=== PATIENT | male | born 1960 | race Caucasian/White ===

== ENCOUNTER 2020-03-23 12:04 | Emergency (ER) | payer MEDICARE, MEDICAID, SELFPAY ==
--- NOTE | ~2020-03-23 | XR_ITS ---
EXAMINATION: XR chest 2V 03/23/2020 12:41 INDICATION: Chest tightness and left-sided chest pain PROCEDURE: 2 view chest COMPARISON: Comparison to multiple prior studies sequentially, with oldest reviewed study dated 12/04. FINDINGS: The lungs are clear. The cardiomediastinal silhouette is within normal limits. There are no pleural effusions. There is no pneumothorax suspected. IMPRESSION: 1: NO ACUTE CARDIOPULMONARY DISEASE. Reviewed, dictated and finalized at location B. 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
[2020-03-23 12:10] VITALS: BP 122/87; PULSE 80; PULSE 81; RESP 14; TEMP 37.1; O2SAT 92
--- NOTE | 2020-03-23 12:15 | ECG_ITS ---
Measurements Intervals [place] Rate: 77 P: 71 IA: 138 QRS: 79 QRSD: 91 T: 71 QT: 351 QTc: 399 Interpretive Statements SINUS RHYTHM INCOMPLETE RIGHT BUNDLE BRANCH BLOCK BASELINE ARTIFACT- I, II, III, AVR, AVL, AVF BORDERLINE ECG Electronically Signed On 03-23-2020 13:31:39 ASSISTANCE SPECIALIST by Royer Butler D.O.
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
[2020-03-23 12:34] LABS: Basophils Absolute Auto 0.07 K/mm3 (0.00-0.10); Basophils Percent Auto 0.8 % (0.0-1.0); Eosinophils Absolute Auto 0.25 K/mm3 (0.02-0.50); Eosinophils Percent Auto 2.7 % (1.0-6.0); Hematocrit 52.1 % (40.0-54.0); Hemoglobin 17.5 g/dL (14.0-18.0); Immature Granulocyte Absolute 0.03 K/mm3 (0.00-0.00); Immature Granulocyte Percent A 0.3 % (0.0-0.0); Lymphocytes Absolute Auto 2.33 K/mm3 (1.10-4.50); Lymphocytes Percent Auto 25.3 % (18.0-42.0); Mean Corpuscular HGB Conc 33.6 g/dL (32.0-36.0); Mean Corpuscular Hemoglobin 30.5 pg (27.0-31.0); Mean Corpuscular Volume 90.8 fL (78.0-102.0); Mean Platelet Volume 9.5 fl (8.7-11.0); Monocytes Absolute Auto 0.65 K/mm3 (0.10-0.90); Monocytes Percent Auto 7.1 % (2.0-11.0); Neutrophils Absolute Auto 5.9 K/mm3 (1.7-7.2); Neutrophils Percent Auto 63.8 % (50.0-70.0); Platelet Count Result 213 K/mm3 (150-420); Red Blood Count 5.74 M/mm3 (4.70-6.10); Red Cell Distribution Width 12.4 % (11.6-14.4); White Blood Count 9.2 K/mm3 (4.8-10.8)
[2020-03-23] MEDS: ASPIRIN 81 MG CHEWABLE TABLET 324 MG PO (12:45)
[2020-03-23 12:49] LABS: D Dimer 0.46 mg/L (0.19-0.50); Partial Thromboplastin Time 25.9 SEC (23.90-30.70); Prothrombin Time 10.9 Seconds (9.50-12.10)
[2020-03-23 12:55] LABS: Alanine Aminotransferase 38 U/L (16-63); Albumin Level 3.8 g/dL (3.4-5.0); Alkaline Phosphatase 56 U/L (46-116); Anion Gap 9 mmol/L (8-16); Aspartate Amino Transferase 22 U/L (15-37); Bilirubin,Total 0.5 mg/dL (0.00-1.00); Blood Urea Nitrogen 12 mg/dL (7-18); Calcium 9.2 mg/dL (8.5-10.1); Carbon Dioxide 28 mmol/L (21-32); Chloride 101 mmol/L (98-108); Estimated CRCL calculation 86 ml/min; Estimated Glomerular Filt Rate > 60; Glucose 97 mg/dL (70-99); Lipase 73 U/L (73-393); Osmolality Calculated 285 mOsm/kg (285-295); Potassium 4.3 mmol/L (3.5-5.1); Sodium 138 mmol/L (136-145); Total Protein 8.1 g/dL (6.4-8.2)
[2020-03-23 12:56] LABS: Troponin I < 0.02 ng/mL (0.00-0.056)
[2020-03-23] MEDS: MAG HYDROX/ALUMINUM HYD/SIMETH 30 ML, PHENobarb/HYOSCY/ATROPINE/SCOP 32.4 MG, LIDOCAINE... PO (12:58)
[2020-03-23] MEDS: NITROGLYCERIN SL 0.4 MG TABLET SUBLINGUAL (13:20)
--- NOTE | 2020-03-23 13:41 | PC.NURSE ---
1340 RN REQUESTING ER HOLD ROOM FROM [facility]. AWAITING CALL BACK.
--- NOTE | 2020-03-23 13:53 | PC.NURSE ---
DUE TO LIMITED 2ND FLOOR ROOMS, PT WILL STAY IN ED ROOM 3 WHILE AWAITING SERIAL CARDIAC ENZYMES. FLOOR BED PROVIDED FOR PATIENTS COMFORT.
[2020-03-23 16:24] LABS: Troponin I < 0.0 ng/L (0.00-60.4)
[2020-03-23 18:38] LABS: Add Urine Microscopic? YES; Appearance Urine Clear (Clear); Bilirubin Urine Negative (Negative); Blood Urine Negative (Negative); Color Urine Yellow (Yellow); Glucose Urine UA Negative (Negative); Ketones Urine Negative (Negative); Leukocyte Esterase Ur Trace LEU/UL (Negative); Nitrate Urine Negative (Negative); Protein Urine Negative (Negative); Specific Grav Ur 1.025 (1.010-1.020); Urobilinogen Urine 0.2 mg/dL (0.2-1.0)
[2020-03-23 18:46] LABS: Bacteria Urine Trace /hpf; RBC Urine 0-2 /hpf (0-2); Squamous Epithelial Cell Urine Few /hpf (Few)
[2020-03-23 18:50] LABS: Troponin I < 0.0 ng/L (0.00-60.4)
[2020-03-23] MEDS: ALBUTEROL SULFATE (*SP) INHALER 2 PUFF INHALATION (18:55)
[2020-03-23 18:56] VITALS: RESP 16
[2020-03-23 18:59] VITALS: RESP 16
[2020-03-23 19:00] VITALS: BP 124/78; PULSE 60; RESP 19; O2SAT 91
== END 2020-03-23 19:15 | disposition home or self-care (01) ==
PROVIDERS: Emergency Provider Emergency Medicine; PCP Nurse Practitioner
DX: R07.9 Chest pain, unspecified (principal)
CPT/HCPCS: 36415; 71046; 80053; 81001; 83690; 84484; 85025; 85380; 85610; 85730; 93005; 94640; 99283; 99284; A9270

== ENCOUNTER 2021-09-27 17:14 | Emergency (ER) | payer OTHER, SELFPAY ==
[2021-09-27] VITALS (9 sets, daily range): BP systolic 110–136; BP diastolic 76–93; PULSE 70–87; RESP 12–18; TEMP 36–36.6; O2SAT 92–98
--- NOTE | ~2021-09-27 | XR_ITS ---
EXAMINATION: XR chest 1V portable 09/27/2021 17:49 INDICATION: Shortness of breath PROCEDURE: AP portable chest COMPARISON: Comparison to multiple prior studies sequentially, with oldest reviewed study dated 08/2016. FINDINGS: The lungs are clear. The cardiomediastinal silhouette is within normal limits. There are no pleural effusions. There is no pneumothorax suspected. IMPRESSION: 1: NO ACUTE CARDIOPULMONARY DISEASE. Reviewed, dictated and finalized at location B.
--- NOTE | ~2021-09-27 | CT_ITS ---
EXAMINATION: CTA chest PE protocol DATE: 09/27/2021 19:26 INDICATION: Chest pain and shortness of breath. TECHNIQUE: Computed tomography angiography (CTA) of the chest was performed with 100 mL Omnipaque-350 intravenous contrast timed to evaluate the pulmonary arteries. Coronal maximum intensity projection 3D-reconstructions were created by the technologist. Automated exposure control and iterative reconst ruction technique were employed. The dose-length product was 895.61 mGy-cm. COMPARISON: Chest CT 03/28/2017, 02/03/2017 FINDINGS: There is mild symmetric scarring at the lung apices. There is minimal atelectasis bilateral ly. Again seen is a 6 mm nodule in right lower lobe. There are calcified pleural plaques on the right . There is a chronic 4 mm nodule in left upper lobe. No pleural effusion. There is bilateral gynecoma stia. The heart size is normal. No pericardial effusion. There is no pulmonary embolus. There is diff use hepatic steatosis. There is a 14 mm mass in left adrenal gland measuring soft tissue attenuation without change from 02/03/2017, likely an adenoma. There is mild thoracic spondylosis. There are frac tures of posterior left 10th and 11th ribs. IMPRESSION: 1. No pulmonary embolus. 2. Fractures of posterior left 10th and 11th ribs, likely subacute. Reviewed, dictated and finalized at location E.
--- NOTE | 2021-09-27 17:27 | ED.CHESTPAIN ---
HPI - Chest Pain General Chief Complaint: Chest Pain Stated Complaint: chest pain,dizzy Time Seen by Provider: 09/27/21 17:28 Source: patient Mode of arrival: ambulatory History of Present Illness HPI narrative: 61-year-old male, smoker with a history of depression, anxiety,opiate abuse on Suboxone, COPD on home oxygen, negative cardiac catheterization 1 year ago, presents to the ER with 2 hour history of -- left chest/ med chest pain with radiation to the left shoulder. No Nausea/vomiting. -- worsening of his chronic shortness of breath -- lightheadedness/dizziness The patient was admitted in [facility] yesterday for chest pain and was discharged this morning when he was pain-free. MD complaint: chest pain Onset (ago): hour(s) ( Started 2 hours ago) Timing of current episode: constant Prior episodes: Yes Onset: during rest Pain location: substernal and left chest Pain radiation: left shoulder Severity: moderate Quality: tightness and aching Relieving factors: nothing Exacerbating factors: nothing Associated symptoms: dyspnea Treatment prior to arrival: none Risk Factors Coronary artery disease risk factors: smoking history Related Data Home Medications Medication Instructions Recorded Confirmed buprenorphine 8 mg-naloxone 2 mg 1 film sublingual TID 03/23/20 09/27/21 sublingual film (Suboxone) olanzapine 20 mg tablet 20 mg PO DAILY 03/23/20 09/27/21 sertraline 100 mg tablet 100 mg PO DAILY 03/23/20 09/27/21 bupropion HCl 150 mg 24 hr tablet, 1 tablet PO DAILY 09/27/21 09/27/21 extended release diclofenac sodium 75 mg 1 tablet PO DAILY 09/27/21 09/27/21 tablet,delayed release dicyclomine 10 mg capsule 1 cap DAILY 09/27/21 09/27/21 ergocalciferol (vitamin D2) 1,250 1 cap DAILY 09/27/21 09/27/21 mcg (50,000 unit) capsule famotidine 20 mg tablet 1 tablet DAILY 09/27/21 09/27/21 levothyroxine 25 mcg tablet 1 tablet DAILY 09/27/21 09/27/21 metformin 500 mg tablet,extended 1 tablet PO DAILY 09/27/21 09/27/21 release 24 hr Allergies Allergy/AdvReac Type Severity Reaction Status Date / Time No Known Allergies Allergy Verified 09/27/21 17:34 Review of Systems Review of Systems: All systems reviewed & are unremarkable except as noted in HPI and below Constitutional: Constitutional: Reports as per HPI and Reports no additional constitutional complaints Eyes: Eyes: Reports as per HPI and Reports no additional eye complaints ENT: Reports system reviewed and no additional complaints, except as documented and Reports as per HPI Cardiovascular: Cardiovascular: Reports as per HPI and Reports no additional cardiovascular complaints Respiratory: Respiratory: Reports as per HPI, Reports no additional respiratory complaints, Reports chest congestion, Reports cough, Reports dyspnea and Reports wheezing Gastrointestinal: Gastrointestinal: Reports as per HPI and Reports no additional gastrointestinal complaints Genitourinary: Genitourinary: Reports no additional male genitourinary complaints Musculoskeletal: Musculoskeletal: Reports no additional musculoskeletal complaints and Reports as per HPI Integumentary/Breasts: Skin/Breast: Reports system reviewed and no additional complaints, except as docu and Reports as per HPI Neurologic: Reports system reviewed and no additional complaints, except as documented and Reports as per HPI Psychiatric: Psychiatric: Reports no additional psychiatric complaints and Reports anxiety Endocrine: Endocrine: Reports no additional endocrine complaints and Reports as per HPI Hematologic/Lymphatic: Hematologic/Lymphatic: Reports no additional hematologic/lymphatic complaints and Reports as per HPI Allergic/Immunologic: Allergic/Immunologic: Reports no additional allergic/immunologic complaints and Reports as per HPI PMF Past Medical History Medical History Depression Drug abuse on Suboxone Surgical H
--- NOTE | 2021-09-27 17:37 | ECG_ITS ---
Measurements Intervals [place] Rate: 77 P: 69 NM: 141 QRS: 69 QRSD: 93 T: 56 QT: 378 QTc: 430 Interpretive Statements SINUS RHYTHM NONSPECIFIC T-WAVE ABNORMALITY Electronically Signed On 09-28-2021 11:09:40 CDT by Tushar Hernandez M.D.
[2021-09-27] MEDS: ASPIRIN 81 MG CHEWABLE TABLET 324 MG PO (17:58)
[2021-09-27 18:01] LABS: Basophils Absolute Auto 0.05 K/mm3 (0.00-0.10); Basophils Percent Auto 0.6 % (0.0-1.0); Eosinophils Absolute Auto 0.66 K/mm3 (0.02-0.50); Eosinophils Percent Auto 7.7 % (1.0-6.0); Hematocrit 40.8 % (40.0-54.0); Hemoglobin 13.5 g/dL (14.0-18.0); Immature Granulocyte Absolute 0.03 K/mm3 (0.00-0.00); Immature Granulocyte Percent A 0.3 % (0.0-0.0); Lymphocytes Absolute Auto 2.07 K/mm3 (1.10-4.50); Lymphocytes Percent Auto 24.1 % (18.0-42.0); Mean Corpuscular HGB Conc 33.1 g/dL (32.0-36.0); Mean Corpuscular Hemoglobin 30.4 pg (27.0-31.0); Mean Corpuscular Volume 91.9 fL (78.0-102.0); Mean Platelet Volume 9.3 fl (8.7-11.0); Monocytes Absolute Auto 0.69 K/mm3 (0.10-0.90); Neutrophils Absolute Auto 5.1 K/mm3 (1.7-7.2); Neutrophils Percent Auto 59.3 % (50.0-70.0); Platelet Count Result 199 K/mm3 (150-420); Red Blood Count 4.44 M/mm3 (4.70-6.10); Red Cell Distribution Width 11.9 % (11.6-14.4); White Blood Count 8.6 K/mm3 (4.8-10.8)
[2021-09-27 18:16] LABS: Partial Thromboplastin Time 25.6 SEC (23.90-30.70); Prothrombin Time 10.8 Seconds (9.50-12.10)
[2021-09-27 18:17] LABS: D Dimer 0.65 mg/L (0.19-0.50)
[2021-09-27 18:18] LABS: Lactic Acid Reflex 0.5 mmol/L (0.4-2.0)
[2021-09-27 18:23] LABS: Alanine Aminotransferase 48 U/L (16-63); Albumin Level 3.6 g/dL (3.4-5.0); Alkaline Phosphatase 52 U/L (46-116); Anion Gap 5 mmol/L (8-16); Aspartate Amino Transferase 21 U/L (15-37); Bilirubin,Total 0.3 mg/dL (0.00-1.00); Blood Urea Nitrogen 17 mg/dL (7-18); Carbon Dioxide 32 mmol/L (21-32); Chloride 101 mmol/L (98-108); Estimated CRCL calculation 113 ml/min; Estimated Glomerular Filt Rate > 60; Glucose 107 mg/dL (70-99); NT Pro B Type Natriuretic Pept 103 pg/mL (0-125); Osmolality Calculated 287 mOsm/kg (285-295); Potassium 3.8 mmol/L (3.5-5.1); Sodium 138 mmol/L (136-145); Total Protein 7.4 g/dL (6.4-8.2); Troponin I 9.4 ng/L (0.00-60.4)
[2021-09-27] MEDS: LACTATED RINGERS 1,000 ML 999 ML IV CONT (19:45)
== END 2021-09-27 21:52 | disposition home or self-care (01) ==
PROVIDERS: Emergency Provider Internal Medicine Critical Care Medicine; PCP Nurse Practitioner
DX: S22.32XA Fracture of one rib, left side, initial encounter for closed fracture (principal); R07.89 Other chest pain; R06.00 Dyspnea, unspecified
CPT/HCPCS: 36415; 71045; 71275; 80053; 83605; 83880; 84484; 85025; 85380; 85610; 85730; 93005; 96360; 99284; A9270; J7120; Q9967

== ENCOUNTER 2021-11-22 12:16 | Outpatient (CLI) | payer OTHER, SELFPAY ==
--- NOTE | ~2021-11-22 | XR_ITS ---
EXAMINATION: XR chest 2V 11/22/2021 12:33 INDICATION: Shortness of breath and chest pain PROCEDURE: 2 view chest COMPARISON: Comparison to multiple prior studies sequentially, with oldest reviewed study dated 06/13. FINDINGS: The lungs are clear. The cardiomediastinal silhouette is within normal limits. There are no pleural effusions. There is no pneumothorax suspected. IMPRESSION: 1: NO ACUTE CARDIOPULMONARY DISEASE. Reviewed, dictated and finalized at location A.
== END 2021-11-22 12:17 | disposition home or self-care (01) ==
PROVIDERS: PCP Nurse Practitioner Family; Visit Provider Nurse Practitioner Family
DX: R06.02 Shortness of breath (principal)
CPT/HCPCS: 71046

== ENCOUNTER 2022-02-17 12:12 | Emergency (ER) | payer OTHER, SELFPAY ==
--- NOTE | ~2022-02-17 | XR_ITS ---
XR chest 2V DATE: 02/17/2022 13:19 INDICATION: Shortness of breath TECHNIQUE: PA and lateral views COMPARISON: 11/22/2021 2 view chest FINDINGS: Normal heart size. No hilar or mediastinal enlargement. Moderate hyperinflation. No pulmona ry infiltrate or consolidation, pleural effusion or pulmonary vascular congestion or pneumothorax. No hilar or mediastinal enlargement. Aortic arch calcification. IMPRESSION: No active cardiopulmonary disease Reviewed, dictated and finalized at location A.
[2022-02-17 12:15] VITALS: BP 121/84; PULSE 73; RESP 20; TEMP 35.9; O2SAT 98
[2022-02-17 12:30] VITALS: BP 121/84; PULSE 73; RESP 20; TEMP 35.9; O2SAT 98
--- NOTE | 2022-02-17 12:35 | ECG_ITS ---
Measurements Intervals [place] Rate: 78 P: 57 OR: 134 QRS: 63 QRSD: 91 T: 47 QT: 364 QTc: 415 Interpretive Statements SINUS RHYTHM BASELINE ARTIFACT NONSPECIFIC ST ABNORMALITY BORDERLINE ECG COMPARED TO ECG 09/27/2021 17:42:37 NO SIGNIFICANT CHANGES Electronically Signed On 02-18-2022 16:31:33 CDT by Brayan Peñaloza M.D.
[2022-02-17 13:09] LABS: Basophils Absolute Auto 0.05 K/mm3 (0.00-0.10); Basophils Percent Auto 0.6 % (0.0-1.0); Eosinophils Absolute Auto 0.65 K/mm3 (0.02-0.50); Eosinophils Percent Auto 7.9 % (1.0-6.0); Hematocrit 41.4 % (40.0-54.0); Hemoglobin 13.9 g/dL (14.0-18.0); Immature Granulocyte Absolute 0.03 K/mm3 (0.00-0.00); Immature Granulocyte Percent A 0.4 % (0.0-0.0); Lymphocytes Absolute Auto 2.29 K/mm3 (1.10-4.50); Lymphocytes Percent Auto 27.8 % (18.0-42.0); Mean Corpuscular HGB Conc 33.6 g/dL (32.0-36.0); Mean Corpuscular Volume 92.4 fL (78.0-102.0); Mean Platelet Volume 9.5 fl (8.7-11.0); Monocytes Absolute Auto 0.64 K/mm3 (0.10-0.90); Monocytes Percent Auto 7.8 % (2.0-11.0); Neutrophils Absolute Auto 4.6 K/mm3 (1.7-7.2); Neutrophils Percent Auto 55.5 % (50.0-70.0); Platelet Count Result 209 K/mm3 (150-420); Red Blood Count 4.48 M/mm3 (4.70-6.10); Red Cell Distribution Width 11.8 % (11.6-14.4); White Blood Count 8.2 K/mm3 (4.8-10.8)
[2022-02-17 13:25] LABS: D Dimer 0.35 mg/L (0.19-0.50); Partial Thromboplastin Time 25.4 SEC (23.90-30.70); Prothrombin Time 10.7 Seconds (9.50-12.10)
[2022-02-17 13:36] LABS: Alanine Aminotransferase 36 U/L (16-63); Albumin Level 3.7 g/dL (3.4-5.0); Alkaline Phosphatase 52 U/L (46-116); Anion Gap 5 mmol/L (8-16); Aspartate Amino Transferase 16 U/L (15-37); Bilirubin,Total 0.3 mg/dL (0.00-1.00); Blood Urea Nitrogen 19 mg/dL (7-18); Calcium 8.9 mg/dL (8.5-10.1); Carbon Dioxide 31 mmol/L (21-32); Chloride 102 mmol/L (98-108); Estimated CRCL calculation 95 ml/min; Estimated Glomerular Filt Rate > 60; Glucose 115 mg/dL (70-99); NT Pro B Type Natriuretic Pept 58 pg/mL (0-125); Osmolality Calculated 289 mOsm/kg (285-295); Potassium 4.7 mmol/L (3.5-5.1); Sodium 138 mmol/L (136-145); Total Protein 7.5 g/dL (6.4-8.2); Troponin I 6.7 ng/L (0.00-60.4)
[2022-02-17 13:40] VITALS: BP 125/67; PULSE 79; RESP 16; O2SAT 98
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
[2022-02-17] MEDS: KETOROLAC 30 MG/ML VIAL (*BKC) IV PUSH (14:13)
[2022-02-17 14:35] VITALS: BP 112/65; PULSE 70; RESP 18; TEMP 36.8; O2SAT 97
--- NOTE | 2022-02-23 20:03 | PC.NURSE ---
FINAL URINE CULTURES X2 NO GROWTH AFTER 5 DAYS
== END 2022-02-17 14:40 | disposition home or self-care (01) ==
PROVIDERS: Emergency Provider Emergency Medicine; PCP Nurse Practitioner Family
DX: R09.1 Pleurisy (principal); F17.200 Nicotine dependence, unspecified, uncomplicated
CPT/HCPCS: 36415; 71046; 80053; 83735; 83880; 84484; 85025; 85380; 85610; 85730; 87040; 93005; 96374; 99284; J1885

== ENCOUNTER 2022-02-26 22:37 | Emergency (ER) | payer OTHER, SELFPAY ==
--- NOTE | ~2022-02-26 | XR_ITS ---
XR chest 2V DATE: 02/26/2022 23:38 INDICATION: Shortness of breath TECHNIQUE: PA and lateral views COMPARISON: 02/17/2022 PA and lateral chest FINDINGS: Heart size is normal. No hilar or mediastinal enlargement. No pulmonary infiltrate or conso lidation, pleural effusion or pulmonary vascular congestion or pneumothorax. IMPRESSION: No active cardiopulmonary disease Reviewed, dictated and finalized at location A. 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
[2022-02-26 22:42] VITALS: BP 138/73; PULSE 91; RESP 20; TEMP 36.3; O2SAT 97
[2022-02-26 22:54] VITALS: PULSE 88; O2SAT 96
[2022-02-26 22:55] VITALS: O2SAT 98
--- NOTE | 2022-02-26 23:14 | ECG_ITS ---
Measurements Intervals [place] Rate: 87 P: 62 HI: 148 QRS: 70 QRSD: 87 T: 56 QT: 350 QTc: 422 Interpretive Statements SINUS RHYTHM INCOMPLETE RIGHT BUNDLE BRANCH BLOCK BASELINE ARTIFACT- I, II, AVR BORDERLINE ECG COMPARED TO ECG 02/17/2022 12:30:15 NO SIGNIFICANT CHANGES Electronically Signed On 02-27-2022 7:22:38 CHANGE NUMBER OPERATOR by Royer Butler D.O.
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
[2022-02-26 23:57] LABS: Alanine Aminotransferase 40 U/L (6-50); Albumin Level 4.6 g/dL (3.5-5.1); Alkaline Phosphatase 50 U/L (38-126); Anion Gap 13 mmol/L (8-16); Aspartate Amino Transferase 30 U/L (17-59); Bilirubin,Total 0.5 mg/dL (0.2-1.3); Blood Urea Nitrogen 23 mg/dL (9-20); Calcium 8.7 mg/dL (8.4-10.2); Carbon Dioxide 27 mmol/L (22-30); Chloride 98 mmol/L (98-107); Estimated CRCL calculation 80 ml/min; Estimated Glomerular Filt Rate > 60; Glucose 106 mg/dL (65-110); Potassium 3.7 mmol/L (3.4-5.0); Sodium 138 mmol/L (137-145)
[2022-02-27] LABS: INR 1.1; Partial Thromboplastin Time 27.2 SECONDS (22.3-36.8); Prothrombin Time 13.3 Seconds (11.1-14.7)
[2022-02-27 00:06] LABS: D Dimer 0.29 ug/mL (<0.48)
[2022-02-27 00:09] LABS: NT Pro B Type Natriuretic Pept 36 pg/mL (5-100); Troponin I < 0.012 ng/mL (0.000-0.034)
[2022-02-27 00:10] LABS: Basophils Absolute Auto 0.1 K/mm3 (0.0-0.1); Basophils Percent Auto 0.5 % (0.2-1.2); Eosinophils Absolute Auto 0.5 K/mm3 (0-0.3); Eosinophils Percent Auto 5.7 % (0-4.4); Hematocrit 42.8 % (42.0-52.0); Hemoglobin 14.3 g/dL (14.0-18.0); Immature Granulocyte Absolute 0.02 K/mm3 (0.00-0.031); Immature Granulocyte Percent A 0.2 % (0-0.5); Lymphocytes Absolute Auto 3.26 K/mm3 (0.9-3.2); Lymphocytes Percent Auto 34.3 % (18.3-44.2); Mean Corpuscular HGB Conc 33.4 g/dl (32-36); Mean Corpuscular Hemoglobin 31.2 pg (26-34); Mean Corpuscular Volume 93.2 fl (80-100); Mean Platelet Volume 9.8 fl (7.4-10.4); Monocytes Percent Auto 10.7 % (2.6-8.5); Neutrophils Absolute Auto 4.6 K/mm3 (1.3-6.7); Neutrophils Percent Auto 48.6 % (45.5-73.1); Platelet Count Result 234 k/mm3 (150-375); Red Blood Count 4.59 M/mm3 (4.6-6.20); Red Cell Distribution Width 12.4 % (11.5-14.5); White Blood Count 9.5 K/mm3 (4.5-10.0)
[2022-02-27] MEDS: IPRATROPIUM BR 0.02% INH SOLN 0.5 MG/2.5 ML VIAL INHALATION (00:12)
[2022-02-27] MEDS: ALBUTEROL SULFATE NEB 2.5 MG/3 ML INH 5 MG INHALATION (00:12)
[2022-02-27] MEDS: methylPREDNISolone SOD SUCC 125 MG VIAL IV PUSH (00:13)
[2022-02-27 00:16] VITALS: PULSE 88; RESP 14
[2022-02-27 00:22] LABS: Influenza A QL RT-PCR Negative (Negative); Influenza B QL RT-PCR Negative (Negative); SARS-CoV-2 RNA PCR Negative
--- NOTE | 2022-02-27 01:04 | PC.NURSE ---
Pt here during seasonal time change. Times may be repeated.
== END 2022-02-27 01:20 | disposition home or self-care (01) ==
PROVIDERS: Physician Assistant; Emergency Provider Emergency Medicine; PCP Nurse Practitioner Family
DX: J44.1 Chronic obstructive pulmonary disease with (acute) exacerbation (principal); F17.200 Nicotine dependence, unspecified, uncomplicated; Z20.822 Contact with and (suspected) exposure to COVID-19
CPT/HCPCS: 36415; 71046; 80053; 83880; 84484; 85025; 85380; 85610; 85730; 87636; 93005; 94640; 96374; 99284; J2930

== ENCOUNTER 2022-04-02 15:51 | Emergency (ER) | payer OTHER, SELFPAY ==
--- NOTE | ~2022-04-02 | CT_ITS ---
EXAMINATION: CTA chest PE protocol DATE: 04/02/2022 17:27 INDICATION: shortness of breath elevated D-dimer TECHNIQUE: Computed tomography angiography (CTA) of the chest was performed with 100 mL Omnipaque-350 intravenous contrast timed to evaluate the pulmonary arteries. Coronal maximum intensity projection 3D-reconstructions were created by the technologist. The dose-length product (DLP) was 941.51 mGy-cm. Automated exposure control and iterative reconstruction technique were employed. COMPARISON: Chest x-ray, same date; CTPA 09/27/2021, CT chest thorax 03/28/2017, CT thorax 02/03/2017. FINDINGS: Lung parenchyma and airways: Biapical pleural scarring. Multiple sub-5 mm pulmonary nodules, demonstr ating long-term stability. Pleura: Unremarkable. Thoracic inlet, axillae and chest wall: Bilateral gynecomastia. Thoracic aorta: Mild arch calcification. No significant dilation. Mediastinum: Normal. Heart and pericardium: Normal. Coronary artery calcifications: Absent. Upper abdomen: Diffuse fatty infiltration of the liver. 1.4 cm indeterminate density left adrenal nod ule, demonstrates long-term stability. Bones: No acute osseous finding. Pulmonary arteries: Study quality: Adequate. No pulmonary emboli detected. IMPRESSION: No CT evidence of acute pulmonary embolus. Reviewed, dictated and finalized at location K. RONMENTAL ISSUES INSTRUCTOR
--- NOTE | ~2022-04-02 | XR_ITS ---
EXAMINATION: XR chest 1V portable Exam Date/Time: 04/02/2022 16:40 ALTERATION SPECIALIST HISTORY: MID CP X 2 DAYS/HX OF COPD Comparison: 02/26/2022, CTPA 04/02/2022. RESULT: Lines, tubes, and devices: None. Lungs and pleura: Linear right mid lung atelectasis/scar. Bibasilar linear opacities likely represen ting atelectasis/scar. Cardiomediastinal silhouette: Stable. Other: No acute osseous or upper abdominal finding. IMPRESSION: No acute cardiopulmonary process. Reviewed, dictated and finalized at location K. RATION SPECIALIST
[2022-04-02 15:56] VITALS: BP 131/66; PULSE 66; RESP 18; TEMP 36.6; O2SAT 100
--- NOTE | 2022-04-02 16:00 | ECG_ITS ---
Measurements Intervals [place] Rate: 69 P: 61 SC: 146 QRS: 66 QRSD: 87 T: 55 QT: 362 QTc: 390 Interpretive Statements SINUS RHYTHM WITH SINUS ARRHYTHMIA MINOR RV CONDUCTION ABNORMALITY BORDERLINE ECG COMPARED TO ECG 02/26/2022 23:42:14 NO SIGNIFICANT CHANGE Electronically Signed On 04-03-2022 8:46:34 SALES/MARKETING by Marcial Martini M.D.
[2022-04-02 16:03] VITALS: O2SAT 96
[2022-04-02 16:23] VITALS: PULSE 80; RESP 18; O2SAT 97
[2022-04-02] MEDS: IPRATROPIUM 0.5 MG/ALBUTEROL SULFATE 2.5 MG AMPUL.NEB 3 ML INHALATION (16:23)
[2022-04-02] MEDS: methylPREDNISolone SOD SUCC 125 MG VIAL IV PUSH (16:27)
[2022-04-02] MEDS: ASPIRIN 81 MG CHEWABLE TABLET 324 MG PO (16:27)
[2022-04-02 16:30] VITALS: PULSE 86; RESP 16
[2022-04-02 16:40] LABS: Basophils Absolute Auto 0.06 K/mm3 (0.00-0.10); Basophils Percent Auto 0.7 % (0.0-1.0); Eosinophils Absolute Auto 0.49 K/mm3 (0.02-0.50); Eosinophils Percent Auto 5.4 % (1.0-6.0); Hematocrit 40.3 % (40.0-54.0); Hemoglobin 13.3 g/dL (14.0-18.0); Immature Granulocyte Absolute 0.03 K/mm3 (0.00-0.00); Immature Granulocyte Percent A 0.3 % (0.0-0.0); Lymphocytes Absolute Auto 2.01 K/mm3 (1.10-4.50); Lymphocytes Percent Auto 22.1 % (18.0-42.0); Mean Corpuscular Hemoglobin 30.6 pg (27.0-31.0); Mean Corpuscular Volume 92.6 fL (78.0-102.0); Mean Platelet Volume 9.3 fl (8.7-11.0); Monocytes Absolute Auto 0.73 K/mm3 (0.10-0.90); Neutrophils Absolute Auto 5.8 K/mm3 (1.7-7.2); Neutrophils Percent Auto 63.5 % (50.0-70.0); Platelet Count Result 214 K/mm3 (150-420); Red Blood Count 4.35 M/mm3 (4.70-6.10); Red Cell Distribution Width 12.4 % (11.6-14.4); White Blood Count 9.1 K/mm3 (4.8-10.8)
[2022-04-02 16:49] LABS: Partial Thromboplastin Time 25.6 SEC (23.90-30.70); Prothrombin Time 10.8 Seconds (9.50-12.10)
[2022-04-02 16:57] LABS: Alanine Aminotransferase 41 U/L (16-63); Albumin Level 3.7 g/dL (3.4-5.0); Alkaline Phosphatase 49 U/L (46-116); Anion Gap 6 mmol/L (8-16); Aspartate Amino Transferase 17 U/L (15-37); Bilirubin,Total 0.2 mg/dL (0.00-1.00); Blood Urea Nitrogen 21 mg/dL (7-18); Calcium 8.6 mg/dL (8.5-10.1); Carbon Dioxide 30 mmol/L (21-32); Chloride 104 mmol/L (98-108); Estimated CRCL calculation 64 ml/min; Estimated Glomerular Filt Rate > 60; Glucose 105 mg/dL (70-99); Lipase 48 U/L (73-393); NT Pro B Type Natriuretic Pept 91 pg/mL (0-125); Osmolality Calculated 293 mOsm/kg (285-295); Potassium 4.5 mmol/L (3.5-5.1); Sodium 140 mmol/L (136-145); Total Protein 7.4 g/dL (6.4-8.2); Troponin I 11.2 ng/L (0.00-60.4)
[2022-04-02 17:18] LABS: Influenza A QL RT-PCR Negative (Negative); Influenza B QL RT-PCR Negative (Negative); SARS-CoV-2 RNA PCR Negative (Negative)
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
[2022-04-02] MEDS: levoFLOXacin 500 MG/D5W 100 ML 500 MG/100 ML BAG 100 MG IVPB (18:32)
[2022-04-02 19:37] VITALS: BP 115/88; PULSE 77; RESP 18; TEMP 36.7; O2SAT 100
== END 2022-04-02 20:06 | disposition home or self-care (01) ==
PROVIDERS: Emergency Provider Emergency Medicine; PCP Nurse Practitioner Family
DX: J44.1 Chronic obstructive pulmonary disease with (acute) exacerbation (principal); J06.9 Acute upper respiratory infection, unspecified; F32.A Depression, unspecified; F11.20 Opioid dependence, uncomplicated; F17.200 Nicotine dependence, unspecified, uncomplicated; Z79.84 Long term (current) use of oral hypoglycemic drugs; Z20.822 Contact with and (suspected) exposure to COVID-19
CPT/HCPCS: 36415; 71045; 71275; 80053; 83605; 83690; 83880; 84484; 85025; 85380; 85610; 85730; 87502; 93005; 94640; 96365; 96375; 99284; A9270; J1956; J2930; Q9967; U0003; U0005

== ENCOUNTER 2022-08-30 11:25 | Observation (INO) | payer OTHER, SELFPAY ==
[2022-08-30] VITALS (16 sets, daily range): BP systolic 76–130; BP diastolic 46–98; PULSE 80–91; RESP 13–21; TEMP 36.6; O2SAT 90–99; BMI 37.5
--- NOTE | ~2022-08-30 | XR_ITS ---
Portable chest x-ray Comparison: 04/02/2022 Clinical History: Altered mental status Findings: There is hazy right basilar airspace disease. Left lung is clear. Cardiomediastinal silho uette is stable. Bones and soft tissues are unremarkable. Impression: Hazy right basilar airspace disease. Correlate for atelectasis/pulmonary edema versus pneumonia. Reviewed, dictated and finalized at location . Impression: Hazy right basilar airspace disease. Correlate for atelectasis/pulmonary edema versus pneumonia.
--- NOTE | ~2022-08-30 | CT_ITS ---
EXAMINATION: CT brain wo con DATE: 08/30/2022 12:12 INDICATION: Altered mental status TECHNIQUE: Computed tomography (CT) of the head was performed without intravenous contrast. The dose- length product was 681.00 mGy-cm. Automated exposure control and iterative reconstruction technique w ere employed. COMPARISON: CT dated 07/06/2014 FINDINGS: No acute intracranial hemorrhage, infarction, mass or mass effect. No ventriculomegaly or m idline shift. Basilar cisterns are patent. Normal gonzalez-white differentiation. There are scattered mil d periventricular and subcortical white matter changes, most likely related to small vessel ischemic disease (microangiopathy). There is intracranial atherosclerosis. There is mild mucosal thickening of the maxillary, frontal and ethmoid sinuses. Small left mastoid effusion. IMPRESSION: 1. No acute intracranial abnormality. 2: Mild sinus disease. 3: Chronic age-related findings. Reviewed, dictated and finalized at location L.
[2022-08-30 11:36] LABS: Glucose Point of Care 90 mg/dl (65-105)
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
--- NOTE | 2022-08-30 11:41 | ECG_ITS ---
Measurements Intervals [place] Rate: 87 P: 65 [place]: 140 QRS: 75 QRSD: 96 T: 62 QT: 342 QTc: 413 Interpretive Statements SINUS RHYTHM INCOMPLETE RIGHT BUNDLE BRANCH BLOCK BORDERLINE ECG COMPARED TO ECG 04/02/2022 16:00:26 NO SIGNIFICANT CHANGES Electronically Signed On 08-30-2022 14:17:32 CDT by Royer Butler D.O.
[2022-08-30] MEDS: SODIUM CHLORIDE 0.9% IV 1,000 ML 500 ML IV CONT (11:45)
[2022-08-30 12:01] LABS: Amphetamine Screen Urine Negative (Negative); Barbiturate Screen Urine Negative (Negative); Benzodiazepines Screen Urine Positive (Negative); Cannabinoid Screen Urine Negative (Negative); Cocaine Screen Urine Negative (Negative); Methadone Screen Urine Negative (Negative); Opiate Screen Urine Negative (Negative); Phencyclidine Screen Urine Negative (Negative)
[2022-08-30 12:01] LABS: Hematocrit 37.4 % (40.0-54.0); Hemoglobin 12.5 g/dL (14.0-18.0); Mean Corpuscular HGB Conc 33.4 g/dL (32.0-36.0); Mean Corpuscular Volume 92.8 fL (78.0-102.0); Mean Platelet Volume 8.8 fl (8.7-11.0); Platelet Count Result 184 K/mm3 (150-420); Red Blood Count 4.03 M/mm3 (4.70-6.10); Red Cell Distribution Width 12.5 % (11.6-14.4); White Blood Count 9.2 K/mm3 (4.8-10.8)
[2022-08-30 12:10] LABS: Appearance Urine Clear (Clear); Bilirubin Urine Negative (Negative); Blood Urine Negative (Negative); Color Urine Yellow (Yellow); Glucose Urine UA Negative (Negative); Ketones Urine Negative (Negative); Leukocyte Esterase Ur Negative LEU/UL (Negative); Nitrate Urine Negative (Negative); Protein Urine Negative (Negative); Specific Grav Ur >= 1.030 (1.010-1.020); Urobilinogen Urine 0.2 mg/dL (0.2-1.0)
[2022-08-30 12:11] LABS: Add Urine Microscopic? NO
[2022-08-30 12:17] LABS: Partial Thromboplastin Time 23.9 SEC (23.90-30.70); Prothrombin Time 10.8 Seconds (9.50-12.10)
[2022-08-30 12:19] LABS: Alanine Aminotransferase 63 U/L (16-63); Albumin Level 3.6 g/dL (3.4-5.0); Alkaline Phosphatase 41 U/L (46-116); Anion Gap 9 mmol/L (8-16); Aspartate Amino Transferase 41 U/L (15-37); Bilirubin,Total 0.2 mg/dL (0.00-1.00); Blood Urea Nitrogen 30 mg/dL (7-18); Calcium 8.7 mg/dL (8.5-10.1); Carbon Dioxide 32 mmol/L (21-32); Chloride 100 mmol/L (98-108); Estimated CRCL calculation 79 ml/min; Estimated Glomerular Filt Rate 58; Glucose 92 mg/dL (70-99); Osmolality Calculated 298 mOsm/kg (285-295); Potassium 4.5 mmol/L (3.5-5.1); Sodium 141 mmol/L (136-145); Total Protein 7.2 g/dL (6.4-8.2); Troponin I 8.9 ng/L (0.00-60.4)
[2022-08-30 12:21] LABS: Ethanol < 3 mg/dL (0-6)
[2022-08-30 12:28] LABS: NT Pro B Type Natriuretic Pept 122 pg/mL (0-125); Thyroid Stimulating Hormone 2.47 uIU/mL (0.36-3.74)
--- NOTE | 2022-08-30 12:58 | PC.NURSE ---
PT IS SITTING UP ON STRETCHER, GARBLED SPEECH IS NOTED. DAUGHTERS ARE AT BEDSIDE. PT IS TO BE ADMITTED. MILLS CATHETER IS DRAINING WITHOUT DIFFICULTY. IVF IS INFUSING WITHOUT DIFFICULTY. WILL CONTINUE TO MONITOR.
[2022-08-30] MEDS: levoFLOXacin 500 MG/D5W 100 ML 500 MG/100 ML BAG 100 MG IVPB (13:31)
--- NOTE | 2022-08-30 13:33 | PC.NURSE ---
PT ANSWERS QUESTIONS, CONTINUES TO HAVE GARBLED SPEECH, IS UNCOORDINATED WITH LIMBS, HOWEVER EQUALLY. PT DOES NOT HAVE DIFFICULTY SWALLOWING, HOWEVER DOES NOT HAVE COORDINATION TO BRING THE CUP TO HIS MOUTH WITHOUT SPILLING IT. DAUGHTERS ARE AT BEDSIDE, AND ARE AWARE OF PLAN OF CARE. PT DOES FOLLOW COMMANDS. PT IS TO BE ADMITTED TO ROOM 206, AWAITING RN TO RETURN CALL FOR REPORT AT THIS TIME.
[2022-08-30] MEDS: SODIUM CHLORIDE 0.9% IV 1,000 ML 999 ML IV CONT (14:46)
--- NOTE | 2022-08-30 15:22 | ADMGEN ---
1355 This patient, Lizette Ibarra, was admitted to 2nd Floor Room 206-1. Patient/family oriented to hospital policies and general routines including ID bracelet, bed and alarms, visiting hours, pain management, procedures, bathroom and other care routines, personal items, smoking policy, room service/diet, and visiting hours. patient will mostly just moan if talked to. sternal rub and eyes will open for short period and drift off again. thinks he is here for tooth abscess or maybe chest pains. bp is low manually and per data scope. roll finisher aware and bolus was started. jovan has azul urine. Information on how to activate the Rapid Response Team has been discussed. Patient/Family are encouraged to report perceived risks to care and to ask questions if they do not understand what they are told or what they should do.
[2022-08-30] MEDS: SODIUM CHLORIDE 0.9% IV 1,000 ML 150 ML IV CONT (15:43)
[2022-08-30 16:31] LABS: Glucose Point of Care 92 mg/dl (65-105)
[2022-08-30] MEDS: CYCLOBENZAPRINE HCL 10 MG TABLET PO (18:01)
[2022-08-30] MEDS: busPIRone HCL 5 MG TABLET 15 MG PO (18:02)
[2022-08-30] MEDS: FAMOTIDINE 20 MG TABLET PO (18:02)
[2022-08-30] MEDS: SERTRALINE HCL 50 MG TABLET 200 MG PO (20:21)
[2022-08-30 20:31] LABS: Glucose Point of Care 82 mg/dl (65-105)
--- NOTE | 2022-08-31 06:00 | PC.NURSE ---
Due to extensive down time, see nurses notes and paperwork hardcopy in pt chart.
[2022-08-31] MEDS: LEVOTHYROXINE SODIUM 25 MCG TABLET PO (06:37)
[2022-08-31] MEDS: SODIUM CHLORIDE 0.9% IV 1,000 ML 150 ML IV CONT (06:37)
[2022-08-31 07:58] LABS: Hematocrit 37.5 % (40.0-54.0); Hemoglobin 12.2 g/dL (14.0-18.0); Mean Corpuscular HGB Conc 32.5 g/dL (32.0-36.0); Mean Corpuscular Hemoglobin 30.5 pg (27.0-31.0); Mean Corpuscular Volume 93.8 fL (78.0-102.0); Platelet Count Result 178 K/mm3 (150-420); Red Cell Distribution Width 12.4 % (11.6-14.4); White Blood Count 7.9 K/mm3 (4.8-10.8)
[2022-08-31 07:58] LABS: Glucose Point of Care 85 mg/dl (65-105)
[2022-08-31 08:00] VITALS: BP 118/46; PULSE 93; RESP 18; TEMP 36.4; O2SAT 96
[2022-08-31 08:26] LABS: Alanine Aminotransferase 62 U/L (16-63); Albumin Level 3.5 g/dL (3.4-5.0); Alkaline Phosphatase 37 U/L (46-116); Anion Gap 7 mmol/L (8-16); Aspartate Amino Transferase 55 U/L (15-37); Bilirubin,Total 0.4 mg/dL (0.00-1.00); Blood Urea Nitrogen 22 mg/dL (7-18); Calcium 8.4 mg/dL (8.5-10.1); Carbon Dioxide 30 mmol/L (21-32); Chloride 102 mmol/L (98-108); Estimated CRCL calculation 105 ml/min; Estimated Glomerular Filt Rate > 60; Glucose 93 mg/dL (70-99); Osmolality Calculated 291 mOsm/kg (285-295); Potassium 4.7 mmol/L (3.5-5.1); Sodium 139 mmol/L (136-145); Total Protein 7.1 g/dL (6.4-8.2)
[2022-08-31] MEDS: busPIRone HCL 5 MG TABLET 15 MG PO (08:56)
[2022-08-31] MEDS: CYCLOBENZAPRINE HCL 10 MG TABLET PO (08:57)
[2022-08-31] MEDS: FAMOTIDINE 20 MG TABLET PO (08:57)
[2022-08-31] MEDS: lisinopriL 5 MG TABLET PO (09:10)
[2022-08-31] MEDS: buPROPion HCL XL (24 HR) 150 MG TABCR 300 MG PO (09:15)
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
--- NOTE | 2022-08-31 11:39 | PC.NURSE ---
Pt discharged to home. VSS. PT instructed regarding medications, new meds , time, amount, purpose and dose. Pt verbalized understanding. RN instructed CG on use of Narcan if needed. RN instructed pt not to mix medications and not to trake any medications that are not his. Pt verbalized understanding.
--- NOTE | 2022-09-01 13:16 | PC.NURSE ---
Pt states he received and understood his discharge instructions. Pt has no other comments.
== END 2022-08-31 10:25 | disposition home or self-care (01) ==
LOC: CHSED 13:09 → CHS2ND 13:16
PROVIDERS: Nurse Practitioner; Admitting Provider Internal Medicine; Emergency Provider Emergency Medicine; PCP Nurse Practitioner Family; Visit Provider Nurse Practitioner Family
DX: R41.82 Altered mental status, unspecified (principal); J44.0 Chronic obstructive pulmonary disease with (acute) lower respiratory infection; J18.9 Pneumonia, unspecified organism; E66.01 Morbid (severe) obesity due to excess calories; F19.10 Other psychoactive substance abuse, uncomplicated; F17.210 Nicotine dependence, cigarettes, uncomplicated; F32.A Depression, unspecified; Z99.81 Dependence on supplemental oxygen; Z79.899 Other long term (current) drug therapy
CPT/HCPCS: 36415; 70450; 71045; 80053; 80307; 81003; 82948; 83735; 83880; 84443; 84484; 85027; 85610; 85730; 87040; 93005; 96361; 96365; 97161; 99285; A9270; G0378; J1956; J7030

== ENCOUNTER 2022-09-10 14:17 | Emergency (ER) | payer OTHER, SELFPAY ==
--- NOTE | ~2022-09-10 | CT_ITS ---
EXAMINATION: CT soft tissue neck w con DATE: 09/10/2022 17:16 INDICATION: TECHNIQUE: Computed tomography (CT) of the neck was performed with 75 mL Omnipaque-350 intravenous co ntrast. The dose-length product was 667.70 mGy-cm. COMPARISON: None FINDINGS: The thyroid gland is unremarkable. The submandibular and parotid glands are symmetric. Multiple e nlarged anterior and posterior cervical chain lymph nodes on the left. Prominent but not enlarged lym ph nodes noted in the anterior and posterior change on the right. The superior mediastinum is unrema rkable. The airway is unremarkable. Parapharyngeal and pre-glottic fat planes are preserved. Mi ld arch calcifications. No significant carotid or vertebral stenosis. The orbits are unremarkable. Bilateral maxillary, ethmoid, and left frontal mucosal thickening. Left mastoid fluid, without eviden ce of osseous erosion. The remaining aerated spaces are clear. Patchy areas of mild groundglass opac ities with interspersed areas of sparing. There is cervical spondylosis. IMPRESSION: 1. No CT abnormality detected in the area of clinical concern. 2. Left anterior and posterior cervical chain lymphadenopathy. 3. Left mastoid effusion. Reviewed, dictated and finalized at location K.
[2022-09-10 15:07] VITALS: BP 138/89; PULSE 88; RESP 20; TEMP 36.6; O2SAT 92
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
[2022-09-10 16:18] LABS: Basophils Absolute Auto 0.05 K/mm3 (0.00-0.10); Basophils Percent Auto 0.7 % (0.0-1.0); Eosinophils Absolute Auto 0.33 K/mm3 (0.02-0.50); Eosinophils Percent Auto 4.4 % (1.0-6.0); Hematocrit 40.2 % (40.0-54.0); Hemoglobin 13.4 g/dL (14.0-18.0); Immature Granulocyte Absolute 0.02 K/mm3 (0.00-0.00); Immature Granulocyte Percent A 0.3 % (0.0-0.0); Lymphocytes Absolute Auto 2.19 K/mm3 (1.10-4.50); Lymphocytes Percent Auto 29.5 % (18.0-42.0); Mean Corpuscular HGB Conc 33.3 g/dL (32.0-36.0); Mean Corpuscular Hemoglobin 30.7 pg (27.0-31.0); Mean Corpuscular Volume 92.2 fL (78.0-102.0); Mean Platelet Volume 9.4 fl (8.7-11.0); Monocytes Absolute Auto 0.71 K/mm3 (0.10-0.90); Monocytes Percent Auto 9.6 % (2.0-11.0); Neutrophils Absolute Auto 4.1 K/mm3 (1.7-7.2); Neutrophils Percent Auto 55.5 % (50.0-70.0); Platelet Count Result 242 K/mm3 (150-420); Red Blood Count 4.36 M/mm3 (4.70-6.10); Red Cell Distribution Width 12.3 % (11.6-14.4); White Blood Count 7.4 K/mm3 (4.8-10.8)
[2022-09-10 16:32] LABS: Alanine Aminotransferase 57 U/L (16-63); Albumin Level 3.9 g/dL (3.4-5.0); Alkaline Phosphatase 46 U/L (46-116); Anion Gap 7 mmol/L (8-16); Aspartate Amino Transferase 23 U/L (15-37); Bilirubin,Total 0.3 mg/dL (0.00-1.00); Blood Urea Nitrogen 16 mg/dL (7-18); Calcium 9.2 mg/dL (8.5-10.1); Carbon Dioxide 32 mmol/L (21-32); Chloride 98 mmol/L (98-108); Estimated CRCL calculation 75 ml/min; Estimated Glomerular Filt Rate > 60; Glucose 107 mg/dL (70-99); Osmolality Calculated 285 mOsm/kg (285-295); Potassium 4.5 mmol/L (3.5-5.1); Sodium 137 mmol/L (136-145); Total Protein 7.8 g/dL (6.4-8.2)
[2022-09-10 16:50] LABS: Lactic Acid Reflex 0.8 mmol/L (0.4-2.0)
[2022-09-10] MEDS: LACTATED RINGERS 500 ML 999 ML IV CONT (16:56)
[2022-09-10] MEDS: AMOXICILLIN/CLAVULANATE K 875-125 MG TAB 1 TABLET PO (18:38)
[2022-09-10 18:43] VITALS: BP 140/90; PULSE 70; RESP 20; TEMP 36.6; O2SAT 99
== END 2022-09-10 18:44 | disposition home or self-care (01) ==
PROVIDERS: Emergency Provider Internal Medicine Critical Care Medicine; PCP Nurse Practitioner Family
DX: H70.92 Unspecified mastoiditis, left ear (principal); J96.11 Chronic respiratory failure with hypoxia; Z99.81 Dependence on supplemental oxygen; I10 Essential (primary) hypertension; E03.9 Hypothyroidism, unspecified; J44.9 Chronic obstructive pulmonary disease, unspecified; F11.20 Opioid dependence, uncomplicated; F32.A Depression, unspecified; Z79.84 Long term (current) use of oral hypoglycemic drugs
CPT/HCPCS: 36415; 70491; 80053; 83605; 84443; 85025; 96360; 99284; A9270; J7120; Q9967

== ENCOUNTER 2022-11-20 16:28 | Emergency (ER) | payer OTHER, SELFPAY ==
[2022-11-20] VITALS (7 sets, daily range): BP systolic 125–143; BP diastolic 81–93; PULSE 63–88; RESP 18–20; TEMP 36.6–36.9; O2SAT 94–99
--- NOTE | ~2022-11-20 | XR_ITS ---
EXAMINATION: XR chest 1V portable Exam Date/Time: 11/20/2022 17:09 CDT HISTORY: SOB, BILATERAL LUNG PAINS HX COPD Comparison: 08/30/2022. RESULT: Lines, tubes, and devices: None. Lungs and pleura: Low lung volumes with crowding. Linear right lower lung scar/atelectasis. Streaky bibasilar and hazy right mid lung opacities. Right costophrenic angle angle blunting. Cardiomediastinal silhouette: Stable. Other: No acute osseous or upper abdominal finding. IMPRESSION: Opacities may represent pulmonary edema and/or infection. Possible small right pleural effusion. Reviewed, dictated and finalized at location K.
[2022-11-20] MEDS: KETOROLAC 30 MG/ML VIAL (*BKC) IM (17:00)
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
[2022-11-20] MEDS: ALBUTEROL SULFATE NEB 2.5 MG/3 ML INH 5 MG INHALATION (17:46)
[2022-11-20] MEDS: AZITHROMYCIN 250 MG TABLET 500 MG PO (19:10)
== END 2022-11-20 19:31 | disposition home or self-care (01) ==
LOC: CHSED 17:26
PROVIDERS: Emergency Provider Emergency Medicine; PCP Nurse Practitioner Family
DX: J18.9 Pneumonia, unspecified organism (principal); M54.6 Pain in thoracic spine; J44.9 Chronic obstructive pulmonary disease, unspecified; Z99.81 Dependence on supplemental oxygen; Z87.891 Personal history of nicotine dependence
CPT/HCPCS: 71045; 94640; 96372; 99283; A9270; J1885

== ENCOUNTER 2022-12-06 10:39 | Emergency (ER) | payer OTHER, SELFPAY ==
[2022-12-06] VITALS (16 sets, daily range): BP systolic 119–127; BP diastolic 71–91; PULSE 88–107; RESP 17–20; TEMP 36.4–36.6; O2SAT 95–99
--- NOTE | ~2022-12-06 | XR_ITS ---
EXAMINATION: XR chest 2V DATE: 12/06/2022 11:28 INDICATION: Dyspnea and midsternal chest pain TECHNIQUE: PA and lateral views of the chest were obtained. COMPARISON: Chest radiograph dated 11/20/[address] dated 04/02/2022 FINDINGS: Opacities at the anteromedial aspect of the bilateral lung bases corresponding to bilateral paracardi al fat pads with associated atelectasis in the right middle lobe and lingula. Additional unchanged th in band of discoid atelectasis/scarring along the right minor fissure. No new airspace opacities, pul monary edema, pleural effusion or pneumothorax. Heart size is normal. Mild thoracic spondylosis. IMPRESSION: 1. Unchanged mild atelectasis/scarring in the lingula and right middle lobe along side predominant bi lateral pericardial fat pads. No acute cardiopulmonary disease. Reviewed, dictated and finalized at location A. IMPRESSION: 1. Unchanged mild atelectasis/scarring in the lingula and right middle lobe burt ng side predominant bilateral pericardial fat pads. No acute cardiopulmonary di sease.
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
--- NOTE | 2022-12-06 10:56 | ECG_ITS ---
Measurements Intervals [place] Rate: 93 P: 60 NC: 143 QRS: 61 QRSD: 92 T: 44 QT: 322 QTc: 401 Interpretive Statements SINUS RHYTHM BASELINE ARTIFACT RSR' V1 BORDERLINE ECG COMPARED TO ECG 08/30/2022 12:04:50 NO SIGNIFICANT CHANGES Electronically Signed On 12-07-2022 12:20:05 CDT by Brayan Peñaloza M.D.
[2022-12-06 11:21] LABS: Basophils Absolute Auto 0.03 K/mm3 (0.00-0.10); Basophils Percent Auto 0.4 % (0.0-1.0); Eosinophils Percent Auto 1.5 % (1.0-6.0); Hematocrit 42.5 % (40.0-54.0); Hemoglobin 14.3 g/dL (14.0-18.0); Immature Granulocyte Absolute 0.02 K/mm3 (0.00-0.00); Immature Granulocyte Percent A 0.3 % (0.0-0.0); Lymphocytes Absolute Auto 0.96 K/mm3 (1.10-4.50); Mean Corpuscular HGB Conc 33.6 g/dL (32.0-36.0); Mean Corpuscular Hemoglobin 30.9 pg (27.0-31.0); Mean Corpuscular Volume 91.8 fL (78.0-102.0); Mean Platelet Volume 9.6 fl (8.7-11.0); Monocytes Absolute Auto 0.35 K/mm3 (0.10-0.90); Monocytes Percent Auto 5.1 % (2.0-11.0); Neutrophils Absolute Auto 5.4 K/mm3 (1.7-7.2); Neutrophils Percent Auto 78.7 % (50.0-70.0); Platelet Count Result 228 K/mm3 (150-420); Red Blood Count 4.63 M/mm3 (4.70-6.10); White Blood Count 6.9 K/mm3 (4.8-10.8)
[2022-12-06] MEDS: IPRATROPIUM 0.5 MG/ALBUTEROL SULFATE 2.5 MG AMPUL.NEB 3 ML INHALATION (11:36)
[2022-12-06 11:37] LABS: D Dimer 0.37 mg/L (0.19-0.50); Prothrombin Time 10.6 Seconds (9.50-12.10)
[2022-12-06 11:48] LABS: Alanine Aminotransferase 56 U/L (16-63); Albumin Level 3.7 g/dL (3.4-5.0); Alkaline Phosphatase 49 U/L (46-116); Anion Gap 5 mmol/L (8-16); Aspartate Amino Transferase 27 U/L (15-37); Bilirubin,Total 0.4 mg/dL (0.00-1.00); Blood Urea Nitrogen 18 mg/dL (7-18); Calcium 9.1 mg/dL (8.5-10.1); Carbon Dioxide 32 mmol/L (21-32); Chloride 98 mmol/L (98-108); Estimated Glomerular Filt Rate > 60; Glucose 144 mg/dL (70-99); Osmolality Calculated 284 mOsm/kg (285-295); Potassium 5.3 mmol/L (3.5-5.1); Sodium 135 mmol/L (136-145); Total Protein 7.4 g/dL (6.4-8.2)
[2022-12-06 11:55] LABS: Lactic Acid Reflex 1.3 mmol/L (0.4-2.0)
[2022-12-06 12:10] LABS: Magnesium 1.9 mg/dL (1.8-2.4); NT Pro B Type Natriuretic Pept 109 pg/mL (0-125); Troponin I 7.9 ng/L (0.00-60.4)
[2022-12-06 12:11] LABS: CRP < 0.5 mg/dL (0.0-0.9)
[2022-12-06 12:17] LABS: Base Excess ABG 2.2 mmol/L (0-2); HCO3 ABG 28.9 mmol/L (23-29); Oxygen Saturation ABG 97.4 % (95-97); Oxyhemoglobin 95.7 % (94-100); PCO2 ABG 53.2 mmHg (35-45); PO2 ABG 102.5 mmHg (80-90); Total Hemoglobin 14.8 g/dL (12.0-18.0); pH ABG 7.35 (7.35-7.45)
[2022-12-06 12:18] LABS: Device NASAL CANNULA; Modified Allen's Test Pass; Site Drawn RIGHT RADIAL
[2022-12-06] MEDS: methylPREDNISolone SOD SUCC 125 MG VIAL IM (13:08)
--- NOTE | 2022-12-12 14:11 | PC.NURSE ---
BLOOD CULTURES X2 RESULTS: NO GROWTH AFTER 5 DAYS
== END 2022-12-06 13:29 | disposition home or self-care (01) ==
PROVIDERS: Emergency Provider Emergency Medicine; PCP Nurse Practitioner Family
DX: J44.1 Chronic obstructive pulmonary disease with (acute) exacerbation (principal); F17.210 Nicotine dependence, cigarettes, uncomplicated
CPT/HCPCS: 36415; 36600; 71046; 80053; 82805; 83605; 83735; 83880; 84484; 85025; 85380; 85610; 85730; 86140; 87040; 93005; 94640; 96372; 99284; J2930

== ENCOUNTER 2022-12-06 20:00 | Emergency (ER) | payer OTHER, SELFPAY ==
--- NOTE | ~2022-12-06 | XR_ITS ---
EXAMINATION: XR chest 2V Exam Date/Time: 12/06/2022 20:15 CDT HISTORY: NEW ONSET MID CP Comparison: 12/06/2022 at 11:19 AM. RESULT: Lines, tubes, and devices: None. Lungs and pleura: Bibasilar and lower lung atelectasis/scar, otherwise clear. Cardiomediastinal silhouette: Stable. Other: No acute osseous or upper abdominal finding. IMPRESSION: No acute cardiopulmonary process. Reviewed, dictated and finalized at location K.
--- NOTE | ~2022-12-06 | CT_ITS ---
EXAMINATION: CTA chest PE protocol DATE: 12/06/2022 22:00 INDICATION: Chest pain shortness of breath TECHNIQUE: Computed tomography angiography (CTA) of the chest was performed with 100 mL Omnipaque-350 intravenous contrast timed to evaluate the pulmonary arteries. Coronal maximum intensity projection 3D-reconstructions were created by the technologist. The dose-length product (DLP) was 1008.39 mGy-cm . Automated exposure control and iterative reconstruction technique were employed. COMPARISON: 04/02/2022. FINDINGS: Lung parenchyma and airways: Biapical pleural scarring. Lingular and right middle lobe scar/atelectas is. Multiple benign pulmonary nodules, demonstrating long-term stability. Pleura: Unremarkable. Thoracic inlet, axillae and chest wall: Bilateral symmetric apical mass to. Thoracic aorta: Mild arch calcification. Mediastinum: Normal. Heart and pericardium: Normal. Coronary artery calcifications: Absent. Upper abdomen: Diffuse fatty infiltration of the liver. Stable left adrenal nodule. Bones: No acute osseous finding. Pulmonary arteries: Study quality: Maximum main pulmonary artery enhancement level of 93 [place] u nits, a level that is nondiagnostic for the diagnosis of pulmonary embolism. IMPRESSION: The study is nondiagnostic for diagnosis of pulmonary embolus. Repeat examination is not recommended unless improved IV access can be obtained (suggest 18-gauge or larger catheter at the antecubital fos sa or more proximally). No acute process detected in the chest. Hepatic steatosis. Reviewed, dictated and finalized at location K. IMPRESSION: The study is nondiagnostic for diagnosis of pulmonary embolus. Repeat examinati on is not recommended unless improved IV access can be obtained (suggest 18-gau ge or larger catheter at the antecubital fossa or more proximally). No acute process detected in the chest. Hepatic steatosis.
[2022-12-06 20:00] VITALS: BP 161/92; PULSE 104; RESP 20; O2SAT 95
--- NOTE | 2022-12-06 20:02 | ECG_ITS ---
Measurements Intervals [place] Rate: 102 P: 69 AR: 149 QRS: 62 QRSD: 90 T: 37 QT: 322 QTc: 421 Interpretive Statements SINUS TACHYCARDIA POSSIBLE LEFT ATRIAL ENLARGEMENT NONSPECIFIC ST & T-WAVE ABNORMALITY RSR' V1 BORDERLINE ECG COMPARED TO ECG 12/06/2022 11:16:25 HEART RATE HAS INCREASED Electronically Signed On 12-07-2022 12:21:29 CDT by Brayan Peñaloza M.D.
[2022-12-06 20:03] VITALS: BP 161/92; PULSE 106; RESP 19; TEMP 37; O2SAT 93
[2022-12-06] MEDS: ASPIRIN 81 MG CHEWABLE TABLET 324 MG PO (20:13)
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
--- NOTE | 2022-12-06 20:18 | PC.NURSE ---
2016-PT TRANSPORTED TO IMAGING VIA HOSPITAL WHEELCHAIR, ESCORTED BY [employer].
[2022-12-06 20:40] LABS: Basophils Absolute Auto 0.02 K/mm3 (0.00-0.10); Basophils Percent Auto 0.2 % (0.0-1.0); Eosinophils Absolute Auto 0.01 K/mm3 (0.02-0.50); Eosinophils Percent Auto 0.1 % (1.0-6.0); Hematocrit 44.6 % (40.0-54.0); Hemoglobin 14.4 g/dL (14.0-18.0); Immature Granulocyte Absolute 0.04 K/mm3 (0.00-0.00); Immature Granulocyte Percent A 0.5 % (0.0-0.0); Lymphocytes Absolute Auto 0.65 K/mm3 (1.10-4.50); Lymphocytes Percent Auto 7.4 % (18.0-42.0); Mean Corpuscular HGB Conc 32.3 g/dL (32.0-36.0); Mean Corpuscular Hemoglobin 31.1 pg (27.0-31.0); Mean Corpuscular Volume 96.3 fL (78.0-102.0); Mean Platelet Volume 9.7 fl (8.7-11.0); Monocytes Absolute Auto 0.05 K/mm3 (0.10-0.90); Monocytes Percent Auto 0.6 % (2.0-11.0); Neutrophils Percent Auto 91.2 % (50.0-70.0); Platelet Count Result 201 K/mm3 (150-420); Red Blood Count 4.63 M/mm3 (4.70-6.10); Red Cell Distribution Width 12.2 % (11.6-14.4); White Blood Count 8.7 K/mm3 (4.8-10.8)
[2022-12-06 20:58] LABS: Alanine Aminotransferase 54 U/L (16-63); Albumin Level 3.7 g/dL (3.4-5.0); Alkaline Phosphatase 52 U/L (46-116); Anion Gap 11 mmol/L (8-16); Aspartate Amino Transferase 23 U/L (15-37); Bilirubin,Total 0.3 mg/dL (0.00-1.00); Blood Urea Nitrogen 25 mg/dL (7-18); Calcium 9.1 mg/dL (8.5-10.1); Carbon Dioxide 24 mmol/L (21-32); Chloride 99 mmol/L (98-108); Estimated CRCL calculation 73 ml/min; Estimated Glomerular Filt Rate 53; Glucose 162 mg/dL (70-99); Osmolality Calculated 286 mOsm/kg (285-295); Potassium 5.1 mmol/L (3.5-5.1); Sodium 134 mmol/L (136-145); Total Protein 7.7 g/dL (6.4-8.2); Troponin I 7.5 ng/L (0.00-60.4)
[2022-12-06 21:01] LABS: Prothrombin Time 10.6 Seconds (9.50-12.10)
[2022-12-06 21:07] VITALS: BP 129/79; PULSE 88; RESP 16; O2SAT 94
[2022-12-06 21:11] LABS: Partial Thromboplastin Time 20.9 SEC (23.90-30.70)
[2022-12-06 21:33] LABS: D Dimer 0.54 mg/L (0.19-0.50)
--- NOTE | 2022-12-06 21:33 | PC.NURSE ---
2132-CALL FROM [facility] D-DIMER 0.54, PHYSICIAN MADE AWARE. ORDERS TO FOLLOW.
[2022-12-06 22:05] VITALS: BP 133/77; PULSE 90; RESP 18; O2SAT 95
[2022-12-06 22:30] VITALS: BP 112/66; PULSE 89; RESP 18; O2SAT 94
--- NOTE | 2022-12-06 22:49 | PC.NURSE ---
[employer] TENDER HAS ATTEMPTED 2 ADDITIONAL UNSUCCESSFUL IV STARTS ON PT. UNABLE TO OBTAIN APPROPRIATE IV ACCESS FOR CTA. PHYSICIAN MADE AWARE. PHYSICIAN ADVISED TO NOTIFY HIM WITH RESULTS FOR REPEAT TROP.
[2022-12-06 23:00] VITALS: BP 115/70; PULSE 81; RESP 18; O2SAT 94
[2022-12-06 23:03] LABS: Troponin I 7.4 ng/L (0.00-60.4)
[2022-12-06] MEDS: KETOROLAC 30 MG/ML VIAL (*BKC) IV PUSH (23:24)
== END 2022-12-06 23:30 | disposition home or self-care (01) ==
PROVIDERS: Emergency Provider Emergency Medicine; PCP Nurse Practitioner Family
DX: J44.1 Chronic obstructive pulmonary disease with (acute) exacerbation (principal); I10 Essential (primary) hypertension; E03.9 Hypothyroidism, unspecified; E11.9 Type 2 diabetes mellitus without complications; F17.210 Nicotine dependence, cigarettes, uncomplicated; Z79.1 Long term (current) use of non-steroidal anti-inflammatories (NSAID); Z79.899 Other long term (current) drug therapy
CPT/HCPCS: 36415; 71046; 71275; 80053; 84484; 85025; 85380; 85610; 85730; 93005; 96374; 99284; A9270; J1885; Q9967

== ENCOUNTER 2022-12-07 13:13 | Emergency (ER) | payer OTHER, SELFPAY ==
[2022-12-07] VITALS (23 sets, daily range): BP systolic 94–123; BP diastolic 66–91; PULSE 76–109; RESP 8–23; TEMP 36.9; O2SAT 91–97
--- NOTE | ~2022-12-07 | CT_ITS ---
EXAMINATION: CT brain wo con DATE: 12/07/2022 14:24 INDICATION: dizziness . TECHNIQUE: Computed tomography (CT) of the head was performed without intravenous contrast. The mA wa s adjusted according to patient size. Iterative reconstruction technique was employed. The dose-lengt h product was 681.00 mGy-cm. COMPARISON: 08/30/2022. FINDINGS: No acute intracranial hemorrhage or extra-axial fluid collection. No hydrocephalus, mass, or herniation. No acute ischemic infarct. Unremarkable dural venous sinus attenuation. No acute osseous abnormality. Partial left mastoid effusion, inferior frontal and anterior ethmoid mucosal thickening, minimal righ t maxillary mucosal thickening, the remaining aerated spaces are clear. Mild chronic white matter change. Atherosclerotic intracranial calcification. IMPRESSION: No acute intracranial process. Reviewed, dictated and finalized at location K.
--- NOTE | 2022-12-07 13:36 | ED.DIZZY ---
HPI - Dizziness General Chief Complaint: Dizziness Stated Complaint: dizzy Time Seen by Provider: 12/07/22 13:23 Source: patient Mode of arrival: ambulatory Limitations: no limitations History of Present Illness HPI Narrative: 62-year-old male, smoker a history of opiate abuse on Suboxone, COPD on home oxygen, recent right middle lobe and lingular lobe treated with Zithromax and prednisone, hypertension, hypothyroidism, diabetes mellitus has had multiple visits in the past 48 hours presents to the ER with -- dizziness Which started this morning. The patient feels lightheaded and it is worse when he stands up. No other focal neuro deficits noted. -- Headache. is no vomiting. No photophobia. This headache started this morning. No prior history of headaches. -- No chest pain. -- Chronic shortness of breath with a stable ABG done yesterday and oxygen saturation of 97% on 5 L FiO2. The patient was diagnosed to have questionable right middle lobe and lingular infiltrate for which he was treated with prednisone and Zithromax. The patient has had 2 visits yesterday for COPD exacerbation. The patient was seen prior to yesterday in [place] and was noted to have questionable pneumonia. MD elicited complaint: dizziness Onset (ago): hour(s) ( started 6 hours ago) Timing: gradual onset Severity: mild Description: lightheadedness History of similar symptoms: No Exacerbating factors: change in body position Relieving factors: nothing Associated symptoms: shortness of breath and weakness Related Data Home Medications Medication Instructions Recorded Confirmed buprenorphine 8 mg-naloxone 2 mg 1 film sublingual TID 03/23/20 12/07/22 sublingual film (Suboxone) sertraline 100 mg tablet 200 mg PO HS 03/23/20 12/07/22 ergocalciferol (vitamin D2) 1,250 1 cap DAILY 09/27/21 12/07/22 mcg (50,000 unit) capsule famotidine 20 mg tablet 1 tablet PO BID 09/27/21 12/07/22 levothyroxine 25 mcg tablet 1 tablet PO DAILY 09/27/21 12/07/22 metformin 500 mg tablet,extended 2 tablet PO BID 09/27/21 12/07/22 release 24 hr lisinopril 5 mg tablet 5 mg PO DAILY 04/02/22 12/07/22 meloxicam 15 mg tablet 15 mg PO DAILY 04/02/22 12/07/22 bupropion HCl 300 mg 24 hr tablet, 300 mg PO DAILY 08/30/22 12/07/22 extended release buspirone 15 mg tablet 15 mg PO BID 08/30/22 12/07/22 cyclobenzaprine 10 mg tablet 10 mg PO BID 08/30/22 12/07/22 Allergies Allergy/AdvReac Type Severity Reaction Status Date / Time No Known Allergies Allergy Verified 12/07/22 13:31 Review of Systems Review of Systems: All systems reviewed & are unremarkable except as noted in HPI and below Constitutional: Constitutional: Reports as per HPI and Reports no additional constitutional complaints Eyes: Eyes: Reports as per HPI and Reports no additional eye complaints ENT: Reports system reviewed and no additional complaints, except as documented and Reports as per HPI Cardiovascular: Cardiovascular: Reports as per HPI and Reports no additional cardiovascular complaints Respiratory: Respiratory: Reports as per HPI, Reports cough, Reports dyspnea and Reports wheezing Gastrointestinal: Gastrointestinal: Reports as per HPI and Reports no additional gastrointestinal complaints Genitourinary: Genitourinary: Reports no additional male genitourinary complaints Musculoskeletal: Musculoskeletal: Reports no additional musculoskeletal complaints and Reports as per HPI Integumentary/Breasts: Skin/Breast: Reports system reviewed and no additional complaints, except as docu and Reports as per HPI Neurologic: Reports system reviewed and no additional complaints, except as documented, Reports as per HPI, Reports dizziness and Reports headache(s) Psychiatric: Psychiatric: Reports no additional psychiatric complaints and Reports as per HPI Endocrine: Endocrine: Reports no additional endocrine complaints and Reports as per HPI Hematologic/Lymphatic: Hematologic/Lymphatic: Reports no
--- NOTE | 2022-12-07 14:00 | ECG_ITS ---
Measurements Intervals [place] Rate: 80 P: 56 [place]: 144 QRS: 54 QRSD: 89 T: 56 QT: 337 QTc: 391 Interpretive Statements SINUS RHYTHM BASELINE ARTIFACT NONSPECIFIC T-WAVE ABNORMALITY BORDERLINE ECG COMPARED TO ECG 12/06/2022 20:13:01 HEART RATE HAS DECREASED Electronically Signed On 12-07-2022 14:56:32 CDT by Brayan Peñaloza M.D.
[2022-12-07 14:16] LABS: Basophils Absolute Auto 0.04 K/mm3 (0.00-0.10); Basophils Percent Auto 0.3 % (0.0-1.0); Hematocrit 39.4 % (40.0-54.0); Hemoglobin 12.8 g/dL (14.0-18.0); Immature Granulocyte Absolute 0.08 K/mm3 (0.00-0.00); Immature Granulocyte Percent A 0.5 % (0.0-0.0); Lymphocytes Percent Auto 7.5 % (18.0-42.0); Mean Corpuscular HGB Conc 32.5 g/dL (32.0-36.0); Mean Corpuscular Hemoglobin 30.3 pg (27.0-31.0); Mean Corpuscular Volume 93.4 fL (78.0-102.0); Mean Platelet Volume 9.6 fl (8.7-11.0); Monocytes Absolute Auto 0.89 K/mm3 (0.10-0.90); Monocytes Percent Auto 5.6 % (2.0-11.0); Neutrophils Absolute Auto 13.7 K/mm3 (1.7-7.2); Neutrophils Percent Auto 86.1 % (50.0-70.0); Platelet Count Result 211 K/mm3 (150-420); Red Blood Count 4.22 M/mm3 (4.70-6.10); Red Cell Distribution Width 12.1 % (11.6-14.4); White Blood Count 15.9 K/mm3 (4.8-10.8)
[2022-12-07 14:31] LABS: INR 0.9; Partial Thromboplastin Time 23.2 SEC (23.90-30.70); Prothrombin Time 10.4 Seconds (9.50-12.10)
[2022-12-07 14:44] LABS: Lactic Acid Reflex 2.2 mmol/L (0.4-2.0)
[2022-12-07 14:45] LABS: Alanine Aminotransferase 59 U/L (16-63); Albumin Level 3.7 g/dL (3.4-5.0); Alkaline Phosphatase 42 U/L (46-116); Anion Gap 6 mmol/L (8-16); Aspartate Amino Transferase 22 U/L (15-37); Bilirubin,Total 0.3 mg/dL (0.00-1.00); Blood Urea Nitrogen 27 mg/dL (7-18); Calcium 8.9 mg/dL (8.5-10.1); Carbon Dioxide 32 mmol/L (21-32); Chloride 99 mmol/L (98-108); Estimated CRCL calculation 81 ml/min; Estimated Glomerular Filt Rate 59; Glucose 130 mg/dL (70-99); NT Pro B Type Natriuretic Pept 121 pg/mL (0-125); Osmolality Calculated 291 mOsm/kg (285-295); Potassium 4.9 mmol/L (3.5-5.1); Sodium 137 mmol/L (136-145); Total Protein 7.2 g/dL (6.4-8.2)
[2022-12-07 14:48] LABS: Troponin I 8.3 ng/L (0.00-60.4)
--- NOTE | 2022-12-07 14:51 | PC.NURSE ---
NO CHANGE IN PT STATUS. PT IS RESTING ON STRETCHER IN EXAM ROOM, VSS PER MONITOR. PT IS AWAITING RESULTS AT THIS TIME. NAD NOTED. WILL CONTINUE TO MONITOR.
[2022-12-07 15:47] LABS: Reflex Lactic Acid Yes or No No Lactic Reflex
== END 2022-12-07 15:25 | disposition home or self-care (01) ==
PROVIDERS: Emergency Provider Internal Medicine Critical Care Medicine; PCP Nurse Practitioner Family
DX: J96.12 Chronic respiratory failure with hypercapnia (principal); J44.9 Chronic obstructive pulmonary disease, unspecified; R42 Dizziness and giddiness; E03.9 Hypothyroidism, unspecified; E11.9 Type 2 diabetes mellitus without complications; I10 Essential (primary) hypertension; F17.210 Nicotine dependence, cigarettes, uncomplicated; Z79.1 Long term (current) use of non-steroidal anti-inflammatories (NSAID); Z79.891 Long term (current) use of opiate analgesic; Z79.899 Other long term (current) drug therapy; Z99.81 Dependence on supplemental oxygen
CPT/HCPCS: 36415; 70450; 80053; 83605; 83880; 84484; 85025; 85610; 85730; 93005; 99284

== ENCOUNTER 2023-04-21 15:30 | Emergency (ER) | payer OTHER, SELFPAY ==
[2023-04-21 15:30] VITALS: BP 126/77; PULSE 107; RESP 20; TEMP 36.8; O2SAT 93
[2023-04-21] MEDS: KETOROLAC 30 MG/ML VIAL (*BKC) IM (15:53)
[2023-04-21 15:57] LABS: Basophils Absolute Auto 0.03 K/mm3 (0.00-0.10); Basophils Percent Auto 0.7 % (0.0-1.0); Eosinophils Absolute Auto 0.28 K/mm3 (0.02-0.50); Eosinophils Percent Auto 6.2 % (1.0-6.0); Hematocrit 40.2 % (40.0-54.0); Hemoglobin 13.5 g/dL (14.0-18.0); Immature Granulocyte Absolute 0.01 K/mm3 (0.00-0.00); Immature Granulocyte Percent A 0.2 % (0.0-0.0); Lymphocytes Absolute Auto 0.28 K/mm3 (1.10-4.50); Lymphocytes Percent Auto 6.2 % (18.0-42.0); Mean Corpuscular HGB Conc 33.6 g/dL (32.0-36.0); Mean Corpuscular Hemoglobin 30.4 pg (27.0-31.0); Mean Corpuscular Volume 90.5 fL (78.0-102.0); Mean Platelet Volume 9.1 fl (8.7-11.0); Monocytes Absolute Auto 0.56 K/mm3 (0.10-0.90); Monocytes Percent Auto 12.5 % (2.0-11.0); Neutrophils Absolute Auto 3.3 K/mm3 (1.7-7.2); Neutrophils Percent Auto 74.2 % (50.0-70.0); Platelet Count Result 151 K/mm3 (150-420); Red Blood Count 4.44 M/mm3 (4.70-6.10); Red Cell Distribution Width 11.9 % (11.6-14.4); White Blood Count 4.5 K/mm3 (4.8-10.8)
[2023-04-21 16:09] LABS: Anion Gap 5 mmol/L (8-16); Blood Urea Nitrogen 21 mg/dL (7-18); Calcium 8.8 mg/dL (8.5-10.1); Carbon Dioxide 33 mmol/L (21-32); Chloride 99 mmol/L (98-108); Estimated CRCL calculation 77 ml/min; Estimated Glomerular Filt Rate 59; Glucose 107 mg/dL (70-99); Osmolality Calculated 287 mOsm/kg (285-295); Potassium 4.1 mmol/L (3.5-5.1); Sodium 137 mmol/L (136-145)
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
[2023-04-21 16:23] LABS: SARS-CoV-2 RNA PCR Positive (Negative)
[2023-04-21 16:24] LABS: Influenza A QL RT-PCR Negative (Negative); Influenza B QL RT-PCR Negative (Negative); RSV RNA, RT-PCR Negative (Negative)
[2023-04-21 16:39] VITALS: BP 109/73; PULSE 92; RESP 17; TEMP 36.6; O2SAT 93
--- NOTE | 2023-04-21 16:48 | PC.NURSE ---
PT REPORTS HEADACHE HAS IMPROVED. PT AMBULATORY WITHOUT DIFFICULTY.
== END 2023-04-21 16:45 | disposition home or self-care (01) ==
PROVIDERS: Emergency Provider Family Medicine; PCP Nurse Practitioner Family
DX: U07.1 COVID-19 (principal); I10 Essential (primary) hypertension; E03.9 Hypothyroidism, unspecified; E11.9 Type 2 diabetes mellitus without complications; J44.9 Chronic obstructive pulmonary disease, unspecified; F17.210 Nicotine dependence, cigarettes, uncomplicated; Z79.899 Other long term (current) drug therapy; Z79.1 Long term (current) use of non-steroidal anti-inflammatories (NSAID)
CPT/HCPCS: 36415; 80048; 85025; 87637; 96372; 99283; J1885

== ENCOUNTER 2023-05-04 16:01 | Emergency (ER) | payer OTHER, SELFPAY ==
--- NOTE | ~2023-05-04 | XR_ITS ---
XR chest 1V portable DATE: 05/04/2023 16:27 INDICATION: Shortness of breath. Covid. History of COPD. TECHNIQUE: 2 portable AP views on 05/04/2023 at 1630 hours COMPARISON: 12/06/2022 CT pulmonary scan FINDINGS: Mild atelectasis is suggested at the lung bases. The lungs otherwise appear clear. Normal heart size. No hilar or mediastinal enlargement. No pleural effusion or pulmonary vascular congestion or pneumothorax. IMPRESSION: Mild atelectasis is suggested at the lung bases; otherwise no active cardiopulmonary dise ase Reviewed, dictated and finalized at location L. T MAKER IMPRESSION: Mild atelectasis is suggested at the lung bases; otherwise no activ e cardiopulmonary disease
[2023-05-04 16:03] VITALS: BP 147/97; PULSE 85; RESP 20; TEMP 36.8; O2SAT 95
[2023-05-04] MEDS: IPRATROPIUM 0.5 MG/ALBUTEROL SULFATE 2.5 MG AMPUL.NEB 3 ML INHALATION (16:16)
[2023-05-04 16:17] VITALS: PULSE 83; RESP 20; O2SAT 95
[2023-05-04 16:25] LABS: Basophils Absolute Auto 0.04 K/mm3 (0.00-0.10); Basophils Percent Auto 0.7 % (0.0-1.0); Eosinophils Absolute Auto 0.22 K/mm3 (0.02-0.50); Eosinophils Percent Auto 3.6 % (1.0-6.0); Hematocrit 43.5 % (40.0-54.0); Hemoglobin 14.6 g/dL (14.0-18.0); Immature Granulocyte Absolute 0.01 K/mm3 (0.00-0.00); Immature Granulocyte Percent A 0.2 % (0.0-0.0); Lymphocytes Absolute Auto 2.25 K/mm3 (1.10-4.50); Lymphocytes Percent Auto 36.6 % (18.0-42.0); Mean Corpuscular HGB Conc 33.6 g/dL (32.0-36.0); Mean Corpuscular Hemoglobin 29.7 pg (27.0-31.0); Mean Corpuscular Volume 88.6 fL (78.0-102.0); Mean Platelet Volume 9.3 fl (8.7-11.0); Monocytes Absolute Auto 0.69 K/mm3 (0.10-0.90); Monocytes Percent Auto 11.2 % (2.0-11.0); Neutrophils Absolute Auto 2.9 K/mm3 (1.7-7.2); Neutrophils Percent Auto 47.7 % (50.0-70.0); Platelet Count Result 271 K/mm3 (150-420); Red Blood Count 4.91 M/mm3 (4.70-6.10); Red Cell Distribution Width 11.9 % (11.6-14.4); White Blood Count 6.2 K/mm3 (4.8-10.8)
[2023-05-04] MEDS: KETOROLAC 30 MG/ML VIAL (*BKC) IV PUSH (16:26)
[2023-05-04] MEDS: SODIUM CHLORIDE 0.9% IV 1,000 ML 999 ML IV CONT (16:26)
[2023-05-04 16:41] LABS: Alanine Aminotransferase 56 U/L (16-63); Albumin Level 3.5 g/dL (3.4-5.0); Alkaline Phosphatase 49 U/L (46-116); Anion Gap 8 mmol/L (8-16); Aspartate Amino Transferase 33 U/L (15-37); Bilirubin,Total 0.3 mg/dL (0.00-1.00); Blood Urea Nitrogen 18 mg/dL (7-18); Carbon Dioxide 28 mmol/L (21-32); Chloride 99 mmol/L (98-108); Estimated CRCL calculation 100 ml/min; Estimated Glomerular Filt Rate > 60; Glucose 126 mg/dL (70-99); Osmolality Calculated 283 mOsm/kg (285-295); Potassium 4.3 mmol/L (3.5-5.1); Sodium 135 mmol/L (136-145); Total Protein 7.5 g/dL (6.4-8.2)
[2023-05-04 16:42] LABS: CRP < 0.5 mg/dL (0.0-0.9)
[2023-05-04 16:44] LABS: Lactic Acid Reflex 1.1 mmol/L (0.4-2.0)
[2023-05-04 16:47] VITALS: PULSE 62; RESP 20; O2SAT 93
[2023-05-04 17:00] LABS: Influenza A QL RT-PCR Negative (Negative); Influenza B QL RT-PCR Negative (Negative); RSV RNA, RT-PCR Negative (Negative); SARS-CoV-2 RNA PCR Positive (Negative)
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
[2023-05-04 17:12] VITALS: BP 126/79; PULSE 85; RESP 12; TEMP 36.8; O2SAT 95
== END 2023-05-04 17:33 | disposition home or self-care (01) ==
PROVIDERS: Emergency Provider Emergency Medicine; PCP Nurse Practitioner Family
DX: U07.1 COVID-19 (principal); J44.9 Chronic obstructive pulmonary disease, unspecified; I10 Essential (primary) hypertension; E11.9 Type 2 diabetes mellitus without complications; E03.9 Hypothyroidism, unspecified; F17.210 Nicotine dependence, cigarettes, uncomplicated; Z79.84 Long term (current) use of oral hypoglycemic drugs; Z79.899 Other long term (current) drug therapy
CPT/HCPCS: 36415; 71045; 80053; 83605; 85025; 86140; 87637; 94640; 96361; 96374; 99284; J1885; J7030

== ENCOUNTER 2023-07-06 17:28 | Emergency (ER) | payer OTHER, SELFPAY ==
--- NOTE | ~2023-07-06 | CT_ITS ---
EXAMINATION: CT abdomen pelvis w con DATE: 07/06/2023 18:26 INDICATION: Bodyaches. Abdomen pain. TECHNIQUE: Computed tomography (CT) of the abdomen and pelvis was performed with 100 cc Omnipaque 350 intravenous contrast. The dose-length product was 1243.00 mGy-cm. Automated exposure control and ite rative reconstruction technique were employed. COMPARISON: None. FINDINGS: Lung bases are unremarkable. No significant pleural or pericardial effusion. Fatty infiltra tion of the liver. The spleen, pancreas, right adrenal gland and right kidney are unremarkable. There is a small fat-containing exophytic left renal mass of the upper pole, consistent with angiomyolipom a. There is a 1.5 cm left adrenal mass, most likely benign adenoma. Nonobstructive bowel gas pattern. No abnormal pelvic masses or fluid collections. No evidence for hernia. No significant vascular abno rmality. Gallbladder is present. No lymphadenopathy. No focal lytic or blastic lesions. Mild lumbar s pondylosis. IMPRESSION: 1. No acute abdominal abnormality. Reviewed, dictated and finalized at location A.
--- NOTE | ~2023-07-06 | XR_ITS ---
XR chest 1V portable 07/06/2023 17:58 Indication: Shortness of breath. Body pain. Headaches. Procedure: AP portable chest Comparison: Comparison to multiple prior studies sequentially, with oldest reviewed study dated 12/06. Findings: Stable heart size normal. Chronic bibasilar atelectasis/scarring. No acute focal pneumonia, edema, pleural effusion or pneumothorax. No acute osseous abnormality. Impression: 1: No acute cardiopulmonary disease. Reviewed, dictated and finalized at location A. Impression: 1: No acute cardiopulmonary disease.
[2023-07-06 17:28] VITALS: BP 125/85; PULSE 92; RESP 20; TEMP 37.1; O2SAT 100
[2023-07-06 18:06] LABS: Basophils Absolute Auto 0.06 K/mm3 (0.00-0.10); Basophils Percent Auto 0.8 % (0.0-1.0); Eosinophils Absolute Auto 0.28 K/mm3 (0.02-0.50); Eosinophils Percent Auto 3.6 % (1.0-6.0); Hematocrit 38.7 % (40.0-54.0); Hemoglobin 12.8 g/dL (14.0-18.0); Immature Granulocyte Absolute 0.02 K/mm3 (0.00-0.00); Immature Granulocyte Percent A 0.3 % (0.0-0.0); Lymphocytes Absolute Auto 1.92 K/mm3 (1.10-4.50); Lymphocytes Percent Auto 24.5 % (18.0-42.0); Mean Corpuscular HGB Conc 33.1 g/dL (32-36); Mean Corpuscular Hemoglobin 29.8 pg (27.0-31.0); Mean Corpuscular Volume 90.2 fL (78.0-102.0); Monocytes Absolute Auto 0.53 K/mm3 (0.10-0.90); Monocytes Percent Auto 6.8 % (2.0-11.0); Neutrophils Absolute Auto 5.03 K/mm3 (1.70-7.20); Platelet Count Result 212 K/mm3 (150-420); Red Blood Count 4.29 M/mm3 (4.70-6.10); Red Cell Distribution Width 13.2 % (11.6-14.4); White Blood Count 7.8 K/mm3 (4.8-10.8)
[2023-07-06 18:21] LABS: Partial Thromboplastin Time 23.5 Sec (23.9-30.70); Prothrombin Time 11.1 Seconds (9.50-12.1)
[2023-07-06 18:29] LABS: Lactic Acid Reflex 0.8 mmol/L (0.4-2.0)
[2023-07-06 18:32] LABS: Appearance Urine Clear (Clear); Bilirubin Urine Negative (Negative); Blood Urine Negative (Negative); Color Urine Light Yellow (Yellow); Glucose Urine UA Negative (Negative); Ketones Urine Negative (Negative); Leukocyte Esterase Ur Trace LEU/UL (Negative); Nitrate Urine Negative (Negative); Protein Urine Negative (Negative); Specific Grav Ur <= 1.005 (1.010-1.020); pH Urine 6.5 (5.0-8.0)
[2023-07-06 18:33] LABS: Alanine Aminotransferase 34 U/L (16-63); Albumin Level 3.7 g/dL (3.4-5.0); Alkaline Phosphatase 41 U/L (46-116); Anion Gap 6 mmol/L (8-16); Aspartate Amino Transferase 18 U/L (15-37); Bilirubin,Total 0.4 mg/dL (0.00-1.00); Blood Urea Nitrogen 14 mg/dL (7-18); Calcium 8.9 mg/dL (8.5-10.1); Carbon Dioxide 34 mmol/L (21-32); Chloride 100 mmol/L (98-108); Estimated Glomerular Filt Rate > 60; Glucose 94 mg/dL (70-99); Lipase 87 U/L (16-77); NT Pro B Type Natriuretic Pept 53 pg/mL (0-125); Osmolality Calculated 290 mOsm/kg (285-295); Potassium 4.2 mmol/L (3.5-5.1); Sodium 140 mmol/L (136-145); Total Protein 7.2 g/dL (6.4-8.2); Troponin I 7.3 ng/L (0.00-60.4)
[2023-07-06 18:37] LABS: Add Urine Microscopic? YES; Bacteria Urine None seen /hpf; RBC Urine 0-2 /hpf (0-2); Squamous Epithelial Cell Urine None seen /hpf (Few); WBC Urine 0-3 /hpf (0-3)
[2023-07-06 18:43] LABS: SARS-CoV-2 RNA PCR Negative (Negative)
[2023-07-06 18:47] LABS: Influenza A QL RT-PCR Negative (Negative); Influenza B QL RT-PCR Negative (Negative); RSV RNA, RT-PCR Negative (Negative)
[2023-07-06] MEDS: MAG HYDROX/ALUMINUM HYD/SIMETH 30 ML, PHENobarb/HYOSCY/ATROPINE/SCOP 32.4 MG, LIDOCAINE... PO (18:47)
[2023-07-06] MEDS: SODIUM CHLORIDE 0.9% IV 1,000 ML 999 ML IV CONT (18:49)
[2023-07-06] MEDS: KETOROLAC 30 MG/ML VIAL (*BKC) IV PUSH (18:51)
[2023-07-06 18:55] VITALS: BP 132/82; PULSE 62; RESP 20; TEMP 36.9; O2SAT 97
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
[2023-07-06 19:34] VITALS: BP 140/76; PULSE 71; RESP 20; TEMP 36.8; O2SAT 100
== END 2023-07-06 19:34 | disposition home or self-care (01) ==
PROVIDERS: Emergency Provider Emergency Medicine; PCP Nurse Practitioner Family
DX: K21.9 Gastro-esophageal reflux disease without esophagitis (principal); E11.9 Type 2 diabetes mellitus without complications; I10 Essential (primary) hypertension; E03.9 Hypothyroidism, unspecified; J44.9 Chronic obstructive pulmonary disease, unspecified; Z87.891 Personal history of nicotine dependence; Z20.822 Contact with and (suspected) exposure to COVID-19
CPT/HCPCS: 36415; 71045; 74177; 80053; 81001; 83605; 83690; 83880; 84484; 85025; 85610; 85730; 87637; 93005; 96361; 96374; 99284; A9270; J1885; J7030; Q9967

== ENCOUNTER 2023-08-06 13:05 | Emergency (ER) | payer MEDICARE, SELFPAY ==
[2023-08-06] VITALS (23 sets, daily range): BP systolic 69–148; BP diastolic 49–95; PULSE 62–97; RESP 16–20; TEMP 36.6–36.7; O2SAT 91–98
--- NOTE | ~2023-08-06 | CT_ITS ---
EXAMINATION: CT brain wo con DATE: 08/06/2023 14:35 INDICATION: Dizziness. Blurred vision. TECHNIQUE: Computed tomography (CT) of the head was performed without intravenous contrast. The mA wa s adjusted according to patient size. Iterative reconstruction technique was employed. The dose-lengt h product was 681.00 mGy-cm. COMPARISON: None FINDINGS: There is no intracranial hemorrhage, acute infarction, or abnormal intracranial mass lesion . There are scattered areas of low attenuation in the cerebral white matter, which is within normal l imits for the patient's age. The ventricles are normal in size. There is mucosal thickening in the pa ranasal sinuses. The orbits are normal. There is a small left mastoid effusion. IMPRESSION: 1. Normal aging brain. Reviewed, dictated and finalized at location E. IMPRESSION: 1. Normal aging brain.
--- NOTE | ~2023-08-06 | XR_ITS ---
EXAMINATION: XR chest 1V portable DATE: 08/06/2023 13:35 INDICATION: Chest pain TECHNIQUE: frontal view of the chest was obtained. COMPARISON: Chest radiograph and CT abdomen and pelvis dated 07/06/2023 FINDINGS: Unchanged opacities at the bilateral lower lung zones densest on the heart and becoming less distinct as a extend towards the costophrenic angles which on prior CT corresponds to prominent bilateral par acardial fat pads. No new airspace opacities, pulmonary edema, pleural effusion or pneumothorax. The cardiomediastinal silhouette is normal. IMPRESSION: 1. Prominent bilateral pericardial fat pads. No acute cardiopulmonary disease. Reviewed, dictated and finalized at location A.
--- NOTE | 2023-08-06 13:07 | ECG_ITS ---
SEE SCANNED COPY FOR CONFIRMED REPORT MTDD
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
[2023-08-06 13:24] LABS: Basophils Absolute Auto 0.07 K/mm3 (0.00-0.10); Basophils Percent Auto 0.9 % (0.0-1.0); Eosinophils Absolute Auto 0.28 K/mm3 (0.02-0.50); Eosinophils Percent Auto 3.5 % (1.0-6.0); Hematocrit 40.1 % (40.0-54.0); Hemoglobin 13.5 g/dL (14.0-18.0); Immature Granulocyte Absolute 0.02 K/mm3 (0.00-0.00); Immature Granulocyte Percent A 0.2 % (0.0-0.0); Lymphocytes Absolute Auto 1.68 K/mm3 (1.10-4.50); Mean Corpuscular HGB Conc 33.7 g/dL (32-36); Mean Corpuscular Hemoglobin 30.7 pg (27.0-31.0); Mean Corpuscular Volume 91.1 fL (78.0-102.0); Mean Platelet Volume 9.4 fl (8.7-11.0); Monocytes Absolute Auto 0.64 K/mm3 (0.10-0.90); Neutrophils Absolute Auto 5.32 K/mm3 (1.70-7.20); Neutrophils Percent Auto 66.4 % (50.0-70.0); Platelet Count Result 213 K/mm3 (150-420); Red Cell Distribution Width 12.1 % (11.6-14.4)
[2023-08-06 13:32] LABS: Partial Thromboplastin Time 23.8 Sec (23.9-30.70); Prothrombin Time 10.8 Seconds (9.50-12.1)
[2023-08-06 13:40] LABS: Alanine Aminotransferase 55 U/L (16-63); Albumin Level 3.8 g/dL (3.4-5.0); Alkaline Phosphatase 51 U/L (46-116); Anion Gap 7 mmol/L (4-12); Aspartate Amino Transferase 29 U/L (15-37); Bilirubin,Total 0.5 mg/dL (0.00-1.00); Blood Urea Nitrogen 16 mg/dL (7-18); Calcium 8.9 mg/dL (8.5-10.1); Carbon Dioxide 31 mmol/L (21-32); Chloride 100 mmol/L (98-108); Estimated CRCL calculation 72 ml/min; Estimated Glomerular Filt Rate 55; Glucose 158 mg/dL (70-99); NT Pro B Type Natriuretic Pept 32 pg/mL (0-125); Osmolality Calculated 290 mOsm/kg (285-295); Potassium 4.7 mmol/L (3.5-5.1); Sodium 138 mmol/L (136-145); Total Protein 7.6 g/dL (6.4-8.2); Troponin I 5.4 ng/L (0.00-60.4)
[2023-08-06] MEDS: ASPIRIN 81 MG CHEWABLE TABLET 324 MG PO (13:51)
[2023-08-06] MEDS: LORazepam (*CRX) 0.5 MG TABLET 1 MG PO (13:54)
[2023-08-06] MEDS: NITROGLYCERIN SL 0.4 MG TABLET SUBLINGUAL ×2 (13:56→14:02)
[2023-08-06] MEDS: SODIUM CHLORIDE 0.9% IV 1,000 ML 999 ML IV CONT (14:11)
[2023-08-06 14:27] LABS: D Dimer 0.26 mg/L (0.19-0.50)
--- NOTE | 2023-08-06 15:22 | ECG_ITS ---
SEE SCANNED COPY FOR CONFIRMED REPORT MTDD
== END 2023-08-06 16:05 | disposition home or self-care (01) ==
PROVIDERS: Emergency Provider Emergency Medicine; PCP Nurse Practitioner Family
DX: R07.9 Chest pain, unspecified (principal); R42 Dizziness and giddiness; E86.0 Dehydration; I10 Essential (primary) hypertension; E03.9 Hypothyroidism, unspecified; E11.9 Type 2 diabetes mellitus without complications; F17.210 Nicotine dependence, cigarettes, uncomplicated
CPT/HCPCS: 36415; 70450; 71045; 80053; 83880; 84484; 85025; 85380; 85610; 85730; 93005; 96360; 99284; A9270; J7030

== ENCOUNTER 2023-09-01 13:41 | Emergency (ER) | payer MEDICARE, SELFPAY ==
[2023-09-01] VITALS (37 sets, daily range): BP systolic 111–147; BP diastolic 61–91; PULSE 61–92; RESP 12–20; TEMP 36.8–36.9; O2SAT 90–95
--- NOTE | ~2023-09-01 | XR_ITS ---
EXAMINATION: XR chest 1V portable DATE: 09/01/2023 14:04 INDICATION: Left chest pain. Cough. TECHNIQUE: A single frontal view of the chest was obtained on 2 radiographs. COMPARISON: Chest single view 08/06/2023, CT abdomen and pelvis 07/06/2023 FINDINGS: There is mild atelectasis in right midlung zone. There is no pneumonia, pleural effusion, o r pneumothorax. The heart size is normal. There are prominent pericardial fat pads. IMPRESSION: 1. Mild atelectasis in right midlung zone. Reviewed, dictated and finalized at location A.
--- NOTE | 2023-09-01 13:46 | ECG_ITS ---
SEE SCANNED COPY FOR CONFIRMED REPORT MTDD
[2023-09-01 14:22] LABS: Basophils Absolute Auto 0.05 K/mm3 (0.00-0.10); Basophils Percent Auto 0.6 % (0.0-1.0); Eosinophils Absolute Auto 0.64 K/mm3 (0.02-0.50); Eosinophils Percent Auto 7.8 % (1.0-6.0); Hematocrit 39.2 % (40.0-54.0); Hemoglobin 13.1 g/dL (14.0-18.0); Immature Granulocyte Absolute 0.05 K/mm3 (0.00-0.00); Immature Granulocyte Percent A 0.6 % (0.0-0.0); Lymphocytes Percent Auto 24.5 % (18.0-42.0); Mean Corpuscular HGB Conc 33.4 g/dL (32-36); Mean Corpuscular Hemoglobin 31.1 pg (27.0-31.0); Mean Corpuscular Volume 93.1 fL (78.0-102.0); Monocytes Absolute Auto 0.82 K/mm3 (0.10-0.90); Neutrophils Absolute Auto 4.61 K/mm3 (1.70-7.20); Neutrophils Percent Auto 56.5 % (50.0-70.0); Platelet Count Result 234 K/mm3 (150-420); Red Blood Count 4.21 M/mm3 (4.70-6.10); Red Cell Distribution Width 12.2 % (11.6-14.4); White Blood Count 8.2 K/mm3 (4.8-10.8)
[2023-09-01 14:36] LABS: Partial Thromboplastin Time 23.5 Sec (23.9-30.70); Prothrombin Time 10.5 Seconds (9.50-12.1)
[2023-09-01] MEDS: SODIUM CHLORIDE 0.9% IV 1,000 ML 999 ML IV CONT (14:37)
[2023-09-01] MEDS: ACETAMINOPHEN 500 MG TABLET 1000 MG PO (14:39)
[2023-09-01] MEDS: ASPIRIN 81 MG CHEWABLE TABLET 324 MG PO (14:39)
[2023-09-01 14:40] LABS: Amphetamine Screen Urine Positive (Negative); Barbiturate Screen Urine Negative (Negative); Benzodiazepines Screen Urine Negative (Negative); Cannabinoid Screen Urine Negative (Negative); Cocaine Screen Urine Negative (Negative); Methadone Screen Urine Negative (Negative); Opiate Screen Urine Negative (Negative); Phencyclidine Screen Urine Negative (Negative)
[2023-09-01 14:44] LABS: Alanine Aminotransferase 37 U/L (16-63); Albumin Level 3.4 g/dL (3.4-5.0); Alkaline Phosphatase 47 U/L (46-116); Anion Gap 7 mmol/L (4-12); Aspartate Amino Transferase 19 U/L (15-37); Bilirubin,Total 0.2 mg/dL (0.00-1.00); Blood Urea Nitrogen 15 mg/dL (7-18); Calcium 9.7 mg/dL (8.5-10.1); Carbon Dioxide 32 mmol/L (21-32); Chloride 102 mmol/L (98-108); Estimated CRCL calculation 81 ml/min; Estimated Glomerular Filt Rate > 60; Glucose 112 mg/dL (70-99); Lipase 18 U/L (16-77); NT Pro B Type Natriuretic Pept 56 pg/mL (0-125); Osmolality Calculated 293 mOsm/kg (285-295); Potassium 4.5 mmol/L (3.5-5.1); Sodium 141 mmol/L (136-145); Total Protein 7.5 g/dL (6.4-8.2); Troponin I 5.5 ng/L (0.00-60.4)
--- NOTE | 2023-09-01 14:59 | PC.NURSE ---
attempted to reach daughter keri, , unsuccessful. message left. pt notified. upon entering room , pt taking home medication, suboxone. dr camara aware. pt informed of lab results and repeat troponin . voiced understanding. warm blanket on pt, head repositioned for comfort. call blue in reach. no other needs at this time
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
[2023-09-01 17:39] LABS: Troponin I 5.3 ng/L (0.00-60.4)
== END 2023-09-01 17:43 | disposition home or self-care (01) ==
PROVIDERS: Emergency Provider Emergency Medicine
DX: R07.89 Other chest pain (principal); I10 Essential (primary) hypertension; F41.8 Other specified anxiety disorders; F15.90 Other stimulant use, unspecified, uncomplicated; E03.9 Hypothyroidism, unspecified; E11.9 Type 2 diabetes mellitus without complications; F17.210 Nicotine dependence, cigarettes, uncomplicated
CPT/HCPCS: 36415; 71045; 80053; 80307; 83690; 83880; 84484; 85025; 85380; 85610; 85730; 93005; 96360; 99284; A9270; J7030

== ENCOUNTER 2023-12-03 13:19 | Emergency (ER) | payer MEDICARE, SELFPAY ==
[2023-12-03] VITALS (30 sets, daily range): BP systolic 108–170; BP diastolic 58–94; PULSE 64–105; RESP 12–20; TEMP 36.9; O2SAT 90–96
--- NOTE | ~2023-12-03 | XR_ITS ---
EXAMINATION: XR chest 2V DATE: 12/03/2023 13:42 INDICATION: Chest pain. Shortness of breath. TECHNIQUE: Frontal and lateral views of the chest were obtained on 3 radiographs. COMPARISON: Chest single view 09/01/2023 FINDINGS: There is no pneumonia, pleural effusion, or pneumothorax. The heart size is normal. IMPRESSION: 1. No acute cardiopulmonary disease. Reviewed, dictated and finalized at location E.
--- NOTE | 2023-12-03 13:19 | ECG_ITS ---
Test Date: 2023-12-03 13:25:13 Measurements Intervals [place] Rate: 93 P: 68 IA: 138 QRS: 75 QRSD: 89 T: 66 QT: 338 QTc: 422 Interpretive Statements SINUS RHYTHM NONSPECIFIC ST SEGMENT ABNORMALITY BORDERLINE ECG No previous ECG available for comparison Electronically Signed On 12-04-2023 14:49:30 CDT by Marcial Martini M.D.
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
[2023-12-03 13:39] LABS: Basophils Absolute Auto 0.06 K/mm3 (0.00-0.10); Basophils Percent Auto 0.6 % (0.0-1.0); Eosinophils Absolute Auto 0.12 K/mm3 (0.02-0.50); Eosinophils Percent Auto 1.2 % (1.0-6.0); Hematocrit 41.3 % (40.0-54.0); Immature Granulocyte Absolute 0.03 K/mm3 (0.00-0.00); Immature Granulocyte Percent A 0.3 % (0.0-0.0); Lymphocytes Absolute Auto 2.06 K/mm3 (1.10-4.50); Lymphocytes Percent Auto 19.8 % (18.0-42.0); Mean Corpuscular HGB Conc 33.9 g/dL (32-36); Mean Corpuscular Hemoglobin 30.2 pg (27.0-31.0); Mean Platelet Volume 9.2 fl (8.7-11.0); Monocytes Absolute Auto 0.67 K/mm3 (0.10-0.90); Monocytes Percent Auto 6.5 % (2.0-11.0); Neutrophils Absolute Auto 7.44 K/mm3 (1.70-7.20); Neutrophils Percent Auto 71.6 % (50.0-70.0); Platelet Count Result 243 K/mm3 (150-420); Red Blood Count 4.64 M/mm3 (4.70-6.10); Red Cell Distribution Width 12.4 % (11.6-14.4); White Blood Count 10.4 K/mm3 (4.8-10.8)
[2023-12-03] MEDS: ASPIRIN 81 MG CHEWABLE TABLET 324 MG PO (13:44)
[2023-12-03] MEDS: NITROGLYCERIN SL 0.4 MG TABLET SUBLINGUAL ×3 (13:44→14:00)
[2023-12-03 13:50] LABS: D Dimer 0.39 mg/L (0.19-0.50)
[2023-12-03 13:55] LABS: Alanine Aminotransferase 35 U/L (16-63); Albumin Level 3.8 g/dL (3.4-5.0); Alkaline Phosphatase 66 U/L (46-116); Amylase 52 U/L (25-115); Anion Gap 7 mmol/L (4-12); Aspartate Amino Transferase 25 U/L (15-37); Bilirubin,Total 0.3 mg/dL (0.00-1.00); Blood Urea Nitrogen 15 mg/dL (7-18); Calcium 9.2 mg/dL (8.5-10.1); Carbon Dioxide 31 mmol/L (21-32); Chloride 100 mmol/L (98-108); Estimated Glomerular Filt Rate > 60; Glucose 106 mg/dL (70-99); Lipase 18 U/L (16-77); Magnesium 1.6 mg/dL (1.8-2.4); Osmolality Calculated 286 mOsm/kg (285-295); Potassium 4.7 mmol/L (3.5-5.1); Sodium 138 mmol/L (136-145); Total Protein 7.6 g/dL (6.4-8.2)
[2023-12-03 13:56] LABS: Creatine Kinase 94 U/L (39-308)
[2023-12-03 14:33] LABS: Add Urine Microscopic? NO; Appearance Urine Clear (Clear); Bilirubin Urine Negative (Negative); Blood Urine Negative (Negative); Color Urine Light Yellow (Yellow); Glucose Urine UA Negative (Negative); Ketones Urine Negative (Negative); Leukocyte Esterase Ur Negative (Negative); Nitrate Urine Negative (Negative); Protein Urine Negative (Negative); Specific Grav Ur 1.015 (1.010-1.020); Urobilinogen Urine 0.2 mg/dL (0.2-1.0)
[2023-12-03 14:37] LABS: Amphetamine Screen Urine Positive (Negative); Cannabinoid Screen Urine Negative (Negative); Cocaine Screen Urine Negative (Negative); Methadone Screen Urine Negative (Negative); Opiate Screen Urine Negative (Negative); Phencyclidine Screen Urine Negative (Negative)
[2023-12-03 14:45] LABS: Barbiturate Screen Urine Negative (Negative); Benzodiazepines Screen Urine Negative (Negative)
[2023-12-03 15:56] LABS: Troponin I 7.2 ng/L (0.00-60.4)
== END 2023-12-03 16:16 | disposition home or self-care (01) ==
PROVIDERS: Emergency Provider Emergency Medicine
DX: R07.9 Chest pain, unspecified (principal); F15.90 Other stimulant use, unspecified, uncomplicated; E03.9 Hypothyroidism, unspecified; I10 Essential (primary) hypertension; E11.9 Type 2 diabetes mellitus without complications; J44.9 Chronic obstructive pulmonary disease, unspecified; F17.210 Nicotine dependence, cigarettes, uncomplicated
CPT/HCPCS: 36415; 71046; 80053; 80307; 81003; 82150; 82550; 83690; 83735; 84484; 85025; 85380; 93005; 99284; A9270

== ENCOUNTER 2023-12-07 11:43 | Emergency (ER) | payer MEDICARE, SELFPAY ==
--- NOTE | ~2023-12-07 | CT_ITS ---
CT cervical spine wo con Ordering provider: Marcial Delgado MD History: . head and neck pain,LT SIDE,NKI . Comparison: None. Technique: CT of the cervical spine was performed without contrast. Sagittal and coronal reformatted images were also obtained and reviewed. Automated exposure control and iterative reconstruction lawanda hnique were employed. The dose-length product was 446.86 mGy-cm. FINDINGS: VERTEBRAE: No subluxation or acute fracture. The occipital condyles are intact. Degenerative changes of the spine. DISC SPACES: Normal. Multilevel facet joint disease seen in the left side. Narrowing of the left foramen at the level of C2-C3. Bilateral narrowing of the foramina at the level of C3-C4. Narrowing of the left foramina at the level of C4-C5 and C5-C6. PARASPINOUS SOFT TISSUES: Normal. Minimal effusion and the left mastoid air cells posteriorly. Slightly enlarged lymph nodes in the pos terior triangles. IMPRESSION: No acute osseous abnormality cervical spine. Multilevel narrowing of the intervertebral foramina. Reviewed, dictated and finalized at location A.
--- NOTE | ~2023-12-07 | CT_ITS ---
EXAMINATION: CT brain wo con DATE: 12/07/2023 12:28 INDICATION: Headache. Neck pain. TECHNIQUE: Computed tomography (CT) of the head was performed without intravenous contrast. The mA wa s adjusted according to patient size. Iterative reconstruction technique was employed. The dose-lengt h product was 605.33 mGy-cm. COMPARISON: Head CT 08/06/2023 FINDINGS: There is no intracranial hemorrhage, acute infarction, or abnormal intracranial mass lesion . The ventricles are normal in size. There is mild mucosal thickening in the ethmoid sinuses. There i s a small left mastoid effusion. IMPRESSION: 1. Normal brain. Reviewed, dictated and finalized at location A. IMPRESSION: 1. Normal brain.
[2023-12-07 11:43] VITALS: BP 143/84; PULSE 91; RESP 20; TEMP 36.2; O2SAT 94
--- NOTE | 2023-12-07 11:56 | ECG_ITS ---
Test Date: 2023-12-07 12:06:46 Measurements Intervals [place] Rate: 72 P: 88 FL: 142 QRS: 90 QRSD: 90 T: 89 QT: 347 QTc: 382 Interpretive Statements SINUS RHYTHM INCOMPLETE RIGHT BUNDLE BRANCH BLOCK Compared to ECG 12/03/2023 13:25:13 NO SIGNIFICANT CHANGES Electronically Signed On 12-07-2023 13:39:13 CDT by Breana Yeh M.D.
[2023-12-07] MEDS: KETOROLAC (*BKC) 60 MG/2 ML VIAL IM (12:02)
[2023-12-07 12:10] LABS: Basophils Absolute Auto 0.07 K/mm3 (0.00-0.10); Basophils Percent Auto 0.8 % (0.0-1.0); Eosinophils Absolute Auto 0.22 K/mm3 (0.02-0.50); Eosinophils Percent Auto 2.4 % (1.0-6.0); Hematocrit 42.9 % (40.0-54.0); Hemoglobin 14.4 g/dL (14.0-18.0); Immature Granulocyte Absolute 0.03 K/mm3 (0.00-0.00); Immature Granulocyte Percent A 0.3 % (0.0-0.0); Lymphocytes Absolute Auto 2.25 K/mm3 (1.10-4.50); Mean Corpuscular HGB Conc 33.6 g/dL (32-36); Mean Corpuscular Hemoglobin 30.3 pg (27.0-31.0); Mean Corpuscular Volume 90.3 fL (78.0-102.0); Monocytes Percent Auto 7.8 % (2.0-11.0); Neutrophils Absolute Auto 5.72 K/mm3 (1.70-7.20); Neutrophils Percent Auto 63.7 % (50.0-70.0); Platelet Count Result 233 K/mm3 (150-420); Red Blood Count 4.75 M/mm3 (4.70-6.10); Red Cell Distribution Width 12.3 % (11.6-14.4)
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
[2023-12-07 12:59] LABS: Alanine Aminotransferase 50 U/L (16-63); Alkaline Phosphatase 60 U/L (46-116); Anion Gap 7 mmol/L (4-12); Aspartate Amino Transferase 33 U/L (15-37); Bilirubin,Total 0.4 mg/dL (0.00-1.00); Blood Urea Nitrogen 15 mg/dL (7-18); Calcium 9.2 mg/dL (8.5-10.1); Carbon Dioxide 28 mmol/L (21-32); Chloride 102 mmol/L (98-108); Estimated CRCL calculation 73 ml/min; Estimated Glomerular Filt Rate 56; Glucose 121 mg/dL (70-99); Osmolality Calculated 285 mOsm/kg (285-295); Potassium 4.4 mmol/L (3.5-5.1); Sodium 137 mmol/L (136-145); Total Protein 8.1 g/dL (6.4-8.2)
[2023-12-07 13:07] VITALS: BP 143/88; PULSE 87; RESP 20; TEMP 36.2; O2SAT 98
== END 2023-12-07 13:07 | disposition home or self-care (01) ==
PROVIDERS: Emergency Provider Emergency Medicine
DX: R51.9 Headache, unspecified (principal); J44.9 Chronic obstructive pulmonary disease, unspecified; I10 Essential (primary) hypertension; E03.9 Hypothyroidism, unspecified; E11.9 Type 2 diabetes mellitus without complications; F17.210 Nicotine dependence, cigarettes, uncomplicated
CPT/HCPCS: 36415; 70450; 72125; 80053; 85025; 93005; 96372; 99284; J1885

== ENCOUNTER 2024-03-09 09:29 | Emergency (ER) | payer MEDICARE, MEDICAID, SELFPAY ==
[2024-03-09] VITALS (12 sets, daily range): BP systolic 124–161; BP diastolic 74–97; PULSE 66–85; RESP 11–20; TEMP 36.3–36.9; O2SAT 92–97
--- NOTE | ~2024-03-09 | XR_ITS ---
EXAMINATION: XR chest 2V DATE: 03/09/2024 10:05 INDICATION: Chest pain. Shortness of breath. TECHNIQUE: Frontal and lateral views of the chest were obtained. COMPARISON: Chest 2 views 12/03/2023 FINDINGS: There is mild scarring at the lung apices. No pleural effusion or pneumothorax. The heart s ize is normal. IMPRESSION: 1. Stable mild scarring at the lung apices. Reviewed, dictated and finalized at location A. MEASURER
--- NOTE | ~2024-03-09 | CT_ITS ---
EXAMINATION: CT brain wo con DATE: 03/09/2024 10:05 INDICATION: Headache. Dizziness. TECHNIQUE: Computed tomography (CT) of the head was performed without intravenous contrast. The mA wa s adjusted according to patient size. Iterative reconstruction technique was employed. The dose-lengt h product was 681.00 mGy-cm. COMPARISON: Head CT 12/07/2023 FINDINGS: There is no intracranial hemorrhage, acute infarction, or abnormal intracranial mass lesion . There are scattered areas of low attenuation in the cerebral white matter, which is within normal l imits for the patient's age. The ventricles are normal in size. The orbits are normal. There is mild mucosal thickening in the paranasal sinuses. There is a small left mastoid effusion. IMPRESSION: 1. Normal aging brain. Reviewed, dictated and finalized at location A. MOTIVE PRODUCT ENGINEER IMPRESSION: 1. Normal aging brain.
--- NOTE | 2024-03-09 09:29 | ECG_ITS ---
Test Date: 2024-03-09 09:36:03 Measurements Intervals [place] Rate: 80 P: 77 CO: 147 QRS: 76 QRSD: 97 T: 65 QT: 357 QTc: 413 Interpretive Statements SINUS RHYTHM MINIMAL Q WAVES- INFERIOR LEADS BASELINE ARTIFACT- I, II, III, AVR, AVL, AVF BORDERLINE ECG Compared to ECG 12/07/2023 12:06:46 Incomplete right bundle-branch block no longer present Electronically Signed On 03-09-2024 16:38:28 CARDIOVASCULAR OR NURSE by oRyer Butler D.O.
--- NOTE | 2024-03-09 09:54 | PC.NURSE ---
0953 pt to xray via wheelchair with xray staff.
--- NOTE | 2024-03-09 09:59 | PC.NURSE ---
pt return to room from xray, lab staff in room to draw blood.
[2024-03-09 10:07] LABS: Basophils Absolute Auto 0.07 K/mm3 (0.00-0.10); Eosinophils Absolute Auto 0.22 K/mm3 (0.02-0.50); Eosinophils Percent Auto 3.1 % (1.0-6.0); Hemoglobin 14.2 g/dL (14.0-18.0); Immature Granulocyte Absolute 0.02 K/mm3 (0.00-0.00); Immature Granulocyte Percent A 0.3 % (0.0-0.0); Lymphocytes Absolute Auto 1.55 K/mm3 (1.10-4.50); Mean Corpuscular HGB Conc 33.8 g/dL (32-36); Mean Corpuscular Hemoglobin 30.1 pg (27.0-31.0); Mean Platelet Volume 8.7 fl (8.7-11.0); Monocytes Percent Auto 8.5 % (2.0-11.0); Neutrophils Absolute Auto 4.57 K/mm3 (1.70-7.20); Neutrophils Percent Auto 65.1 % (50.0-70.0); Platelet Count Result 235 K/mm3 (150-420); Red Blood Count 4.72 M/mm3 (4.70-6.10); Red Cell Distribution Width 12.2 % (11.6-14.4)
[2024-03-09] MEDS: ASPIRIN 81 MG CHEWABLE TABLET 324 MG PO (10:08)
[2024-03-09 10:19] LABS: Partial Thromboplastin Time 24.9 Sec (23.9-30.70); Prothrombin Time 11.1 Seconds (9.50-12.1)
[2024-03-09 10:24] LABS: Alanine Aminotransferase 25 U/L (16-63); Albumin Level 3.8 g/dL (3.4-5.0); Alkaline Phosphatase 58 U/L (46-116); Anion Gap 8 mmol/L (4-12); Aspartate Amino Transferase 21 U/L (15-37); Bilirubin,Total 0.4 mg/dL (0.00-1.00); Blood Urea Nitrogen 23 mg/dL (7-18); Calcium 9.2 mg/dL (8.5-10.1); Carbon Dioxide 30 mmol/L (21-32); Chloride 97 mmol/L (98-108); Estimated CRCL calculation 73 ml/min; Estimated Glomerular Filt Rate 59; Glucose 110 mg/dL (70-99); Lipase 22 U/L (16-77); Osmolality Calculated 284 mOsm/kg (285-295); Potassium 4.6 mmol/L (3.5-5.1); Sodium 135 mmol/L (136-145); Total Protein 7.5 g/dL (6.4-8.2); Troponin I 8.8 ng/L (0.00-60.4)
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
[2024-03-09 10:54] LABS: Add Urine Microscopic? NO; Appearance Urine Clear (Clear); Bilirubin Urine Negative (Negative); Blood Urine Negative (Negative); Color Urine Light Yellow (Yellow); Glucose Urine UA Negative (Negative); Ketones Urine Negative (Negative); Leukocyte Esterase Ur Negative LEU/UL (Negative); Nitrate Urine Negative (Negative); Protein Urine Negative (Negative); Specific Grav Ur 1.015 (1.010-1.020); Urobilinogen Urine 0.2 mg/dL (0.2-1.0)
[2024-03-09 11:02] LABS: Amphetamine Screen Urine Negative (Negative); Barbiturate Screen Urine Negative (Negative); Benzodiazepines Screen Urine Negative (Negative); Cannabinoid Screen Urine Negative (Negative); Cocaine Screen Urine Negative (Negative); Methadone Screen Urine Negative (Negative); Opiate Screen Urine Negative (Negative); Phencyclidine Screen Urine Negative (Negative)
== END 2024-03-09 11:05 | disposition home or self-care (01) ==
PROVIDERS: Emergency Provider Emergency Medicine
DX: J01.10 Acute frontal sinusitis, unspecified (principal); E03.9 Hypothyroidism, unspecified; I10 Essential (primary) hypertension; E11.9 Type 2 diabetes mellitus without complications; F17.210 Nicotine dependence, cigarettes, uncomplicated; Z79.899 Other long term (current) drug therapy
CPT/HCPCS: 36415; 70450; 71046; 80053; 80307; 81003; 83690; 84484; 85025; 85610; 85730; 93005; 99284; A9270

== ENCOUNTER 2024-06-28 15:04 | Emergency (ER) | payer OTHER, MEDICAID, MEDICARE, SELFPAY ==
[2024-06-28] VITALS (19 sets, daily range): BP systolic 123–148; BP diastolic 82–101; PULSE 64–96; RESP 10–20; TEMP 36.3–36.4; O2SAT 87–98
--- NOTE | ~2024-06-28 | XR_ITS ---
XR chest 1V portable Ordering provider: Bari Tan MD History: 64 years Male with . shortness of breath/ chest pain . Comparison: March 09, 2024 FINDINGS: MEDIASTINUM: The cardiac silhouette is not enlarged. LUNGS: No infiltrates, effusions or pneumothorax. Prominent markings in the lower lobes. OTHER: No free air under the diaphragm. Degenerative changes of the spine. IMPRESSION: Prominent markings in the lower lobes which may indicate atelectasis. Early pneumonia cannot be exclu ded. Follow-up advised. Reviewed, dictated and finalized at location A. TH SAFETY AND ENVIRONMENT MANAGER IMPRESSION: Prominent markings in the lower lobes which may indicate atelectasis. Early pne umonia cannot be excluded. Follow-up advised.
--- OUTSIDE RECORDS SUMMARY | 2024-06-28 15:07 | XMS_ITS ---
Author Organization Unknown Address [id number] [place] [address] [phone] Phone Care Team Providers Care Quilting Machine Helper Name Role Phone BENOIT MCMAHON Attending Unavailable JERO MEZA Primary Unavailable Immunization Immunization Date Status Additional Notes Code Code System Hep B, adult 12/08/2015 Completed 43 CVX Hep B, adult 02/09/2016 Completed 43 CVX Hep B, adult 06/14/2016 Completed 43 CVX Hep A, adult 12/08/2015 Completed 52 CVX Hep A, adult 06/14/2016 Completed 52 CVX Influenza, split virus, trivalent, PF 01/29/2024 Completed 140 CVX Influenza, split virus, quadrivalent, PF 01/19/2017 Completed 150 CVX Influenza, split virus, quadrivalent, PF 01/15/2018 Completed 150 CVX Influenza, split virus, quadrivalent, PF 07/12/2021 Completed 150 CVX zoster recombinant 09/29/2021 Completed 187 CVX zoster recombinant 12/03/2021 Completed 187 CVX COVID-19, mRNA, LNP-S, PF, 1 00 mcg/0.5mL dose or 50 mcg/0.25mL dose 07/10/2020 Completed 207 CVX COVID-19, mRNA, LNP-S, PF, 1 00 mcg/0.5mL dose or 50 mcg/0.25mL dose 08/07/2020 Completed 207 CVX COVID-19, mRNA, LNP-S, PF, 1 00 mcg/0.5mL dose or 50 mcg/0.25mL dose 04/30/2021 Completed 207 CVX Pneumococcal conjugate PCV20 , polysaccharide FUN359 conjugate, adjuvant, PF 01/29/2024 Completed [address] CHEST CA SCREEN - Complet ed: 01/30/2024 15:04 [facility]: EXAM DESCRIPTION: CT CHEST CA SCREEN REASON FOR STUDY: Screening CT of the chest in a current smoker with a 24 pack year smoking history. Additional history: CT chest 10/12/2021. TECHNIQUE: Low dose CT scan of the chest was performed without intravenous contrast using helical scanning technique. The exam extends from the lung apices through the lung bases. Automatic exposure control was used as a dose optimization technique. NOTE: This study was performed for the specific purposes of lung cancer screening and is not an alternative to diagnostic chest CT. RADIATION DOSE: CT dose index volume (CTDIvol) = 3.11 mGy COMPARISON: CT chest 10/12/2021 FINDINGS: SMOKING RELATED LUNG DISEASE: Minimal pulmonary emphysema. Stable biapical scarring. LUNG NODULES: Stable posterior right upper lobe 5 mm nodule, likely scarring (series 3, image 85).. Stable right lower lobe 5 mm nodule (213). Stable right lower lobe 6 mm nodule (245). New 1.5 cm ground-glass opacity in the lingula (211). CORONARY ARTERY CALCIFICATION: Minimal. OTHER: Stable scarring in the right middle lobe. No focal consolidation, pneumothorax, or pleural effusion. The central airways are clear. No mediastinal mass. No thoracic lymphadenopathy. The heart is normal in size. No pericardial effusion. Mild atherosclerotic calcifications of the thoracic aorta. No thoracic aortic aneurysm. No acute fractures or suspicious osseous lesions. The visualized upper abdomen is normal. IMPRESSION: New lingular 1.5 cm ground-glass opacity, likely infectious/inflammatory. Additional lung nodules are stable. No new suspicious nodules. Lung-RADS category 2: Benign appearance or behavior. Recommendation: Low dose Screening CT of chest in 12 months. THIS IS AN ELECTRONICALLY VERIFIED FINAL REPORT 02/01/2024 12:34 PM - Electronically signed by Michael Robertson M.D. KR: DIANA Report ID: [id number] Reading Location: [id number] Social History Type Status Start Date End Date Code Code Syst em Smoking History Current every day smoker [id number] SNOMED CT Sex Male Hospital Discharge Instructions Should you have any questions prior to discharge, please contact a member of your healthcare team. If you have left the hospital and have any questions, please contact your primary care physician. Reason For Referral No Data Found Allergies and Adverse Reactions Allergy Substance Reaction Severity Start Date Concern Status Co de Code System KETOROLAC Active 02435 RxNorm ULTRAM Active 411654 RxNorm Plan of Treatment CT Chest/Lung WO Contrast (64723) 08/05 Benoit Follow Up Visit 09/04/2024 Encounters Encounter Diagnosis Start Date Code Code Sys tem Encounter for screening for malignant neoplasm of respiratory organs 01/30/2024 SNOMED-CT Personal Care Team Section Performer Name Performer Role Active Date Inactive Da paco VIANCA NOGUEIRA PCP - Primary care physician 2021-03-03 2022-03-09 DANIEL ROTHMAN PCP - Primary care physician [id number] VIANCA NOGUEIRA PCP - Primary care physician 2022-06-14 Imaging Narrative Notes Procedures Notes [facility] 02/02/2024 15:29 Pulmonary Function Test DOS: 30-Jan-24 Ordering Provider: Sanchez Henson M.D. Spirometry Parameter Units Pred. LLN Pre %Pred Post %Pred %Chg FVC L 4.50 3.47 4.03 90 3.72 83 -8 FEV1 L 3.49 2.60 3.47 99 3.28 94 -5 FEV1/FVC % 78 66 86 110 88 113 2 PEFR L/s 9.54 7.09 8.69 91 8.24 86 -5 Plethysmography Parameter Units Pred LLN Pre %Pre TLC L 7.53 6.38 6.69 89 VC L 4.50 3.47 4.33 96 RV L 2.39 1.63 2.36 99 RV/TLC % 38 33 35 92 FRC L 3.91 2.92 3.80 97 ERV L 1.52 1.11 1.44 95 Raw cmH2O/L/s 1.70 0.60 1.97 116 sGaw L/s/cmH2O/L 0.26 0.11 0.16 62 Diffusing Capacity Parameter Units Pred LLN Pre %Pred DLCO mL/min/mmHg 29.02 21.70 29.10 100 DLCO [Hb] mL/min/mmHg 29.02 21.70 29.10 100 DLCO/VA mL/min/mmHg/L 4.19 3.16 4.26 102 VA [BTPS] L 6.98 5.61 6.83 98 [BTPS] L 4.50 3.47 3.92 87 Diffusion Time sec 10.66 Physician Impression: 1. Normal lung function test.
--- OUTSIDE RECORDS SUMMARY | 2024-06-28 15:08 | XMS_ITS | Clinical Summary ---
Author Organization [facility] Address [address] [facility] [address] Care Team Providers Care Associate Professor Of Automation Name Role Phone Lililana Gamino ENEIDA Primary Care Provider [phone] Allergies No known active allergies Medications ergocalciferol (VITAMIN D) 81502 UNIT Capsule Take 50,000 Units by mouth. Active albuterol 108 (90 Base) MCG/ACT Aerosol Solution 2 Active azithromycin (ZITHROMAX) 250 MG Tablet 2 Active buprenorphine-n aloxone (Suboxone) 8-[address] 1 FILM BY SUBLINGUAL 3 TIMES EVERY DAY ALLOW TO DISSOLVE SLOWLY WITHOUT CHEWING OR SWALLOWING 2 Active buPROPion (WELLBUTRIN) 150 MG XL tablet 2 Active buPROPion (WELLBUTRIN) 300 MG TABLET SR 24 HR XL tablet Take 300 mg by mouth daily. 2 Active cyclobenzaprine (FLEXERIL) 10 MG Tablet Take 10 mg by mouth. Active diclofenac (VOLTAREN) 75 MG Tablet Delayed Response 2 Active dicyclomine (BENTYL) 10 MG Capsule 2 Active famotidine (PEPCID) 20 MG Tablet 20 mg. 2 Active ibuprofen (MOTRIN) 800 MG Tablet Take 800 mg by mouth. 1 Active ipratropium-alb uterol (DUO-NEB) 0.5-2.5 (3) MG/3ML Solution 2 Active levothyroxine (SYNTHROID) 25 MCG Tablet Take 25 mcg by mouth. Active meloxicam (MOBIC) 15 MG Tablet Take 15 mg by mouth. Active metFORMIN (GLUCOPHAGE-XR) 500 MG TABLET SR 24 HR Take 500 mg by mouth. 2 Active OLANZapine (ZYPREXA) 20 MG Tablet Take 1 Tablet by mouth. 8 Active sertraline (ZOLOFT) 100 MG Tablet 100 mg. 0 Active lisinopril (PRINIVIL, ZESTRIL) 5 MG Tablet Take 1 Tablet by mouth daily. 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 Gender Identity Not on file Sexual Orientation Not on file Last Filed Vital Signs Vital Sign Reading Time Taken Comments Blood Pressure 158/82 10/18/2021 3:55 PM CDT Pulse 74 10/18/2021 3:55 PM CDT Temperature - - Respiratory Rate 16 10/18/2021 3:55 PM CDT Oxygen Saturation 95% 10/18/2021 3:55 PM CDT Inhaled Oxygen Concentration - - Weight 123.8 kg (273 lb) 10/18/2021 3:55 PM CDT Height 185.4 cm (6' 1 ) 10/18/2021 3:55 PM CDT Body Mass Index 36.02 10/18/2021 3:55 PM CDT Plan of Treatment Health Maintenance Due Date Last Done Comments Hepatitis C Virus (HCV) Screening 1962 TdaP Immunization 1962 Colonoscopy 2007 Colorectal Cancer Screening 2007 Cologuard 02/22/2012 Immunochemical Fecal Occult Blood 02/22/2012 PSA Discussion 2017 Influenza Immunization (#1) 2023 03/2 04/2021, 01/15/2018, 01/19/2017 Respiratory Syncytial Virus (RSV) Immunization (Adult) (1 - 1-dose 75+ series) 2037 Hepatitis B Immunization Completed 017, 02/09/2016, 12/08/2015 Zoster Immunization Completed 12/03/2021, Pneumococcal Immunization (50+ years) Completed 03/16/2024, 01/29/2024 Pneumococcal Immunization Combined Discontinued 03/16/2024, 01/29/2024 SARS-COV-2 Immunization Completed 03/16/20 24, 04/30/2021, 08/07/2020, Additional history exists Meningococcal Immunization (ACWY) Aged Out No longer eligible based on patient's age to complete this topic Rotavirus Immunization Aged Out No lo nger eligible based on patient's age to complete this topic Insurance MEDICARE C HUMANA Care Teams Associate Professor Of Automation Relationship Specialty Start Date End Date Lilliana Gamino APRN [address] [address] PCP - General Certified Nurse Practitioner 09/24/21
--- OUTSIDE RECORDS SUMMARY | 2024-06-28 15:08 | XMS_ITS | Encounter Summary ---
Author Organization [facility] Address [facility] [place] [address] Care Team Providers Care Heliarc Welder Name Role Phone StevensonCraigLilliana [facility] Primary Care Provider [phone] Lupillo Barrientos DO Unavailable [phone] None, Provider Primary Care Provider Emperatriz No NP Primary Care Provider [phone] Encounter Details Date Type Department Care Team (Late st Contact Info) Description 12/14/2022 Hospital Follow-up Call [facility] Unit [address] [place] [address] Kimmy Magaña, RN Social History Tobacco Use Types Packs/Day Years Used Date Smoking Tobacco: Former Cigarettes Q uit: 12/04/2022 Smokeless Tobacco: Never Alcohol Use Standard Drinks/Week Comments No 0 (1 standard drink = 0.6 oz pure alcohol) hx of alcohol use - patient denies current use 08/21/17 Humiliation, Afraid, Rape, and Kick questionnair e Answer Date Recorded Within the last year, have y ou been afraid of your partner or ex-partner? No 12/08/2022 Within the last year, have y ou been humiliated or emotionally abused in other ways by your partner or ex-partner? No Within the last year, have y ou been kicked, hit, slapped, or otherwise physically hurt by your partner or ex-partner? No 12/08/2022 Within the last year, have y ou been raped or forced to have any kind of sexual activity by your partner or ex-partner? No 12/08/2022 Overall Financial Resource Strain (CARDIA) Answe r Date Recorded How hard is it for you to pa y for the very basics like food, housing, medical care, and heating? Not hard at all 12/08/2022 PHQ-2 Answer Date Recorded Patient Health Questionnaire-2 Score 0 11/16/2022 Hunger Vital Sign Answer Date Recorded Within the past 12 months, y ou worried that your food would run out before you got the money to buy more. Sometimes true Within the past 12 months, t he food you bought just didn't last and you didn't have money to get more. Sometimes true PRAPARE - Transportation Answer Date Re corded In the past 12 months, has l ack of transportation kept you from medical appointments or from getting medications? No 11/22 In the past 12 months, has l ack of transportation kept you from meetings, work, or from getting things needed for daily living? No 12/08/2022 Housing Stability Vital Sign Answer Gurpreet e Recorded In the last 12 months, was t here a time when you were not able to pay the mortgage or rent on time? No 12/08/2022 In the last 12 months, how many places have you lived? 1 12/08/2022 In the last 12 months, was t here a time when you did not have a steady place to sleep or slept in a skilled nursing (including now)? No 12/08/2022 Sex and Gender Information Value Date Recorded Sex Assigned at Male 08/20/2018 1:29 PM CDT Legal Sex Male 10:25 PM CDT Gender Identity Male 08/20/2018 1:29 PM CDT Sexual Orientation Not on file documented as of this encounter Functional Status * Are you deaf or do you have serious difficulty hearing Answer Date of Assessment Author Status No 12/08/2022 8:55 PM CDT Ines Montez RN Active * Are you blind or do you have serious difficulty seeing, even when wearing glasses? Answer Date of Assessment Author Status No 12/08/2022 8:55 PM Ines Shahid RN Active * Do you have serious difficulty walking or climbing stairs? Answer Date of Assessment Author Status No 12/08/2022 8:55 PM Ines Shahid RN Active * Do you have difficulty dressing or bathing? Answer Date of Assessment Author Status No 12/08/2022 8:55 PM Ines Shahid RN Active * Because of a physical, mental, or emotional condition, do you have difficulty doing errands alone such as visiting a doctor's office or shopping? Answer Date of Assessment Author Status No 12/08/2022 8:55 PM Ines Shahid RN Active documented as of this encounter Mental Status * Because of a physical, mental, or emotional condition, do you have serious difficulty concentrating, remembering, or making decisions? Answer Entry Date Author Status No 12/08/2022 8:55 PM Ines Shahid RN Active documented in this encounter Plan of Treatment Not on file documented as of this encounter Visit Diagnoses Not on filedocumented in this encounter Care Teams Heliarc Welder Relationship Specialty Start Date End Date [facility] [address] [place] [address] PCP - General NURSE PRACTITIONER 08/30/21 01/18/24 None, Provider, PCP - General UNKNOWN PHYSICIAN SPECIALTY 01/19/24 03/11/24 Emperatriz Cleveland NP [address] [address] PCP - General Nurse Practitioner Family 03/12/24 Lupillo Barrientos DO [address] [place] [address] Consulting Physician CARDIOVASCULAR DISEASE 08/30/21 documented as of this encounter
--- OUTSIDE RECORDS SUMMARY | 2024-06-28 15:08 | XMS_ITS ---
Author Organization Unknown Address [address] [place] [address] [phone] Phone Care Team Providers Care Sap Integration Architect Name Role Phone BENOIT MCMAHON Attending Unavailable NASREEN CAMERON Primary Unavailable Immunization Immunization Date Status Additional [...] 207 CVX Pneumococcal conjugate PCV20 , polysaccharide XFF029 conjugate, adjuvant, PF 01/29/2024 Completed 216 CVX Social History Type Status Start Date End Date Code Code Syst em Smoking History Current every day smoker [id number] SNOMED CT Sex Male Hospital Discharge Instructions Should you have any questions prior to discharge, please contact a member of your healthcare team. If you have left the hospital and have any questions, please contact your primary care physician. Reason For Referral No Data Found Allergies and Adverse Reactions Allergy Substance Reaction Severity Start Date Concern Status Co de Code System KETOROLAC Active 55800 RxNorm ULTRAM Active 561153 RxNorm Plan of Treatment CT Chest/Lung WO Contrast (12475) 08/05 Song Follow Up Visit 09/04/2024 Encounters Encounter Diagnosis Start Date Code Code Sys tem Chronic obstructive lung disease 08/30/2023 [id number] SNOMED-CT Personal Care Team Section Performer Name Performer Role Active Date Inactive Da te VIANCA NOGUEIRA PCP - Primary care physician 2021-03-03 2022-03-09 DANIEL ROTHMAN PCP - Primary care physician [id number] VIANCA NOGUEIRA PCP - Primary care physician 2022-06-14 Procedures Notes [facility] 09/16/2023 16:34 Six Minute Walk Impression: No significant desaturation seen at rest and with walking.
--- OUTSIDE RECORDS SUMMARY | 2024-06-28 15:08 | XMS_ITS | Encounter Summary ---
Author Organization [facility] Address [address] [facility] [facility] [place] [address] Phone Care Team Providers Care Rubber Factory Worker Name Role Phone StevensonCraigLilliana Maria Alejandra MONIQUE Primary Care Provider [phone] Raimundo Bautista MD Unavailable Pablo bradford Reason for Visit * Reason Comments Medication Refill Encounter Details Date Type Department Care Team (Late st Contact Info) Description 03/17/2023 Refill [facility] - Card[facility] [address] [place] [address] Raimundo Bautista MD Medication Refill Social History Tobacco Use Types Packs/Day Years Used Date Smoking Tobacco: Every Day Cigarettes Smokeless Tobacco: Never Alcohol Use Standard Drinks/Week Comments Never 0 (1 standard drink = 0.6 oz pur e alcohol) Sex and Gender Information Value Date Recorded Sex Assigned at Not on file Legal Sex Male 3:24 AM RN BEHAVIORAL [facility] Gender Identity Not on file Sexual Orientation Not on file documented as of this encounter Miscellaneous Notes * Telephone Encounter - Marquita Alvarenga RN - 03/20/2023 10:00 AM CST Medication failed the protocol, provider to review and approve the medication order if appropriate. Requested Prescriptions Pending Prescriptions Disp Refills lisinopril (PRINIVIL, ZESTRIL) 5 MG Tablet [Pharmacy Med Name: LISINOPRIL 5 MG TABLET] 90 Tablet 1 Sig: TAKE 1 TABLET BY MOUTH EVERY DAY NATA Inhibitors Protocol Failed - 03/17/2023 12:44 AM Failed - Serum potassium on record in past 12 months No results found for: POTASSIUM , POCTK Failed - GFR on record in past 12 months No results found for: GFRNA Passed - Visit with relevant provider in past 18 months or upcoming 90 days Recent Visits Date Type Provider Dept 10/18/21 Office Visit Raimundo Bautista MD [facility] Cardiology Rajesh Showing recent visits within past 548 days and meeting all other requirements Future Appointments No visits were found meeting these conditions. Showing future appointments within next 90 days and meeting all other requirements Passed - Blood pressure on record Clinician-entered: BP Readings from Last 3 Encounters: 10/18/21 158/82 Patient-entered: No data recorded BEHAVIORAL HEALTH documented in this encounter Plan of Treatment Not on file documented as of this encounter Visit Diagnoses Not on filedocumented in this encounter Care Teams Rubber Factory Worker Relationship Specialty Start Date End Date Lilliana Gamino APRN [address] [facility] [address] [place] [address] PCP - General Certified Nurse Practitioner 09/24/21 Raimundo Bautista MD [address] [facility] [address] [place] [address] Sales Representative Electric Service Cardiovascular Disease - Cardiology 10/08/21 03/26/24 documented as of this encounter
--- OUTSIDE RECORDS SUMMARY | 2024-06-28 15:08 | XMS_ITS | Encounter Summary ---
Author Organization [facility] Address [address] [place] [address] Care Team Providers Care Shop Helper Name Role Phone Reinaldo Johana NAILS Primary Care Provider [phone] London Damon MD Unavailable [phone] Leticia Bernstein NP Unavailable [phone] Emperatriz Cleveland EVENT MANAGEMENT CONSULTANT Primary Care Provider + [phone] Lilliana Gamino [facility] Primary Care Provider [phone] Lupillo Barrientos DO Unavailable [phone] None, Provider Primary Care Provider Unavaila ble Emperatriz Cleveland NP Primary Care Provider + [phone] Encounter Details Date Type Department Care Team (Late st Contact Info) Description 09/29/2018 Abstract [facility] CONVERSION [address] [place] [address] , Generic Conversion, Social History Tobacco Use Types Packs/Day Years Used Date Smoking Tobacco: Every Day Cigarettes Smokeless Tobacco: Never Alcohol Use Standard Drinks/Week Comments No 0 (1 standard drink = 0.6 oz pure alcohol) hx of alcohol use - patient denies current use 08/21/17 Sex and Gender Information Value Date Recorded Sex Assigned at Male 08/20/2018 1:29 PM CDT Legal Sex Male 10:25 PM CDT Gender Identity Male 08/20/2018 1:29 PM CDT Sexual Orientation Not on file documented as of this encounter Plan of Treatment Not on file documented as of this encounter Visit Diagnoses Not on filedocumented in this encounter Additional Health Concerns Infection Onset Date Last Indicated Resolved Time COVID-19 Rule Out 09/25/2021 09/25/2021 09/25/2021 10:31 AM CDT documented as of this encounter Care Teams Shop Helper Relationship Specialty Start Date End Date Johana Najera PA [address] [place] [address] PCP - General 06/29/17 05/30/21 Emperatriz Cleveland, STAN [address] [facility] [address] [place] [id number] PCP - General Nurse Practitioner Family 05/31/21 08/29/21 [facility]illiana [facility] [address] [place] [address] PCP - General NURSE PRACTITIONER 08/30/21 01/18/24 None, MD Karrie PCP - General UNKNOWN PHYSICIAN SPECIALTY 01/19/24 03/11/24 Emperatriz Cleveland, STAN [address] [address] PCP - General Nurse Practitioner Family 03/12/24 London Damon MD [address] [place] [address] [employer] Media Technician CARDIOVASCULAR DISEASE 06/29/17 08/29/21 Leticia Bernstein NP [address] [facility] [address] [place] [address] CARDIOVASCULAR DISEASE 06/29/17 08/29/21 Lupillo Barrientos DO [address] [place] [address] Consulting Physician CARDIOVASCULAR DISEASE 08/30/21 documented as of this encounter
--- OUTSIDE RECORDS SUMMARY | 2024-06-28 15:08 | XMS_ITS | Encounter Summary ---
Author Organization [facility] Address [address] [facility] [place] [address] Phone Care Team Providers Care Commodity Director Name Role Phone Lilliana Gamino APRN Primary Care Provider [phone] Raimundo Bautista MD Unavailable Unavai labmorena Reason for Visit * Reason Comments Medication Refill Encounter Details Date Type Department Care Team (Late st Contact Info) Description 07/16/2022 Refill [facility] [address] [place] [address] Raimundo Bautista MD Medication Refill Social History Tobacco Use Types Packs/Day Years Used Date Smoking Tobacco: Every Day Cigarettes Smokeless Tobacco: Never Alcohol Use Standard Drinks/Week Comments Never 0 (1 standard drink = 0.6 oz pur e alcohol) Sex and Gender Information Value Date Recorded Sex Assigned at Not on file Legal Sex Male 3:24 AM COMPREHENSIVE ADVISOR Gender Identity Not on file Sexual Orientation Not on file documented as of this encounter Plan of Treatment Not on file documented as of this encounter Visit Diagnoses Not on filedocumented in this encounter Care Teams Commodity Director Relationship Specialty Start Date End Date Lilliana Gamino APRN [address] [facility] [address] [place] [address] PCP - General Certified Nurse Practitioner 09/24/21 Raimundo Bautista MD [address] [address] Mailroom Messenger Cardiovascular Disease - Cardiology 10/08/21 03/26/24 documented as of this encounter
--- OUTSIDE RECORDS SUMMARY | 2024-06-28 15:08 | XMS_ITS ---
Author Organization Unknown Address [address] [place], [place] [address] Phone Care Team Providers Care Assistant Loan Processor Name Role Phone NASREEN CAMERON Attending Unavailable JERO AQUINO-Verna Primary Unavailable Immunization Immunization Date Status Additional [...] 207 CVX Pneumococcal conjugate PCV20 , polysaccharide [id number] conjugate, adjuvant, PF 01/29/2024 Completed [address] BRAIN WO CONTRAST - Compl eted: 07/11/2023 08:50 LOINC: EXAM DESCRIPTION: CT BRAIN WO CONTRAST REASON FOR STUDY: DIZZINESS AND HEADACHES Duration: 1 MO TECHNIQUE: Multiplanar computed tomographic imaging of the brain. COMPARISON: May 24, 2022. FINDINGS: No acute intracranial hemorrhage or abnormal extra-axial fluid collection. No evidence of acute large vessel territorial infarction. No acute hydrocephalus. Basilar cisterns patent. Mild mucosal thickening in the left frontal sinus. Partial opacification of the left mastoid air cells. No depressed skull fractures. IMPRESSION: No acute intracranial abnormality. There is partial opacification of the left mastoid air cells which is nonspecific but may represent mastoiditis in the appropriate clinical setting. THIS IS AN ELECTRONICALLY VERIFIED FINAL REPORT 07/12/2023 8:21 AM - Electronically signed by Christiano Hannah M.D. SN: SN Report ID: [id number] Reading Location: [place] [address] Social History Type Status Start Date End Date Code Code Syst em Smoking History Current every day smoker 279252001 SNOMED CT Sex Male Hospital Discharge Instructions Should you have any questions prior to discharge, please contact a member of your healthcare team. If you have left the hospital and have any questions, please contact your primary care physician. Reason For Referral No Data Found Allergies and Adverse Reactions Allergy Substance Reaction Severity Start Date Concern Status Co de Code System KETOROLAC Active 03968 RxNorm ULTRAM Active 783270 RxNorm Plan of Treatment CT Chest/Lung WO Contrast (53604) 08/05 Song Follow Up Visit 09/04/2024 Encounters Encounter Diagnosis Start Date Code Code Sys tem Unspecified disorder of left middle ear and mastoid SNOMED-CT Personal Care Team Section Performer Name Performer Role Active Date Inactive Da VIANCA Kirkland PCP - Primary care physician 2021-03-03 2022-03-09 DANIEL ROTHMAN PCP - Primary care physician [id number] VIANCA NOGUEIRA PCP - Primary care physician 2022-06-14 Imaging Narrative Notes
--- OUTSIDE RECORDS SUMMARY | 2024-06-28 15:08 | XMS_ITS | Encounter Summary ---
Author Organization [facility] Address [facility] [place] [address] Care Team Providers Care Coil Cleaner Name Role Phone Lilliana Gamino [facility] Primary Care Provider [phone] Lupillo Barrientos DO Unavailable [phone] None, Provider Primary Care Provider Emperatriz No NP Primary Care Provider [phone] Encounter Details Date Type Department Care Team (Latest Contact Info) Description 12/14/2022 [place] Message Enc [facility] Cardiovascular Care Unit [address] [place], [place] [id number] [place] Provider Discharge follow up call Social History Tobacco Use Types Packs/Day Years [...] place to sleep or slept in a alf (including now)? No 12/08/2022 Sex and Gender [...] on filedocumented in this encounter Care Teams Coil Cleaner Relationship Specialty Start Date End Date [facility] [address] [place] [address] PCP - General NURSE PRACTITIONER 08/30/21 01/18/24 None, ProviderMD PCP - General UNKNOWN PHYSICIAN SPECIALTY 01/19/24 03/11/24 Emperatriz [place] NP [address] [address] PCP - General Nurse Practitioner Family 03/12/24 Lupillo Barrientos DO [address] [place] [address] Consulting Physician CARDIOVASCULAR DISEASE 08/30/21 documented as of this encounter
--- OUTSIDE RECORDS SUMMARY | 2024-06-28 15:08 | XMS_ITS | Clinical Summary ---
Author Organization [facility] Address [facility] [place] [address] Care Team Providers Care Bias Binding Folder Name Role Phone Lupillo Barrientos DO Unavailable [phone] Emperatriz Cleveland NP Primary Care Provider [phone] Allergies No known active allergies Medications * This document contains information received from the source organization and may not represent a complete record from that organization. OLANZapine 20 MG tablet Take 1 tablet (20 mg total) by mouth. 8 Active nitroglycerin 0.[address] 1 tablet (0.4 mg total) under the tongue every 5 (five) minutes as needed for Chest Pain. 8 Active sertraline 100 MG tablet 2 tablets (200 mg total) nightly at bedtime. 0 Active buPROPion XL 150 MG 24 hr tablet Take 2 tablets (300 mg total) by mouth every morning. 2 Active famotidine 20 MG tablet 1 tablet (20 mg total) 2 (two) times daily. 2 Active levothyroxine (SYNTHROID) 25 MCG tablet Take 1 tablet (25 mcg total) by mouth every morning. Active Ergocalciferol (VITAMIN D2 OR) Take 50,000 Units by mouth once a week. On monday Active dicyclomine 10 MG capsule 2 Active buprenorphine-n aloxone 8-[address] 1 FILM BY SUBLINGUAL 3 TIMES EVERY DAY ALLOW TO DISSOLVE SLOWLY WITHOUT CHEWING OR SWALLOWING 2 Active vitamin D2, ergocalciferol, 27519 UNITS capsule Take 1 capsule (1.25 mg total) by mouth every 7 days. 2 Active metFORMIN ER 500 MG 24 hr tablet Take 1 tablet (500 mg total) by mouth 2 (two) times daily. 30 tablet 2 Active Additional Information Patient taking differently: 1,000 mgOral 2 times daily, Reported on 01/19/2024 ipratropium-alb uterol (DUONEB) 0.5-2.5 (3) MG/3ML Solution USE 1 AMPULE VIA NEBULIZER EVERY 6 HOURS DAILY NEEDED 2 Active lisinopril (PRINIVIL) 5 MG tablet Take 1 tablet (5 mg total) by mouth daily. Active SPIRIVA RESPIMAT 2.5 MCG/ACT inhaler (SPIRIVA RESPIMAT) Inhale 2 puffs into the lungs. 3 Active albuterol sulfate HFA 108 (90 Base) MCG/ACT inhaler Inhale 1 puff into the lungs every 4 (four) hours as needed. 6.7 g 4 Active prazosin (MINIPRESS) 1 MG capsule Take 1 capsule (1 mg total) by mouth nightly at bedtime. Active pantoprazole EC (PROTONIX) 40 MG tablet Take 1 tablet (40 mg total) by mouth daily. Active SUMAtriptan (IMITREX) 50 MG tablet Take 1 tablet (50 mg total) by mouth 2 (two) times daily as needed for Migraine. Max of 4 tablets (200 mg) in 24 hours. Active busPIRone (BUSPAR) 15 MG tablet Take 1 tablet (15 mg total) by mouth 2 (two) times daily. Active Active Problems Problem Noted Date Diagnosed Date Weight gain 02/23/2023 Overview (02/23/2023): Added automatically from request for surgery [id number] Dyspepsia 02/16/2023 Gastroesophageal reflux dise ase, unspecified whether esophagitis present 11/17/2022 Overview (11/17/2022): Added automatically from request for surgery [id number] Weight loss 11/17/2022 Overview (11/17/2022): Added automatically from request for surgery [id number] Chest pain 03/24/2020 Pain of upper abdomen 08/20/2018 Indigestion 08/20/2018 Epigastric pain 08/20/2018 History of gastric surgery 08/20/2018 BMI 35.0-35.9,adult 08/20/2018 Bloating 08/20/2018 Hepatic steatosis 08/20/2018 History of alcohol use 08/20/2018 Tobacco use disorder 08/20/2018 Essential hypertension 06/28/2017 Resolved Problems Problem Noted Date Diagnosed Date Resolved Date Colon polyp 08/21/2017 08/20/2018 Follow-up exam 08/21/2017 08/20/2018 Overview (08/20/2018): Transitioned From: Normal Routine History And Physical Adult Helicobacter positive gastritis 08/21/2017 08/20/2018 Chest pain 08/20/2018 Immunizations Name Administration Dates Next Due Hepatitis A (Generic) 06/14/2016,12/08/2015 Hepatitis B (Generic: Adult) 06/14/2016,02/09/20,12/08/2015 Influenza Adult (Generic) 01/19/2017 Family History Medical History Relation Comments Cancer Maternal Grandmother Heart Disease Mother Cancer Paternal Grandfather Cancer Paternal Grandmother Relation Status Comments Father Maternal Grandfather cardiac dis ease Maternal Grandmother Cardiac dis ease Mother Alive Cardiovascular d isease Paternal Grandfather Paternal Grandmother Social History Tobacco Use Types Packs/Day Years Used Date Smoking Tobacco: Some Days Cigarettes Last attempted to quit: 12/04/2022 Smokeless Tobacco: Never Tobacco Cessation:Ready to Q uit: Not Asked; Counseling Given: Not Answered Alcohol Use Standard Drinks/Week Comments No 0 [...] place to sleep or slept in a penitentiary (including now)? No 12/08/2022 Sex and Gender Information Value Date Recorded Sex Assigned at Male 08/20/2018 1:29 PM CDT Legal Sex Male 10:25 PM CDT Gender Identity Male 08/20/2018 1:29 PM CDT Sexual Orientation Not on file Last Filed Vital Signs Vital Sign Reading Time Taken Comments Blood Pressure 119/96 03/12/2024 9:30 PM MECHANISM INSPECTOR Pulse 84 03/12/2024 9:30 PM MECHANISM INSPECTOR Temperature 37.1 C (98.8 F) 03/12/2024 4:46 PM MECHANISM INSPECTOR Respiratory Rate 18 03/12/2024 4:46 PM MECHANISM INSPECTOR Oxygen Saturation 95% 03/12/2024 9:30 PM MECHANISM INSPECTOR Inhaled Oxygen Concentration - - Weight 121.6 kg (268 lb) 03/12/2024 4:46 PM MECHANISM INSPECTOR Height 182.9 cm (6') 03/12/2024 4:46 PM MECHANISM INSPECTOR Body Mass Index 36.35 03/12/2024 4:46 PM MECHANISM INSPECTOR Plan of Treatment Health Maintenance Due Date Last Done Comments Colorectal Cancer Screening Colonoscopy (10 Years) 1962 Annual Physical 1965 Hepatitis C 02/22/1980 DTaP, Tdap and Td Vaccines (1 - Tdap) 1981 RSV Immunization or 60+ Years (1 - Risk 60-74 years 1-dose series) 2022 COVID-19 Vaccine ( season) 2023 04/30/2021, 08/07/2020, 07/10/2020 PHQ-2 (Physician [place]) 04/24/2024 11/16/2022 Zoster Vaccines Completed 12/03/2021, 09/29/2021 Influenza Adult Completed 01/29/2024, 06/23, 01/15/2018, Additional history exists Pneumococcal Vaccine: Pediatrics (0 to 5 Years) and At-Risk Patients (6 to 64 Years) Completed 01/29/2024 Meningococcal B Vaccine Aged Out No l onger eligible based on patient's age to complete this topic Meningococcal Vaccine Aged Out No [place] eligible based on patient's age to complete this topic RSV Immunizations Under 20 Months Aged Out No longer eligible based on patient's age to complete this topic Insurance HUMAN Advance Directives * Full Code (Latest Code Status on File) Date Activated Date Inactivated Comments 12/08/2022 9:00 PM 12/09/2022 3:50 PM * Full Code Date Activated Date Inactivated Comments 09/25/2021 1:56 PM 09/26/2021 4:27 PM * Full Code Date Activated Date Inactivated Comments 03/24/2020 8:15 PM 03/25/2020 4:17 PM Care Teams Bias Binding Folder Relationship Specialty Start Date End Date Emperatriz Cleveland NP [address] [address] PCP - General Nurse Practitioner Family 03/12/24 Lupillo Barrientos DO Consulting Physician CARDIOVASCULAR DISEASE 08/30/21
--- OUTSIDE RECORDS SUMMARY | 2024-06-28 15:08 | XMS_ITS | Continuity of Care Document ---
Author Organization [facility] Address [address] [place] [address] [place] [address] Phone Care Team Providers Care House Mover Supervisor Name Role Phone Los De La Garza MD Unavailable Unavailable Allergies, Adverse Reactions, Alerts Substance Reaction Status Criticality No Known Allergies Active No Inform ation Medications Medication Instructions Dosage Effective Dates (start - stop) Status Comments Ativan 1 mg tablet take 1 tablet (1MG) by oral route every bedtime as needed 1 MG - Active Ultram 50 mg tablet take 1 tablet (50MG) by oral route 2 times every day as needed 50 MG - Active PRN for pain, avoid driving or operaet machines Procedures Procedure Date OFFICE/OUTPATIENT VISIT, [facility] Advance Directives Directive Yes / No Effective Date File Name No Information Encounters Encounter Description Practice Location Reason(s) For Visit Diagnoses Date Provider Providers Copied on Encounter OFFICE/OUTPAT IENT VISIT, [facility], [address] [place], [place], [id number], tel:[phone] [facility] knee pain (chief complaint)i nsomnia (chief complaint)v aricose veins (chief complaint) Dietary surveillance and counselingPain in joint involving lower legVaricose Veins, Lower ExtremityHypert ension, Unspecified [address] [place], [place], [id number] , [place]. tel:[phone] Family History Family Member Type Diagnosis Age At Onset No Information Payers Payer name Insurance type Covered alliance party ID Authoriza tion(s) No Information Social History Type Description Quantity Date Captured Comments Alcohol Use Details No Caffeine Use Details Unknown Tobacco Use Status No Information Smoking Status Current every day smoker Smoking Tobacco Use Details Cigarette: No Details Available Cigarette: 1 Packs per day Sex Male Vital Signs Date / Time: Height Weight BMI Pulse Rate Blood Pressure Temperature Respiratory Rate Body Surface Area Head Circumference BMI percentile Pulse Ox Inhaled Ox 5:36 PM 73.00 in 193.00 lbs 25.4 6 kg/m eter (2) 70 /min 140/87 mm[Hg] 98.5 F 18 /min Chief Complaint And Reason For Visit From encounter dated '02/11/2013 17:32'. knee pain (chief complaint) insomnia (chief complaint) varicose veins (chief complaint) Plan Of Treatment Date Type Action Status Goal Tobacco cessation counseling completed Referral Ordered: Referral: Vascular Surgery. ordered History Of Present Illness Encounter Date Complaint History Of Prese nt Illness No Information Instructions Date Instruction Additional Infor wilber Dietary counseling Related to Di etary surveillance counseling Decrease caloric intake Related to Dietary surveillance counseling Assessments Type Assessment Date No Information Mental Status Date Cognitive Assessment Orientation - [place] ed to time, place, person, situation.
--- OUTSIDE RECORDS SUMMARY | 2024-06-28 15:30 | XMS_ITS | Continuity of Care Document ---
Author Organization [facility] Address [address] [place] [address] [place] [address] Phone Care Team Providers Care End Matcher Name Role Phone Los De La Garza MD Unavailable Unavailable Allergies, Adverse Reactions, Alerts Substance Reaction Status Criticality No Known Allergies Active No Inform ation Medications Medication Instructions Dosage Effective Dates (start - stop) Status Comments Ultram 50 mg tablet take 1 tablet (50MG) by oral route 2 times every day as needed 50 MG - Active PRN for pain, avoid driving or operaet machines Ativan 1 mg tablet take 1 tablet (1MG) by oral route every bedtime as needed 1 MG - Active Procedures Procedure Date OFFICE/OUTPATIENT VISIT, [facility] Advance Directives Directive Yes / No Effective Date File Name No Information Encounters Encounter Description Practice Location Reason(s) For Visit Diagnoses Date Provider Providers Copied on Encounter OFFICE/OUTPAT IENT VISIT, [facility], [address] [place], [place], [id number], tel:[phone] [facility] [place] knee pain (chief complaint)i nsomnia (chief complaint)v aricose veins (chief complaint) Dietary surveillance and counselingPain in joint involving lower legVaricose Veins, Lower ExtremityHypert ension, Unspecified [address] [place], [place], [id number] , [place]. tel:[phone] Family History Family Member Type Diagnosis Age At Onset No Information Payers Payer name Insurance type Covered democrat ID Authoriza tion(s) No Information Social History [...] Mental Status Date Cognitive Assessment Orientation - [place] ed to time, place, person, situation.
--- OUTSIDE RECORDS SUMMARY | 2024-06-28 15:30 | XMS_ITS ---
Author Organization Unknown Address [address] [place] [phone] Phone Care Team Providers Care Patent Prosecution Attorney Name Role Phone BENOIT MCMAHON Attending Unavailable [...] 207 CVX Pneumococcal conjugate PCV20 , polysaccharide [id number] conjugate, adjuvant, PF 01/29/2024 Completed 216 CVX Social History Type Status Start Date End Date Code Code Syst em Smoking History Current every day smoker [id number] SNOMED CT Sex Male Hospital Discharge Instructions Should you have any questions prior to discharge, please contact a member of your healthcare team. If you have left the hospital and have any questions, please contact your primary care physician. Reason For Referral No Data Found Allergies and Adverse Reactions Allergy Substance Reaction Severity Start Date Concern Status Co de Code System KETOROLAC Active 19528 RxNorm ULTRAM Active 560694 RxNorm Plan of Treatment CT Chest/Lung WO Contrast (29882) 08/05 Song Follow Up Visit 09/04/2024 Encounters Encounter Diagnosis Start Date Code Code Sys tem Chronic obstructive lung disease 08/30/2023 33163549 SNOMED-CT Personal Care Team Section Performer Name Performer Role Active Date Inactive Da te VIANCA NOGUEIRA PCP - Primary care physician 2021-03-03 2022-03-09 DANIEL ROTHMAN PCP - Primary care physician [id number] VIANCA NOGUEIRA PCP - Primary care physician 2022-06-14 Procedures Notes [facility] 09/16/2023 16:34 Six Minute Walk Impression: No significant desaturation seen at rest and with walking.
--- OUTSIDE RECORDS SUMMARY | 2024-06-28 15:30 | XMS_ITS | Encounter Summary ---
Author Organization [facility] Address [address] [facility] [place] [address] Phone Care Team Providers Care Marketing Admin Name Role Phone StevensonCraigLilliana Maria Alejandra MONIQUE Primary Care Provider [phone] Raimundo Bautista MD Unavailable Pablo bradford Reason for Visit * Reason Comments Medication Refill Encounter Details Date Type Department Care Team (Late st Contact Info) Description 03/17/2023 Refill [facility] - Cardiology [facility] [address] [place] [address] Raimundo Bautista MD Medication Refill Social History Tobacco Use Types Packs/Day Years Used Date Smoking Tobacco: Every Day Cigarettes Smokeless Tobacco: Never Alcohol Use Standard Drinks/Week Comments Never 0 (1 standard drink = 0.6 oz pur e alcohol) Sex and Gender Information Value Date Recorded Sex Assigned at Not on file Legal Sex Male 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 Showing future appointments within next 90 days and meeting all other requirements Passed - Blood pressure on record Clinician-entered: BP Readings from Last 3 Encounters: 10/18/21 158/82 Patient-entered: No data recorded WALL SECURITY ENGINEER documented in this encounter Plan of Treatment Not on file documented as of this encounter Visit Diagnoses Not on filedocumented in this encounter Care Teams Marketing Admin Relationship Specialty Start Date End Date Lilliana Gamino APRN [address] [facility] [address] [place] [address] PCP - General Certified Nurse Practitioner 09/24/21 Raimundo Bautista MD [address] [facility] [address] [place] [address] Manager Wastewater Cardiovascular Disease - Cardiology 10/08/21 03/26/24 documented as of this encounter
--- OUTSIDE RECORDS SUMMARY | 2024-06-28 15:30 | XMS_ITS | Encounter Summary ---
Author Organization [facility] Address [facility] [place] [address] Care Team Providers Care Ticketing Clerk Name Role Phone StevensonCraigLilliana [facility] Primary Care Provider [phone] Lupillo Barrientos DO Unavailable [phone] None, Provider Primary Care Provider Emperatriz No NP Primary Care Provider [phone] Encounter Details Date Type Department Care Team (Late st Contact Info) Description 12/14/2022 Hospital Follow-up Call [facility] Cardiovascular Care Unit [address] [place] [address] Kimmy Magaña, RN Social History [...] place to sleep or slept in a half-way (including now)? No 12/08/2022 Sex and Gender [...] on filedocumented in this encounter Care Teams Ticketing Clerk Relationship Specialty Start Date End Date [facility] [address] [place] [address] PCP - General NURSE PRACTITIONER 08/30/21 01/18/24 None, Provider, PCP - General UNKNOWN PHYSICIAN SPECIALTY 01/19/24 03/11/24 Emperatriz Cleveland NP [address] [address] PCP - General Nurse Practitioner Family 03/12/24 Lupillo Barrientos DO [address] [place] [address] Consulting Physician CARDIOVASCULAR DISEASE 08/30/21 documented as of this encounter
--- OUTSIDE RECORDS SUMMARY | 2024-06-28 15:30 | XMS_ITS ---
Author Organization Unknown Address [address] [place] [phone] Phone Care Team Providers Care Filter Tip Inspector Name Role Phone BENOIT MCMAHON Attending Unavailable [...] 207 CVX Pneumococcal conjugate PCV20 , polysaccharide [id number] conjugate, adjuvant, PF 01/29/2024 Completed [address] CHEST CA SCREEN - Complet ed: 01/30/2024 15:04 [facility]: EXAM DESCRIPTION: CT CHEST CA SCREEN REASON [...] Michael Robertson M.D. KR: DIANA Report ID: [id number] Reading Location: [id number] Social History Type Status Start Date End Date Code Code Syst em Smoking History Current every day smoker [id number] SNOMED CT Sex Male Hospital Discharge Instructions Should you have any questions prior to discharge, please contact a member of your healthcare team. If you have left the hospital and have any questions, please contact your primary care physician. Reason For Referral No Data Found Allergies and Adverse Reactions Allergy Substance Reaction Severity Start Date Concern Status Co de Code System KETOROLAC Active 05302 RxNorm ULTRAM Active 697341 RxNorm Plan of Treatment CT Chest/Lung WO Contrast (24889) 08/05 [place] Follow Up Visit 09/04/2024 Encounters [...] physician 2022-06-14 Imaging Narrative Notes Procedures Notes [facility] 02/02/2024 15:29 Pulmonary Function Test DOS: 30-Jan-24 [...]
--- OUTSIDE RECORDS SUMMARY | 2024-06-28 15:30 | XMS_ITS | Clinical Summary ---
Author Organization [facility] Address [address] [place] [address] Care Team Providers Care General Manager Name Role Phone Lilliana Gamino ENEIDA Primary Care Provider [phone] Allergies No known active allergies Medications ergocalciferol (VITAMIN D) 98328 UNIT Capsule Take 50,000 Units by mouth. 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
--- OUTSIDE RECORDS SUMMARY | 2024-06-28 15:30 | XMS_ITS | Clinical Summary ---
Author Organization [facility] Address [facility] [place] [address] Care Team Providers Care Stock Preparer Name Role Phone Lupillo Barrientos DO Unavailable [phone] Emperatriz Cleveland NP Primary Care Provider [phone] Allergies No known active allergies Medications * [...] OR SWALLOWING 2 Active vitamin D2, ergocalciferol, 54351 UNITS capsule Take 1 capsule (1.25 mg [...] (02/23/2023): Added automatically from request for surgery [id number] Dyspepsia 02/16/2023 Gastroesophageal reflux dise ase, unspecified whether esophagitis present 11/17/2022 Overview (11/17/2022): Added automatically from request for surgery [id number] Weight loss 11/17/2022 Overview (11/17/2022): Added automatically from request for surgery [id number] Chest pain 03/24/2020 Pain of upper abdomen [...] place to sleep or slept in a fci (including now)? No 12/08/2022 Sex and Gender Information Value Date Recorded Sex Assigned at Male 08/20/2018 1:29 PM CDT Legal Sex Male 10:25 PM CDT Gender Identity Male 08/20/2018 1:29 PM CDT Sexual Orientation Not on file Last Filed Vital Signs Vital Sign Reading Time Taken Comments Blood Pressure 119/96 03/12/2024 9:30 PM BILINGUAL BRANCH MANAGER Pulse 84 03/12/2024 9:30 PM BILINGUAL BRANCH MANAGER Temperature 37.1 C (98.8 F) 03/12/2024 4:46 PM BILINGUAL BRANCH MANAGER Respiratory Rate 18 03/12/2024 4:46 PM BILINGUAL BRANCH MANAGER Oxygen Saturation 95% 03/12/2024 9:30 PM BILINGUAL BRANCH MANAGER Inhaled Oxygen Concentration - - Weight 121.6 kg (268 lb) 03/12/2024 4:46 PM BILINGUAL BRANCH MANAGER Height 182.9 cm (6') 03/12/2024 4:46 PM BILINGUAL BRANCH MANAGER Body Mass Index 36.35 03/12/2024 4:46 PM BILINGUAL BRANCH MANAGER Plan of Treatment Health Maintenance Due Date Last Done Comments Colorectal Cancer Screening Colonoscopy (10 Years) 1962 Annual Physical 1965 Hepatitis C 02/22/1980 DTaP, Tdap and Td Vaccines (1 - Tdap) 1981 RSV Immunization or 60+ Years (1 - Risk 60-74 years 1-dose series) 2022 COVID-19 Vaccine ( season) 2023 04/30/2021, 08/07/2020, 07/10/2020 PHQ-2 (Physician Winifrede) 04/24/2024 11/16/2022 Zoster Vaccines Completed 12/03/2021, 09/29/2021 [...] 8:15 PM 03/25/2020 4:17 PM Care Teams Stock Preparer Relationship Specialty Start Date End Date Emperatriz Cleveland NP [address] [address] PCP - General Nurse Practitioner Family 03/12/24 Lupillo Barrientos DO Consulting Physician CARDIOVASCULAR DISEASE 08/30/21
--- OUTSIDE RECORDS SUMMARY | 2024-06-28 15:30 | XMS_ITS ---
Author Organization Unknown Address [address] [place], [place] [id number] Phone Care Team Providers Care Beauty Parlor Cleaner Name Role Phone NASREEN CAMERON Attending Unavailable [...] 207 CVX Pneumococcal conjugate PCV20 , polysaccharide [id number] conjugate, adjuvant, PF 01/29/2024 Completed 216 CVX [...] Christiano Hannah M.D. SN: SN Report ID: [id number] Reading Location: [place] [address] Social History Type Status Start Date End Date Code Code Syst em Smoking History Current every day smoker [id number] SNOMED CT Sex Male Hospital Discharge Instructions Should you have any questions prior to discharge, please contact a member of your healthcare team. If you have left the hospital and have any questions, please contact your primary care physician. Reason For Referral No Data Found Allergies and Adverse Reactions Allergy Substance Reaction Severity Start Date Concern Status Co de Code System KETOROLAC Active 12142 RxNorm ULTRAM Active 794375 RxNorm Plan of Treatment CT Chest/Lung WO Contrast (60356) 08/05 Song Follow Up Visit 09/04/2024 Encounters [...]
--- OUTSIDE RECORDS SUMMARY | 2024-06-28 15:30 | XMS_ITS | Encounter Summary ---
Author Organization [facility] Address [place] [place] [address] Care Team Providers Care Web Site Project Manager Name Role Phone Lilliana Gamino [facility] Primary Care Provider [phone] Lupillo Barrientos DO Unavailable [phone] None, Provider Primary Care Provider Emperatriz No NP Primary Care Provider [phone] Encounter Details Date Type Department Care Team (Latest Contact Info) Description 12/14/2022 Camalize SL Message Enc [facility] Cardiovascular Care Unit [address] [place], [place] [id number] [place], [facility] Provider Discharge follow up call Social History [...] place to sleep or slept in a custodial (including now)? No 12/08/2022 Sex and Gender [...] on filedocumented in this encounter Care Teams Web Site Project Manager Relationship Specialty Start Date End Date [facility] [address] [place] [address] PCP - General NURSE PRACTITIONER 08/30/21 01/18/24 None, ProviderMD PCP - General UNKNOWN PHYSICIAN SPECIALTY 01/19/24 03/11/24 Emperatriz Cleveland NP [address] [address] PCP - General Nurse Practitioner Family 03/12/24 Lupillo Barrientos DO [address] [place] [address] Consulting Physician CARDIOVASCULAR DISEASE 08/30/21 documented as of this encounter
--- OUTSIDE RECORDS SUMMARY | 2024-06-28 15:30 | XMS_ITS | Encounter Summary ---
Author Organization [facility] Address [address] [facility] [place] [address] Phone Care Team Providers Care Field Liability Generalist Name Role Phone Lilliana Gamino APRN Primary Care Provider [phone] Raimundo Bautista MD Unavailable Unavai labmorena Reason for Visit * Reason Comments Medication Refill Encounter Details Date Type Department Care Team (Late st Contact Info) Description 07/16/2022 Refill [facility] [address] [place] [address] Raimundo Bautista MD Medication Refill Social History Tobacco Use Types Packs/Day Years Used Date Smoking Tobacco: Every Day Cigarettes Smokeless Tobacco: Never Alcohol Use Standard Drinks/Week Comments Never 0 (1 standard drink = 0.6 oz pur e alcohol) Sex and Gender Information Value Date Recorded Sex Assigned at Not on file Legal Sex Male 3:24 AM LATRINE CLEANER Gender Identity Not on file Sexual Orientation Not on file documented as of this encounter Plan of Treatment Not on file documented as of this encounter Visit Diagnoses Not on filedocumented in this encounter Care Teams Field Liability Generalist Relationship Specialty Start Date End Date Lilliana Gamino APRN [address] [facility] [address] [place] [address] PCP - General Certified Nurse Practitioner 09/24/21 Raimundo Bautista MD [address] [address] Scraper Loader Operator Cardiovascular Disease - Cardiology 10/08/21 03/26/24 documented as of this encounter
--- OUTSIDE RECORDS SUMMARY | 2024-06-28 15:30 | XMS_ITS | Encounter Summary ---
Author Organization [facility] Address [address] [place] [address] Care Team Providers Care College Service Officer Name Role Phone Reinaldo Johana NAILS Primary Care Provider [phone] London Damon MD Unavailable [phone] Leticia Bernstein NP Unavailable [phone] Emperatriz Cleveland ACTIVE DIRECTORY SYSTEMS ADMINISTRATOR Primary Care Provider [phone] Lilliana Gamino [facility] Primary Care Provider [phone] Lupillo Barrientos DO Unavailable [phone] None, Provider Primary Care Provider Unavaila ble Emperatriz Cleveland NP Primary Care Provider + [phone] Encounter Details Date Type Department Care Team (Late st Contact Info) Description 09/29/2018 Abstract [facility] CONVERSION [address] [place] [address] , Generic Conversion, Social History Tobacco Use [...] documented as of this encounter Care Teams College Service Officer Relationship Specialty Start Date End Date Johana Najera PA [address] [place] [address] PCP - General 06/29/17 05/30/21 Emperatriz Cleveland, STAN [address] [facility] [address] [place] [phone] PCP - General Nurse Practitioner Family 05/31/21 08/29/21 [facility] [address] [place] [address] PCP - General NURSE PRACTITIONER 08/30/21 01/18/24 None, MD Karrie PCP - General UNKNOWN PHYSICIAN SPECIALTY 01/19/24 03/11/24 Emperatriz Cleveland, STAN [address] [address] PCP - General Nurse Practitioner Family 03/12/24 London Damon MD [address] [place] [address] [employer] Supervisor CARDIOVASCULAR DISEASE 06/29/17 08/29/21 Leticia Bernstein NP [address] [facility] [address] [place] [address] CARDIOVASCULAR DISEASE 06/29/17 08/29/21 Lupillo Barrientos DO [address] [place] [address] Consulting Physician CARDIOVASCULAR DISEASE 08/30/21 documented as of this encounter
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
--- NOTE | 2024-06-28 15:36 | ECG_ITS ---
Test Date: 2024-06-28 15:47:28 Measurements Intervals [place] Rate: 70 P: 68 CA: 157 QRS: 79 QRSD: 94 T: 71 QT: 364 QTc: 394 Interpretive Statements SINUS RHYTHM Compared to ECG 03/09/2024 09:36:03 No significant changes Electronically Signed On 06-28-2024 16:15:07 PHOTOGRAMMETRIC TECHNICIAN by Breana Yeh M.D.
[2024-06-28 15:47] LABS: Base Excess ABG 4.3 mmol/L (0-2); Oxygen Saturation ABG 89.9 % (95-97); Oxyhemoglobin 87.5 % (94-100); PCO2 ABG 48.5 mmHg (35-45); PO2 ABG 56.2 mmHg (80-90); pH ABG 7.41 (7.35-7.45)
[2024-06-28 15:48] LABS: Device ROOM AIR; Modified Allen's Test Pass; Site Drawn RIGHT RADIAL
[2024-06-28 15:51] LABS: Basophils Absolute Auto 0.07 K/mm3 (0.00-0.10); Basophils Percent Auto 1.1 % (0.0-1.0); Eosinophils Absolute Auto 0.46 K/mm3 (0.02-0.50); Hematocrit 42.7 % (40.0-54.0); Hemoglobin 14.1 g/dL (14.0-18.0); Immature Granulocyte Absolute 0.01 K/mm3 (0.00-0.00); Immature Granulocyte Percent A 0.2 % (0.0-0.0); Lymphocytes Absolute Auto 2.52 K/mm3 (1.10-4.50); Lymphocytes Percent Auto 38.2 % (18.0-42.0); Mean Corpuscular Hemoglobin 29.5 pg (27.0-31.0); Mean Corpuscular Volume 89.3 fL (78.0-102.0); Mean Platelet Volume 8.9 fl (8.7-11.0); Monocytes Absolute Auto 0.69 K/mm3 (0.10-0.90); Monocytes Percent Auto 10.5 % (2.0-11.0); Neutrophils Absolute Auto 2.85 K/mm3 (1.70-7.20); Platelet Count Result 230 K/mm3 (150-420); Red Blood Count 4.78 M/mm3 (4.70-6.10); Red Cell Distribution Width 12.6 % (11.6-14.4); White Blood Count 6.6 K/mm3 (4.8-10.8)
[2024-06-28 16:08] LABS: Troponin I 10.8 ng/L (0.00-60.4)
[2024-06-28 16:12] LABS: Alanine Aminotransferase 21 U/L (16-63); Albumin Level 3.6 g/dL (3.4-5.0); Alkaline Phosphatase 70 U/L (46-116); Anion Gap 9 mmol/L (4-12); Aspartate Amino Transferase 15 U/L (15-37); Bilirubin,Total 0.2 mg/dL (0.00-1.00); Blood Urea Nitrogen 14 mg/dL (7-18); Calcium 9.5 mg/dL (8.5-10.1); Carbon Dioxide 29 mmol/L (21-32); Chloride 102 mmol/L (98-108); Estimated CRCL calculation 85 ml/min; Estimated Glomerular Filt Rate > 60; Glucose 88 mg/dL (70-99); NT Pro B Type Natriuretic Pept 40 pg/mL (0-125); Osmolality Calculated 289 mOsm/kg (285-295); Potassium 4.2 mmol/L (3.5-5.1); Sodium 140 mmol/L (136-145); Total Protein 7.5 g/dL (6.4-8.2)
[2024-06-28 16:13] LABS: Partial Thromboplastin Time 25.1 Sec (23.9-30.70); Prothrombin Time 10.6 Seconds (9.50-12.1)
[2024-06-28 16:38] LABS: Influenza A QL RT-PCR Negative (Negative); Influenza B QL RT-PCR Negative (Negative); RSV RNA, RT-PCR Negative (Negative); SARS-CoV-2 RNA PCR Negative (Negative)
--- NOTE | 2024-06-28 16:59 | PC.NURSE ---
ERP at bedside discussing plan of care.
--- NOTE | 2024-06-28 17:02 | PC.NURSE ---
Patient refuses to be admitted but will take a breathing treatment, Patient to sign AMA form following breathing treatment and leave. ERP has spoke with patient. Patient alert and oriented at this time.
[2024-06-28] MEDS: IPRATROPIUM 0.5 MG/ALBUTEROL SULFATE 2.5 MG AMPUL.NEB 3 ML INHALATION (17:07)
--- NOTE | 2024-06-28 17:10 | PC.NURSE ---
Patient has signed his AMA form, ERP spoke with patient again and he states he does not want stay in hospital. Patient ambulatory out of ED with steady gait.
== END 2024-06-28 17:11 | disposition left against medical advice (07) ==
PROVIDERS: Emergency Provider Emergency Medicine; PCP Nurse Practitioner Family
DX: J96.01 Acute respiratory failure with hypoxia (principal); J44.1 Chronic obstructive pulmonary disease with (acute) exacerbation; J18.9 Pneumonia, unspecified organism; E03.9 Hypothyroidism, unspecified; E11.9 Type 2 diabetes mellitus without complications; I10 Essential (primary) hypertension; F17.210 Nicotine dependence, cigarettes, uncomplicated; Z20.822 Contact with and (suspected) exposure to COVID-19; Z99.81 Dependence on supplemental oxygen
CPT/HCPCS: 36415; 36600; 71045; 80053; 82805; 83880; 84484; 85025; 85610; 85730; 87637; 93005; 94640; 99284

== ENCOUNTER 2024-07-16 10:46 | Observation (INO) | payer OTHER, SELFPAY ==
[2024-07-16] VITALS (17 sets, daily range): BP systolic 116–164; BP diastolic 66–97; PULSE 60–93; RESP 10–20; TEMP 36.3–37; O2SAT 90–98; BMI 34.4
--- NOTE | ~2024-07-16 | XR_ITS ---
XR chest 1V portable Ordering provider: Cristopher Gil MD History: 64 years Male with . sob, LUNGS HURT . Comparison: June 28, 2024 FINDINGS: MEDIASTINUM: The cardiac silhouette is not enlarged. LUNGS: No effusions or pneumothorax. Bibasilar opacification more on the left side suggestive of atel ectasis versus pneumonia. OTHER: No free air under the diaphragm. Degenerative changes of the spine. IMPRESSION: Bibasilar atelectasis versus pneumonia. Follow-up advised. Reviewed, dictated and finalized at location A.
--- NOTE | 2024-07-16 10:52 | ECG_ITS ---
Test Date: 2024-07-16 10:57:12 Measurements Intervals [place] Rate: 82 P: 81 [place]: 145 QRS: 85 QRSD: 88 T: 75 QT: 351 QTc: 411 Interpretive Statements SINUS RHYTHM INCOMPLETE RIGHT BUNDLE BRANCH BLOCK Compared to ECG 06/28/2024 15:47:28 No significant changes Electronically Signed On 07-16-2024 15:18:56 CDT by Breana Yeh M.D.
[2024-07-16 10:54] LABS: Glucose Point of Care 91 mg/dl (65-105)
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
[2024-07-16] MEDS: IPRATROPIUM 0.5 MG/ALBUTEROL SULFATE 2.5 MG AMPUL.NEB 3 ML INHALATION (11:11)
[2024-07-16] MEDS: methylPREDNISolone SOD SUCC 125 MG VIAL IV PUSH (11:24)
[2024-07-16 11:30] LABS: Basophils Absolute Auto 0.06 K/mm3 (0.00-0.10); Basophils Percent Auto 0.7 % (0.0-1.0); Eosinophils Absolute Auto 0.23 K/mm3 (0.02-0.50); Eosinophils Percent Auto 2.8 % (1.0-6.0); Hematocrit 44.8 % (40.0-54.0); Hemoglobin 14.9 g/dL (14.0-18.0); Immature Granulocyte Absolute 0.02 K/mm3 (0.00-0.00); Immature Granulocyte Percent A 0.2 % (0.0-0.0); Lymphocytes Absolute Auto 1.83 K/mm3 (1.10-4.50); Lymphocytes Percent Auto 22.6 % (18.0-42.0); Mean Corpuscular HGB Conc 33.3 g/dL (32-36); Mean Corpuscular Hemoglobin 29.5 pg (27.0-31.0); Mean Corpuscular Volume 88.7 fL (78.0-102.0); Mean Platelet Volume 9.4 fl (8.7-11.0); Monocytes Absolute Auto 0.61 K/mm3 (0.10-0.90); Monocytes Percent Auto 7.5 % (2.0-11.0); Neutrophils Absolute Auto 5.33 K/mm3 (1.70-7.20); Neutrophils Percent Auto 66.2 % (50.0-70.0); Platelet Count Result 217 K/mm3 (150-420); Red Blood Count 5.05 M/mm3 (4.70-6.10); Red Cell Distribution Width 12.5 % (11.6-14.4); White Blood Count 8.1 K/mm3 (4.8-10.8)
--- NOTE | 2024-07-16 11:31 | PC.NURSE ---
DAUGHTER IS AT BEDSIDE. PT IS TEARFUL, STATES HE IS UPSET WITH HIMSELF FOR USING AGAIN. ERP IS AT BEDSIDE DISCUSSING RESULTS AT THIS TIME. WILL CONTINUE TO MONITOR.
[2024-07-16] MEDS: PIPERACILLN/TAZ 3.375GM/NS50ML 3.375 GM/50 ML BAG IVPB (11:43)
[2024-07-16 11:44] LABS: D Dimer 0.21 mg/L (0.19-0.50)
[2024-07-16 11:46] LABS: Partial Thromboplastin Time 25.4 Sec (23.9-30.70); Prothrombin Time 10.6 Seconds (9.50-12.1)
[2024-07-16 11:47] LABS: Alanine Aminotransferase 26 U/L (16-63); Alkaline Phosphatase 64 U/L (46-116); Anion Gap 8 mmol/L (4-12); Aspartate Amino Transferase 17 U/L (15-37); Bilirubin,Total 0.5 mg/dL (0.00-1.00); Calcium 9.5 mg/dL (8.5-10.1); Carbon Dioxide 31 mmol/L (21-32); Chloride 97 mmol/L (98-108); Estimated CRCL calculation 82 ml/min; Estimated Glomerular Filt Rate > 60; Glucose 106 mg/dL (70-99); Potassium 4.6 mmol/L (3.5-5.1); Sodium 136 mmol/L (136-145); Total Protein 7.9 g/dL (6.4-8.2)
--- NOTE | 2024-07-16 11:47 | PC.NURSE ---
pt has been updated on status, iv medication infusing as ordered without difficulty. pt is awaiting results at this time. daughter remains at bedside, pt portal information provided as requested. pt denies any needs or complaints. will continue to monitor.
[2024-07-16 11:52] LABS: Hemoglobin A1C 5.9 % (<5.7)
[2024-07-16 11:55] LABS: Lactic Acid Reflex 1.2 mmol/L (0.4-2.0)
[2024-07-16 11:58] LABS: Blood Urea Nitrogen 24 mg/dL (7-18); Osmolality Calculated 286 mOsm/kg (285-295)
[2024-07-16 12:07] LABS: Influenza A QL RT-PCR Negative (Negative); Influenza B QL RT-PCR Negative (Negative); RSV RNA, RT-PCR Negative (Negative); SARS-CoV-2 RNA PCR Negative (Negative)
[2024-07-16 12:18] LABS: Magnesium 1.8 mg/dL (1.8-2.4)
[2024-07-16 12:19] LABS: Troponin I 8.9 ng/L (0.00-60.4)
[2024-07-16 12:36] LABS: NT Pro B Type Natriuretic Pept 25 pg/mL (0-125)
--- NOTE | 2024-07-16 12:38 | PC.NURSE ---
CALLED THE FLOOR TO CHECK IF STAN HODGSON WAS UPSTAIRS, WAS TOLD SHE WAS AVAILABLE BY CELL TODAY.
--- OUTSIDE RECORDS SUMMARY | 2024-07-16 12:41 | XMS_ITS ---
Author Organization Unknown Address [address] [place] [phone] Phone Care Team Providers Care Corporate Development Analyst Name Role Phone BENOIT MCMAHON Attending Unavailable [...] 207 CVX Pneumococcal conjugate PCV20 , polysaccharide [id number] conjugate, adjuvant, PF 01/29/2024 Completed [address] CHEST CA SCREEN - Complet ed: 01/30/2024 15:04 [facility]: EXAM DESCRIPTION: CT CHEST CA SCREEN REASON [...] Michael Robertson M.D. KR: DIANA Report ID: [id number] Reading Location: [id number] Social History Type Status Start Date End Date Code Code Syst em Smoking History Current every day smoker 558359731 SNOMED CT Sex Male Hospital Discharge Instructions Should you have any questions prior to discharge, please contact a member of your healthcare team. If you have left the hospital and have any questions, please contact your primary care physician. Reason For Referral No Data Found Allergies and Adverse Reactions Allergy Substance Reaction Severity Start Date Concern Status Co de Code System KETOROLAC Active 04799 RxNorm ULTRAM Active 955533 RxNorm Plan of Treatment CT Chest/Lung WO Contrast (48984) 08/05 Benoit Follow Up Visit 08/16/2024 Encounters Encounter Diagnosis Start Date Code Code Sys tem Encounter for screening for malignant neoplasm of respiratory organs 01/30/2024 SNOMED-CT Personal Care Team Section Performer Name Performer Role Active Date Inactive Da paco VIANCA NOGUEIRA PCP - Primary care physician 2021-03-03 2022-03-09 DANIEL ROTHMAN PCP - Primary care physician [id number] VIANCA NOGUEIRA PCP - Primary care physician 2022-06-14 Imaging Narrative Notes Procedures Notes [facility] 02/02/2024 15:29 Pulmonary Function Test DOS: [...]
--- OUTSIDE RECORDS SUMMARY | 2024-07-16 12:42 | XMS_ITS | Encounter Summary ---
Author Organization [facility] Address [address] [place] [address] Care Team Providers Care Director Correctional Agency Name Role Phone Reinaldo Johana NAILS Primary Care Provider [phone] London Damon MD Unavailable [phone] Leticia Bernstein NP Unavailable [phone] Emperatriz Cleveland PARACHUTE INSPECTOR Primary Care Provider + [phone] Lilliana Gamino [facility] Primary Care Provider [phone] Lupillo Barrientos DO Unavailable [phone] None, Provider Primary Care Provider Unavaila ble Emperatriz Cleveland NP Primary Care Provider + [phone] Encounter Details Date Type Department Care Team (Late st Contact Info) Description 09/29/2018 Abstract [facility] CONVERSION [address] [place] [address] , Generic Conversion, Social History Tobacco Use [...] documented as of this encounter Care Teams Director Correctional Agency Relationship Specialty Start Date End Date Johana Najera PA [address] [place] [address] PCP - General 06/29/17 05/30/21 Emperatriz Cleveland, STAN [address] [facility] [address] [place] [id number] PCP - General Nurse Practitioner Family 05/31/21 08/29/21 Lilliana [facility] [address] [place] [address] PCP - General NURSE PRACTITIONER 08/30/21 01/18/24 None, MD Karrie PCP - General UNKNOWN PHYSICIAN SPECIALTY 01/19/24 03/11/24 Emperatriz Cleveland, STAN [address] [address] PCP - General Nurse Practitioner Family 03/12/24 London Damon MD [address] [place] [address] Doyle Dietitian CARDIOVASCULAR DISEASE 06/29/17 08/29/21 Leticia Bernstein NP [address] [facility] [address] [place] [address] CARDIOVASCULAR DISEASE 06/29/17 08/29/21 Lupillo Barrientos DO [address] [place] [address] Consulting Physician CARDIOVASCULAR DISEASE 08/30/21 documented as of this encounter
--- OUTSIDE RECORDS SUMMARY | 2024-07-16 12:42 | XMS_ITS | Encounter Summary ---
Author Organization [facility] Address [address] [facility] [place] [address] Phone Care Team Providers Care Silverware Supervisor Name Role Phone Lilliana Gamino APRN Primary Care Provider [phone] Raimundo Bautista MD Unavailable Unavai labmorena Reason for Visit * Reason Comments Medication Refill Encounter Details Date Type Department Care Team (Late st Contact Info) Description 07/16/2022 Refill [facility] [address] [place] [address] Raimundo Bautista MD Medication Refill Social History Tobacco Use Types Packs/Day Years Used Date Smoking Tobacco: Every Day Cigarettes Smokeless Tobacco: Never Alcohol Use Standard Drinks/Week Comments Never 0 (1 standard drink = 0.6 oz pur e alcohol) Sex and Gender Information Value Date Recorded Sex Assigned at Not on file Legal Sex Male 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
--- OUTSIDE RECORDS SUMMARY | 2024-07-16 12:42 | XMS_ITS | Encounter Summary ---
Author Organization [facility] Address [address] [facility] [place] [place] [address] Phone Care Team Providers Care Microsoft Bi Developer Name Role Phone StevensonCraigLilliana Maria Alejandra MONIQUE Primary Care Provider [phone] Raimundo Bautista MD Unavailable Pablo bradford Reason for Visit * Reason Comments Medication Refill Encounter Details Date Type Department Care Team (Late st Contact Info) Description 03/17/2023 Refill [facility] - Cardiology [facility] [address] [place] [address] Raimundo Bautista MD Medication Refill Social History Tobacco Use Types Packs/Day Years Used Date Smoking Tobacco: Every Day Cigarettes Smokeless Tobacco: Never Alcohol Use Standard Drinks/Week Comments Never 0 (1 standard drink = 0.6 oz pur e alcohol) Sex and Gender Information Value Date Recorded Sex Assigned at Not on file Legal Sex Male 3:24 AM MILITARY SOURCE OPERATIONS SPECIALIST Gender Identity Not on file Sexual Orientation [...] Dept 10/18/21 Office Visit Raimundo Bautista MD [facility] Cardiology Rajesh Showing recent visits within past 548 days and meeting all other requirements Future Appointments No visits were found meeting these conditions. Showing future appointments within next 90 days and meeting all other requirements Passed - Blood pressure on record Clinician-entered: BP Readings from Last 3 Encounters: 10/18/21 158/82 Patient-entered: No data recorded TARY SOURCE OPERATIONS SPECIALIST documented in this encounter Plan of Treatment Not on file documented as of this encounter Visit Diagnoses Not on filedocumented in this encounter Care Teams Microsoft Bi Developer Relationship Specialty Start Date End Date Lilliana Gamino APRN [address] [facility] 3 [place] [address] PCP - General Certified Nurse Practitioner 09/24/21 Raimundo Bautista MD [address] [facility] 3 [place] [address] Compensation Consulting Manager Cardiovascular Disease - Cardiology 10/08/21 03/26/24 documented as of this encounter
--- OUTSIDE RECORDS SUMMARY | 2024-07-16 12:42 | XMS_ITS | Clinical Summary ---
Author Organization [facility] Address [address] [facility] [place] [address] Care Team Providers Care Assembler Fluorescent Lights Name Role Phone Lilliana Gamino ENEIDA Primary Care Provider [phone] Allergies No known active allergies Medications ergocalciferol (VITAMIN D) 32805 UNIT Capsule Take 50,000 Units by mouth. [...] on file Legal Sex Male 3:24 AM MULE SPINNER Gender Identity Not on file Sexual Orientation [...] topic Insurance MEDICARE C HUMANA Care Teams Assembler Fluorescent Lights Relationship Specialty Start Date End Date Lilliana Gamino APRN [address] [address] PCP - General Certified Nurse Practitioner 09/24/21
--- OUTSIDE RECORDS SUMMARY | 2024-07-16 12:42 | XMS_ITS ---
Author Organization Unknown Address [address] [place], [place] [id number] Phone Care Team Providers Care Shale Planer Operator Helper Name Role Phone NASREEN CAMERON Attending Unavailable [...] 207 CVX Pneumococcal conjugate PCV20 , polysaccharide [id number] conjugate, adjuvant, PF 01/29/2024 Completed 216 CVX [...] Christiano Hannah M.D. SN: SN Report ID: [id number] Reading Location: [place] [address] Social History Type Status Start Date End Date Code Code Syst em Smoking History Current every day smoker [id number] SNOMED CT Sex Male Hospital Discharge Instructions Should you have any questions prior to discharge, please contact a member of your healthcare team. If you have left the hospital and have any questions, please contact your primary care physician. Reason For Referral No Data Found Allergies and Adverse Reactions Allergy Substance Reaction Severity Start Date Concern Status Co de Code System KETOROLAC Active 58101 RxNorm ULTRAM Active 260063 RxNorm Plan of Treatment CT Chest/Lung WO Contrast (48463) 08/05 Song Follow Up Visit 08/16/2024 Encounters Encounter Diagnosis [...]
--- OUTSIDE RECORDS SUMMARY | 2024-07-16 12:42 | XMS_ITS | Clinical Summary ---
Author Organization [facility] Address Formerly [facility] [place] [address] Care Team Providers Care Electric Range Assembler Name Role Phone Lupillo Barrientos DO Unavailable [phone] Emperatriz Cleveland NP Primary Care Provider [phone]- [phone] Allergies No known active allergies Medications * [...] OR SWALLOWING 2 Active vitamin D2, ergocalciferol, 92602 UNITS capsule Take 1 capsule (1.25 mg [...] (02/23/2023): Added automatically from request for surgery [id number] Dyspepsia 02/16/2023 Gastroesophageal reflux dise ase, unspecified whether esophagitis present 11/17/2022 Overview (11/17/2022): Added automatically from request for surgery [id number] Weight loss 11/17/2022 Overview (11/17/2022): Added automatically from request for surgery [id number] Chest pain 03/24/2020 Pain of upper abdomen [...] place to sleep or slept in a retirement (including now)? No 12/08/2022 Sex and Gender Information Value Date Recorded Sex Assigned at Male 08/20/2018 1:29 PM CDT Legal Sex Male 10:25 PM CDT Gender Identity Male 08/20/2018 1:29 PM CDT Sexual Orientation Not on file Last Filed Vital Signs Vital Sign Reading Time Taken Comments Blood Pressure 119/96 03/12/2024 9:30 PM CARDROOM DRAWING RUNNER Pulse 84 03/12/2024 9:30 PM CARDROOM DRAWING RUNNER Temperature 37.1 C (98.8 F) 03/12/2024 4:46 PM CARDROOM DRAWING RUNNER Respiratory Rate 18 03/12/2024 4:46 PM CARDROOM DRAWING RUNNER Oxygen Saturation 95% 03/12/2024 9:30 PM CARDROOM DRAWING RUNNER Inhaled Oxygen Concentration - - Weight 121.6 kg (268 lb) 03/12/2024 4:46 PM CARDROOM DRAWING RUNNER Height 182.9 cm (6') 03/12/2024 4:46 PM CARDROOM DRAWING RUNNER Body Mass Index 36.35 03/12/2024 4:46 PM CARDROOM DRAWING RUNNER Plan of Treatment Health Maintenance Due Date Last Done Comments Colorectal Cancer Screening Colonoscopy (10 Years) 1962 Annual Physical 1965 Hepatitis C 02/22/1980 DTaP, Tdap and Td Vaccines (1 - Tdap) 1981 RSV Immunization or 60+ Years (1 - Risk 60-74 years 1-dose series) 2022 COVID-19 Vaccine ( season) 2023 04/30/2021, 08/07/2020, 07/10/2020 PHQ-2 (Physician [place]) 04/24/2024 11/16/2022 Zoster Vaccines Completed 12/03/2021, 09/29/2021 [...] age to complete this [place] [address] Advance Directives * Full Code (Latest Code Status on File) Date Activated Date Inactivated Comments 12/08/2022 9:00 PM 12/09/2022 3:50 PM * Full Code Date Activated Date Inactivated Comments 09/25/2021 1:56 PM 09/26/2021 4:27 PM * Full Code Date Activated Date Inactivated Comments 03/24/2020 8:15 PM 03/25/2020 4:17 PM Care Teams Electric Range Assembler Relationship Specialty Start Date End Date Emperatriz Cleveland NP [address] [address] PCP - General Nurse Practitioner Family 03/12/24 Lupillo Barrientos DO Consulting Physician CARDIOVASCULAR DISEASE 08/30/21
--- OUTSIDE RECORDS SUMMARY | 2024-07-16 12:42 | XMS_ITS ---
Author Organization Unknown Address [address] [place] [phone] Phone Care Team Providers Care Paper Reel Operator Name Role Phone BENOIT MCMAHON Attending Unavailable [...] 207 CVX Pneumococcal conjugate PCV20 , polysaccharide VHY620 conjugate, adjuvant, PF 01/29/2024 Completed 216 CVX Social History Type Status Start Date End Date Code Code Syst em Smoking History Current every day smoker 475811044 SNOMED CT Sex Male Hospital Discharge Instructions Should you have any questions prior to discharge, please contact a member of your healthcare team. If you have left the hospital and have any questions, please contact your primary care physician. Reason For Referral No Data Found Allergies and Adverse Reactions Allergy Substance Reaction Severity Start Date Concern Status Co de Code System KETOROLAC Active 48543 RxNorm ULTRAM Active 205739 RxNorm Plan of Treatment CT Chest/Lung WO Contrast (55898) 08/05 Song Follow Up Visit 08/16/2024 Encounters Encounter Diagnosis Start Date Code Code Sys tem Chronic obstructive lung disease 08/30/2023 82387390 SNOMED-CT Personal Care Team Section Performer Name Performer Role Active Date Inactive Da te VIANCA NOGUEIRA PCP - Primary care physician 2021-03-03 2022-03-09 DANIEL ROTHMAN PCP - Primary care physician [id number] VIANCA NOGUEIRA PCP - Primary care physician 2022-06-14 Procedures Notes [facility] 09/16/2023 16:34 Six Minute Walk Impression: No significant desaturation seen at rest and with walking.
--- OUTSIDE RECORDS SUMMARY | 2024-07-16 12:42 | XMS_ITS | Continuity of Care Document ---
Author Organization [facility] Address [address] [place] [address] [place] [address] Phone Care Team Providers Care On Site Manager Name Role Phone [place] De La Garza [...] operaet machines Procedures Procedure Date OFFICE/OUTPATIENT VISIT, [facility] Advance Directives Directive Yes / No Effective Date File Name No Information Encounters Encounter Description Practice Location Reason(s) For Visit Diagnoses Date Provider Providers Copied on Encounter OFFICE/OUTPAT IENT VISIT, [facility], [address] [place], [id number], tel:[phone] [facility] knee pain (chief complaint)i nsomnia (chief complaint)v aricose veins (chief complaint) Dietary surveillance and counselingPain in joint involving lower legVaricose Veins, Lower ExtremityHypert ension, Unspecified [address] [place], [id number] , [place]. tel:[phone] Family History Family Member Type Diagnosis Age At Onset No Information Payers Payer name Insurance type Covered republican ID Authoriza tion(s) No Information Social History [...] Mental Status Date Cognitive Assessment Orientation - [place] ed to time, place, person, situation.
--- OUTSIDE RECORDS SUMMARY | 2024-07-16 12:43 | XMS_ITS | Encounter Summary ---
Author Organization [facility] Address [facility] [place] [address] Care Team Providers Care Optomechanical Technician Name Role Phone StevensonCraigLilliana [facility] Primary Care Provider [phone] Lupillo Barrientos DO Unavailable [phone] None, Provider Primary Care Provider Emperatriz No NP Primary Care Provider [phone] Encounter Details Date Type Department Care Team (Late st Contact Info) Description 12/14/2022 Hospital Follow-up Call [facility] Cardiovascular Care Unit [address] [place] [address] Kimmy Magaña, RN Social History [...] place to sleep or slept in a group home (including now)? No 12/08/2022 Sex and Gender [...] on filedocumented in this encounter Care Teams Optomechanical Technician Relationship Specialty Start Date End Date [facility] [address] [place] [address] PCP - General NURSE PRACTITIONER 08/30/21 01/18/24 None, Provider, PCP - General UNKNOWN PHYSICIAN SPECIALTY 01/19/24 03/11/24 Emperatriz Cleveland NP [address] [address] PCP - General Nurse Practitioner Family 03/12/24 Lupillo Barrientos DO [address] [place] [address] Consulting Physician CARDIOVASCULAR DISEASE 08/30/21 documented as of this encounter
--- OUTSIDE RECORDS SUMMARY | 2024-07-16 12:43 | XMS_ITS | Encounter Summary ---
Author Organization [facility] Address [facility] [place] [address] Care Team Providers Care Surveillance Supervisor Name Role Phone Lilliana Gamino [facility] Primary Care Provider [phone] Lupillo Barrientos DO Unavailable [phone] None, Provider Primary Care Provider Emperatriz No NP Primary Care Provider [phone] Encounter Details Date Type Department Care Team (Latest Contact Info) Description 12/14/2022 Vanu Message Enc [facility] Cardiovascular Care Unit [address] [place], [place] [id number] Adelfo, [facility] Provider Discharge follow up [...] on filedocumented in this encounter Care Teams Surveillance Supervisor Relationship Specialty Start Date End Date Lilliana [facility] [address] [place] [address] PCP - General NURSE PRACTITIONER 08/30/21 01/18/24 None, ProviderMD PCP - General UNKNOWN PHYSICIAN SPECIALTY 01/19/24 03/11/24 Emperatriz Cleveland NP [address] [address] PCP - General Nurse Practitioner Family 03/12/24 Lupillo Barrientos DO [address] [place] [address] Consulting Physician CARDIOVASCULAR DISEASE 08/30/21 documented as of this encounter
--- NOTE | 2024-07-16 13:08 | PC.NURSE ---
PT IS AWAITING RETURN CALL FROM [place] FOR ADMISSION TO [facility]. SODA PROVIDED. PT DENIES ANY OTHER NEEDS OR COMPLAINTS. NAD NOTED. WILL CONTINUE TO MONITOR.
--- NOTE | 2024-07-16 13:20 | PC.NURSE ---
PT IS TO BE ADMITTED TO ROOM 209 AT [facility]
--- OUTSIDE RECORDS SUMMARY | 2024-07-16 13:51 | XMS_ITS ---
Author Organization Unknown Address [address] [place] [phone] Phone Care Team Providers Care Associate Professor Of Theatre Name Role Phone BENOIT MCMAHON Attending Unavailable [...] 207 CVX Pneumococcal conjugate PCV20 , polysaccharide QDQ922 conjugate, adjuvant, PF 01/29/2024 Completed [address] CHEST CA SCREEN - Complet ed: 01/30/2024 15:04 [facility]: EXAM DESCRIPTION: CT CHEST CA SCREEN REASON [...] Michael Robertson M.D. KR: DIANA Report ID: [id number] Reading Location: [id number] Social History Type Status Start Date End Date Code Code Syst em Smoking History Current every day smoker 191176914 SNOMED CT Sex Male Hospital Discharge Instructions Should you have any questions prior to discharge, please contact a member of your healthcare team. If you have left the hospital and have any questions, please contact your primary care physician. Reason For Referral No Data Found Allergies and Adverse Reactions Allergy Substance Reaction Severity Start Date Concern Status Co de Code System KETOROLAC Active 31477 RxNorm ULTRAM Active 341622 RxNorm Plan of Treatment CT Chest/Lung WO Contrast (86256) 08/05 Benoit Follow Up Visit 08/16/2024 Encounters [...] physician 2022-06-14 Imaging Narrative Notes Procedures Notes [facility] 02/02/2024 15:29 Pulmonary Function Test DOS: 30-Jan-24 [...]
--- OUTSIDE RECORDS SUMMARY | 2024-07-16 13:52 | XMS_ITS | Encounter Summary ---
Author Organization [facility] Address [address] [facility] [place] [address] Phone Care Team Providers Care Pipe Caulker Name Role Phone StevensonCraigLilliana Maria Alejandra MONIQUE Primary Care Provider [phone] Raimundo Bautista MD Unavailable Pablo bradford Reason for Visit * Reason Comments Medication Refill Encounter Details Date Type Department Care Team (Late st Contact Info) Description 03/17/2023 Refill [facility] - Cardiology 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 Showing future appointments within next 90 days and meeting all other requirements Passed - Blood pressure on record Clinician-entered: BP Readings from Last 3 Encounters: 10/18/21 158/82 Patient-entered: No data recorded E FIRE MARSHAL documented in this encounter Plan of Treatment Not on file documented as of this encounter Visit Diagnoses Not on filedocumented in this encounter Care Teams Pipe Caulker Relationship Specialty Start Date End Date Lilliana Gamino APRN [address] [facility] [address] [place] [address] PCP - General Certified Nurse Practitioner 09/24/21 Raimundo Bautista MD [address] [facility] 3 [place] [address] Fruit Grader Operator Cardiovascular Disease - Cardiology 10/08/21 03/26/24 documented as of this encounter
--- OUTSIDE RECORDS SUMMARY | 2024-07-16 13:52 | XMS_ITS ---
Author Organization Unknown Address [address] [place] [phone] Phone Care Team Providers Care Application Systems Administrator Name Role Phone BENOIT MCMAHON Attending Unavailable [...] 207 CVX Pneumococcal conjugate PCV20 , polysaccharide PFD145 conjugate, adjuvant, PF 01/29/2024 Completed 216 CVX Social History Type Status Start Date End Date Code Code Syst em Smoking History Current every day smoker [id number] SNOMED CT Sex Male Hospital Discharge Instructions Should you have any questions prior to discharge, please contact a member of your healthcare team. If you have left the hospital and have any questions, please contact your primary care physician. Reason For Referral No Data Found Allergies and Adverse Reactions Allergy Substance Reaction Severity Start Date Concern Status Co de Code System KETOROLAC Active 54496 RxNorm ULTRAM Active 841455 RxNorm Plan of Treatment CT Chest/Lung WO Contrast (37780) 08/05 Song Follow Up Visit 08/16/2024 Encounters Encounter Diagnosis Start Date Code Code Sys tem Chronic obstructive lung disease 08/30/2023 49679960 SNOMED-CT Personal Care Team Section Performer Name Performer Role Active Date Inactive Da te VIANCA NOGUEIRA PCP - Primary care physician 2021-03-03 2022-03-09 DANIEL ROTHMAN PCP - Primary care physician [id number] VIANCA NOGUEIRA PCP - Primary care physician 2022-06-14 Procedures Notes [facility] 09/16/2023 16:34 Six Minute Walk Impression: No significant desaturation seen at rest and with walking.
--- OUTSIDE RECORDS SUMMARY | 2024-07-16 13:52 | XMS_ITS | Encounter Summary ---
Author Organization [facility] Address [facility] [place] [address] Care Team Providers Care Note Specialist Name Role Phone Lilliana Gamino [facility] Primary Care Provider [phone] Lupillo Barrientos DO Unavailable [phone] None, Provider Primary Care Provider Emperatriz No NP Primary Care Provider [phone] Encounter Details Date Type Department Care Team (Latest Contact Info) Description 12/14/2022 myVBO Message Enc [facility] Cardiovascular Care Unit [address] [place], [place] [phone] Adelfo, [facility] Provider Discharge follow up call [...] place to sleep or slept in a nursing home (including now)? No 12/08/2022 Sex and [...] on filedocumented in this encounter Care Teams Note Specialist Relationship Specialty Start Date End Date Lilliana [facility] [address] [place] [address] PCP - General NURSE PRACTITIONER 08/30/21 01/18/24 None, ProviderMD PCP - General UNKNOWN PHYSICIAN SPECIALTY 01/19/24 03/11/24 Emperatriz Cleveland NP [address] [address] PCP - General Nurse Practitioner Family 03/12/24 Lupillo Barrientos DO [address] [place] [address] Consulting Physician CARDIOVASCULAR DISEASE 08/30/21 documented as of this encounter
--- OUTSIDE RECORDS SUMMARY | 2024-07-16 13:52 | XMS_ITS | Clinical Summary ---
Author Organization [facility] Address Formerly [facility], [address] [place] [address] Care Team Providers Care Meat And Seafood Manager Name Role Phone Lupillo Barrientos DO Unavailable [phone] Emperatriz Cleveland NP Primary Care Provider [phone] Allergies No known active allergies Medications * [...] OR SWALLOWING 2 Active vitamin D2, ergocalciferol, 90301 UNITS capsule Take 1 capsule (1.25 mg [...] (02/23/2023): Added automatically from request for surgery [id number] Dyspepsia 02/16/2023 Gastroesophageal reflux dise ase, unspecified whether esophagitis present 11/17/2022 Overview (11/17/2022): Added automatically from request for surgery [id number] Weight loss 11/17/2022 Overview (11/17/2022): Added automatically from request for surgery [id number] Chest pain 03/24/2020 Pain of upper abdomen [...] Comments Blood Pressure 119/96 03/12/2024 9:30 PM SUCTION WORKER Pulse 84 03/12/2024 9:30 PM SUCTION WORKER Temperature 37.1 C (98.8 F) 03/12/2024 4:46 PM SUCTION WORKER Respiratory Rate 18 03/12/2024 4:46 PM SUCTION WORKER Oxygen Saturation 95% 03/12/2024 9:30 PM SUCTION WORKER Inhaled Oxygen Concentration - - Weight 121.6 kg (268 lb) 03/12/2024 4:46 PM SUCTION WORKER Height 182.9 cm (6') 03/12/2024 4:46 PM SUCTION WORKER Body Mass Index 36.35 03/12/2024 4:46 PM SUCTION WORKER Plan of Treatment Health Maintenance Due Date Last Done Comments Colorectal Cancer Screening Colonoscopy (10 Years) 1962 Annual Physical 1965 Hepatitis C 02/22/1980 DTaP, Tdap and Td Vaccines (1 - Tdap) 1981 RSV Immunization or 60+ Years (1 - Risk 60-74 years 1-dose series) 2022 COVID-19 Vaccine ( season) 2023 04/30/2021, 08/07/2020, 07/10/2020 PHQ-2 (Physician [place]) 04/24/2024 11/16/2022 Zoster Vaccines Completed 12/03/2021, 09/29/2021 [...] 8:15 PM 03/25/2020 4:17 PM Care Teams Meat And Seafood Manager Relationship Specialty Start Date End Date Emperatriz Cleveland NP [address] [address] PCP - General Nurse Practitioner Family 03/12/24 Lupillo Barrientos DO Consulting Physician CARDIOVASCULAR DISEASE 08/30/21
--- OUTSIDE RECORDS SUMMARY | 2024-07-16 13:52 | XMS_ITS | Encounter Summary ---
Author Organization [facility] Address [address] [place] [address] Care Team Providers Care Family Physician Name Role Phone Reinaldo Johana NAILS Primary Care Provider [phone] London Damon MD Unavailable [phone] Leticia Bernstein NP Unavailable [phone] Emperatriz Cleveland BOOKKEEPING MANAGER Primary Care Provider + [phone] [facility] Primary Care Provider [phone] Lupillo Barrientos DO Unavailable [phone] None, Provider Primary Care Provider Unavaila ble Emperatriz Cleveland NP Primary Care Provider + [phone] Encounter Details Date Type Department Care Team (Late st Contact Info) Description 09/29/2018 Abstract [facility]FL CONVERSION [address] [place] [address] , Generic Conversion, Social History Tobacco Use [...] documented as of this encounter Care Teams Family Physician Relationship Specialty Start Date End Date Johana Najera PA [address] [place] [address] PCP - General 06/29/17 05/30/21 Emperatriz Cleveland, STAN [address] [facility] [address] [place] [id number] PCP - General Nurse Practitioner Family 05/31/21 08/29/21 Lilliana [facility] [address] [place] [address] PCP - General NURSE PRACTITIONER 08/30/21 01/18/24 None, MD Karrie PCP - General UNKNOWN PHYSICIAN SPECIALTY 01/19/24 03/11/24 Emperatriz Cleveland, STAN [address] [address] PCP - General Nurse Practitioner Family 03/12/24 London Damon MD [address] [place] [address] Jadwin Knitting Demonstrator CARDIOVASCULAR DISEASE 06/29/17 08/29/21 Leticia Bernstein NP [address] [facility] [address] [place] [address] CARDIOVASCULAR DISEASE 06/29/17 08/29/21 Lupillo Barrientos DO [address] [place] [address] Consulting Physician CARDIOVASCULAR DISEASE 08/30/21 documented as of this encounter
--- OUTSIDE RECORDS SUMMARY | 2024-07-16 13:52 | XMS_ITS | Clinical Summary ---
Author Organization [facility] Address [address] [facility] [place] [address] Care Team Providers Care Mathematics Technician Name Role Phone Lilliana Gamino ENEIDA Primary Care Provider [phone] Allergies No known active allergies Medications ergocalciferol (VITAMIN D) 86825 UNIT Capsule Take 50,000 Units by mouth. [...] on file Legal Sex Male 3:24 AM FRONT LINE SUPERVISOR Gender Identity Not on file Sexual Orientation [...] topic Insurance MEDICARE C HUMANA Care Teams Mathematics Technician Relationship Specialty Start Date End Date Lilliana Gamino APRN [address] [address] PCP - General Certified Nurse Practitioner 09/24/21
--- OUTSIDE RECORDS SUMMARY | 2024-07-16 13:52 | XMS_ITS | Continuity of Care Document ---
Author Organization [facility] Address [address] [place] [address] [place] [address] Phone Care Team Providers Care Grounds Maintenance Worker Name Role Phone Los De La Garza [...] - Active Procedures Procedure Date OFFICE/OUTPATIENT VISIT, [facility] Advance Directives Directive Yes / No Effective Date File Name No Information Encounters Encounter Description Practice Location Reason(s) For Visit Diagnoses Date Provider Providers Copied on Encounter OFFICE/OUTPAT IENT VISIT, [facility], [address] [place], [place], [id number], tel:[phone] [facility] knee pain (chief complaint)i nsomnia (chief complaint)v aricose veins (chief complaint) Dietary surveillance and counselingPain in joint involving lower legVaricose Veins, Lower ExtremityHypert ension, Unspecified [address] [place], [place], [id number] , [place]. tel:[phone] Family History Family Member Type Diagnosis Age [...] Mental Status Date Cognitive Assessment Orientation - [place] ed to time, place, person, situation.
--- OUTSIDE RECORDS SUMMARY | 2024-07-16 13:52 | XMS_ITS | Encounter Summary ---
Author Organization [facility] Address [address] [facility] [place] [address] Phone Care Team Providers Care Armhole Baster Hand Name Role Phone Lilliana Gamino APRN Primary Care Provider [phone] Raimundo Bautista MD Unavailable Unavai labmorena Reason for Visit * Reason Comments Medication Refill Encounter Details Date Type Department Care Team (Late st Contact Info) Description 07/16/2022 Refill [facility] - [facility] [address] [place] [address] Raimundo Bautista MD Medication Refill Social History Tobacco Use Types Packs/Day Years Used Date Smoking Tobacco: Every Day Cigarettes Smokeless Tobacco: Never Alcohol Use Standard Drinks/Week Comments Never 0 (1 standard drink = 0.6 oz pur e alcohol) Sex and Gender Information Value Date Recorded Sex Assigned at Not on file 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 [address] [place] [address] PCP - General Certified Nurse Practitioner 09/24/21 Raimundo Bautista MD [address] [address] Display Mechanic Cardiovascular Disease - Cardiology 10/08/21 03/26/24 documented as of this encounter
--- OUTSIDE RECORDS SUMMARY | 2024-07-16 13:52 | XMS_ITS | Encounter Summary ---
Author Organization [place] Address Formerly [facility] [place] [address] Care Team Providers Care Clothing Manager Name Role Phone StevensonCraigLilliana [facility] Primary Care Provider [phone] Lupillo Barrientos DO Unavailable [phone] None, Provider Primary Care Provider Emperatriz No NP Primary Care Provider [phone] Encounter Details Date Type Department Care Team (Late st Contact Info) Description 12/14/2022 Hospital Follow-up Call [facility] Cardiovascular Care Unit [address] [place] [address] Kimmy Magaña, RN Social History [...] on filedocumented in this encounter Care Teams Clothing Manager Relationship Specialty Start Date End Date [facility] [address] [place] [address] PCP - General NURSE PRACTITIONER 08/30/21 01/18/24 None, Provider, PCP - General UNKNOWN PHYSICIAN SPECIALTY 01/19/24 03/11/24 Emperatriz Cleveland NP [address] [address] PCP - General Nurse Practitioner Family 03/12/24 Lupillo Barrientos DO [address] [place] [address] Consulting Physician CARDIOVASCULAR DISEASE 08/30/21 documented as of this encounter
--- NOTE | 2024-07-16 14:43 | ADMGEN ---
1914 This patient, Lizette Ibarra, was admitted to 2nd Floor Room 209-1. Patient/family oriented to hospital policies and general routines including ID bracelet, bed and alarms, visiting hours, pain management, procedures, bathroom and other care routines, personal items, smoking policy, room service/diet, and visiting hours. claims he is here for c/ cp with sob of breathe and at times dizzyiness. claims he feeel out of bed several days back and his legs feel like they are going to give out at times. claims he snorted some ice last night. claims he smokes an occassional cigarette and wants the strongest patch. claims he only uses o2 when he sleeps at hs. claims at times he has twitches in arms and chest at times. claims this happens at home to at times. Information on how to activate the Rapid Response Team has been discussed. Patient/Family are encouraged to report perceived risks to care and to ask questions if they do not understand what they are told or what they should do.
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
[2024-07-16] MEDS: busPIRone HCL 5 MG TABLET 15 MG PO (16:30)
[2024-07-16] MEDS: NICOTINE (*PBKC) 14 MG PATCH 1 PATCH TRANSDERM (16:30)
[2024-07-16 16:31] LABS: Glucose Point of Care 169 mg/dl (65-105)
[2024-07-16] MEDS: LOSARTAN POTASSIUM 12.5 MG TABLET PO (16:31)
[2024-07-16] MEDS: buPROPion HCL XL (24 HR) 150 MG TABCR 300 MG PO (16:31)
[2024-07-16] MEDS: FAMOTIDINE 20 MG TABLET PO (16:32)
--- NOTE | 2024-07-16 16:47 | PHAR ---
Pharmacy verbally verified home med with nurse: * HOME MED * BUPRENORPHINE/NALOXONE (*CRX) 8 MG/2 MG SL FILM DISSOLVE ONE FILM UNDER THE TONGUE (SUBLINGUAL) THREE TIMES DAILY WITH MEALS
[2024-07-16 17:14] LABS: Cholesterol 160 mg/dL (0-200); HDL Direct 55 mg/dL (40-60); LDL Cholesterol Calculated 94 mg/dL (<130); Triglycerides 57 mg/dL (0-150)
[2024-07-16 19:37] LABS: Troponin I 9.1 ng/L (0.00-60.4)
[2024-07-16] MEDS: SERTRALINE HCL 50 MG TABLET 200 MG PO (20:51)
[2024-07-16] MEDS: ACETAMINOPHEN 325 MG TABLET 650 MG PO (20:52)
[2024-07-17 01:12] LABS: Glucose Point of Care 174 mg/dl (65-105)
[2024-07-17 04:00] VITALS: PULSE 64
[2024-07-17 05:31] LABS: Basophils Absolute Auto 0.01 K/mm3 (0.00-0.10); Basophils Percent Auto 0.1 % (0.0-1.0); Eosinophils Absolute Auto 0.14 K/mm3 (0.02-0.50); Eosinophils Percent Auto 1.2 % (1.0-6.0); Hematocrit 44.8 % (40.0-54.0); Hemoglobin 14.5 g/dL (14.0-18.0); Immature Granulocyte Absolute 0.05 K/mm3 (0.00-0.00); Immature Granulocyte Percent A 0.4 % (0.0-0.0); Lymphocytes Absolute Auto 1.67 K/mm3 (1.10-4.50); Lymphocytes Percent Auto 13.9 % (18.0-42.0); Mean Corpuscular HGB Conc 32.4 g/dL (32-36); Mean Corpuscular Hemoglobin 29.4 pg (27.0-31.0); Mean Corpuscular Volume 90.7 fL (78.0-102.0); Mean Platelet Volume 9.5 fl (8.7-11.0); Monocytes Absolute Auto 0.82 K/mm3 (0.10-0.90); Monocytes Percent Auto 6.8 % (2.0-11.0); Neutrophils Absolute Auto 9.31 K/mm3 (1.70-7.20); Neutrophils Percent Auto 77.6 % (50.0-70.0); Platelet Count Result 205 K/mm3 (150-420); Red Blood Count 4.94 M/mm3 (4.70-6.10); Red Cell Distribution Width 12.5 % (11.6-14.4)
[2024-07-17 05:39] VITALS: PULSE 78; RESP 16; O2SAT 92
[2024-07-17] MEDS: IPRATROPIUM 0.5 MG/ALBUTEROL SULFATE 2.5 MG AMPUL.NEB 3 ML INHALATION (05:39)
[2024-07-17 05:48] VITALS: PULSE 79; RESP 16; O2SAT 96
[2024-07-17 05:48] LABS: Alanine Aminotransferase 25 U/L (16-63); Albumin Level 3.5 g/dL (3.4-5.0); Alkaline Phosphatase 64 U/L (46-116); Anion Gap 7 mmol/L (4-12); Aspartate Amino Transferase 12 U/L (15-37); Bilirubin,Total 0.6 mg/dL (0.00-1.00); Blood Urea Nitrogen 24 mg/dL (7-18); Calcium 9.1 mg/dL (8.5-10.1); Carbon Dioxide 28 mmol/L (21-32); Chloride 99 mmol/L (98-108); Estimated CRCL calculation 92 ml/min; Estimated Glomerular Filt Rate > 60; Glucose 126 mg/dL (70-99); Magnesium 2.1 mg/dL (1.8-2.4); Osmolality Calculated 284 mOsm/kg (285-295); Potassium 4.1 mmol/L (3.5-5.1); Sodium 134 mmol/L (136-145); Total Protein 7.5 g/dL (6.4-8.2)
[2024-07-17] MEDS: ACETAMINOPHEN 325 MG TABLET 650 MG PO (05:51)
[2024-07-17 07:56] LABS: Glucose Point of Care 109 mg/dl (65-105)
[2024-07-17 08:00] VITALS: BP 144/73; PULSE 59; PULSE 62; RESP 14; TEMP 36.9; O2SAT 92
[2024-07-17] MEDS: ENOXAPARIN 40 MG/0.4 ML SYRINGE SUB-Q (09:08)
[2024-07-17] MEDS: LOSARTAN POTASSIUM 12.5 MG TABLET PO (09:08)
[2024-07-17] MEDS: FAMOTIDINE 20 MG TABLET PO (09:08)
[2024-07-17] MEDS: busPIRone HCL 5 MG TABLET 15 MG PO (09:09)
[2024-07-17] MEDS: AZITHROMYCIN 250 MG TABLET 500 MG PO (09:09)
[2024-07-17] MEDS: NICOTINE (*PBKC) 14 MG PATCH 1 PATCH TRANSDERM (09:09)
--- NOTE | 2024-07-17 10:18 | P.DS_ITS ---
DS: Admitting Diagnosis Discharge Date 07/17/2024 Admitting Diagnosis COPD exacerbation/ methamphetamine abuse DS: Discharge Diagnosis Discharge Diagnosis (1) Acute exacerbation of chronic obstructive pulmonary disease: Code(s): J44.1 - Chronic obstructive pulmonary disease with (acute) exacerbation Status: Acute (2) Pneumonia: Qualifiers: Laterality: right Lung location: unspecified part of lung Pneumonia ty pe: due to unspecified organism Qualified Code(s): J18.9 - Pneumonia, unspecified organism Code(s): J18.9 - Pneumonia, unspecified organism Status: Ruled-out (3) Chest pain: Qualifiers: Chest pain type: unspecified Qualified Code(s): R07.9 - Chest pain, unspecified Code(s): R07.9 - Chest pain, unspecified Status: Resolved (4) Drug abuse: Code(s): F19.10 - Other psychoactive substance abuse, uncomplicated Status: Acute (5) Depression: Code(s): F32.9 - Major depressive disorder, single episode, unspecified Status: Acute (6) Type 2 diabetes mellitus: Code(s): E11.9 - Type 2 diabetes mellitus without complications Status: Acute (7) Hypertension: Code(s): I10 - Essential (primary) hypertension Status: Acute Plan Disposition: Discharge to home DS: Summary Hospital Course Reason for hospitalization: COPD exacerbation/ methamphetamine abuse Hospital Course: Patient was a 64-year-old male with a significant past medical history of depression, anxiety, COPD, narcotic abuse on Suboxone, hypertension, hypothyroidism, type 2 diabetes mellitus who presented to the hospital with increased shortness a breath and substernal chest pain. Patient describes the chest pain as substernal and burning in nature. He denies any radiating pain. He states that this came on in the last couple of days and has progressively gotten worse. patient reports he was currently in recovery for methamphetamine use but use prior to arrival to emergency department which time he became anxious as well as with restless legs syndrome. He had denied any nausea, v omiting, diarrhea, abdominal pain, fever, chills upon arrival. Workup in the hospital included a chest x-ray which shown bibasilar atelectasis versus pneumonia more on the left side, no effusion or pneumothorax. Initial labs showed a normal white blood cell count of 8.1, D-dimer was negative at 0.21, hemoglobin A1c was 5.9, lactic was normal at 1.2, magnesium was 1.8, troponin was negative at 8.9. Respiratory panel was negative for influenza a and B, RSV, COVID. Blood cultures were obtained and negative. EKG showed sinus rhythm with incomplete right bundle branch block with a rate of 82, QTC 411. patient was admitted to the medical unit for COPD exacerbation and methamphetamine abuse. Patient was started on azithromycin and prednisone as well as DuoNebs patient with overall improvement overnight remained on room air during hospitalization did have tearful event due to using methamphetamine patient was encouraged on immediate cessation and to continues in his Suboxone and follow-up with rehab groups outpatient. patient was hypertensive during his hospitalization was started on losartan 12.5 still systolics in the high 140s at time of discharged I increased it to 25 mg daily. patient was discharged home on oral prednisone azithromycin as well as losartan and Requip p.r.n. for restless leg syndrome. patient was seen and assessed day of discharge in no acute distress reported feeling better he acknowledged and agreed with discharge plan he was then discharged home. Status at Discharge Functional status at discharge: independent ambulation Overall status at discharge: patient is back to baseline Time Spent with Patient Time attestation: Total time spent providing and/or coordinating discharge services: Time spent: Greater than 30 minutes Exam Narrative: General: In no acute distress, well nourished Head: atraumatic, no encephalopathy Eyes: PERRLA Cardiac: Normal S1 and S2. RRR, No murmur, Respiratory: Lungs clear with expiratory wheezing, no other adventitious lung sounds, currently on room air, reports cough Gastrointestinal: soft, non-distended, non-tender, normoactive bowel sounds. Extremities: moves all extremities well, no edema, good ROM, strength 5/5, limb jerking BUE, BLE Skin: clean, dry, intact. No wounds or lesions. Neuro: Alert and oriented x4, Psych: normal affect, interactive, tearful DS: Data Data Completed and Pending Labs on day of discharge: Labs from last 24 hours 07/17/24 07/17/24 07/16/24 07:50 05:24 20:50 WBC 12.0 H RBC 4.94 Hgb 14.5 Hct 44.8 MCV 90.7 MCH 29.4 MCHC 32.4 RDW 12.5 Plt Count 205 MPV 9.5 Immature Gran % (Auto) 0.4 H Neut % (Auto) 77.6 H Lymph % (Auto) 13.9 L [place] % (Auto) 6.8 Eos % (Auto) 1.2 Baso % (Auto) 0.1 Lymph # (Auto) 1.67 [place] # (Auto) 0.82 Eos # (Auto) 0.14 Baso # (Auto) 0.01 Abs Immat Gran (auto) 0.05 H Absolute Neuts (auto) 9.31 H Absolute Nucleated RBC 0.00 Nucleated RBC % 0.0 PT INR APTT D-Dimer Sodium 134 L Potassium 4.1 Chloride 99 Carbon Dioxide 28 Anion Gap 7 BUN 24 H Creatinine 0.96 Estim Creat Clear Calc 92 Estimated GFR > 60 Glucose 126 H POC Capillary Glucose 109 H 174 H Hemoglobin A1c Calculated Osmolality 284 L Lactic Acid Calcium 9.1 Magnesium 2.1 Total Bilirubin 0.6 AST 12 L ALT 25 Alkaline Phosphatase 64 Troponin I NT-Pro-B Natriuret Pep Total Protein 7.5 Albumin 3.5 Triglycerides Cholesterol LDL Cholesterol, Calc HDL Direct Procalcitonin Influenza A (RT-PCR) Influenza B (RT-PCR) RSV (RT-PCR) SARS-CoV-2 RNA (RT-PCR) 07/16/24 07/16/24 07/16/24 18:56 16:30 15:55 WBC RBC Hgb Hct MCV MCH MCHC RDW Plt Count MPV Immature Gran % (Auto) Neut % (Auto) Lymph % (Auto) [place] % (Auto) Eos % (Auto) Baso % (Auto) Lymph # (Auto) [place] # (Auto) Eos # (Auto) Baso # (Auto) Abs Immat Gran (auto) Absolute Neuts (auto) Absolute Nucleated RBC Nucleated RBC % PT INR APTT D-Dimer Sodium Potassium Chloride Carbon Dioxide Anion Gap BUN Creatinine Estim Creat Clear Calc Estimated GFR Glucose POC Capillary Glucose 169 H Hemoglobin A1c Calculated Osmolality Lactic Acid Calcium Magnesium Total Bilirubin AST ALT Alkaline Phosphatase Troponin I 9.1 NT-Pro-B Natriuret Pep Total Protein Albumin Triglycerides Cholesterol LDL Cholesterol, Calc HDL Direct Procalcitonin 0.0 Influenza A (RT-PCR) Influenza B (RT-PCR) RSV (RT-PCR) SARS-CoV-2 RNA (RT-PCR) 07/16/24 07/16/24 07/16/24 15:50 11:25 11:19 WBC 8.1 RBC 5.05 Hgb 14.9 Hct 44.8 MCV 88.7 MCH 29.5 MCHC 33.3 RDW 12.5 Plt Count 217 MPV 9.4 Immature Gran % (Auto) 0.2 H Neut % (Auto) 66.2 Lymph % (Auto) 22.6 [place] % (Auto) 7.5 Eos % (Auto) 2.8 Baso % (Auto) 0.7 Lymph # (Auto) 1.83 [place] # (Auto) 0.61 Eos # (Auto) 0.23 Baso # (Auto) 0.06 Abs Immat Gran (auto) 0.02 H Absolute Neuts (auto) 5.33 Absolute Nucleated RBC 0.00 Nucleated RBC % 0.0 PT 10.6 INR 1.0 APTT 25.4 D-Dimer Sodium 136 Potassium 4.6 Chloride 97 L Carbon Dioxide 31 Anion Gap 8 BUN 24 H Creatinine 1.09 Estim Creat Clear Calc 82 Estimated GFR > 60 Glucose 106 H POC Capillary Glucose Hemoglobin A1c 5.9 H Calculated Osmolality 286 Lactic Acid 1.2 Calcium 9.5 Magnesium 1.8 Total Bilirubin 0.5 AST 17 ALT 26 Alkaline Phosphatase 64 Troponin I 7.0 8.9 NT-Pro-B Natriuret Pep 25 Total Protein 7.9 Albumin 4.0 Triglycerides 57 Cholesterol 160 LDL Cholesterol, Calc 94 HDL Direct 55 Procalcitonin Influenza A (RT-PCR) Negative Influenza B (RT-PCR) Negative RSV (RT-PCR) Negative SARS-CoV-2 RNA (RT-PCR) Negative 07/16/24 07/16/24 11:18 10:50 WBC RBC Hgb Hct MCV MCH MCHC RDW Plt Count MPV Immature Gran % (Auto) Neut % (Auto) Lymph % (Auto) [place] % (Auto) Eos % (Auto) Baso % (Auto) Lymph # (Auto) [place] # (Auto) Eos # (Auto) Baso # (Auto) Abs Immat Gran (auto) Absolute Neuts (auto) Absolute Nucleated RBC Nucleated RBC % PT INR APTT D-Dimer 0.21 Sodium Potassium Chloride Carbon Dioxide Anion Gap BUN Creatinine Estim Creat Clear Calc Estimated GFR Glucose POC Capillary Glucose 91 Hemoglobin A1c Calculated Osmolality Lactic Acid Calcium Magnesium Total Bilirubin AST ALT Alkaline Phosphatase Troponin I NT-Pro-B Natriuret Pep Total Protein Albumin Triglycerides Cholesterol LDL Cholesterol, Calc HDL Direct Procalcitonin Influenza A (RT-PCR) Influenza B (RT-PCR) RSV (RT-PCR) SARS-CoV-2 RNA (RT-PCR) Imaging Radiologist's impression: Imaging Chest x-ray: Radiologist's impression: XR chest 1V portable Ordering provider: Cristopher Gil MD History: 64 years Male with . sob, LUNGS HURT . Comparison: June 28, 2024 FINDINGS: MEDIASTINUM: The cardiac silhouette is not enlarged. LUNGS: No effusions or pneumothorax. Bibasilar opacification more on the left side suggestive of atelectasis versus pneumonia. OTHER: No free air under the diaphragm. Degenerative changes of the spine. IMPRESSION: Bibasilar atelectasis versus pneumonia. Follow-up advised. Discharge Plan Discharge Attending physician on discharge: Rubén Armenta Consulting providers: Genoveva Wise Discharging Clinician: Genoveva Wise Anticipated Discharge Date/Time: 07/17/24 10:10 Patient Disposition: Home, Self-Care Activity: may shower and as tolerated Diet: regular Discharge Instructions: COPD Exacerbation * I have prescribed prednisone and azithromycin daily basis take as scheduled even if feeling better * Encourage smoking cessation Substance Abuse * resume taking your Suboxone * encouraged immediate cessation * outpatient support groups * I have also prescribed Requip for restless legs syndrome How can you care for yourself at home? ? Keep track of any new symptoms or changes in your symptoms. ? Rest until you feel better. ? Be safe with medicines. Take your medicines exactly as prescribed. Call your doctor if you think you are having a problem with your medicine. ? Do not drive after taking a prescription pain medicine. ? Ensure to follow-up with primary care physician as indicated and provide updated medication list provided to you at discharge. When should you call for help? Call 911 anytime you think you may need emergency care. For example, call if: ? You passed out (lost consciousness). Call your doctor now or seek immediate medical care if: ? You have new symptoms like fever, difficulty breathing, Chest pain, vomiting, or rash. ? You have new or different pain. ? You are confused and are having trouble thinking clearly. ? Your symptoms are getting worse. Watch closely for changes in your health, and be sure to contact your doctor if: ? You do not get better as expected. Patient Instructions: Antibiotic Form, COPD (Chronic Obstructive Pulmonary Disease) (DC), Methamphetamine Use Disorder (DC), Polysubstance Use Disorder (DC), Chronic Lung Disease and Infection Prevention (DC) Patient Language: [place]ese Stand Alone Forms: General Discharge Information Follow-up/Referrals: Luis Eduardo,Emperatriz Bradford, DROP HAMMER OPERATOR HELPER [Primary Care Provider] - 2 weeks Discharge Medications: New azithromycin [Zithromax] 250 mg Tablet 250 mg PO DAILY Qty: 4 0RF losartan 25 mg tablet 25 mg PO DAILY Qty: 30 0RF ropinirole 2 mg tablet 2 mg PO HS PRN (Reason: restless leg(s)) Qty: 30 0RF prednisone 20 mg tablet 40 mg PO DAILY Qty: 8 0RF Continued sumatriptan succinate 100 mg tablet 100 mg PO Q2H PRN (Reason: migraine headache) olanzapine 20 mg tablet 20 mg PO QPM sertraline 100 mg tablet 200 mg PO HS buprenorphine-naloxone [Suboxone] 8-2 mg film 1 film sublingual TID albuterol sulfate 90 mcg/actuation HFA aerosol inhaler 2 puff inhalation QID PRN (Reason: shortness of breath or wheezing) Qty: 6.7 0RF famotidine 20 mg tablet 1 tablet PO BID ergocalciferol (vitamin D2) 1,250 mcg (50,000 unit) capsule 1 cap PO DAILY buspirone 15 mg tablet 15 mg PO BID bupropion HCl 300 mg tablet extended release 24 hr 300 mg PO DAILY Discontinued prazosin 1 mg capsule 1 mg PO QPM prazosin 2 mg capsule 2 mg PO QPM Date of admission: 07/16/24 13:18 Primary Care Provider: Luis EduardoEmperatriz Admitting Provider: Rubén Armenta Attending physician on admission: Mis Vizcaino Condition: Stable Quality VTE Prophylaxis VTE prophylaxis: pharmacologic ordered -Patient's previous records reviewed on admission -ER notes reviewed in detail on admission -discussed all findings and current treatment plan with patient/Family/POA -Consultations reviewed for recommendations -Patient's disposition for safe discharge discussed with case reviewer Dictation performed by [employer] direct speech recognition software, therefore paper processing machine helper variants and typographical errors may occur. Hospitalist MIPS Heart Failure (Exclusion) Patient has history of Heart Transplant or Left Ventricular Assistive Device?: No IF YES, STOP HERE Heart Failure (Qualifier) Patient has current or prior documentation of LVEF less than or equal to 40%, or mod/servere depressed LVSF?: No IF NO, STOP HERE
--- NOTE | 2024-07-17 11:50 | PC.NURSE ---
Pt discharged to home at 1140. Discharge instructions given to pt. New medication instructions given to pt and pt instructed to continue with home medications as prescribed. Pt's home medications returned to him. SL patches returned to pt. The family brought in 4 patches and 2 were used, 2 were returned to the pt. Follow up visit with PCP is scheduled for 07/29/24. Pt verbalized understanding of all instructions. Pt taken to family car via WC by RN.
--- NOTE | 2024-07-19 09:27 | PC.NURSE ---
Attempted Call Back today. No answer, not able to leave message.
--- NOTE | 2024-07-21 15:35 | PC.NURSE ---
Called for call back, unable to leave VM. this is the 2nd attempt.
== END 2024-07-17 11:40 | disposition home or self-care (01) ==
LOC: CHSED 12:51 → CHS2ND 13:21
PROVIDERS: Admitting Provider Internal Medicine; Emergency Provider Emergency Medicine; PCP Nurse Practitioner Family; Visit Provider Nurse Practitioner Acute Care
DX: J44.1 Chronic obstructive pulmonary disease with (acute) exacerbation (principal); F19.10 Other psychoactive substance abuse, uncomplicated; G25.81 Restless legs syndrome; F32.A Depression, unspecified; E11.9 Type 2 diabetes mellitus without complications; I10 Essential (primary) hypertension; J96.10 Chronic respiratory failure, unspecified whether with hypoxia or hypercapnia; E03.9 Hypothyroidism, unspecified; F41.9 Anxiety disorder, unspecified; F17.210 Nicotine dependence, cigarettes, uncomplicated; F11.10 Opioid abuse, uncomplicated; Z20.822 Contact with and (suspected) exposure to COVID-19; Z79.84 Long term (current) use of oral hypoglycemic drugs; Z79.51 Long term (current) use of inhaled steroids; Z79.899 Other long term (current) drug therapy
CPT/HCPCS: 36415; 71045; 80053; 80061; 82948; 83036; 83605; 83735; 83880; 84145; 84484; 85025; 85380; 85610; 85730; 87040; 87637; 93005; 94640; 96365; 96372; 96375; 99285; A9270; G0378; J1650; J2543; J2919

== ENCOUNTER 2024-08-29 18:06 | Emergency (ER) | payer OTHER, SELFPAY ==
[2024-08-29] VITALS (7 sets, daily range): BP systolic 110–163; BP diastolic 73–96; PULSE 65–85; RESP 11–20; TEMP 36; O2SAT 90–100
--- NOTE | ~2024-08-29 | XR_ITS ---
CHEST RADIOGRAPH CLINICAL HISTORY: shortness of breath . COMPARISON: 07/16/2024 TECHNIQUE: Single portable view of the chest. FINDINGS The cardiomediastinal silhouette is unremarkable. The lungs are clear. Visualized osseous structures and soft tissues are unremarkable. IMPRESSION: No focal infiltrate or effusion. Reviewed, dictated and finalized at location A.
--- OUTSIDE RECORDS SUMMARY | 2024-08-29 18:08 | XMS_ITS | Continuity of Care Document ---
Author Organization [facility] Address [address] [place] [address] [place] [address] Phone Care Team Providers Care Land Surveying Party Chief Name Role Phone [place] [...] - Active Procedures Procedure Date OFFICE/OUTPATIENT VISIT, [facility] Advance Directives Directive Yes / No Effective Date File Name No Information Encounters Encounter Description Practice Location Reason(s) For Visit Diagnoses Date Provider Providers Copied on Encounter OFFICE/OUTPAT IENT VISIT, [facility], [address] [place], [place], [id number], tel:[phone] [facility] knee pain (chief complaint)i nsomnia (chief complaint)v aricose veins (chief complaint) Dietary surveillance and counselingPain in joint involving lower legVaricose Veins, Lower ExtremityHypert ension, Unspecified [address] [place], [place], [id number] , [place]. tel:[phone] Family History Family Member Type Diagnosis Age [...] Mental Status Date Cognitive Assessment Orientation - [place] ed to time, place, person, situation.
--- OUTSIDE RECORDS SUMMARY | 2024-08-29 18:08 | XMS_ITS ---
Author Organization Unknown Address [address] [place] [phone] Phone Care Team Providers Care Aluminum Boat Assembly Supervisor Name Role Phone BENOIT MCMAHON Attending Unavailable [...] 207 CVX Pneumococcal conjugate PCV20 , polysaccharide [id number] conjugate, adjuvant, PF 01/29/2024 Completed 216 CVX Pneumococcal conjugate PCV20 , polysaccharide [id number] conjugate, adjuvant, PF 03/16/2024 Completed 216 CVX COVID-19, mRNA, LNP-S, PF, zeferino-sucrose, 30 mcg/0.3 mL 03/16/2024 Completed [address] CHEST CA SCREEN - Complet ed: 01/30/2024 15:04 LOINC: EXAM DESCRIPTION: CT CHEST CA SCREEN REASON [...] Michael Robertson M.D. KR: DIANA Report ID: [id number] Reading Location: [place] [address] Social History Type Status Start Date End Date Code Code Syst em Smoking History Current every day smoker [id number] SNOMED CT Sex Male Hospital Discharge Instructions Should you have any questions prior to discharge, please contact a member of your healthcare team. If you have left the hospital and have any questions, please contact your primary care physician. Reason For Referral No Data Found Allergies and Adverse Reactions Allergy Substance Reaction Severity Start Date Concern Status Co de Code System KETOROLAC Active 26927 RxNorm ULTRAM Active 893127 RxNorm Plan of Treatment Song Follow Up Visit 08/16/2024 CT Chest/Lung WO Contrast (05128) 09/02 Song Follow Up Visit 01/17/2025 Encounters Encounter Diagnosis Start Date Code Code Sys tem Encounter for screening for malignant neoplasm of respiratory organs 01/30/2024 SNOMED-CT Personal Care Team Section Performer Name Performer Role Active Date Inactive Da VIANCA Kirkland PCP - Primary care physician 2021-03-03 2022-03-09 DANIEL ROTHMAN PCP - Primary care physician [id number] VIANCA NOGUEIRA PCP - Primary care physician 2022-06-14 Imaging Narrative Notes Procedures Notes [facility] 02/02/2024 15:29 Pulmonary Function Test DOS: [...]
--- OUTSIDE RECORDS SUMMARY | 2024-08-29 18:09 | XMS_ITS | Encounter Summary ---
Author Organization [facility] Address [address] [place] [address] Phone Care Team Providers Care Rn Cvicu Name Role Phone StevensonCraigLilliana Maria Alejandra MONIQUE Primary Care Provider [phone] Raimundo Bautista MD Unavailable Pablo bradford Reason for Visit * Reason Comments Medication Refill Encounter Details Date Type Department Care Team (Late st Contact Info) Description 03/17/2023 Refill [facility] - Cardiology [facility] [address] [place] [address] Raimundo Bautista MD Medication Refill Social History Tobacco Use Types Packs/Day Years Used Date Smoking Tobacco: Every Day Cigarettes Smokeless Tobacco: Never Alcohol Use Standard Drinks/Week Comments Never 0 (1 standard drink = 0.6 oz pur e alcohol) Sex and Gender Information Value Date Recorded Sex Assigned at Not on file 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 Showing future appointments within next 90 days and meeting all other requirements Passed - Blood pressure on record Clinician-entered: BP Readings from Last 3 Encounters: 10/18/21 158/82 Patient-entered: No data recorded TO PEELER documented in this encounter Plan of Treatment Not on file documented as of this encounter Visit Diagnoses Not on filedocumented in this encounter Care Teams Rn Cvicu Relationship Specialty Start Date End Date Lilliana Gamino APRN [address] [facility] [address] [place] [address] PCP - General Certified Nurse Practitioner 09/24/21 Raimundo Bautista MD [address] [facility] [address] [place] [address] Solid Waste Disposal Manager Cardiovascular Disease - Cardiology 10/08/21 03/26/24 documented as of this encounter
--- OUTSIDE RECORDS SUMMARY | 2024-08-29 18:09 | XMS_ITS | Encounter Summary ---
Author Organization [facility] Address [address] [facility] [place] [address] Phone Care Team Providers Care Chaperon Name Role Phone Lilliana Gamino APRN Primary Care Provider [phone] Raimundo Bautista MD Unavailable Unavai labmorena Reason for Visit * Reason Comments Medication Refill Encounter Details Date Type Department Care Team (Late st Contact Info) Description 07/16/2022 Refill [facility] - [facility] [address] [place] [address] Raimundo Bautista MD Medication Refill Social History Tobacco Use Types Packs/Day Years Used Date Smoking Tobacco: Every Day Cigarettes Smokeless Tobacco: Never Alcohol Use Standard Drinks/Week Comments Never 0 (1 standard drink = 0.6 oz pur e alcohol) Sex and Gender Information Value Date Recorded Sex Assigned at Not on file 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
--- OUTSIDE RECORDS SUMMARY | 2024-08-29 18:09 | XMS_ITS | Clinical Summary ---
Author Organization [facility] Address [address] [facility] [place] [address] Care Team Providers Care Baggage Agent Supervisor Name Role Phone Lilliana Gamino ENEIDA Primary Care Provider [phone] Allergies No known active allergies Medications ergocalciferol (VITAMIN D) 49281 UNIT Capsule Take 50,000 Units by mouth. 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
--- OUTSIDE RECORDS SUMMARY | 2024-08-29 18:09 | XMS_ITS | Clinical Summary ---
Author Organization [facility] Address [facility] [place] [address] Care Team Providers Care Hazardous Materials Handler Name Role Phone GlennLupillo hudson DO Unavailable Ginny Borrego APRN Primary Care Provider + Allergies No known active allergies Medications * [...] OR SWALLOWING 2 Active vitamin D2, ergocalciferol, 71727 UNITS capsule Take 1 capsule (1.25 mg [...] (02/23/2023): Added automatically from request for surgery [id number] Dyspepsia 02/16/2023 Gastroesophageal reflux dise ase, unspecified whether esophagitis present 11/17/2022 Overview (11/17/2022): Added automatically from request for surgery [id number] Weight loss 11/17/2022 Overview (11/17/2022): Added automatically from request for surgery [id number] Chest pain 03/24/2020 Pain of upper abdomen [...] positive gastritis 08/21/2017 08/20/2018 Chest pain 08/20/2018 Encounters Date Type Department Care Team Description 07/29/2024 Travel from Last 3 Months Immunizations Immunization Administration Dates Next Due Hepatitis A (Generic) 06/14/2016,12/08/2015 Hepatitis B (Generic: Adult) 06/14/2016,02/09/20 16,12/08/2015 Influenza Adult (Generic) 01/19/2017 Family History Medical [...] place to sleep or slept in a usp (including now)? No 12/08/2022 Sex and Gender Information Value Date Recorded Sex Assigned at Male 08/20/2018 1:29 PM CDT Legal Sex Male 10:25 PM CDT Gender Identity Male 08/20/2018 1:29 PM CDT Sexual Orientation Not on file Last Filed Vital Signs Vital Sign Reading Time Taken Comments Blood Pressure 119/96 03/12/2024 9:30 PM DIESEL ELECTRICIAN Pulse 84 03/12/2024 9:30 PM DIESEL ELECTRICIAN Temperature 37.1 C (98.8 F) 03/12/2024 4:46 PM DIESEL ELECTRICIAN Respiratory Rate 18 03/12/2024 4:46 PM DIESEL ELECTRICIAN Oxygen Saturation 95% 03/12/2024 9:30 PM DIESEL ELECTRICIAN Inhaled Oxygen Concentration - - Weight 121.6 kg (268 lb) 03/12/2024 4:46 PM DIESEL ELECTRICIAN Height 182.9 cm (6') 03/12/2024 4:46 PM DIESEL ELECTRICIAN Body Mass Index 36.35 03/12/2024 4:46 PM DIESEL ELECTRICIAN Plan of Treatment Health Maintenance Due Date Last Done Comments Colorectal Cancer Screening Colonoscopy (10 Years) 1962 Annual Physical 1965 Hepatitis C 02/22/1980 DTaP, Tdap and Td Vaccines ( 1 - Tdap) 1981 RSV Immunization or 60+ Years (1 - Risk 60-74 years 1-dose series) 2022 COVID-19 Vaccine (4 - 2023-2 5 season) 2023 04/30/2021, 08/07/2020, 07/10/2020 PHQ-2 (Physician Algaaciq) 04/24/2024 11/16/2022 Zoster Vaccines Completed 12/03/2021, 09/29/2021 Pneumococcal Vaccine: 50+ Years Completed 01/29/2024 Meningococcal B Vaccine Aged Out No l onger eligible based on patient's age to complete this topic Meningococcal Vaccine Aged Out No [place] eligible based on patient's age to complete this topic RSV Immunizations Under 20 Months Aged Out No longer eligible b ased on patient's age to complete this topic Procedures Procedure Name Priority Date/Time Associated Diagnosis Comments US GLADIS DUPLEX LOW EXT LT STAT 07/29/2024 11:14 AM CDT Pain and swelling of left lower extremity from Last 3 Months Results * US GLADIS DUPLEX LOW EXT LT (07/29/2024 11:14 AM CDT) Anatomical Region Laterality Modality NA Ultrasound 07/29/2024 11:2 4 AM CDT Narrative 07/29/2024 11:25 AM CDT [address] [place] [address] LEFT LOWER EXTREMITY VENOUS ULTRASOUND Clinical history: Lower extremity swelling. High-resolution grayscale and color Doppler ultrasound was performed over the veins of the left lower extremity. The obtained images are reviewed without prior studies available for comparison. FINDINGS: The obtained images demonstrate normal compressibility, augmentation, and color flow throughout. There is no evidence of deep venous thrombosis. IMPRESSION; No evidence of deep venous thrombosis. Ordered By: GINNY BORREGO Interpreted By: Elder Roberts MD, 07/29/2024 11:24 AM Procedure Note Elder Roberts MD - 07/29/[address] [place] [address] LEFT LOWER EXTREMITY VENOUS ULTRASOUND Clinical history: Lower extremity swelling. High-resolution grayscale and color Doppler ultrasound was performed overthe veins of the left lower extremity. The obtained images are reviewedwithout prior studies available for comparison. FINDINGS: The obtained images demonstrate normal compressibility, augmentation, andcolor flow throughout. There is no evidence of deep venous thrombosis. IMPRESSION; No evidence of deep venous thrombosis. Ordered By: GINNY BORREGO Interpreted By: Elder Roberts MD, 07/29/2024 11:24 AM Ginny Borrego CARBON PAPER INTERLEAFER ULTRASOUND Final Re sult from Last 3 Months Insurance MEDICARE MEDICAID MEDICARE Member Subscriber Plan / Payer (Ef fective 2011-Present) Name:Lizette Ibarra Relation to Subscriber:Self Name:Lizette Ibarra Payer ID:Not on file Group ID:Not on file Type:Indemnity Address: ATTN CLAIMS [place] [id number] MEDICAID Advance Directives * Full Code (Latest Code Status on File) Date Activated Date Inactivated Comments 12/08/2022 9:00 PM 12/09/2022 3:50 PM * Full Code Date Activated Date Inactivated Comments 09/25/2021 1:56 PM 09/26/2021 4:27 PM * Full Code Date Activated Date Inactivated Comments 03/24/2020 8:15 PM 03/25/2020 4:17 PM Care Teams Hazardous Materials Handler Relationship Specialty Start Date End Date Ginny Borrego, ENEIDA [address] [address] PCP - General Nurse Practitioner Family 07/29/24 Lupillo Barrientos DO Consulting Physician CARDIOVASCULAR DISEASE 08/30/21
--- OUTSIDE RECORDS SUMMARY | 2024-08-29 18:09 | XMS_ITS | Encounter Summary ---
Author Organization [facility] Address [address] [place] [address] Care Team Providers Care Brake Liner Name Role Phone Reinaldo Johana NAILS Primary Care Provider [phone] London Damon MD Unavailable [phone] Leticia Bernstein NP Unavailable [phone] Emperatriz Cleveland NP Primary Care Provider + [phone] Lilliana Gamino [facility] Primary Care Provider [phone] Lupillo Barrientos DO Unavailable [phone] None, Provider Primary Care Provider Unavaila ble Emperatriz Cleveland NP Primary Care Provider + [phone] Ginny Borrego APRN Primary Care Provider + Encounter Details Date Type Department Care Team (Late st Contact Info) Description 09/29/2018 Abstract SFL CONVERSION [address] [place] [address] , Generic Conversion, Social History Tobacco Use [...] documented as of this encounter Care Teams Brake Liner Relationship Specialty Start Date End Date Johana Najera PA [address] [place] [address] PCP - General 06/29/17 05/30/21 Emperatriz Cleveland NP [address] [place] [address] PCP - General Nurse Practitioner Family 05/31/21 08/29/21 Lilliana Gamino [facility] [address] [facility] [place] [address] PCP - General NURSE PRACTITIONER 08/30/21 01/18/24 Karrie Chang MD PCP - General UNKNOWN PHYSICIAN SPECIALTY 01/19/24 03/11/24 Emperatriz Cleveland NP [address] [address] PCP - General Nurse Practitioner Family 03/12/24 07/28/24 Ginny Borrego APRN [address] [place] [address] PCP - General Nurse Practitioner Family 07/29/24 London Damon MD [address] [place] [address] Hotchkiss Wrinkle Chaser CARDIOVASCULAR DISEASE 06/29/17 08/29/21 Leticia Bernstein NP [address] [place] [address] CARDIOVASCULAR DISEASE 06/29/17 08/29/21 Lupillo Barrientos DO [address] [place] [address] Consulting Physician CARDIOVASCULAR DISEASE 08/30/21 documented as of this encounter
--- OUTSIDE RECORDS SUMMARY | 2024-08-29 18:09 | XMS_ITS | Encounter Summary ---
Author Organization [facility] Address [facility] [place] [address] Care Team Providers Care Wire Coating Operator Metal Name Role Phone StevensonDarwina [facility] Primary Care Provider + [phone] Lupillo Barrientos DO Unavailable [phone] None, Provider Primary Care Provider Emperatriz No NP Primary Care Provider +- [phone] Ginny Borrego APRN Primary Care Provider + Encounter Details Date Type Department Care Team (Latest Contact Info) Description 12/14/2022 miDrive Message Enc [facility] Cardiovascular Care Unit [address] [place], [place] [id number] [facility] Provider Discharge follow up call [...] place to sleep or slept in a chcf (including now)? No 12/08/2022 Sex and Gender [...] Assessment Author Status No 12/08/2022 8:55 PM LAWT Ines Montez RN Active * Do you have difficulty dressing or bathing? Answer Date of Assessment Author Status No 12/08/2022 8:55 PM LAWT Ines Montez RN Active * Because of a physical, [...] on filedocumented in this encounter Care Teams Wire Coating Operator Metal Relationship Specialty Start Date End Date Lilliana [facility] [address] [place], [place] [id number] PCP - General NURSE PRACTITIONER 08/30/21 01/18/24 None, Provider, PCP - General UNKNOWN PHYSICIAN SPECIALTY 01/19/24 03/11/24 Emperatriz Cleveland NP [address] [address] PCP - General Nurse Practitioner Family 03/12/2407/28 Ginny Borrego APRN [address] [address] PCP - General Nurse Practitioner Family 07/29/24 Lupillo Barrientos DO [address] [place] [address] Consulting Physician CARDIOVASCULAR DISEASE 08/30/21 documented as of this encounter
--- OUTSIDE RECORDS SUMMARY | 2024-08-29 18:09 | XMS_ITS ---
Author Organization Unknown Address [address] [place] [phone] Phone Care Team Providers Care Tinning Machine Set Up Operator Name Role Phone NASREEN CAMERON Attending Unavailable [...] 207 CVX Pneumococcal conjugate PCV20 , polysaccharide [id number] conjugate, adjuvant, PF 01/29/2024 Completed 216 CVX Pneumococcal conjugate PCV20 , polysaccharide [id number] conjugate, adjuvant, PF 03/16/2024 Completed 216 CVX COVID-19, mRNA, LNP-S, PF, zeferino-sucrose, 30 mcg/0.3 mL 03/16/2024 Completed [address] BRAIN WO CONTRAST - [...] Christiano Hannah M.D. SN: SN Report ID: [id number] Reading Location: [place] [address] Social History Type Status Start Date End Date Code Code Syst em Smoking History Current every day smoker 390227734 SNOMED CT Sex Male Hospital Discharge Instructions Should you have any questions prior to discharge, please contact a member of your healthcare team. If you have left the hospital and have any questions, please contact your primary care physician. Reason For Referral No Data Found Allergies and Adverse Reactions Allergy Substance Reaction Severity Start Date Concern Status Co de Code System KETOROLAC Active 66074 RxNorm ULTRAM Active 671011 RxNorm Plan of Treatment Song Follow Up Visit 08/16/2024 CT Chest/Lung WO Contrast (77215) 09/02 Song Follow Up Visit 01/17/2025 Encounters Encounter Diagnosis Start Date Code Code Sys tem Unspecified disorder of left middle ear and mastoid SNOMED-CT Personal Care Team Section Performer Name Performer Role Active Date Inactive VIANCA Forrest PCP - Primary care physician 2021-03-03 2022-03-09 DANIEL ROTHMAN PCP - Primary care physician [id number] VIANCA NOGUEIRA PCP - Primary care physician 2022-06-14 Imaging Narrative Notes
--- OUTSIDE RECORDS SUMMARY | 2024-08-29 18:09 | XMS_ITS | Encounter Summary ---
Author Organization [facility] Address [facility] [place] [address] Care Team Providers Care Financial Systems Analyst Name Role Phone Darwin Gaminoalfredito [facility] Primary Care Provider + [phone] Lupillo Barrientos DO Unavailable [phone] None, Provider Primary Care Provider Emperatriz No NP Primary Care Provider +- [phone] Ginny Borrego APRN Primary Care Provider + Encounter Details Date Type Department Care Team (Late st Contact Info) Description 12/14/2022 Hospital Follow-up Call [facility] Cardiovascular Care Unit [address] [place] [address] Kimmy Magaña, RN Social History [...] place to sleep or slept in a jail (including now)? No 12/08/2022 Sex and Gender [...] on filedocumented in this encounter Care Teams Financial Systems Analyst Relationship Specialty Start Date End Date Lilliana Gamino [facility] [address] [place], [place] [address] PCP - General NURSE PRACTITIONER 08/30/21 01/18/24 None, Provider, PCP - General UNKNOWN PHYSICIAN SPECIALTY 01/19/24 03/11/24 Emperatriz Cleveland NP [address] [address] PCP - General Nurse Practitioner Family 03/12/2407/28 Ginny Borrego APRN [address] [phone] PCP - General Nurse Practitioner Family 07/29/24 Lupillo Barrientos DO [address] [place] [address] Consulting Physician CARDIOVASCULAR DISEASE 08/30/21 documented as of this encounter
--- OUTSIDE RECORDS SUMMARY | 2024-08-29 18:09 | XMS_ITS ---
Author Organization Unknown Address [address] [place] [phone] Phone Care Team Providers Care Acoustical Tile Carpenters Supervisor Name Role Phone BENOIT MCMAHON Attending [...] 207 CVX Pneumococcal conjugate PCV20 , polysaccharide [id number] conjugate, adjuvant, PF 01/29/2024 Completed 216 CVX Pneumococcal conjugate PCV20 , polysaccharide [id number] conjugate, adjuvant, PF 03/16/2024 Completed 216 CVX COVID-19, mRNA, LNP-S, PF, zeferino-sucrose, 30 mcg/0.3 mL 03/16/2024 Completed 309 CVX Social History Type Status Start Date End Date Code Code Syst em Smoking History Current every day smoker 556013231 SNOMED CT Sex Male Hospital Discharge Instructions Should you have any questions prior to discharge, please contact a member of your healthcare team. If you have left the hospital and have any questions, please contact your primary care physician. Reason For Referral No Data Found Allergies and Adverse Reactions Allergy Substance Reaction Severity Start Date Concern Status Co de Code System KETOROLAC Active 14434 RxNorm ULTRAM Active 652797 RxNorm Plan of Treatment Song Follow Up Visit 08/16/2024 CT Chest/Lung WO Contrast (92800) 09/02 Song Follow Up Visit 01/17/2025 Encounters Encounter Diagnosis Start Date Code Code Sys tem Chronic obstructive lung disease 08/30/2023 23088101 SNOMED-CT Personal Care Team Section Performer Name Performer Role Active Date Inactive Da te VIANCA NOGUEIRA PCP - Primary care physician 2021-03-03 2022-03-09 DANIEL ROTHMAN PCP - Primary care physician [id number] VIANCA NOGUEIRA PCP - Primary care physician 2022-06-14 Procedures Notes [facility] 09/16/2023 16:34 Six Minute Walk Impression: No significant desaturation seen at rest and with walking.
--- NOTE | 2024-08-29 18:10 | ECG_ITS ---
Test Date: 2024-08-29 18:15:02 Measurements Intervals [place] Rate: 80 P: 85 [place]: 147 QRS: 88 QRSD: 89 T: 75 QT: 362 QTc: 418 Interpretive Statements SINUS RHYTHM WITH OCCASIONAL VENTRICULAR PREMATURE COMPLEXES INCOMPLETE RIGHT BUNDLE BRANCH BLOCK Compared to ECG 07/16/2024 10:57:12 NO SIGNIFICANT CHANGES Electronically Signed On 08-30-2024 12:02:03 CDT by Breana Yeh M.D.
--- NOTE | 2024-08-29 18:28 | PC.NURSE ---
dr strauss in room with patient. now reports shortness of breath .
[2024-08-29] MEDS: KETOROLAC 30 MG/ML VIAL (*BKC) IV PUSH (18:39)
[2024-08-29] MEDS: IPRATROPIUM 0.5 MG/ALBUTEROL SULFATE 2.5 MG AMPUL.NEB 3 ML INHALATION (18:39)
[2024-08-29] MEDS: ONDANSETRON INJ 4 MG/2 ML VIAL IV PUSH (18:39)
[2024-08-29 18:59] LABS: Basophils Absolute Auto 0.08 K/mm3 (0.00-0.10); Eosinophils Absolute Auto 0.58 K/mm3 (0.02-0.50); Hematocrit 45.1 % (40.0-54.0); Hemoglobin 15.1 g/dL (14.0-18.0); Immature Granulocyte Absolute 0.01 K/mm3 (0.00-0.00); Immature Granulocyte Percent A 0.1 % (0.0-0.0); Lymphocytes Absolute Auto 2.76 K/mm3 (1.10-4.50); Lymphocytes Percent Auto 33.2 % (18.0-42.0); Mean Corpuscular HGB Conc 33.5 g/dL (32-36); Mean Corpuscular Hemoglobin 29.7 pg (27.0-31.0); Mean Corpuscular Volume 88.8 fL (78.0-102.0); Mean Platelet Volume 9.3 fl (8.7-11.0); Monocytes Percent Auto 8.4 % (2.0-11.0); Neutrophils Absolute Auto 4.18 K/mm3 (1.70-7.20); Neutrophils Percent Auto 50.3 % (50.0-70.0); Platelet Count Result 235 K/mm3 (150-420); Red Blood Count 5.08 M/mm3 (4.70-6.10); Red Cell Distribution Width 12.9 % (11.6-14.4); White Blood Count 8.3 K/mm3 (4.8-10.8)
--- OUTSIDE RECORDS SUMMARY | 2024-08-29 19:02 | XMS_ITS | Continuity of Care Document ---
Author Organization [facility] Address [address] [place] [address] [place] [address] Phone Care Team Providers Care Clinical Care Coordinator Name Role Phone [place] [...] - Active Procedures Procedure Date OFFICE/OUTPATIENT VISIT, [facility] Advance Directives Directive Yes / No Effective Date File Name No Information Encounters Encounter Description Practice Location Reason(s) For Visit Diagnoses Date Provider Providers Copied on Encounter OFFICE/OUTPAT IENT VISIT, [facility], [address] [place], [id number], tel:[phone] [facility] knee pain (chief complaint)i nsomnia (chief complaint)v aricose veins (chief complaint) Dietary surveillance and counselingPain in joint involving lower legVaricose Veins, Lower ExtremityHypert ension, Unspecified [address]. [address] [place], [address] , [place]. tel:[phone] Family History Family Member Type Diagnosis Age At Onset No Information Payers Payer name Insurance type Covered green party ID Authoriza tion(s) No Information Social [...] Mental Status Date Cognitive Assessment Orientation - Temple ed to time, place, person, situation.
--- OUTSIDE RECORDS SUMMARY | 2024-08-29 19:03 | XMS_ITS | Encounter Summary ---
Author Organization [facility] Address [facility] [place] [address] Care Team Providers Care Database Security Expert Name Role Phone Darwin Gaminoalfredito [facility] Primary Care Provider + [phone] Lupillo Barrientos DO Unavailable [phone] None, Provider Primary Care Provider Emperatriz No NP Primary Care Provider +- [phone] Ginny Borrego APRN Primary Care Provider + Encounter Details Date Type Department Care Team (Late st Contact Info) Description 12/14/2022 Hospital Follow-up Call [facility] Cardiovascular Care Unit [address] [place] [address] Kimmy Magaña, RN Social History [...] place to sleep or slept in a longterm (including now)? No 12/08/2022 Sex and Gender [...] on filedocumented in this encounter Care Teams Database Security Expert Relationship Specialty Start Date End Date Lilliana Gamino [facility] [address] [place], [place] [phone] PCP - General NURSE PRACTITIONER 08/30/21 01/18/24 None, Provider, PCP - General UNKNOWN PHYSICIAN SPECIALTY 01/19/24 03/11/24 Emperatriz Cleveland NP [address] [address] PCP - General Nurse Practitioner Family 03/12/2407/28 Ginny Borrego APRN [address] [phone] PCP - General Nurse Practitioner Family 07/29/24 Lupillo Barrientos DO [address] [place] [address] Consulting Physician CARDIOVASCULAR DISEASE 08/30/21 documented as of this encounter
--- OUTSIDE RECORDS SUMMARY | 2024-08-29 19:03 | XMS_ITS ---
Author Organization Unknown Address [address] [place] [phone] Phone Care Team Providers Care Silk Screen Frame Assembler Name Role Phone BENOIT MCMAHON Attending Unavailable [...] 207 CVX Pneumococcal conjugate PCV20 , polysaccharide [id number] conjugate, adjuvant, PF 01/29/2024 Completed 216 CVX Pneumococcal conjugate PCV20 , polysaccharide [id number] conjugate, adjuvant, PF 03/16/2024 Completed 216 CVX [...] Michael Robertson M.D. KR: DIANA Report ID: [id number] Reading Location: [place] [address] Social History Type Status Start Date End Date Code Code Syst em Smoking History Current every day smoker [id number] SNOMED CT Sex Male Hospital Discharge Instructions Should you have any questions prior to discharge, please contact a member of your healthcare team. If you have left the hospital and have any questions, please contact your primary care physician. Reason For Referral No Data Found Allergies and Adverse Reactions Allergy Substance Reaction Severity Start Date Concern Status Co de Code System KETOROLAC Active 66363 RxNorm ULTRAM Active 008165 RxNorm Plan of Treatment Song Follow Up Visit 08/16/2024 CT Chest/Lung WO Contrast (87621) 09/02 Song Follow Up Visit 01/17/2025 Encounters [...] physician 2022-06-14 Imaging Narrative Notes Procedures Notes [facility] 02/02/2024 15:29 Pulmonary Function Test DOS: 30-Jan-24 [...]
--- OUTSIDE RECORDS SUMMARY | 2024-08-29 19:03 | XMS_ITS | Encounter Summary ---
Author Organization [facility] Address [address] [place] [address] Care Team Providers Care Clinic Licensed Practical Nurse Name Role Phone Reinadlo Johana NAILS Primary Care Provider [phone] London Damon MD Unavailable [phone] Leticia Bernstein NP Unavailable [phone] Emperatriz Cleveland NP Primary Care Provider + [phone] Lilliana Gamino [facility] Primary Care Provider [phone] Lupillo Barrientos DO Unavailable [phone] None, Provider Primary Care Provider Unavaila ble Emperatriz Cleveland NP Primary Care Provider + [phone] Ginny Borrego APRN Primary Care Provider + Encounter Details Date Type Department Care Team (Late st Contact Info) Description 09/29/2018 Abstract SFL CONVERSION [address] [place] [address] , Generic Conversion, Social History Tobacco Use [...] documented as of this encounter Care Teams Clinic Licensed Practical Nurse Relationship Specialty Start Date End Date Johana Najera PA [address] [place] [address] PCP - General 06/29/17 05/30/21 Emperatriz Cleveland NP [address] [place] [address] PCP - General Nurse Practitioner Family 05/31/21 08/29/21 [facility] [address] [facility] [place] [address] PCP - General NURSE PRACTITIONER 08/30/21 01/18/24 Karrie Chang MD PCP - General UNKNOWN PHYSICIAN SPECIALTY 01/19/24 03/11/24 Emperatriz Cleveland NP [address] [address] PCP - General Nurse Practitioner Family 03/12/24 07/28/24 Ginny Borrego APRN [address] [place] [address] PCP - General Nurse Practitioner Family 07/29/24 London Damon MD [address] [place] [address] [employer] Department Head CARDIOVASCULAR DISEASE 06/29/17 08/29/21 Leticia Bernstein NP [address] [place] [address] CARDIOVASCULAR DISEASE 06/29/17 08/29/21 Lupillo Barrientos DO [address] [place] [address] Consulting Physician CARDIOVASCULAR DISEASE 08/30/21 documented as of this encounter
--- OUTSIDE RECORDS SUMMARY | 2024-08-29 19:03 | XMS_ITS | Clinical Summary ---
Author Organization [facility] Address [facility] [place] [address] Care Team Providers Care Explosives Handler Name Role Phone GlennLupillo hudson DO Unavailable [phone] Ginny Borrego APRN Primary Care Provider + [...] OR SWALLOWING 2 Active vitamin D2, ergocalciferol, 78690 UNITS capsule Take 1 capsule (1.25 mg [...] (02/23/2023): Added automatically from request for surgery [id number] Dyspepsia 02/16/2023 Gastroesophageal reflux dise ase, unspecified whether esophagitis present 11/17/2022 Overview (11/17/2022): Added automatically from request for surgery [id number] Weight loss 11/17/2022 Overview (11/17/2022): Added automatically from request for surgery [id number] Chest pain 03/24/2020 Pain of upper abdomen [...] Comments Blood Pressure 119/96 03/12/2024 9:30 PM LATHER APPRENTICE Pulse 84 03/12/2024 9:30 PM LATHER APPRENTICE Temperature 37.1 C (98.8 F) 03/12/2024 4:46 PM LATHER APPRENTICE Respiratory Rate 18 03/12/2024 4:46 PM LATHER APPRENTICE Oxygen Saturation 95% 03/12/2024 9:30 PM LATHER APPRENTICE Inhaled Oxygen Concentration - - Weight 121.6 kg (268 lb) 03/12/2024 4:46 PM LATHER APPRENTICE Height 182.9 cm (6') 03/12/2024 4:46 PM LATHER APPRENTICE Body Mass Index 36.35 03/12/2024 4:46 PM LATHER APPRENTICE Plan of Treatment Health Maintenance Due Date Last Done Comments Colorectal Cancer Screening Colonoscopy (10 Years) 1962 Annual Physical 1965 Hepatitis C 02/22/1980 DTaP, Tdap and Td Vaccines ( 1 - Tdap) 1981 RSV Immunization or 60+ Years (1 - Risk 60-74 years 1-dose series) 2022 COVID-19 Vaccine (4 - 2023-2 5 season) 2023 04/30/2021, 08/07/2020, 07/10/2020 PHQ-2 (Physician [place]) 04/24/2024 11/16/2022 Zoster Vaccines Completed 12/03/2021, 09/29/2021 [...] AM CDT Narrative 07/29/2024 11:25 AM CDT [address] [place] [address] LEFT LOWER EXTREMITY VENOUS ULTRASOUND Clinical history: [...] Procedure Note Elder Roberts MD - 07/29/[address] [place] [address] LEFT LOWER EXTREMITY VENOUS ULTRASOUND Clinical history: [...] Roberts MD, 07/29/2024 11:24 AM Ginny Borrego GLASS WOOL BLANKET MACHINE FEEDER ULTRASOUND Final Re sult from Last 3 Months Insurance MEDICARE MEDICAID MEDICARE Member Subscriber Plan / Payer (Ef fective 2011-Present) Name:Lizette Ibarra Relation to Subscriber:Self Name:Lizette Ibarra Payer ID:Not on file Group ID:Not on file Type:Indemnity Address: ATTN CLAIMS [place] [id number] MEDICAID Advance Directives * Full Code (Latest Code Status on File) Date Activated Date Inactivated Comments 12/08/2022 9:00 PM 12/09/2022 3:50 PM * Full Code Date Activated Date Inactivated Comments 09/25/2021 1:56 PM 09/26/2021 4:27 PM * Full Code Date Activated Date Inactivated Comments 03/24/2020 8:15 PM 03/25/2020 4:17 PM Care Teams Explosives Handler Relationship Specialty Start Date End Date Ginny Borrego, ENEIDA [address] [address] PCP - General Nurse Practitioner Family 07/29/24 Lupillo Barrientos DO Consulting Physician CARDIOVASCULAR DISEASE 08/30/21
--- OUTSIDE RECORDS SUMMARY | 2024-08-29 19:03 | XMS_ITS ---
Author Organization Unknown Address [address] [place] [phone] Phone Care Team Providers Care Economic Geographer Name Role Phone BENOIT MCMAHON Attending Unavailable [...] 207 CVX Pneumococcal conjugate PCV20 , polysaccharide [id number] conjugate, adjuvant, PF 01/29/2024 Completed 216 CVX Pneumococcal conjugate PCV20 , polysaccharide [id number] conjugate, adjuvant, PF 03/16/2024 Completed 216 CVX COVID-19, mRNA, LNP-S, PF, zeferino-sucrose, 30 mcg/0.3 mL 03/16/2024 Completed 309 CVX Social History Type Status Start Date End Date Code Code Syst em Smoking History Current every day smoker [id number] SNOMED CT Sex Male Hospital Discharge Instructions Should you have any questions prior to discharge, please contact a member of your healthcare team. If you have left the hospital and have any questions, please contact your primary care physician. Reason For Referral No Data Found Allergies and Adverse Reactions Allergy Substance Reaction Severity Start Date Concern Status Co de Code System KETOROLAC Active 50589 RxNorm ULTRAM Active 593464 RxNorm Plan of Treatment Song Follow Up Visit 08/16/2024 CT Chest/Lung WO Contrast (31362) 09/02 Song Follow Up Visit 01/17/2025 Encounters Encounter Diagnosis Start Date Code Code Sys tem Chronic obstructive lung disease 08/30/2023 [id number] SNOMED-CT Personal Care Team Section Performer Name Performer Role Active Date Inactive Da te VIANCA NOGUEIRA PCP - Primary care physician 2021-03-03 2022-03-09 DANIEL ROTHMAN PCP - Primary care physician [id number] VIANCA NOGUEIRA PCP - Primary care physician 2022-06-14 Procedures Notes [facility] 09/16/2023 16:34 Six Minute Walk Impression: No significant desaturation seen at rest and with walking.
--- OUTSIDE RECORDS SUMMARY | 2024-08-29 19:03 | XMS_ITS | Encounter Summary ---
Author Organization [facility] Address [facility] [place] [address] Care Team Providers Care Draw Machine Operator Name Role Phone StevensonDarwina [facility] Primary Care Provider + [phone] Lupillo Barrientos DO Unavailable [phone] None, Provider Primary Care Provider Emperatriz No NP Primary Care Provider +- [phone] Ginny Borrego APRN Primary Care Provider + Encounter Details Date Type Department Care Team (Latest Contact Info) Description 12/14/2022 Narvar Message Enc [facility] Cardiovascular Care Unit [address] [place], [place] [id number] Adelfo [facility] Provider Discharge follow up call Social [...] on filedocumented in this encounter Care Teams Draw Machine Operator Relationship Specialty Start Date End Date [facility] [address] [place], [place] [id number] PCP - General NURSE PRACTITIONER 08/30/21 01/18/24 None, Provider, PCP - General UNKNOWN PHYSICIAN SPECIALTY 01/19/24 03/11/24 Emperatriz Cleveland NP [address] [address] PCP - General Nurse Practitioner Family 03/12/2407/28 Ginny Borrego APRN [address] [address] PCP - General Nurse Practitioner Family 07/29/24 Lupillo Barrientos DO [address] [place] [address] Consulting Physician CARDIOVASCULAR DISEASE 08/30/21 documented as of this encounter
--- OUTSIDE RECORDS SUMMARY | 2024-08-29 19:03 | XMS_ITS | Clinical Summary ---
Author Organization [facility] Address [address] [facility] [place] [address] Care Team Providers Care Green Marketing Analyst Name Role Phone Lilliana Gamino ENEIDA Primary Care Provider [phone] Allergies No known active allergies Medications ergocalciferol (VITAMIN D) 05247 UNIT Capsule Take 50,000 Units by mouth. 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
--- OUTSIDE RECORDS SUMMARY | 2024-08-29 19:03 | XMS_ITS | Encounter Summary ---
Author Organization [facility] Address [address] [place] [address] Phone Care Team Providers Care Technology Coordinator Name Role Phone Lilliana Gamino APRN Primary Care Provider [phone] Raimundo Bautista MD Unavailable Unavai labmorena Reason for Visit * Reason Comments Medication Refill Encounter Details Date Type Department Care Team (Late st Contact Info) Description 07/16/2022 Refill [facility] [address] [place] [address] Raimundo Bautista MD Medication Refill Social History Tobacco Use Types Packs/Day Years Used Date Smoking Tobacco: Every Day Cigarettes Smokeless Tobacco: Never Alcohol Use Standard Drinks/Week Comments Never 0 (1 standard drink = 0.6 oz pur e alcohol) Sex and Gender Information Value Date Recorded Sex Assigned at Not on file Legal Sex Male 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
--- OUTSIDE RECORDS SUMMARY | 2024-08-29 19:03 | XMS_ITS ---
Author Organization Unknown Address [address] [place] [phone] Phone Care Team Providers Care Prime Minister Name Role Phone NASREEN CAMERON Attending Unavailable [...] 207 CVX Pneumococcal conjugate PCV20 , polysaccharide [id number] conjugate, adjuvant, PF 01/29/2024 Completed 216 CVX Pneumococcal conjugate PCV20 , polysaccharide [id number] conjugate, adjuvant, PF 03/16/2024 Completed 216 CVX [...] Christiano Hannah M.D. SN: SN Report ID: [id number] Reading Location: [place] [address] Social History Type Status Start Date End Date Code Code Syst em Smoking History Current every day smoker [id number] SNOMED CT Sex Male Hospital Discharge Instructions Should you have any questions prior to discharge, please contact a member of your healthcare team. If you have left the hospital and have any questions, please contact your primary care physician. Reason For Referral No Data Found Allergies and Adverse Reactions Allergy Substance Reaction Severity Start Date Concern Status Co de Code System KETOROLAC Active 67188 RxNorm ULTRAM Active 836490 RxNorm Plan of Treatment Song Follow Up Visit 08/16/2024 CT Chest/Lung WO Contrast (60706) 09/02 Song Follow Up Visit 01/17/2025 Encounters [...]
--- OUTSIDE RECORDS SUMMARY | 2024-08-29 19:03 | XMS_ITS | Encounter Summary ---
Author Organization [facility] Address [address] [facility] [place] [address] Phone Care Team Providers Care Glass Beveller Name Role Phone StevensonCraigLilliana Maria Alejandra MONIQUE Primary Care Provider [phone] Raimundo Bautista MD Unavailable Pablo bradford Reason for Visit * Reason Comments Medication Refill Encounter Details Date Type Department Care Team (Late st Contact Info) Description 03/17/2023 Refill [facility] - Cardiology [facility] [address] [place] [address] Raimundo Bautista MD Medication Refill Social History Tobacco Use Types Packs/Day Years Used Date Smoking Tobacco: Every Day Cigarettes Smokeless Tobacco: Never Alcohol Use Standard Drinks/Week Comments Never 0 (1 standard drink = 0.6 oz pur e alcohol) Sex and Gender Information Value Date Recorded Sex Assigned at Not on file 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 Showing future appointments within next 90 days and meeting all other requirements Passed - Blood pressure on record Clinician-entered: BP Readings from Last 3 Encounters: 10/18/21 158/82 Patient-entered: No data recorded K RECEIVER documented in this encounter Plan of Treatment Not on file documented as of this encounter Visit Diagnoses Not on filedocumented in this encounter Care Teams Glass Beveller Relationship Specialty Start Date End Date Lilliana Gamino APRN [address] [facility] 3 [place] [address] PCP - General Certified Nurse Practitioner 09/24/21 Raimundo Bautista MD [address] [facility] 3 [place] [address] Hat Block Bench Hand Cardiovascular Disease - Cardiology 10/08/21 03/26/24 documented as of this encounter
--- NOTE | 2024-08-29 19:04 | PC.NURSE ---
report to sukhjinder allen
--- NOTE | 2024-08-29 19:05 | PC.NURSE ---
ASSUMED CARE. REPORT RECEIVED FROM CHASIDY MAZARIEGOS.
[2024-08-29 19:14] LABS: Alanine Aminotransferase 29 U/L (6-50); Albumin Level 4.2 g/dL (3.5-5.1); Alkaline Phosphatase 46 U/L (38-126); Anion Gap 5 mmol/L (4-12); Aspartate Amino Transferase 27 U/L (17-59); Bilirubin,Total 0.4 mg/dL (0.2-1.3); Blood Urea Nitrogen 12 mg/dL (9-20); Calcium 9.5 mg/dL (8.4-10.2); Carbon Dioxide 29 mmol/L (22-30); Chloride 104 mmol/L (98-107); Estimated CRCL calculation 75 ml/min; Estimated Glomerular Filt Rate > 60; Glucose 117 mg/dL (65-110); Lipase 43 U/L (23-300); Osmolality Calculated 286 mOsm/kg (285-295); Potassium 3.9 mmol/L (3.4-5.0); Sodium 138 mmol/L (137-145); Total Protein 7.1 g/dL (6.3-8.2)
[2024-08-29 19:17] LABS: Partial Thromboplastin Time 25.5 Sec (23.9-30.70); Prothrombin Time 10.8 Seconds (9.50-12.1)
[2024-08-29 19:26] LABS: NT Pro B Type Natriuretic Pept < 20 pg/mL (19.9-100); Troponin I < 0.012 ng/mL (0.000-0.034)
[2024-08-29 19:34] LABS: Add Urine Microscopic? NO; Appearance Urine Clear (Clear); Bilirubin Urine Negative (Negative); Blood Urine Negative (Negative); Color Urine Yellow (Yellow); Glucose Urine UA Negative (Negative); Ketones Urine Trace (Negative); Leukocyte Esterase Ur Negative LEU/UL (Negative); Nitrate Urine Negative (Negative); Protein Urine Negative (Negative); Specific Grav Ur >= 1.030 (1.010-1.020)
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
[2024-08-29 19:47] LABS: Amphetamine Screen Urine Positive (Negative); Barbiturate Screen Urine Negative (Negative); Benzodiazepines Screen Urine Positive (Negative); Cannabinoid Screen Urine Negative (Negative); Cocaine Screen Urine Negative (Negative); Methadone Screen Urine Negative (Negative); Opiate Screen Urine Negative (Negative); Phencyclidine Screen Urine Negative (Negative)
[2024-08-29] MEDS: PANTOPRAZOLE 40 MG TABLET PO (19:49)
== END 2024-08-29 19:58 | disposition home or self-care (01) ==
PROVIDERS: Emergency Provider Emergency Medicine; PCP Nurse Practitioner Family
DX: K29.60 Other gastritis without bleeding (principal); J44.9 Chronic obstructive pulmonary disease, unspecified; R07.89 Other chest pain; E11.9 Type 2 diabetes mellitus without complications; E03.9 Hypothyroidism, unspecified; I10 Essential (primary) hypertension; F17.210 Nicotine dependence, cigarettes, uncomplicated; Z79.899 Other long term (current) drug therapy
CPT/HCPCS: 36415; 71045; 80053; 80307; 81003; 83690; 83880; 84484; 85025; 85380; 85610; 85730; 93005; 94640; 96374; 96375; 99284; A9270; J1885; J2405

== ENCOUNTER 2024-08-30 16:53 | Emergency (ER) | payer OTHER, SELFPAY ==
--- NOTE | ~2024-08-30 | CT_ITS ---
CLINICAL INDICATION: Left flank pain COMPARISON: 07/06/2023. TECHNIQUE: Multiple contiguous axial images of the abdomen and pelvis were performed without the admi nistration of intravenous contrast The dose-length product (DLP) was 1202.40 mGy-cm. Automated exposure control and iterative reconstruction technique were employed. FINDINGS/OBSERVATIONS: Visualized lower thorax: The bilateral lung bases are clear. The heart is of normal size, without pericardial effusion. Small hiatal hernia is present. Liver: The liver demonstrates homogeneously decreased attenuation, consistent with fatty infiltration and is not enlarged. Gallbladder and biliary system: The gallbladder is only minimally distended, and otherwise unremarkable. Pancreas: Limited evaluation of the pancreas secondary to the lack of intravenous contrast. Spleen: The spleen demonstrates homogeneous attenuation and is not enlarged. Kidneys: The bilateral kidneys are unremarkable, without hydronephrosis or renal calculi. Adrenal glands: Unremarkable. Gastrointestinal tract: Colonic diverticulosis without surrounding inflammatory change. Appendix: The appendix is not definitively visualized. However, no pericecal inflammatory change is identified suggest the presence of acute appendicitis. Vasculature: Unremarkable. Lymph nodes: Limited evaluation without intravenous contrast. Pelvic structures: The bladder is only minimally distended, and otherwise unremarkable. The prostate gland is not enlarged. Body wall and musculoskeletal: No significant degenerative disease within the lower thoracic or lumbosacral spine. IMPRESSION: No obstructive uropathy. Fatty infiltration of the liver. Examination is otherwise unremarkable, without acute pathology, as detailed above. Reviewed, dictated and finalized at location A. IMPRESSION: No obstructive uropathy. Fatty infiltration of the liver. Examination is otherwise unremarkable, without acute pathology, as detailed abo ve.
--- OUTSIDE RECORDS SUMMARY | 2024-08-30 16:56 | XMS_ITS | Encounter Summary ---
Author Organization [facility] Address [address] [facility] [place] [address] Phone Care Team Providers Care Contour Stitcher Name Role Phone Lilliana Gamino APRN Primary Care Provider +1 [phone] Raimundo Bautista MD Unavailable Unavai labmorena Reason for Visit * Reason Comments Medication Refill Encounter Details Date Type Department Care Team (Late st Contact Info) Description 07/16/2022 Refill [facility] [place] [address] Raimundo Bautista MD Medication Refill Social History Tobacco Use Types Packs/Day Years Used Date Smoking Tobacco: Every Day Cigarettes Smokeless Tobacco: Never Alcohol Use Standard Drinks/Week Comments Never 0 (1 standard drink = 0.6 oz pur e alcohol) Sex and Gender Information Value Date Recorded Sex Assigned at Not on file 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
--- OUTSIDE RECORDS SUMMARY | 2024-08-30 16:56 | XMS_ITS ---
Author Organization Unknown Address [id number] [place] [phone] Phone Care Team Providers Care Precision Aircraft Structure Assembler Name Role Phone BENOIT MCMAHON Attending [...] 207 CVX Pneumococcal conjugate PCV20 , polysaccharide [id number] conjugate, adjuvant, PF 01/29/2024 Completed 216 CVX Pneumococcal conjugate PCV20 , polysaccharide [id number] conjugate, adjuvant, PF 03/16/2024 Completed 216 CVX [...] Michael Robertson M.D. KR: DIANA Report ID: [id number] Reading Location: [place] [address] Social History Type Status Start Date End Date Code Code Syst em Smoking History Current every day smoker [id number] SNOMED CT Sex Male Hospital Discharge Instructions Should you have any questions prior to discharge, please contact a member of your healthcare team. If you have left the hospital and have any questions, please contact your primary care physician. Reason For Referral No Data Found Allergies and Adverse Reactions Allergy Substance Reaction Severity Start Date Concern Status Co de Code System KETOROLAC Active 46545 RxNorm ULTRAM Active 809206 RxNorm Plan of Treatment Song Follow Up Visit 08/16/2024 CT Chest/Lung WO Contrast (35352) 09/02 Song Follow Up Visit 01/17/2025 Encounters [...] physician 2022-06-14 Imaging Narrative Notes Procedures Notes [facility] 02/02/2024 15:29 Pulmonary Function Test DOS: [...]
--- OUTSIDE RECORDS SUMMARY | 2024-08-30 16:56 | XMS_ITS | Clinical Summary ---
Author Organization [facility] Address [address] [facility] [place] [address] Care Team Providers Care Packaging Specialist Name Role Phone Lilliana Gamino ENEIDA Primary Care Provider [phone] Allergies No known active allergies Medications ergocalciferol (VITAMIN D) 81835 UNIT Capsule Take 50,000 Units by mouth. 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
--- OUTSIDE RECORDS SUMMARY | 2024-08-30 16:56 | XMS_ITS | Continuity of Care Document ---
Author Organization [facility] Address [address] [place] [address] [place] [address] Phone Care Team Providers Care Skip Tracer Name Role Phone [place] [...] Procedures Procedure Date OFFICE/OUTPATIENT VISIT, [facility] Advance Directives Directive Yes / No Effective Date File Name No Information Encounters Encounter Description Practice Location Reason(s) For Visit Diagnoses Date Provider Providers Copied on Encounter OFFICE/OUTPAT IENT VISIT, [facility], [place], operated by [facility], [address] [place], [place], [id number], tel:[phone] [facility] knee pain (chief complaint)i nsomnia (chief complaint)v aricose veins (chief complaint) Dietary surveillance and counselingPain in joint involving lower legVaricose Veins, Lower ExtremityHypert ension, Unspecified [address]. [address] [place], [id number] , [place]. tel:[phone] Family History Family Member Type Diagnosis Age [...] Mental Status Date Cognitive Assessment Orientation - [place] ed to time, place, person, situation.
--- OUTSIDE RECORDS SUMMARY | 2024-08-30 16:56 | XMS_ITS | Encounter Summary ---
Author Organization [facility] Address [address] [place] [address] Care Team Providers Care Service Bar Cashier Name Role Phone Reinaldo Johana NAILS Primary Care Provider [phone] London Damon MD Unavailable [phone] Leticia Bernstein NP Unavailable [phone] Emperatriz Cleveland NP Primary Care Provider + [phone] Lilliana Gamino [facility] Primary Care Provider [phone] Lupillo Barrientos DO Unavailable [phone] None, Provider Primary Care Provider Unavaila ble Emperatriz Cleveland NP Primary Care Provider + [phone] Ginny Borrego APRN Primary Care Provider + Encounter Details Date Type Department Care Team (Late st Contact Info) Description 09/29/2018 Abstract SFL CONVERSION [address] [place] [address] , Generic Conversion, Social History Tobacco Use [...] documented as of this encounter Care Teams Service Bar Cashier Relationship Specialty Start Date End Date Johana Najera PA [address] [place] [address] PCP - General 06/29/17 05/30/21 Emperatriz Cleveland NP [address] [place] [address] PCP - General Nurse Practitioner Family 05/31/21 08/29/21 Lilliana Gmaino [facility] [address] [facility] [place] [address] PCP - General NURSE PRACTITIONER 08/30/21 01/18/24 Karrie Chang MD PCP - General UNKNOWN PHYSICIAN SPECIALTY 01/19/24 03/11/24 Emperatriz Cleveland NP [address] [address] PCP - General Nurse Practitioner Family 03/12/24 07/28/24 Ginny Borrego APRN [address] [place] [address] PCP - General Nurse Practitioner Family 07/29/24 London Damon MD [address] [place] [address] [employer] Safety Engineer CARDIOVASCULAR DISEASE 06/29/17 08/29/21 Leticia Bernstein NP [address] [place] [address] CARDIOVASCULAR DISEASE 06/29/17 08/29/21 Lupillo Barrientos DO [address] [place] [address] Consulting Physician CARDIOVASCULAR DISEASE 08/30/21 documented as of this encounter
--- OUTSIDE RECORDS SUMMARY | 2024-08-30 16:56 | XMS_ITS | Encounter Summary ---
Author Organization [facility] Address [address] [place] [address] Phone Care Team Providers Care Legal Document Assistant Name Role Phone StevensonCraigLilliana Maria Alejandra MONIQUE Primary Care Provider [phone] Raimundo Bautista MD Unavailable Pablo bradford Reason for Visit * Reason Comments Medication Refill Encounter Details Date Type Department Care Team (Late st Contact Info) Description 03/17/2023 Refill [facility] - Cardiology [facility] [address] [place] [address] Raimundo Bautista MD Medication Refill Social History Tobacco Use Types Packs/Day Years Used Date Smoking Tobacco: Every Day Cigarettes Smokeless Tobacco: Never Alcohol Use Standard Drinks/Week Comments Never 0 (1 standard drink = 0.6 oz pur e alcohol) Sex and Gender Information Value Date Recorded Sex Assigned at Not on file Legal Sex Male 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 Showing future appointments within next 90 days and meeting all other requirements Passed - Blood pressure on record Clinician-entered: BP Readings from Last 3 Encounters: 10/18/21 158/82 Patient-entered: No data recorded TIZATION CLERK documented in this encounter Plan of Treatment Not on file documented as of this encounter Visit Diagnoses Not on filedocumented in this encounter Care Teams Legal Document Assistant Relationship Specialty Start Date End Date Lilliana Gamino APRN [address] [facility] [address] [place] [address] PCP - General Certified Nurse Practitioner 09/24/21 Raimundo Bautista MD [address] [facility] [address] [place] [address] Narrow Fabric Calenderer Cardiovascular Disease - Cardiology 10/08/21 03/26/24 documented as of this encounter
--- OUTSIDE RECORDS SUMMARY | 2024-08-30 16:56 | XMS_ITS ---
Author Organization Unknown Address [id number] [place] [phone] Phone Care Team Providers Care Supervisor Drapery Hanging Name Role Phone NASREEN CAMERON Attending Unavailable [...] 207 CVX Pneumococcal conjugate PCV20 , polysaccharide [id number] conjugate, adjuvant, PF 01/29/2024 Completed 216 CVX Pneumococcal conjugate PCV20 , polysaccharide [id number] conjugate, adjuvant, PF 03/16/2024 Completed 216 CVX [...] Christiano Hannah M.D. SN: SN Report ID: [id number] Reading Location: [place] [address] Social History Type Status Start Date End Date Code Code Syst em Smoking History Current every day smoker 525143476 SNOMED CT Sex Male Hospital Discharge Instructions Should you have any questions prior to discharge, please contact a member of your healthcare team. If you have left the hospital and have any questions, please contact your primary care physician. Reason For Referral No Data Found Allergies and Adverse Reactions Allergy Substance Reaction Severity Start Date Concern Status Co de Code System KETOROLAC Active 79567 RxNorm ULTRAM Active 997488 RxNorm Plan of Treatment Song Follow Up Visit 08/16/2024 CT Chest/Lung WO Contrast (40898) 09/02 Song Follow Up Visit 01/17/2025 Encounters [...]
--- OUTSIDE RECORDS SUMMARY | 2024-08-30 16:57 | XMS_ITS | Clinical Summary ---
Author Organization [facility] Address [facility] [place] [address] Care Team Providers Care Bridge Game Director Name Role Phone GlennLupillo hudson DO Unavailable [phone] Ginny Borrego APRN Primary Care Provider + [...] OR SWALLOWING 2 Active vitamin D2, ergocalciferol, 02195 UNITS capsule Take 1 capsule (1.25 mg [...] (02/23/2023): Added automatically from request for surgery [id number] Dyspepsia 02/16/2023 Gastroesophageal reflux dise ase, unspecified whether esophagitis present 11/17/2022 Overview (11/17/2022): Added automatically from request for surgery [id number] Weight loss 11/17/2022 Overview (11/17/2022): Added automatically from request for surgery [id number] Chest pain 03/24/2020 Pain of upper abdomen [...] Comments Blood Pressure 119/96 03/12/2024 9:30 PM MEDICAL TERMINOLOGIST Pulse 84 03/12/2024 9:30 PM MEDICAL TERMINOLOGIST Temperature 37.1 C (98.8 F) 03/12/2024 4:46 PM MEDICAL TERMINOLOGIST Respiratory Rate 18 03/12/2024 4:46 PM MEDICAL TERMINOLOGIST Oxygen Saturation 95% 03/12/2024 9:30 PM MEDICAL TERMINOLOGIST Inhaled Oxygen Concentration - - Weight 121.6 kg (268 lb) 03/12/2024 4:46 PM MEDICAL TERMINOLOGIST Height 182.9 cm (6') 03/12/2024 4:46 PM MEDICAL TERMINOLOGIST Body Mass Index 36.35 03/12/2024 4:46 PM MEDICAL TERMINOLOGIST Plan of Treatment Health Maintenance Due Date Last Done Comments Colorectal Cancer Screening Colonoscopy (10 Years) 1962 Annual Physical 1965 Hepatitis C 02/22/1980 DTaP, Tdap and Td Vaccines ( 1 - Tdap) 1981 RSV Immunization or 60+ Years (1 - Risk 60-74 years 1-dose series) 2022 COVID-19 Vaccine (4 - 2023-2 5 season) 2023 04/30/2021, 08/07/2020, 07/10/2020 PHQ-2 (Physician [place]) 04/24/2024 11/16/2022 Zoster Vaccines Completed 12/03/2021, 09/29/2021 [...] AM CDT Narrative 07/29/2024 11:25 AM CDT [address] [place] [address] LEFT LOWER EXTREMITY VENOUS ULTRASOUND Clinical history: [...] Procedure Note Elder Roberts MD - 07/29/[address] [place] [address] LEFT LOWER EXTREMITY VENOUS ULTRASOUND Clinical history: [...] Roberts MD, 07/29/2024 11:24 AM Ginny Borrego WOOD TYPE FINISHER ULTRASOUND Final Re sult from Last 3 Months Insurance MEDICARE MEDICAID MEDICARE Member Subscriber Plan / Payer (Ef fective 2011-Present) Name:Lizette Ibarra Relation to Subscriber:Self Name:Lizette Ibarra Payer ID:Not on file Group ID:Not on file Type:Indemnity Address: ATTN CLAIMS [place] [id number] MEDICAID Advance Directives * Full Code (Latest Code Status on File) Date Activated Date Inactivated Comments 12/08/2022 9:00 PM 12/09/2022 3:50 PM * Full Code Date Activated Date Inactivated Comments 09/25/2021 1:56 PM 09/26/2021 4:27 PM * Full Code Date Activated Date Inactivated Comments 03/24/2020 8:15 PM 03/25/2020 4:17 PM Care Teams Bridge Game Director Relationship Specialty Start Date End Date Ginny Borrego, ENEIDA [address] [address] PCP - General Nurse Practitioner Family 07/29/24 Lupillo Barrientos DO Consulting Physician CARDIOVASCULAR DISEASE 08/30/21
--- OUTSIDE RECORDS SUMMARY | 2024-08-30 16:57 | XMS_ITS ---
Author Organization Unknown Address [address] [place] [phone] Phone Care Team Providers Care System Administrator Name Role Phone BENOIT MCMAHON Attending [...] 207 CVX Pneumococcal conjugate PCV20 , polysaccharide [id number] conjugate, adjuvant, PF 01/29/2024 Completed 216 CVX Pneumococcal conjugate PCV20 , polysaccharide [id number] conjugate, adjuvant, PF 03/16/2024 Completed 216 CVX COVID-19, mRNA, LNP-S, PF, zeferino-sucrose, 30 mcg/0.3 mL 03/16/2024 Completed 309 CVX Social History Type Status Start Date End Date Code Code Syst em Smoking History Current every day smoker [id number] SNOMED CT Sex Male Hospital Discharge Instructions Should you have any questions prior to discharge, please contact a member of your healthcare team. If you have left the hospital and have any questions, please contact your primary care physician. Reason For Referral No Data Found Allergies and Adverse Reactions Allergy Substance Reaction Severity Start Date Concern Status Co de Code System KETOROLAC Active 32513 RxNorm ULTRAM Active 893539 RxNorm Plan of Treatment Song Follow Up Visit 08/16/2024 CT Chest/Lung WO Contrast (85687) 09/02 Song Follow Up Visit 01/17/2025 Encounters Encounter Diagnosis Start Date Code Code Sys tem Chronic obstructive lung disease 08/30/2023 [id number] SNOMED-CT Personal Care Team Section Performer Name Performer Role Active Date Inactive Da te VIANCA NOGUEIRA PCP - Primary care physician 2021-03-03 2022-03-09 DANIEL ROTHMAN PCP - Primary care physician [id number] VIANCA NOGUEIRA PCP - Primary care physician 2022-06-14 Procedures Notes [facility] 09/16/2023 16:34 Six Minute Walk Impression: No significant desaturation seen at rest and with walking.
--- OUTSIDE RECORDS SUMMARY | 2024-08-30 16:57 | XMS_ITS | Encounter Summary ---
Author Organization [facility] Address [facility] [place] [address] Care Team Providers Care Wrapper Layer Name Role Phone StevensonDarwina [facility] Primary Care Provider + [phone] Lupillo Barrientos DO Unavailable [phone] None, Provider Primary Care Provider Emperatriz No NP Primary Care Provider [phone] Ginny Borrego APRN Primary Care Provider + Encounter Details Date Type Department Care Team (Latest Contact Info) Description 12/14/2022 [employer] Message Enc [facility] Cardiovascular Care Unit [address] [place], [place] [phone] Adelfo [facility] Provider Discharge follow up call Social [...] on filedocumented in this encounter Care Teams Wrapper Layer Relationship Specialty Start Date End Date Lilliana [facility] [address] [place], [place] [id number] PCP - General NURSE PRACTITIONER 08/30/21 01/18/24 None, Provider, PCP - General UNKNOWN PHYSICIAN SPECIALTY 01/19/24 03/11/24 Emperatriz Cleveland NP [address] [address] PCP - General Nurse Practitioner Family 03/12/2407/28 Ginny Borrego APRN [address] [address] PCP - General Nurse Practitioner Family 07/29/24 Lupillo Barrientos DO [address] [place] [address] Consulting Physician CARDIOVASCULAR DISEASE 08/30/21 documented as of this encounter
--- OUTSIDE RECORDS SUMMARY | 2024-08-30 16:57 | XMS_ITS | Encounter Summary ---
Author Organization [facility] Address [facility] [place] [address] Care Team Providers Care Band Lining Bander Name Role Phone Darwin Gaminoalfredito [facility] Primary Care Provider + [phone] Lupillo Barrientos DO Unavailable [phone] None, Provider Primary Care Provider Emperatriz No NP Primary Care Provider [phone] Ginny Borrego APRN Primary Care Provider + Encounter Details Date Type Department Care Team (Late st Contact Info) Description 12/14/2022 Hospital Follow-up Call [facility] Cardiovascular Care Unit [address] [place] [address] Kimmy Magaña, RN Social History [...] on filedocumented in this encounter Care Teams Band Lining Bander Relationship Specialty Start Date End Date Lill[facility] [address] [place], [place] [phone] PCP - General NURSE PRACTITIONER 08/30/21 01/18/24 None, Provider, PCP - General UNKNOWN PHYSICIAN SPECIALTY 01/19/24 03/11/24 Emperatriz Cleveland NP [address] [address] PCP - General Nurse Practitioner Family 03/12/2407/28 Ginny Borrego APRN [address] [phone] PCP - General Nurse Practitioner Family 07/29/24 Lupillo Barrientos DO [address] [place] [address] Consulting Physician CARDIOVASCULAR DISEASE 08/30/21 documented as of this encounter
[2024-08-30 17:00] VITALS: BP 111/82; PULSE 77; RESP 20; TEMP 36.8; O2SAT 98
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
--- OUTSIDE RECORDS SUMMARY | 2024-08-30 17:31 | XMS_ITS ---
Author Organization Unknown Address [address] [place] [phone] Phone Care Team Providers Care Carton Filling Machine Operator Name Role Phone BENOIT MCMAHON Attending [...] 207 CVX Pneumococcal conjugate PCV20 , polysaccharide [id number] conjugate, adjuvant, PF 01/29/2024 Completed 216 CVX Pneumococcal conjugate PCV20 , polysaccharide [id number] conjugate, adjuvant, PF 03/16/2024 Completed 216 CVX [...] Michael Robertson M.D. KR: DIANA Report ID: [id number] Reading Location: [place] [address] Social History Type Status Start Date End Date Code Code Syst em Smoking History Current every day smoker [id number] SNOMED CT Sex Male Hospital Discharge Instructions Should you have any questions prior to discharge, please contact a member of your healthcare team. If you have left the hospital and have any questions, please contact your primary care physician. Reason For Referral No Data Found Allergies and Adverse Reactions Allergy Substance Reaction Severity Start Date Concern Status Co de Code System KETOROLAC Active 68481 RxNorm ULTRAM Active 972583 RxNorm Plan of Treatment Song Follow Up Visit 08/16/2024 CT Chest/Lung WO Contrast (41122) 09/02 Song Follow Up Visit 01/17/2025 Encounters [...] physician 2022-06-14 Imaging Narrative Notes Procedures Notes [facility] 02/02/2024 15:29 Pulmonary Function Test DOS: [...]
--- OUTSIDE RECORDS SUMMARY | 2024-08-30 17:32 | XMS_ITS | Continuity of Care Document ---
Author Organization [facility] Address [address] [place] [address] [place] [address] Phone Care Team Providers Care Program Medical Director Name Role Phone [place] [...] - Active Procedures Procedure Date OFFICE/OUTPATIENT VISIT, [facility] Advance Directives Directive Yes / No Effective Date File Name No Information Encounters Encounter Description Practice Location Reason(s) For Visit Diagnoses Date Provider Providers Copied on Encounter OFFICE/OUTPAT IENT VISIT, [facility], [address] [place], [id number], tel:[phone] [facility] knee pain (chief complaint)i nsomnia (chief complaint)v aricose veins (chief complaint) Dietary surveillance and counselingPain in joint involving lower legVaricose Veins, Lower ExtremityHypert ension, Unspecified [address] [place], [place], [id number] , [place]. tel:[phone] Family History Family Member Type Diagnosis Age [...] Mental Status Date Cognitive Assessment Orientation - [place] ed to time, place, person, situation.
--- OUTSIDE RECORDS SUMMARY | 2024-08-30 17:32 | XMS_ITS | Clinical Summary ---
Author Organization [facility] Address [facility] [place] [address] Care Team Providers Care Dowel Maker Name Role Phone GlennLupillo hudson DO Unavailable [phone] Ginny Borrego APRN Primary Care Provider + [...] OR SWALLOWING 2 Active vitamin D2, ergocalciferol, 04485 UNITS capsule Take 1 capsule (1.25 mg [...] (02/23/2023): Added automatically from request for surgery [id number] Dyspepsia 02/16/2023 Gastroesophageal reflux dise ase, unspecified whether esophagitis present 11/17/2022 Overview (11/17/2022): Added automatically from request for surgery [id number] Weight loss 11/17/2022 Overview (11/17/2022): Added automatically from request for surgery [id number] Chest pain 03/24/2020 Pain of upper abdomen [...] Comments Blood Pressure 119/96 03/12/2024 9:30 PM PORCELAIN ENAMELER Pulse 84 03/12/2024 9:30 PM PORCELAIN ENAMELER Temperature 37.1 C (98.8 F) 03/12/2024 4:46 PM PORCELAIN ENAMELER Respiratory Rate 18 03/12/2024 4:46 PM PORCELAIN ENAMELER Oxygen Saturation 95% 03/12/2024 9:30 PM PORCELAIN ENAMELER Inhaled Oxygen Concentration - - Weight 121.6 kg (268 lb) 03/12/2024 4:46 PM PORCELAIN ENAMELER Height 182.9 cm (6') 03/12/2024 4:46 PM PORCELAIN ENAMELER Body Mass Index 36.35 03/12/2024 4:46 PM PORCELAIN ENAMELER Plan of Treatment Health Maintenance Due Date Last Done Comments Colorectal Cancer Screening Colonoscopy (10 Years) 1962 Annual Physical 1965 Hepatitis C 02/22/1980 DTaP, Tdap and Td Vaccines ( 1 - Tdap) 1981 RSV Immunization or 60+ Years (1 - Risk 60-74 years 1-dose series) 2022 COVID-19 Vaccine (4 - 2023-2 5 season) 2023 04/30/2021, 08/07/2020, 07/10/2020 PHQ-2 (Physician Jackson) 04/24/2024 11/16/2022 Zoster Vaccines Completed 12/03/2021, 09/29/2021 [...] AM CDT Narrative 07/29/2024 11:25 AM CDT [address] [place] [address] LEFT LOWER EXTREMITY VENOUS ULTRASOUND Clinical history: [...] Procedure Note Elder Roberts MD - 07/29/[address] [place] [address] LEFT LOWER EXTREMITY VENOUS ULTRASOUND Clinical history: [...] Roberts MD, 07/29/2024 11:24 AM Ginny Borrego FLEXOGRAPHIC PRESS PLATE SETTER ULTRASOUND Final Re sult from Last 3 Months Insurance MEDICARE MEDICAID MEDICARE Member Subscriber Plan / Payer (Ef fective 2011-Present) Name:Lizette Ibarra Relation to Subscriber:Self Name:Lizette Ibarra Payer ID:Not on file Group ID:Not on file Type:Indemnity Address: ATTN CLAIMS [place] [id number] MEDICAID Advance Directives * Full Code (Latest Code Status on File) Date Activated Date Inactivated Comments 12/08/2022 9:00 PM 12/09/2022 3:50 PM * Full Code Date Activated Date Inactivated Comments 09/25/2021 1:56 PM 09/26/2021 4:27 PM * Full Code Date Activated Date Inactivated Comments 03/24/2020 8:15 PM 03/25/2020 4:17 PM Care Teams Dowel Maker Relationship Specialty Start Date End Date Ginny Borrego, ENEIDA [address] [address] PCP - General Nurse Practitioner Family 07/29/24 Lupillo Barrientos DO Consulting Physician CARDIOVASCULAR DISEASE 08/30/21
--- OUTSIDE RECORDS SUMMARY | 2024-08-30 17:32 | XMS_ITS | Clinical Summary ---
Author Organization [facility] Address [address] [facility] [place] [address] Care Team Providers Care Wrapping Machine Operator Name Role Phone Lilliana Gamino ENEIDA Primary Care Provider [phone] Allergies No known active allergies Medications ergocalciferol (VITAMIN D) 73581 UNIT Capsule Take 50,000 Units by mouth. [...] on file Legal Sex Male 3:24 AM FINANCIAL ADMINISTRATOR Gender Identity Not on file Sexual Orientation [...] topic Insurance MEDICARE C HUMANA Care Teams Wrapping Machine Operator Relationship Specialty Start Date End Date Lilliana Gamino APRN [address] [address] PCP - General Certified Nurse Practitioner 09/24/21
--- OUTSIDE RECORDS SUMMARY | 2024-08-30 17:32 | XMS_ITS ---
Author Organization Unknown Address [address] [place] [phone] Phone Care Team Providers Care Director Of Software Development Name Role Phone BENOIT MCMAHON Attending Unavailable [...] 207 CVX Pneumococcal conjugate PCV20 , polysaccharide [id number] conjugate, adjuvant, PF 01/29/2024 Completed 216 CVX Pneumococcal conjugate PCV20 , polysaccharide [id number] conjugate, adjuvant, PF 03/16/2024 Completed 216 CVX COVID-19, mRNA, LNP-S, PF, zeferino-sucrose, 30 mcg/0.3 mL 03/16/2024 Completed 309 CVX Social History Type Status Start Date End Date Code Code Syst em Smoking History Current every day smoker [id number] SNOMED CT Sex Male Hospital Discharge Instructions Should you have any questions prior to discharge, please contact a member of your healthcare team. If you have left the hospital and have any questions, please contact your primary care physician. Reason For Referral No Data Found Allergies and Adverse Reactions Allergy Substance Reaction Severity Start Date Concern Status Co de Code System KETOROLAC Active 46394 RxNorm ULTRAM Active 093664 RxNorm Plan of Treatment Song Follow Up Visit 08/16/2024 CT Chest/Lung WO Contrast (58515) 09/02 Song Follow Up Visit 01/17/2025 Encounters Encounter Diagnosis Start Date Code Code Sys tem Chronic obstructive lung disease 08/30/2023 [id number] SNOMED-CT Personal Care Team Section Performer Name [...]
--- OUTSIDE RECORDS SUMMARY | 2024-08-30 17:32 | XMS_ITS | Encounter Summary ---
Author Organization [facility] Address [address] [place] [address] Phone Care Team Providers Care Dry Kiln Loader Name Role Phone StevensonCraigLilliana Maria Alejandra MONIQUE Primary Care Provider [phone] Raimundo Bautista MD Unavailable Pablo bradford Reason for Visit * Reason Comments Medication Refill Encounter Details Date Type Department Care Team (Late st Contact Info) Description 03/17/2023 Refill [facility] - Cardiology [facility] [address] [place] [address] Raimundo Bautista MD Medication Refill Social History Tobacco Use Types Packs/Day Years Used Date Smoking Tobacco: Every Day Cigarettes Smokeless Tobacco: Never Alcohol Use Standard Drinks/Week Comments Never 0 (1 standard drink = 0.6 oz pur e alcohol) Sex and Gender Information Value Date Recorded Sex Assigned at Not on file Legal Sex Male 3:24 AM SECURITY ORDERLY Gender Identity Not on file Sexual Orientation [...] Dept 10/18/21 Office Visit Raimundo Bautista MD [facility] Cardiology Rajesh Showing recent visits within past 548 days and meeting all other requirements Future Appointments No visits were found meeting these conditions. Showing future appointments within next 90 days and meeting all other requirements Passed - Blood pressure on record Clinician-entered: BP Readings from Last 3 Encounters: 10/18/21 158/82 Patient-entered: No data recorded RITY ORDERLY documented in this encounter Plan of Treatment Not on file documented as of this encounter Visit Diagnoses Not on filedocumented in this encounter Care Teams Dry Kiln Loader Relationship Specialty Start Date End Date Lilliana Gamino APRN [address] [facility] [address] [place] [address] PCP - General Certified Nurse Practitioner 09/24/21 Raimundo Bautista MD [address] [facility] [address] [place] [address] Larriman Helper Cardiovascular Disease - Cardiology 10/08/21 03/26/24 documented as of this encounter
--- OUTSIDE RECORDS SUMMARY | 2024-08-30 17:32 | XMS_ITS | Encounter Summary ---
Author Organization [facility] Address [facility] [place] [address] Care Team Providers Care Tnt Powder Worker Name Role Phone Darwin [facility]alfredito [facility] Primary Care Provider + [phone] Lupillo Barrientos DO Unavailable [phone] None, Provider Primary Care Provider Emperatriz No NP Primary Care Provider [phone]- [phone] Ginny Borrego APRN Primary Care Provider + Encounter Details Date Type Department Care Team (Late st Contact Info) Description 12/14/2022 Hospital Follow-up Call [facility] Cardiovascular Care Unit [address] [place] [address] Kimmy Magaña, RN Social History [...] on filedocumented in this encounter Care Teams Tnt Powder Worker Relationship Specialty Start Date End Date [facility] [address] [place], [place] [id number] PCP - General NURSE PRACTITIONER 08/30/21 01/18/24 None, Provider, PCP - General UNKNOWN PHYSICIAN SPECIALTY 01/19/24 03/11/24 Emperatriz Cleveland NP [address] [address] PCP - General Nurse Practitioner Family 03/12/2407/28 Ginny Borrego APRN [address] [phone] PCP - General Nurse Practitioner Family 07/29/24 Lupillo Barrientos DO [address] [place] [address] Consulting Physician CARDIOVASCULAR DISEASE 08/30/21 documented as of this encounter
--- OUTSIDE RECORDS SUMMARY | 2024-08-30 17:32 | XMS_ITS ---
Author Organization Unknown Address [address] [place] [phone] Phone Care Team Providers Care Pool Table Mechanic Name Role Phone NASREEN CAMERON Attending Unavailable [...] 207 CVX Pneumococcal conjugate PCV20 , polysaccharide [id number] conjugate, adjuvant, PF 01/29/2024 Completed 216 CVX Pneumococcal conjugate PCV20 , polysaccharide [id number] conjugate, adjuvant, PF 03/16/2024 Completed 216 CVX [...] Christiano Hannah M.D. SN: SN Report ID: [id number] Reading Location: [place] [address] Social History Type Status Start Date End Date Code Code Syst em Smoking History Current every day smoker [id number] SNOMED CT Sex Male Hospital Discharge Instructions Should you have any questions prior to discharge, please contact a member of your healthcare team. If you have left the hospital and have any questions, please contact your primary care physician. Reason For Referral No Data Found Allergies and Adverse Reactions Allergy Substance Reaction Severity Start Date Concern Status Co de Code System KETOROLAC Active 80738 RxNorm ULTRAM Active 170409 RxNorm Plan of Treatment Song Follow Up Visit 08/16/2024 CT Chest/Lung WO Contrast (34419) 09/02 Song Follow Up Visit 01/17/2025 Encounters [...]
--- OUTSIDE RECORDS SUMMARY | 2024-08-30 17:32 | XMS_ITS | Encounter Summary ---
Author Organization [facility] Address [address] [place] [address] Care Team Providers Care Library Media Specialist Name Role Phone Reinaldo Johana NAILS Primary Care Provider [phone] London Damon MD Unavailable [phone] Leticia Bernstein NP Unavailable [phone] Emperatriz Cleveland NP Primary Care Provider + [phone] Lilliana Gamino [facility] Primary Care Provider [phone] Lupillo Barrientos DO Unavailable [phone] None, Provider Primary Care Provider Unavaila ble Emperatriz Cleveland NP Primary Care Provider + [phone] Ginny Borrego APRN Primary Care Provider + Encounter Details Date Type Department Care Team (Late st Contact Info) Description 09/29/2018 Abstract SFL CONVERSION [address] [place] [address] , Generic Conversion, Social History Tobacco Use [...] documented as of this encounter Care Teams Library Media Specialist Relationship Specialty Start Date End Date Johana Najera PA [address] [place] [address] PCP - General 06/29/17 05/30/21 Emperatriz Cleveland NP [address] [place] [address] PCP - General Nurse Practitioner Family 05/31/21 08/29/21 [facility] [address] [place] [address] PCP - General NURSE PRACTITIONER 08/30/21 01/18/24 Karrie Chang MD PCP - General UNKNOWN PHYSICIAN SPECIALTY 01/19/24 03/11/24 Emperatriz Cleveland NP [address] [address] PCP - General Nurse Practitioner Family 03/12/24 07/28/24 Ginny Borrego APRN [address] [place] [address] PCP - General Nurse Practitioner Family 07/29/24 London Damon MD [address] [place] [address] Social Circle Global Supply Chain Director CARDIOVASCULAR DISEASE 06/29/17 08/29/21 Leticia Bernstein NP [address] [place] [address] CARDIOVASCULAR DISEASE 06/29/17 08/29/21 Lupillo Barrientos DO [address] [place] [address] Consulting Physician CARDIOVASCULAR DISEASE 08/30/21 documented as of this encounter
--- OUTSIDE RECORDS SUMMARY | 2024-08-30 17:32 | XMS_ITS | Encounter Summary ---
Author Organization [facility] Address [address] [facility] [place] [address] Phone Care Team Providers Care Senior Java Engineer Name Role Phone Lilliana Gamino APRN Primary Care Provider [phone] Raimundo Bautista MD Unavailable Unavai labmorena Reason for Visit * Reason Comments Medication Refill Encounter Details Date Type Department Care Team (Late st Contact Info) Description 07/16/2022 Refill [facility] [address] [place] [address] Raimundo Bautista MD Medication Refill Social History Tobacco Use Types Packs/Day Years Used Date Smoking Tobacco: Every Day Cigarettes Smokeless Tobacco: Never Alcohol Use Standard Drinks/Week Comments Never 0 (1 standard drink = 0.6 oz pur e alcohol) Sex and Gender Information Value Date Recorded Sex Assigned at Not on file 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
--- OUTSIDE RECORDS SUMMARY | 2024-08-30 17:32 | XMS_ITS | Encounter Summary ---
Author Organization [facility] Address [facility] [place] [address] Care Team Providers Care Emissions Inspector Name Role Phone StevensonDarwina [facility] Primary Care Provider + [phone] Lupillo Barrientos DO Unavailable [phone] None, Provider Primary Care Provider Emperatriz No NP Primary Care Provider +- [phone] Ginny Borrego APRN Primary Care Provider + Encounter Details Date Type Department Care Team (Latest Contact Info) Description 12/14/2022 Platiza Message Enc [facility] Cardiovascular Care Unit [address] [place], [place] [id number] Adelfo [facility] Provider Discharge follow up call Social [...] place to sleep or slept in a fdc (including now)? No 12/08/2022 Sex and Gender [...] on filedocumented in this encounter Care Teams Emissions Inspector Relationship Specialty Start Date End Date Lilliana Gamino [facility] [address] [place], [place] [id number] PCP - General NURSE PRACTITIONER 08/30/21 01/18/24 None, Provider, PCP - General UNKNOWN PHYSICIAN SPECIALTY 01/19/24 03/11/24 Emperatriz Cleveland NP [address] [address] PCP - General Nurse Practitioner Family 03/12/2407/28 Ginny Borrego APRN [address] [address] PCP - General Nurse Practitioner Family 07/29/24 Lupillo Barrientos DO [address] [place] [address] Consulting Physician CARDIOVASCULAR DISEASE 08/30/21 documented as of this encounter
[2024-08-30 18:03] VITALS: BP 115/58; PULSE 74; RESP 20; O2SAT 92
[2024-08-30 18:14] LABS: Basophils Absolute Auto 0.04 K/mm3 (0.00-0.10); Basophils Percent Auto 0.4 % (0.0-1.0); Eosinophils Absolute Auto 0.52 K/mm3 (0.02-0.50); Eosinophils Percent Auto 4.6 % (1.0-6.0); Hematocrit 46.1 % (40.0-54.0); Hemoglobin 15.1 g/dL (14.0-18.0); Immature Granulocyte Absolute 0.03 K/mm3 (0.00-0.00); Immature Granulocyte Percent A 0.3 % (0.0-0.0); Lymphocytes Absolute Auto 3.02 K/mm3 (1.10-4.50); Lymphocytes Percent Auto 26.5 % (18.0-42.0); Mean Corpuscular HGB Conc 32.8 g/dL (32-36); Mean Corpuscular Hemoglobin 29.5 pg (27.0-31.0); Mean Corpuscular Volume 90.2 fL (78.0-102.0); Mean Platelet Volume 9.4 fl (8.7-11.0); Monocytes Absolute Auto 0.73 K/mm3 (0.10-0.90); Monocytes Percent Auto 6.4 % (2.0-11.0); Neutrophils Absolute Auto 7.06 K/mm3 (1.70-7.20); Neutrophils Percent Auto 61.8 % (50.0-70.0); Platelet Count Result 262 K/mm3 (150-420); Red Blood Count 5.11 M/mm3 (4.70-6.10); White Blood Count 11.4 K/mm3 (4.8-10.8)
[2024-08-30 18:26] LABS: Alanine Aminotransferase 27 U/L (6-50); Albumin Level 4.2 g/dL (3.5-5.1); Alkaline Phosphatase 51 U/L (38-126); Anion Gap 4 mmol/L (4-12); Aspartate Amino Transferase 25 U/L (17-59); Bilirubin,Total 0.5 mg/dL (0.2-1.3); Blood Urea Nitrogen 19 mg/dL (9-20); Carbon Dioxide 28 mmol/L (22-30); Chloride 106 mmol/L (98-107); Estimated CRCL calculation 72 ml/min; Estimated Glomerular Filt Rate 59; Glucose 110 mg/dL (65-110); Lipase 59 U/L (23-300); Osmolality Calculated 289 mOsm/kg (285-295); Sodium 138 mmol/L (137-145); Total Protein 7.3 g/dL (6.3-8.2)
--- NOTE | 2024-08-30 19:04 | PC.NURSE ---
report to sukhjinder rao
[2024-08-30 19:58] LABS: Add Urine Microscopic? NO; Appearance Urine Clear (Clear); Bilirubin Urine Negative (Negative); Blood Urine Negative (Negative); Color Urine Yellow (Yellow); Glucose Urine UA Negative (Negative); Ketones Urine Negative (Negative); Leukocyte Esterase Ur Negative LEU/UL (Negative); Nitrate Urine Negative (Negative); Protein Urine Negative (Negative); Specific Grav Ur >= 1.030 (1.010-1.020); Urobilinogen Urine 0.2 mg/dL (0.2-1.0)
[2024-08-30] MEDS: MAG HYDROX/ALUMINUM HYD/SIMETH 30 ML, PHENobarb/HYOSCY/ATROPINE/SCOP 32.4 MG, LIDOCAINE... PO (20:11)
== END 2024-08-30 20:34 | disposition home or self-care (01) ==
PROVIDERS: Emergency Provider Emergency Medicine; PCP Nurse Practitioner Family
DX: K21.9 Gastro-esophageal reflux disease without esophagitis (principal); K29.00 Acute gastritis without bleeding; E03.9 Hypothyroidism, unspecified; J44.9 Chronic obstructive pulmonary disease, unspecified; E11.9 Type 2 diabetes mellitus without complications; I10 Essential (primary) hypertension; F17.210 Nicotine dependence, cigarettes, uncomplicated
CPT/HCPCS: 36415; 74176; 80053; 81003; 83605; 83690; 85025; 99283; A9270

== ENCOUNTER 2024-10-30 10:02 | Emergency (ER) | payer OTHER, SELFPAY ==
[2024-10-30] VITALS (12 sets, daily range): BP systolic 109–130; BP diastolic 75–89; PULSE 60–85; RESP 13–20; TEMP 36.7; O2SAT 91–95
--- NOTE | ~2024-10-30 | XR_ITS ---
EXAM/PROCEDURE: XR chest 1V portable - 10/30/2024 10:23 CDT HISTORY: 64 years old Male with dizziness TECHNIQUE: Two view(s) of the chest. COMPARISON: None available. FINDINGS: Limited evaluation since the costophrenic angles are not visualized. LUNGS/ PLEURA: No focal consolidation. No appreciable pneumothorax or large pleural effusion. HEART/ MEDIASTINUM: Heart appears normal in size. BONES: No acute osseous abnormality. OTHER: Visualized upper abdomen is unremarkable. IMPRESSION: No acute process. Reviewed, dictated and finalized at location A. IMPRESSION: No acute process.
--- NOTE | ~2024-10-30 | CT_ITS ---
EXAM: CT brain wo con - 10/30/2024 10:45 CDT History: 64 years old Male with dizziness COMPARISON: 03/09/2024 PROCEDURE: CT of the head without contrast. Axial, sagittal and coronal reformatted planes were james luated. Automatic exposure control was used for this study. FINDINGS: BRAIN PARENCHYMA: No acute hemorrhage. No mass effect or herniation. Powell-white matter differentiatio n is maintained. Mild chronic volume loss. Scattered hypodensities in subcortical and periventricular white matter, likely representing chronic microvascular ischemic changes in this age group. Atherosc lerotic calcification of the intracranial vessels is noted. VENTRICLES/ EXTRA-AXIAL SPACES: No hydrocephalus or extra-axial fluid collection. EXTRACRANIAL STRUCTURES: No calvarial fracture. IMPRESSION: No evidence for acute intracranial hemorrhage or calvarial fracture. Reviewed, dictated and finalized at location A.
--- OUTSIDE RECORDS SUMMARY | 2024-10-30 10:11 | XMS_ITS ---
Author Organization Unknown Address [address] [place] [phone] Phone Care Team Providers Care Wholesale Diamond Broker Name Role Phone BENOIT MCMAHON Attending Unavailable [...] 207 CVX Pneumococcal conjugate PCV20 , polysaccharide [id number] conjugate, adjuvant, PF 01/29/2024 Completed 216 CVX Pneumococcal conjugate PCV20 , polysaccharide [id number] conjugate, adjuvant, PF 03/16/2024 Completed 216 CVX COVID-19, mRNA, LNP-S, PF, zeferino-sucrose, 30 mcg/0.3 mL 03/16/2024 Completed [address] CHEST/LUNG WO CONTRAST - Completed: 09/19/2024 13:55 LOINC: \TM00\\12PI\\DRAo\\BM09\ \MRHo\ [address] [address] ---------NAME--------- NUMBER SEX AGE ADMIT DISC. XRAY# F/C TYPE BANDAR CRUZ [id number] M 64 09/19/24 09/19/24 9556 [facility] O/P DATE OF : 1960 M/R# [id number] #: [id number] RM \MRHx\ LOCATION: TRANSCRIBED: 09/19/24 13:39 CT CHEST/LUNG WO CONTRAST 24145 COMPLETED: 33387 {REASON-CT/MRI CHEST: PULM NODULE(OTHER LUNG DIS) PHYSICIAN: BENOIT SHIPMAN R A D I O L O G Y R E P O R T Procedure: CT CHEST/LUNG WO CONTRAST Reason for study/Clinical History: PULM NODULE(OTHER LUNG DIS) Comparison Study: CT CHEST CA SCREEN on DOS: 01/30/24 TECHNIQUE: Multidetector CT of the chest was performed from the lung apices to the upper abdomen without the use of intravenous contract. Axial, coronal and sagittal multiplanar reformats were performed. Radiation Dose Information: CT Dose: CTDI volume is 17 mGy. Dose-length product is 1338.69 mGy*cm The dose indicators for CT are the volume Computed Tomography (CT) Dose Index (CTDIvol) and the Dose Length Product (DLP), and are measured in units of mGy and mGy-cm, respectively. These indicators are not patient dose, but values generated from the CT scanner acquisition factors. The report includes radiation exposure data for exposures received during this examination. FINDINGS: Lower neck: Unremarkable. Lungs: Mild biapical scarring. 0.6 cm nodule in the left lung base (image 452/649), unchanged. Unchanged 0.4 cm nodule in the right lower lobe (image 351/649). Unchanged 0.6 cm nodule in the right lower lobe (image 404/649). Heart/Vascular Structures: Normal heart size. No pericardial effusion. Lymph Nodes: No adenopathy Pleura: No pleural effusion or significant pneumothorax. Musculoskeletal: No acute osseous abnormality. Degenerative changes of the spine. Soft tissues: Normal. Upper abdomen: Limited portions of the upper abdomen are unremarkable. IMPRESSION: 0.6 cm nodule in the left lung base (image 452/649), unchanged. Unchanged 0.4 cm nodule in the right lower lobe (image 351/649). Unchanged 0.6 cm nodule in the right lower lobe (image 404/649). Fleischner Society pulmonary nodule recommendations (2017): Single solid nodule <6 mm Low-risk patients: no routine follow-up required High-risk patients: optional CT at 12 months (particularly with suspicious nodule morphology and/or upper lobe location) Solitary solid nodule 6-8 mm Low-risk patients: CT at 6-12 months, then consider CT at 18-24 months High-risk patients: CT at 6-12 months, then CT at 18-24 months Solitary solid nodule >8 mm (>250 mm3) Low-risk and high-risk patients: consider CT at 3 months, PET/CT, or tissue sampling Multiple solid nodules <6 mm Low-risk patients: no routine follow-up required High-risk patients: optional CT at 12 months Multiple solid nodules >6 mm Low-risk patients: CT at 3-6 months, then consider CT at 18-24 months High-risk patients: CT at 3-6 months, then CT at 18-24 months When multiple nodules are present, the most suspicious nodule should guide further individualized management. Solitary groundglass opacities < 6 mm require no follow-up Multiple groundglass opacities < 6 mm: CT 3-6 months. If stable consider CT at 2 , and 4 years Groundglass opacities >6 mm: follow-up in 6-12 months and then every 2 years for 5 years. Groundglass opacities greater than 6 mm with part solid component follow-up CT in 3-6 months to confirm persistence. If unchanged and solid component remains less than [address] for 5 years Multiple groundglass opacities greater than 6 mm: CT at 3-6 months. Subsequent management based on the most suspicious nodules. These recommendations do not necessarily apply to women, patients with immunosuppression or a prior history of cancer, patients with multiple nodules that are suspicious for metastasis or infection, or patients with mediastinal lymphadenopathy or pleural effusion in whom cancer is strongly suspected. SPECIALIST \ITLo\ \UNDo\ \UNDx\ \ITLx\ Reviewed and Electronically Signed by: Virgil Smith MD Signed Date: 09/19/24 13:39 09/19/24.1342.KD .to JERO MORRISON via fax Social History Type Status Start Date End Date Code Code Syst em Smoking History Current every day smoker 606497689 SNOMED CT Sex Male Hospital Discharge Instructions Should you have any questions prior to discharge, please contact a member of your healthcare team. If you have left the hospital and have any questions, please contact your primary care physician. Reason For Referral No Data Found Allergies and Adverse Reactions Allergy Substance Reaction Severity Start Date Concern Status Co de Code System KETOROLAC Active 20863 RxNorm ULTRAM Active 773604 RxNorm Plan of Treatment Song Follow Up Visit 01/17/2025 Encounters Encounter Diagnosis Start Date Code Code Sys tem Other nonspecific abnormal finding of lung field 09/19 SNOMED-CT Personal Care Team Section Performer Name Performer Role Active Date Inactive Da te VIANCA NOGUEIRA PCP - Primary care physician 2021-03-03 2022-03-09 DANIEL ROTHMAN PCP - Primary care physician [id number] VIANCA NOGUEIRA PCP - Primary care physician 2022-06-14 Imaging Narrative Notes [facility] 09/19/2024 13:42 [facility] [address] [place] [address] ---------NAME--------- NUMBER SEX AGE ADMIT DISC. XRAY# F/C TYPE BANDAR CRUZ [id number] M 64 09/19/24 09/19/24 9556 MB O/P DATE OF : 1960 M/R# [id number] #: [id number] RM LOCATION: TRANSCRIBED: 09/19/24 13:39 CT CHEST/LUNG WO CONTRAST [id number] COMPLETED: [id number] {REASON-CT/MRI CHEST: PULM NODULE(OTHER LUNG DIS) PHYSICIAN: BENOIT SHIPMAN RADIOLOGY REPORT Procedure: CT CHEST/LUNG WO CONTRAST Reason for study/Clinical History: PULM NODULE(OTHER LUNG DIS) Comparison Study: CT CHEST CA SCREEN on DOS: 01/30/24 TECHNIQUE: Multidetector CT of the chest was performed from the lung apices to the upper abdomen without the use of intravenous contract. Axial, coronal and sagittal multiplanar reformats were performed. Radiation Dose Information: CT Dose: CTDI volume is 17 mGy. Dose-length product is 1338.69 mGy*cm The dose indicators for CT are the volume Computed Tomography (CT) Dose Index (CTDIvol) and the Dose Length Product (DLP), and are measured in units of mGy and mGy-cm, respectively. These indicators are not patient dose, but values generated from the CT scanner acquisition factors. The report includes radiation exposure data for exposures received during this examination. FINDINGS: Lower neck: Unremarkable. Lungs: Mild biapical scarring. 0.6 cm nodule in the left lung base (image 452/649), unchanged. Unchanged 0.4 cm nodule in the right lower lobe (image 351/649). Unchanged 0.6 cm nodule in the right lower lobe (image 404/649). Heart/Vascular Structures: Normal heart size. No pericardial effusion. Lymph Nodes: No adenopathy Pleura: No pleural effusion or significant pneumothorax. Musculoskeletal: No acute osseous abnormality. Degenerative changes of the spine. Soft tissues: Normal. Upper abdomen: Limited portions of the upper abdomen are unremarkable. IMPRESSION: 0.6 cm nodule in the left lung base (image 452/649), unchanged. Unchanged 0.4 cm nodule in the right lower lobe (image 351/649). Unchanged 0.6 cm nodule in the right lower lobe (image 404/649). Fleischner Society pulmonary nodule recommendations (2017): Single solid nodule <6 mm Low-risk patients: no routine follow-up required High-risk patients: optional CT at 12 months (particularly with suspicious nodule morphology and/or upper lobe location) Solitary solid nodule 6-8 mm Low-risk patients: CT at 6-12 months, then consider CT at 18-24 months High-risk patients: CT at 6-12 months, then CT at 18-24 months Solitary solid nodule >8 mm (>250 mm3) Low-risk and high-risk patients: consider CT at 3 months, PET/CT, or tissue sampling Multiple solid nodules <6 mm Low-risk patients: no routine follow-up required High-risk patients: optional CT at 12 months Multiple solid nodules >6 mm Low-risk patients: CT at 3-6 months, then consider CT at 18-24 months High-risk patients: CT at 3-6 months, then CT at 18-24 months When multiple nodules are present, the most suspicious nodule should guide further individualized management. Solitary groundglass opacities < 6 mm require no follow-up Multiple groundglass opacities < 6 mm: CT 3-6 months. If stable consider CT at 2 , and 4 years Groundglass opacities >6 mm: follow-up in 6-12 months and then every 2 years for 5 years. Groundglass opacities greater than 6 mm with part solid component follow-up CT in 3-6 months to confirm persistence. If unchanged and solid component remains less than [address] for 5 years Multiple groundglass opacities greater than 6 mm: CT at 3-6 months. Subsequent management based on the most suspicious nodules. These recommendations do not necessarily apply to women, patients with immunosuppression or a prior history of cancer, patients with multiple nodules that are suspicious for metastasis or infection, or patients with mediastinal lymphadenopathy or pleural effusion in whom cancer is strongly suspected. SPECIALIST Reviewed and Electronically Signed by: Virgil Smith MD Signed Date: 09/19/24 13:39 09/19/24.1342.KD .to JERO MORRISON via fax
--- OUTSIDE RECORDS SUMMARY | 2024-10-30 10:12 | XMS_ITS | Encounter Summary ---
Author Organization [facility] Address [address] [facility] [place] [address] Phone Care Team Providers Care Leather Craftsman Name Role Phone StevensonCraigLilliana Maria Alejandra MONIQUE Primary Care Provider [phone] Raimundo Bautista MD Unavailable Pablo bradford Reason for Visit * Reason Comments Medication Refill Encounter Details Date Type Department Care Team (Late st Contact Info) Description 03/17/2023 Refill [facility] #[address] [place] [address] Raimundo Bautista MD Medication Refill Social History Tobacco Use Types Packs/Day Years Used Date Smoking Tobacco: Every Day Cigarettes Smokeless Tobacco: Never Alcohol Use Standard Drinks/Week Comments Never 0 (1 standard drink = 0.6 oz pur e alcohol) Sex and Gender Information Value Date Recorded Sex Assigned at Not on file 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 Showing future appointments within next 90 days and meeting all other requirements Passed - Blood pressure on record Clinician-entered: BP Readings from Last 3 Encounters: 10/18/21 158/82 Patient-entered: No data recorded HEAT EXCHANGER CLEANER documented in this encounter Plan of Treatment Not on file documented as of this encounter Visit Diagnoses Not on filedocumented in this encounter Care Teams Leather Craftsman Relationship Specialty Start Date End Date Lilliana Gamino APRN [address] [facility] 3 [place] [address] PCP - General Certified Nurse Practitioner 09/24/21 Raimundo Bautista MD [address] [facility] [address] [place] [address] Master Black Belt Cardiovascular Disease - Cardiology 10/08/21 03/26/24 documented as of this encounter
--- OUTSIDE RECORDS SUMMARY | 2024-10-30 10:12 | XMS_ITS | Encounter Summary ---
Author Organization [facility] Address [address] [facility] [place] [address] Phone Care Team Providers Care Water Plant Pump Operator Supervisor Name Role Phone Lilliana Gamino APRN Primary Care Provider [phone] Raimundo Bautista MD Unavailable Unavai labmorena Reason for Visit * Reason Comments Medication Refill Encounter Details Date Type Department Care Team (Late st Contact Info) Description 07/16/2022 Refill [facility] #[address] [place] [address] Raimundo Bautista MD Medication Refill Social History Tobacco Use Types Packs/Day Years Used Date Smoking Tobacco: Every Day Cigarettes Smokeless Tobacco: Never Alcohol Use Standard Drinks/Week Comments Never 0 (1 standard drink = 0.6 oz pur e alcohol) Sex and Gender Information Value Date Recorded Sex Assigned at Not on file 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
--- OUTSIDE RECORDS SUMMARY | 2024-10-30 10:12 | XMS_ITS ---
Author Organization Unknown Address [address] [place] [phone] Phone Care Team Providers Care Manager Analysis Name Role Phone BENOIT MCMAHON Attending Unavailable [...] 207 CVX Pneumococcal conjugate PCV20 , polysaccharide [id number] conjugate, adjuvant, PF 01/29/2024 Completed 216 CVX Pneumococcal conjugate PCV20 , polysaccharide [id number] conjugate, adjuvant, PF 03/16/2024 Completed 216 CVX COVID-19, mRNA, LNP-S, PF, zeferino-sucrose, 30 mcg/0.3 mL 03/16/2024 Completed 309 CVX Social History Type Status Start Date End Date Code Code Syst em Smoking History Current every day smoker [id number] SNOMED CT Sex Male Hospital Discharge Instructions Should you have any questions prior to discharge, please contact a member of your healthcare team. If you have left the hospital and have any questions, please contact your primary care physician. Reason For Referral No Data Found Allergies and Adverse Reactions Allergy Substance Reaction Severity Start Date Concern Status Co de Code System KETOROLAC Active 82575 RxNorm ULTRAM Active 089567 RxNorm Plan of Treatment Song Follow Up Visit 01/17/2025 Encounters Encounter Diagnosis Start Date Code Code Sys tem Chronic obstructive lung disease 08/30/2023 [id number] SNOMED-CT Personal Care Team Section Performer Name Performer Role Active Date Inactive Da te VIANCA NOGUEIRA PCP - Primary care physician 2021-03-03 2022-03-09 DANIEL ROTHMAN PCP - Primary care physician [id number] VIANCA NOGUEIRA PCP - Primary care physician 2022-06-14 Procedures Notes [facility] 09/16/2023 16:34 Six Minute Walk Impression: No significant desaturation seen at rest and with walking.
--- OUTSIDE RECORDS SUMMARY | 2024-10-30 10:12 | XMS_ITS | Clinical Summary ---
Author Organization [facility] MOB Address [address] [facility] [place] [address] Care Team Providers Care Videotape Sales Representative Name Role Phone Lilliana Gamino ENEIDA Primary Care Provider [phone] Allergies No known active allergies Medications ergocalciferol (VITAMIN D) 11188 UNIT Capsule Take 50,000 Units by mouth. 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 Gender Identity Not on file Sexual Orientation [...] 3:55 PM CDT Height 185.4 cm (6' 1) 10/18/2021 3:55 PM CDT Body Mass Index 36.02 10/18/2021 3:55 PM CDT Plan of Treatment Health Maintenance Due Date Last Done Comments Hepatitis C Virus (HCV) Screening 1960 TdaP Immunization 1960 Cologuard 2007 Colonoscopy 2007 Colorectal Cancer Screening 2007 Immunochemical Fecal Occult Blood 2007 PSA Discussion 2017 Influenza Immunization (#1) 2024 03/2 04/2021, 01/15/2018, 01/19/2017 Respiratory Syncytial Virus (RSV) Immunization (Adult) (1 - 1-dose 75+ series) 2037 Hepatitis B Immunization Completed 017, 02/09/2016, 12/08/2015 Zoster Immunization Completed 12/03/2021, Pneumococcal Immunization (50+ years) Completed 03/16/2024, 01/29/2024 Pneumococcal Immunization Combined Discontinued 03/16/2024, 01/29/2024 SARS-COV-2 Immunization Completed 03/16/20 24, 04/30/2021, 08/07/2020, Additional history exists Human Papillomavirus (HPV) Immunization Aged Out No longer eligible based on patient's age to complete this topic Meningococcal Immunization (ACWY) Aged Out No longer eligible based on patient's age to complete this topic Rotavirus Immunization Aged Out No lo nger eligible based on patient's age to complete this topic Insurance MEDICARE C HUMANA Care Teams Videotape Sales Representative Relationship Specialty Start Date End Date Lilliana Gamino APRN [address] [place] [address] 3 [place] [address] PCP - General Certified Nurse Practitioner 09/24/21
--- OUTSIDE RECORDS SUMMARY | 2024-10-30 10:12 | XMS_ITS ---
Author Organization Unknown Address [address] [place] [phone] Phone Care Team Providers Care Telemarketing Manager Name Role Phone BENOIT MCMAHON Attending Unavailable [...] 207 CVX Pneumococcal conjugate PCV20 , polysaccharide [id number] conjugate, adjuvant, PF 01/29/2024 Completed 216 CVX Pneumococcal conjugate PCV20 , polysaccharide [id number] conjugate, adjuvant, PF 03/16/2024 Completed 216 CVX [...] Michael Robertson M.D. KR: DIANA Report ID: [id number] Reading Location: [place] [address] Social History Type Status Start Date End Date Code Code Syst em Smoking History Current every day smoker [id number] SNOMED CT Sex Male Hospital Discharge Instructions Should you have any questions prior to discharge, please contact a member of your healthcare team. If you have left the hospital and have any questions, please contact your primary care physician. Reason For Referral No Data Found Allergies and Adverse Reactions Allergy Substance Reaction Severity Start Date Concern Status Co de Code System KETOROLAC Active 98115 RxNorm ULTRAM Active 028328 RxNorm Plan of Treatment Song Follow Up [...] physician 2022-06-14 Imaging Narrative Notes Procedures Notes [facility] 02/02/2024 15:29 Pulmonary Function Test DOS: [...]
--- OUTSIDE RECORDS SUMMARY | 2024-10-30 10:12 | XMS_ITS ---
Author Organization Unknown Address [address] [place], [place] [phone] Phone Care Team Providers Care Audio/Visual Manager Name Role Phone LAURENT Brunner APRN Attending Evaristo MEZA Primary Unavailable Immunization Immunization Date Status [...] 207 CVX Pneumococcal conjugate PCV20 , polysaccharide [id number] conjugate, adjuvant, PF 01/29/2024 Completed 216 CVX Pneumococcal conjugate PCV20 , polysaccharide [id number] conjugate, adjuvant, PF 03/16/2024 Completed 216 CVX COVID-19, mRNA, LNP-S, PF, zeferino-sucrose, 30 mcg/0.3 mL 03/16/2024 Completed 309 CVX Results BUN/CREAT - Collect Date/Nadeem e: 09/25/2024 14:11 [facility] ID: [id number] [address] [place] [address], [phone] LOINC: 3097-3 Test Value Unit Reference Range Code Code System Flag BUN 13 mg/dL L=7 H=20 3094-0 LOINC CREATININE 1.00 mg/dL L=0.66 H=1.25 2160-0 LOINC AGE 64 13929-3 LOINC eGFR NON-AFR 80 ml/min eGFR AFR AMER 97 ml/min MRI BRAIN W+WO CONTRAST - Co mpleted: 09/25/2024 15:13 LOINC: 40045-0 \TM00\\12PI\\DRAo\\BM09\ \MRHo\ [address] [address] ---------NAME--------- NUMBER SEX AGE ADMIT DISC. XRAY# F/C TYPE BANDAR CRUZ [id number] 09/25/24 09/25/24 9556 MB1 O/P DATE OF : 1960 M/R# [id number] PH#: [phone] \MRx\ LOCATION: TRANSCRIBED: 09/25/24 20:29 MRI BRAIN W+WO CONTRAST 42505 COMPLETED:09/25/24 15:13 [place]IL[place] [id number] {REASON-MRI HEAD/NCK: DIZZINESS/GIDDINESS PHYSICIAN: LAURENT R A D I O L O G Y R E P O R T PROCEDURE: MRI BRAIN W+WO CONTRAST INDICATION: DIZZINESS/GIDDINESS EXAM DATE: 09/25/2024 02:57 PM COMPARISON: Head CT 07/11/2023 TECHNIQUE: MRI of the brain with and without 15 cc ProHance intravenous contrast. FINDINGS: Diffusion weighted images of the brain demonstrate no evidence of acute infarction. There is no evidence of acute intracranial hemorrhage, extra-axial collection, mass effect, midline shift, herniation or hydrocephalus. The ventricles, sulci and cisterns appear age appropriate. Lecb-mg-czumszft changes of chronic microvascular ischemic disease. No abnormal enhancement. There are no signal abnormalities on the susceptibility weighted sequences. The major vascular flow voids are present. Patchy opacification of the bilateral ethmoid sinuses. Left mastoid effusion. The surrounding soft tissues and osseous structures are unremarkable. IMPRESSION: 1. No evidence of acute infarction, intracranial hemorrhage, mass effect or hydrocephalus. Zcub-jm-daeahmbk changes of chronic microvascular ischemic disease. No abnormal enhancement. Left mastoid effusion. Ethmoid sinus disease. HS:Y TECH \ITLo\ \UNDo\ \UNDx\ \ITLx\ Reviewed and Electronically Signed by: Darren Randall MD Signed Date: 09/25/24 20:29 09/25/24.2031.Keira MORRISON via fax Social History Type Status Start Date End Date Code Code Syst em Smoking History Current every day smoker [id number] SNOMED CT Sex Male Hospital Discharge Instructions Should you have any questions prior to discharge, please contact a member of your healthcare team. If you have left the hospital and have any questions, please contact your primary care physician. Reason For Referral No Data Found Allergies and Adverse Reactions Allergy Substance Reaction Severity Start Date Concern Status Co de Code System KETOROLAC Active 86488 RxNorm ULTRAM Active 968390 RxNorm Plan of Treatment Song Follow Up Visit 01/17/2025 Encounters Encounter Diagnosis Start Date Code Code Sys tem Dizziness and giddiness 09/25/2024 SNOM ED-CT Personal Care Team Section Performer Name Performer Role Active Date Inactive Da te VIANCA NOGUEIRA PCP - Primary care physician 2021-03-03 2022-03-09 DANIEL ROTHMAN PCP - Primary care physician [id number] VIANCA NOGUEIRA PCP - Primary care physician 2022-06-14 Imaging Narrative Notes [facility] 09/25/2024 20:[address] [address] ---------NAME--------- NUMBER SEX AGE ADMIT DISC. XRAY# F/C TYPE BANDAR CRUZ [id number] 09/25/24 09/25/24 9556 MB1 O/P DATE OF : 1960 M/R# [id number] #: [id number] RM LOCATION: TRANSCRIBED: 09/25/24 20:29 MRI BRAIN W+WO CONTRAST 04180 COMPLETED:09/25/24 15:13 [place]IL[place] [id number] {REASON-MRI HEAD/NCK: DIZZINESS/GIDDINESS PHYSICIAN: LAURENT RADIOLOGY REPORT PROCEDURE: MRI BRAIN W+WO CONTRAST INDICATION: DIZZINESS/GIDDINESS EXAM DATE: 09/25/2024 02:57 PM COMPARISON: Head CT 07/11/2023 TECHNIQUE: MRI of the brain with and without 15 cc ProHance intravenous contrast. FINDINGS: Diffusion weighted images of the brain demonstrate no evidence of acute infarction. There is no evidence of acute intracranial hemorrhage, extra-axial collection, mass effect, midline shift, herniation or hydrocephalus. The ventricles, sulci and cisterns appear age appropriate. Mxzg-ma-gnfbvrzz changes of chronic microvascular ischemic disease. No abnormal enhancement. There are no signal abnormalities on the susceptibility weighted sequences. The major vascular flow voids are present. Patchy opacification of the bilateral ethmoid sinuses. Left mastoid effusion. The surrounding soft tissues and osseous structures are unremarkable. IMPRESSION: 1. No evidence of acute infarction, intracranial hemorrhage, mass effect or hydrocephalus. Fhtb-yj-sahtkmhg changes of chronic microvascular ischemic disease. No abnormal enhancement. Left mastoid effusion. Ethmoid sinus disease. HS:Y TECH Reviewed and Electronically Signed by: Darren Randall MD Signed Date: 09/25/24 20:29 09/25/24.NAILA.to JERO MORRISON via fax
--- OUTSIDE RECORDS SUMMARY | 2024-10-30 10:12 | XMS_ITS ---
Author Organization Unknown Address [address] [place] [phone] Phone Care Team Providers Care Game Breeding Farm Manager Name Role Phone NASREEN CAMERON Attending Unavailable [...] 207 CVX Pneumococcal conjugate PCV20 , polysaccharide [id number] conjugate, adjuvant, PF 01/29/2024 Completed 216 CVX Pneumococcal conjugate PCV20 , polysaccharide [id number] conjugate, adjuvant, PF 03/16/2024 Completed 216 CVX [...] Christiano Hannah M.D. SN: SN Report ID: [id number] Reading Location: [place] [address] Social History Type Status Start Date End Date Code Code Syst em Smoking History Current every day smoker [id number] SNJobSync CT Sex Male Hospital Discharge Instructions Should you have any questions prior to discharge, please contact a member of your healthcare team. If you have left the hospital and have any questions, please contact your primary care physician. Reason For Referral No Data Found Allergies and Adverse Reactions Allergy Substance Reaction Severity Start Date Concern Status Co de Code System KETOROLAC Active 47631 RxNorm ULTRAM Active 072375 RxNorm Plan of Treatment Song Follow Up [...]
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
--- NOTE | 2024-10-30 10:22 | ECG_ITS ---
Test Date: 2024-10-30 10:31:15 Measurements Intervals [place] Rate: 68 P: 73 KS: 131 QRS: 82 QRSD: 94 T: 62 QT: 371 QTc: 395 Interpretive Statements SINUS RHYTHM Compared to ECG 08/29/2024 18:15:02 Ventricular premature complex(es) no longer present Incomplete right bundle-branch block no longer present Electronically Signed On 10-30-2024 14:40:50 CDT by Brian Patel M.D.
[2024-10-30 10:34] LABS: Hematocrit 40.3 % (40.0-54.0); Hemoglobin 13.2 g/dL (14.0-18.0); Immature Granulocyte Percent A 0.3 % (0.0-0.0); Lymphocytes Absolute Auto 1.52 K/mm3 (1.10-4.50); Mean Corpuscular HGB Conc 32.8 g/dL (32-36); Mean Corpuscular Hemoglobin 30.1 pg (27.0-31.0); Mean Corpuscular Volume 92.0 fL (78.0-102.0); Nucleated Red Blood Cells Absolute Auto 0.00 K/mm3 (0.00-0.00); Nucleated Red Blood Cells Perc 0.0 % (0-0.0); Platelet Count Result 218 K/mm3 (150-420); Red Blood Count 4.38 M/mm3 (4.70-6.10); White Blood Count 6.5 K/mm3 (4.8-10.8)
[2024-10-30 10:45] LABS: Alanine Aminotransferase 28 U/L (6-50); Albumin Level 3.9 g/dL (3.5-5.1); Alkaline Phosphatase 50 U/L (38-126); Anion Gap 4 mmol/L (4-12); Aspartate Amino Transferase 27 U/L (17-59); Bilirubin,Total 0.3 mg/dL (0.2-1.3); Blood Urea Nitrogen 15 mg/dL (9-20); Calcium 8.5 mg/dL (8.4-10.2); Carbon Dioxide 29 mmol/L (22-30); Chloride 108 mmol/L (98-107); Estimated CRCL calculation 100 ml/min; Estimated Glomerular Filt Rate > 60; Glucose 151 mg/dL (65-110); Osmolality Calculated 295 mOsm/kg (285-295); Potassium 4.5 mmol/L (3.4-5.0); Sodium 141 mmol/L (137-145); Total Protein 6.6 g/dL (6.3-8.2)
[2024-10-30 10:50] LABS: INR 1.0; Partial Thromboplastin Time 25.5 Sec (23.9-30.70); Prothrombin Time 10.7 Seconds (9.50-12.1)
[2024-10-30 10:57] LABS: Troponin I < 0.012 ng/mL (0.000-0.034)
--- NOTE | 2024-10-30 11:00 | PC.NURSE ---
call to [facility] for copy of MRI of brain. spoke with carolyn, medical records. will fax.
--- OUTSIDE RECORDS SUMMARY | 2024-10-30 11:09 | XMS_ITS ---
Author Organization Unknown Address [address] [place], [place] [phone] Phone Care Team Providers Care Electric Freight Car Operator Name Role Phone LAURENT Brunner APRN Attending [...] 207 CVX Pneumococcal conjugate PCV20 , polysaccharide [id number] conjugate, adjuvant, PF 01/29/2024 Completed 216 CVX Pneumococcal conjugate PCV20 , polysaccharide [id number] conjugate, adjuvant, PF 03/16/2024 Completed 216 CVX COVID-19, mRNA, LNP-S, PF, zeferino-sucrose, 30 mcg/0.3 mL 03/16/2024 Completed 309 CVX Results BUN/CREAT - Collect Date/Nadeem e: 09/25/2024 14:11 [facility] ID: [id number] [address] [place] [address], [id number] LOINC: 3097-3 Test Value Unit Reference Range Code Code System Flag BUN 13 mg/dL L=7 H=20 3094-0 LOINC CREATININE 1.00 mg/dL L=0.66 H=1.25 2160-0 LOINC AGE 64 61438-5 LOINC eGFR NON-AFR 80 ml/min eGFR AFR AMER 97 ml/min MRI BRAIN W+WO CONTRAST - Co mpleted: 09/25/2024 15:13 LOINC: 28981-7 \TM00\\12PI\\DRAo\\BM09\ \MRHo\ [address] [address] ---------NAME--------- NUMBER SEX AGE ADMIT DISC. XRAY# F/C TYPE BANDAR CRUZ [id number] 64 09/25/24 09/25/24 9556 MB1 O/P DATE OF : 1960 M/R# [id number] PH#: [phone] \MRHx\ LOCATION: TRANSCRIBED: 09/25/24 20:29 MRI BRAIN W+WO CONTRAST [id number] COMPLETED:09/25/24 15:13 [place]IL[place] [address]324 {REASON-MRI HEAD/NCK: DIZZINESS/GIDDINESS PHYSICIAN: LAURENT R A [...] ventricles, sulci and cisterns appear age appropriate. Gdng-wa-rtzntazv changes of chronic microvascular ischemic disease. No abnormal enhancement. There are no signal abnormalities on the susceptibility weighted sequences. The major vascular flow voids are present. Patchy opacification of the bilateral ethmoid sinuses. Left mastoid effusion. The surrounding soft tissues and osseous structures are unremarkable. IMPRESSION: 1. No evidence of acute infarction, intracranial hemorrhage, mass effect or hydrocephalus. Vtik-ur-ogtoqlzj changes of chronic microvascular ischemic disease. No abnormal enhancement. Left mastoid effusion. Ethmoid sinus disease. HS:Y MAKER \ITLo\ \UNDo\ \UNDx\ \ITLx\ Reviewed and Electronically Signed by: Darren Randall MD Signed Date: 09/25/24 20:29 09/25/24.2031.Keira MORRISON via fax Social History Type Status Start Date End Date Code Code Syst em Smoking History Current every day smoker [id number] SNOMED CT Sex Male Hospital Discharge Instructions Should you have any questions prior to discharge, please contact a member of your healthcare team. If you have left the hospital and have any questions, please contact your primary care physician. Reason For Referral No Data Found Allergies and Adverse Reactions Allergy Substance Reaction Severity Start Date Concern Status Co de Code System KETOROLAC Active 09042 RxNorm ULTRAM Active 170925 RxNorm Plan of Treatment Song Follow Up [...] Primary care physician 2022-06-14 Imaging Narrative Notes [facility] 09/25/2024 20:[address] [address] ---------NAME--------- NUMBER SEX AGE ADMIT DISC. XRAY# F/C TYPE BANDAR CRUZ [id number] 09/25/24 09/25/24 9556 MB1 O/P DATE OF : 1960 M/R# [id number] #: [id number] RM LOCATION: TRANSCRIBED: 09/25/24 20:29 MRI BRAIN W+WO CONTRAST [id number] COMPLETED:09/25/24 15:13 NAIL[place] [id number] {REASON-MRI HEAD/NCK: DIZZINESS/GIDDINESS PHYSICIAN: LAURENT RADIOLOGY REPORT [...] ventricles, sulci and cisterns appear age appropriate. Qxos-ss-lrmwwwek changes of chronic microvascular ischemic disease. No abnormal enhancement. There are no signal abnormalities on the susceptibility weighted sequences. The major vascular flow voids are present. Patchy opacification of the bilateral ethmoid sinuses. Left mastoid effusion. The surrounding soft tissues and osseous structures are unremarkable. IMPRESSION: 1. No evidence of acute infarction, intracranial hemorrhage, mass effect or hydrocephalus. Ybya-pu-zeoqswef changes of chronic microvascular ischemic disease. No abnormal enhancement. Left mastoid effusion. Ethmoid sinus disease. HS:Y MAKER Reviewed and Electronically Signed by: Darren Randall MD Signed Date: 09/25/24 20:29 09/25/24.2031.NAILA.to JERO MORRISON via fax
--- OUTSIDE RECORDS SUMMARY | 2024-10-30 11:09 | XMS_ITS ---
Author Organization Unknown Address [id number] [place] [phone] Phone Care Team Providers Care Account Specialist Name Role Phone BENOIT MCMAHON Attending Unavailable [...] 207 CVX Pneumococcal conjugate PCV20 , polysaccharide URL588 conjugate, adjuvant, PF 01/29/2024 Completed 216 CVX Pneumococcal conjugate PCV20 , polysaccharide QCA211 conjugate, adjuvant, PF 03/16/2024 Completed 216 CVX [...] Michael Robertson M.D. KR: DIANA Report ID: [id number] Reading Location: [place] [address] Social History Type Status Start Date End Date Code Code Syst em Smoking History Current every day smoker [id number] SNOMED CT Sex Male Hospital Discharge Instructions Should you have any questions prior to discharge, please contact a member of your healthcare team. If you have left the hospital and have any questions, please contact your primary care physician. Reason For Referral No Data Found Allergies and Adverse Reactions Allergy Substance Reaction Severity Start Date Concern Status Co de Code System KETOROLAC Active 99624 RxNorm ULTRAM Active 000599 RxNorm Plan of Treatment Song Follow Up [...] physician 2022-06-14 Imaging Narrative Notes Procedures Notes [facility] 02/02/2024 15:29 Pulmonary Function Test DOS: [...]
--- OUTSIDE RECORDS SUMMARY | 2024-10-30 11:10 | XMS_ITS | Encounter Summary ---
Author Organization [facility] Address [facility] [place] [address] Care Team Providers Care Slot Key Person Name Role Phone Darwin Gaminoalfredito [facility] Primary Care Provider + -[phone] Lupillo Barrientos DO Unavailable [phone] None, Provider Primary Care Provider Emperatriz No NP Primary Care Provider +- [phone] Ginny Borrego APRN Primary Care Provider + Encounter Details Date Type Department Care Team (Late st Contact Info) Description 12/14/2022 Hospital Follow-up Call [facility] Cardiovascular Care Unit [address] [place] [address] Kimmy Magaña, RN Social History [...] place to sleep or slept in a prison (including now)? No 12/08/2022 Sex and Gender [...] Author Status No 12/08/2022 8:55 PM LAWT Inse Montez RN Active * Do you have [...] on filedocumented in this encounter Care Teams Slot Key Person Relationship Specialty Start Date End Date [facility]illiana [facility] [address] [place] [address] PCP - General NURSE PRACTITIONER 08/30/21 01/18/24 None, Provider, PCP - General UNKNOWN PHYSICIAN SPECIALTY 01/19/24 03/11/24 Empreatriz Cleveland NP [address] [address] PCP - General Nurse Practitioner Family 03/12/2407/28 Ginny Borrego APRN [address] [place] [address] PCP - General Nurse Practitioner Family 07/29/24 Lupillo Barrientos DO [address] [place] [address] Consulting Physician CARDIOVASCULAR DISEASE 08/30/21 documented as of this encounter
--- OUTSIDE RECORDS SUMMARY | 2024-10-30 11:10 | XMS_ITS | Encounter Summary ---
Author Organization [facility] Address [address] [place] [address] Phone Care Team Providers Care Script Editor Name Role Phone Lilliana Gamino APRN Primary Care Provider [phone] Raimundo Bautista MD Unavailable Unavai labmorena Reason for Visit * Reason Comments Medication Refill Encounter Details Date Type Department Care Team (Late st Contact Info) Description 07/16/2022 Refill [facility] [address] [place] [address] Raimundo Bautista MD Medication Refill Social History Tobacco Use Types Packs/Day Years Used Date Smoking Tobacco: Every Day Cigarettes Smokeless Tobacco: Never Alcohol Use Standard Drinks/Week Comments Never 0 (1 standard drink = 0.6 oz pur e alcohol) Sex and Gender Information Value Date Recorded Sex Assigned at Not on file 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
--- OUTSIDE RECORDS SUMMARY | 2024-10-30 11:10 | XMS_ITS | Encounter Summary ---
Author Organization [facility] Address [address] [facility] [place] [address] Phone Care Team Providers Care Private Watchman Name Role Phone StevensonCraigLilliana Maria Alejandra MONIQUE Primary Care Provider [phone] Raimundo Bautista MD Unavailable Pablo bradford Reason for Visit * Reason Comments Medication Refill Encounter Details Date Type Department Care Team (Late st Contact Info) Description 03/17/2023 Refill [facility] Cardiology [facility] [address] [place] [address] Raimundo Bautista MD Medication Refill Social History Tobacco Use Types Packs/Day Years Used Date Smoking Tobacco: Every Day Cigarettes Smokeless Tobacco: Never Alcohol Use Standard Drinks/Week Comments Never 0 (1 standard drink = 0.6 oz pur e alcohol) Sex and Gender Information Value Date Recorded Sex Assigned at Not on file 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 Showing future appointments within next 90 days and meeting all other requirements Passed - Blood pressure on record Clinician-entered: BP Readings from Last 3 Encounters: 10/18/21 158/82 Patient-entered: No data recorded NESS OPERATIONS DIRECTOR documented in this encounter Plan of Treatment Not on file documented as of this encounter Visit Diagnoses Not on filedocumented in this encounter Care Teams Private Watchman Relationship Specialty Start Date End Date Lilliana Gamino APRN [address] [facility] 3 [place] [address] PCP - General Certified Nurse Practitioner 09/24/21 Raimundo Bautista MD 109 [facility] 3 [place] [address] Film Sound Engineer Cardiovascular Disease - Cardiology 10/08/21 03/26/24 documented as of this encounter
--- OUTSIDE RECORDS SUMMARY | 2024-10-30 11:10 | XMS_ITS | Clinical Summary ---
Author Organization [facility] Address [address] [facility] [place] [address] Care Team Providers Care Transaction Coordinator Name Role Phone Lilliana Gamino ENEIDA Primary Care Provider [phone] Allergies No known active allergies Medications ergocalciferol (VITAMIN D) 51045 UNIT Capsule Take 50,000 Units by mouth. 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
--- OUTSIDE RECORDS SUMMARY | 2024-10-30 11:10 | XMS_ITS ---
Author Organization Unknown Address [address] [place] [phone] Phone Care Team Providers Care Infection Prevention Practitioner Name Role Phone BENOIT MCMAHON Attending Unavailable [...] 207 CVX Pneumococcal conjugate PCV20 , polysaccharide HSL254 conjugate, adjuvant, PF 01/29/2024 Completed 216 CVX Pneumococcal conjugate PCV20 , polysaccharide PLL955 conjugate, adjuvant, PF 03/16/2024 Completed 216 CVX COVID-19, mRNA, LNP-S, PF, zeferino-sucrose, 30 mcg/0.3 mL 03/16/2024 Completed 309 CVX Social History Type Status Start Date End Date Code Code Syst em Smoking History Current every day smoker [id number] SNOMED CT Sex Male Hospital Discharge Instructions Should you have any questions prior to discharge, please contact a member of your healthcare team. If you have left the hospital and have any questions, please contact your primary care physician. Reason For Referral No Data Found Allergies and Adverse Reactions Allergy Substance Reaction Severity Start Date Concern Status Co de Code System KETOROLAC Active 43987 RxNorm ULTRAM Active 721274 RxNorm Plan of Treatment Song Follow Up Visit 01/17/2025 Encounters Encounter Diagnosis Start Date Code Code Sys tem Chronic obstructive lung disease 08/30/2023 [id number] SNOMED-CT Personal Care Team Section Performer Name [...]
--- OUTSIDE RECORDS SUMMARY | 2024-10-30 11:10 | XMS_ITS | Encounter Summary ---
Author Organization [facility] Address [facility] [place] [address] Care Team Providers Care Senior Wind Energy Consultant Name Role Phone StevensonDarwina [facility] Primary Care Provider + -[phone] Lupillo Barrientos DO Unavailable [phone] None, Provider Primary Care Provider Emperatriz No NP Primary Care Provider +- [phone] Ginny Borrego APRN Primary Care Provider + Encounter Details Date Type Department Care Team (Latest Contact Info) Description 12/14/2022 [employer] Message Enc [facility] Cardiovascular Care Unit [address] [place], [place] [id number] Adelfo [facility] Provider Discharge follow up call [...] place to sleep or slept in a care home (including now)? No 12/08/2022 Sex and [...] filedocumented in this encounter Care Teams Senior Wind Energy Consultant Relationship Specialty Start Date End Date Lilliana [facility] [address] [place] [address] PCP - General NURSE PRACTITIONER 08/30/21 01/18/24 None, Provider, PCP - General UNKNOWN PHYSICIAN SPECIALTY 01/19/24 03/11/24 Emperatriz Cleveland NP [address] [address] PCP - General Nurse Practitioner Family 03/12/2407/28 Ginny Borrego APRN [address] [place] [address] PCP - General Nurse Practitioner Family 07/29/24 Lupillo Barrientos DO [address] [place] [address] Consulting Physician CARDIOVASCULAR DISEASE 08/30/21 documented as of this encounter
--- OUTSIDE RECORDS SUMMARY | 2024-10-30 11:10 | XMS_ITS ---
Author Organization Unknown Address [address] [place] [phone] Phone Care Team Providers Care Vocational Rehabilitation Supervisor Name Role Phone BENOIT MCMAHON Attending [...] 207 CVX Pneumococcal conjugate PCV20 , polysaccharide FHH987 conjugate, adjuvant, PF 01/29/2024 Completed 216 CVX Pneumococcal conjugate PCV20 , polysaccharide FRD447 conjugate, adjuvant, PF 03/16/2024 Completed 216 CVX COVID-19, mRNA, LNP-S, PF, zeferino-sucrose, 30 mcg/0.3 mL 03/16/2024 Completed [address] CHEST/LUNG WO CONTRAST - Completed: 09/19/2024 13:55 LOINC: \TM00\\12PI\\DRAo\\BM09\ \MRHo\ [address] [address] ---------NAME--------- NUMBER SEX AGE ADMIT DISC. XRAY# F/C TYPE BANDAR CRUZ [id number] M 64 09/19/24 09/19/24 9556 [facility] O/P DATE OF : 1960 M/R# [id number] #: [id number] \MRHx\ LOCATION: TRANSCRIBED: 09/19/24 13:39 CT CHEST/LUNG WO CONTRAST [id number] COMPLETED: 77430 {REASON-CT/MRI CHEST: PULM NODULE(OTHER LUNG DIS) PHYSICIAN: [...] effusion in whom cancer is strongly suspected. UP EXAMINER \ITLo\ \UNDo\ \UNDx\ \ITLx\ Reviewed and Electronically Signed by: Virgil Smith MD Signed Date: 09/19/24 13:39 09/19/24.1342.KD .to JERO MORRISON via fax Social History Type Status Start Date End Date Code Code Syst em Smoking History Current every day smoker [id number] SNOMED CT Sex Male Hospital Discharge Instructions Should you have any questions prior to discharge, please contact a member of your healthcare team. If you have left the hospital and have any questions, please contact your primary care physician. Reason For Referral No Data Found Allergies and Adverse Reactions Allergy Substance Reaction Severity Start Date Concern Status Co de Code System KETOROLAC Active 29895 RxNorm ULTRAM Active 260915 RxNorm Plan of Treatment Song Follow Up [...] Primary care physician 2022-06-14 Imaging Narrative Notes [facility] 09/19/2024 13:42 [facility] [address] [place] [address] ---------NAME--------- NUMBER SEX AGE ADMIT DISC. XRAY# F/C TYPE BANDAR CRUZ [id number] M 64 09/19/24 09/19/24 9556 [facility] O/P DATE OF : 1960 M/R# [id number] #: [id number] LOCATION: TRANSCRIBED: 09/19/24 13:39 CT CHEST/LUNG WO CONTRAST [id number] COMPLETED: 83551 {REASON-CT/MRI CHEST: PULM NODULE(OTHER LUNG DIS) PHYSICIAN: [...] effusion in whom cancer is strongly suspected. UP EXAMINER Reviewed and Electronically Signed by: Virgil Smith MD Signed Date: 09/19/24 13:39 09/19/24.1342.KD .to JERO MORRISON via fax
--- OUTSIDE RECORDS SUMMARY | 2024-10-30 11:10 | XMS_ITS | Clinical Summary ---
Author Organization [facility] Address [facility] [place] [address] Care Team Providers Care Salesperson Children'S Shoes Name Role Phone GlennLupillo hudson DO Unavailable [phone] Ginny Borrego APRN Primary Care Provider + [...] OR SWALLOWING 2 Active vitamin D2, ergocalciferol, 08907 UNITS capsule Take 1 capsule (1.25 mg [...] (02/23/2023): Added automatically from request for surgery [id number] Dyspepsia 02/16/2023 Gastroesophageal reflux dise ase, unspecified whether esophagitis present 11/17/2022 Overview (11/17/2022): Added automatically from request for surgery [id number] Weight loss 11/17/2022 Overview (11/17/2022): Added automatically from request for surgery [id number] Chest pain 03/24/2020 Pain of upper abdomen [...] gastritis 08/21/2017 08/20/2018 Chest pain 08/20/2018 Immunizations Immunization Administration Dates Next Due Hepatitis [...] Comments Blood Pressure 119/96 03/12/2024 9:30 PM METAL BUILDINGS ASSEMBLER Pulse 84 03/12/2024 9:30 PM METAL BUILDINGS ASSEMBLER Temperature 37.1 C (98.8 F) 03/12/2024 4:46 PM METAL BUILDINGS ASSEMBLER Respiratory Rate 18 03/12/2024 4:46 PM METAL BUILDINGS ASSEMBLER Oxygen Saturation 95% 03/12/2024 9:30 PM METAL BUILDINGS ASSEMBLER Inhaled Oxygen Concentration - - Weight 121.6 kg (268 lb) 03/12/2024 4:46 PM METAL BUILDINGS ASSEMBLER Height 182.9 cm (6') 03/12/2024 4:46 PM METAL BUILDINGS ASSEMBLER Body Mass Index 36.35 03/12/2024 4:46 PM METAL BUILDINGS ASSEMBLER Plan of Treatment Health Maintenance Due Date Last Done Comments Colorectal Cancer Screening Colonoscopy (10 Years) 1960 Annual Physical 1965 Hepatitis C 02/22/1980 DTaP, Tdap and Td Vaccines ( 1 - Tdap) 1981 RSV Immunization or 60+ Years (1 - Risk 60-74 years 1-dose series) 2022 COVID-19 Vaccine (4 - 2023-2 5 season) 2023 04/30/2021, 08/07/2020, 07/10/2020 PHQ-2 (Physician [place]) 04/24/2024 11/16/2022 Zoster Vaccines Completed 12/03/2021, 09/29/2021 [...] age to complete this topic Insurance MEDICARE MEDICAID MEDICARE MEDICAID Advance Directives * Full Code (Latest Code Status on File) Date Activated Date Inactivated Comments 12/08/2022 9:00 PM 12/09/2022 3:50 PM * Full Code Date Activated Date Inactivated Comments 09/25/2021 1:56 PM 09/26/2021 4:27 PM * Full Code Date Activated Date Inactivated Comments 03/24/2020 8:15 PM 03/25/2020 4:17 PM Care Teams Salesperson Children'S Shoes Relationship Specialty Start Date End Date Ginny Borrego APRN [address] [place] [address] PCP - General Nurse Practitioner Family 07/29/24 Lupillo Barrientos DO Consulting Physician CARDIOVASCULAR DISEASE 08/30/21
--- OUTSIDE RECORDS SUMMARY | 2024-10-30 11:10 | XMS_ITS ---
Author Organization Unknown Address [address] [place] [phone] Phone Care Team Providers Care Business Case Analyst Name Role Phone NASREEN CAMERON Attending Unavailable [...] 207 CVX Pneumococcal conjugate PCV20 , polysaccharide DVD841 conjugate, adjuvant, PF 01/29/2024 Completed 216 CVX Pneumococcal conjugate PCV20 , polysaccharide TPM326 conjugate, adjuvant, PF 03/16/2024 Completed 216 CVX [...] Christiano Hannah M.D. SN: SN Report ID: [id number] Reading Location: [place] [address] Social History Type Status Start Date End Date Code Code Syst em Smoking History Current every day smoker [id number] [email or web address] CT Sex Male Hospital Discharge Instructions Should you have any questions prior to discharge, please contact a member of your healthcare team. If you have left the hospital and have any questions, please contact your primary care physician. Reason For Referral No Data Found Allergies and Adverse Reactions Allergy Substance Reaction Severity Start Date Concern Status Co de Code System KETOROLAC Active 86087 RxNorm ULTRAM Active 392358 RxNorm Plan of Treatment Song Follow Up [...]
--- OUTSIDE RECORDS SUMMARY | 2024-10-30 11:10 | XMS_ITS | Encounter Summary ---
Author Organization [facility] Address [address] [place] [address] Care Team Providers Care Wedger And Gluer Name Role Phone Reinaldo Johana NAILS Primary Care Provider [phone] London Damon MD Unavailable [phone] Leticia Bernstein NP Unavailable [phone] Emperatriz Cleveland NP Primary Care Provider + [phone] Lilliana Gamino [facility] Primary Care Provider [phone] Lupillo Barrientos DO Unavailable [phone] None, Provider Primary Care Provider Unavaila ble Emperatriz Clevelnad NP Primary Care Provider + [phone] Ginny Borrego APRN Primary Care Provider + Encounter Details Date Type Department Care Team (Late st Contact Info) Description 09/29/2018 Abstract [facility] CONVERSION [address] [place] [address] , Generic Conversion, Social History Tobacco Use [...] documented as of this encounter Care Teams Wedger And Gluer Relationship Specialty Start Date End Date Johana Najera PA [address] [place] [address] PCP - General 06/29/17 05/30/21 Emperatriz Cleveland NP [address] [place] [address] PCP - General Nurse Practitioner Family 05/31/21 08/29/21 Lilliana G[facility] [address] [facility] [place] [address] PCP - General NURSE PRACTITIONER 08/30/21 01/18/24 Karrie Chang MD PCP - General UNKNOWN PHYSICIAN SPECIALTY 01/19/24 03/11/24 Emperatriz Cleveland, STAN [address] [address] PCP - General Nurse Practitioner Family 03/12/24 07/28/24 Ginny Borrego, ENEIDA [address] [facility] [place] [address] PCP - General Nurse Practitioner Family 07/29/24 London Damon MD [address] [place] [address] [place] Supervisor Garage CARDIOVASCULAR DISEASE 06/29/17 08/29/21 Leticia Bernstein NP [address] [place] [address] CARDIOVASCULAR DISEASE 06/29/17 08/29/21 Lupillo Barrientos DO [address] [place] [address] Consulting Physician CARDIOVASCULAR DISEASE 08/30/21 documented as of this encounter
--- NOTE | 2024-10-30 11:32 | PC.NURSE ---
dr lim reviewed MRI from [facility].
== END 2024-10-30 11:40 | disposition home or self-care (01) ==
PROVIDERS: Emergency Provider Emergency Medicine; PCP Nurse Practitioner Family
DX: H70.90 Unspecified mastoiditis, unspecified ear (principal); J32.9 Chronic sinusitis, unspecified; R42 Dizziness and giddiness; E11.9 Type 2 diabetes mellitus without complications; I10 Essential (primary) hypertension; E78.5 Hyperlipidemia, unspecified; J44.9 Chronic obstructive pulmonary disease, unspecified; Z79.82 Long term (current) use of aspirin
CPT/HCPCS: 36415; 70450; 71045; 80053; 84484; 85025; 85610; 85730; 93005; 99284

== ENCOUNTER 2024-11-16 12:22 | Emergency (ER) | payer OTHER, SELFPAY ==
[2024-11-16] VITALS (17 sets, daily range): BP systolic 124–138; BP diastolic 81–91; PULSE 65–111; RESP 14–19; TEMP 37.8; O2SAT 90–98
--- OUTSIDE RECORDS SUMMARY | 2024-11-16 12:24 | XMS_ITS | Encounter Summary ---
Author Organization [facility] Address [address] [facility] [place] [address] Phone Care Team Providers Care Assistant Golf Professional Name Role Phone Lilliana Gamion APRN Primary Care Provider [phone] Raimundo Bautista MD Unavailable Unavai labmorena Reason for Visit * Reason Comments Medication Refill Encounter Details Date Type Department Care Team (Late st Contact Info) Description 07/16/2022 Refill [facility] [place] [address] Raimundo Bautista MD Medication Refill Social History Tobacco Use Types Packs/Day Years Used Date Smoking Tobacco: Every Day Cigarettes Smokeless Tobacco: Never Alcohol Use Standard Drinks/Week Comments Never 0 (1 standard drink = 0.6 oz pur e alcohol) Sex and Gender Information Value Date Recorded Sex Assigned at Not on file 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
--- OUTSIDE RECORDS SUMMARY | 2024-11-16 12:24 | XMS_ITS | Encounter Summary ---
Author Organization [facility] Address [facility] [place] [address] Care Team Providers Care Obstetrician/Gynecologist Name Role Phone Darwin Gaminoalfredito [facility] Primary Care Provider + -[phone] Lupillo Barrientos DO Unavailable [phone] None, Provider Primary Care Provider Emperatriz No NP Primary Care Provider +- [phone] Ginny Borrego APRN Primary Care Provider + Encounter Details Date Type Department Care Team (Late st Contact Info) Description 12/14/2022 Hospital Follow-up Call [facility] Cardiovascular Care Unit [address] [place] [address] Kimmy Magaña, RN Social History [...] place to sleep or slept in a [place] health care facility (including now)? No 12/08/2022 Sex and Gender [...] on filedocumented in this encounter Care Teams Obstetrician/Gynecologist Relationship Specialty Start Date End Date Lilliana Gamino [facility] [address] [place] [address] PCP - General NURSE PRACTITIONER 08/30/21 01/18/24 None, Provider, PCP - General UNKNOWN PHYSICIAN SPECIALTY 01/19/24 03/11/24 Emperatriz Cleveland NP [address] [address] PCP - General Nurse Practitioner Family 03/12/2407/28 Ginny Borrego APRN [address] [place] [address] PCP - General Nurse Practitioner Family 07/29/24 Lupillo Barrientos DO [address] [place] [address] Consulting Physician CARDIOVASCULAR DISEASE 08/30/21 documented as of this encounter
--- OUTSIDE RECORDS SUMMARY | 2024-11-16 12:24 | XMS_ITS | Clinical Summary ---
Author Organization [facility] Address [facility] [place] [address] Care Team Providers Care Backend Developer Name Role Phone GlennLupillo hudson DO Unavailable [phone] Ginny Borrego APRN Primary Care Provider + [...] OR SWALLOWING 2 Active vitamin D2, ergocalciferol, 18723 UNITS capsule Take 1 capsule (1.25 mg [...] (02/23/2023): Added automatically from request for surgery [id number] Dyspepsia 02/16/2023 Gastroesophageal reflux dise ase, unspecified whether esophagitis present 11/17/2022 Overview (11/17/2022): Added automatically from request for surgery [id number] Weight loss 11/17/2022 Overview (11/17/2022): Added automatically from request for surgery [id number] Chest pain 03/24/2020 Pain of upper abdomen [...] Comments Blood Pressure 119/96 03/12/2024 9:30 PM HEALTH INFORMATION CLERK Pulse 84 03/12/2024 9:30 PM HEALTH INFORMATION CLERK Temperature 37.1 C (98.8 F) 03/12/2024 4:46 PM HEALTH INFORMATION CLERK Respiratory Rate 18 03/12/2024 4:46 PM HEALTH INFORMATION CLERK Oxygen Saturation 95% 03/12/2024 9:30 PM HEALTH INFORMATION CLERK Inhaled Oxygen Concentration - - Weight 121.6 kg (268 lb) 03/12/2024 4:46 PM HEALTH INFORMATION CLERK Height 182.9 cm (6') 03/12/2024 4:46 PM HEALTH INFORMATION CLERK Body Mass Index 36.35 03/12/2024 4:46 PM HEALTH INFORMATION CLERK Plan of Treatment Health Maintenance Due Date Last Done Comments Colorectal Cancer Screening Colonoscopy (10 Years) 1962 Annual Physical 1965 Hepatitis C 02/22/1980 DTaP, Tdap and Td Vaccines ( 1 - Tdap) 1981 RSV Immunization or 60+ Years (1 - Risk 60-74 years 1-dose series) 2022 COVID-19 Vaccine (4 - 2023-2 5 season) 2023 04/30/2021, 08/07/2020, 07/10/2020 PHQ-2 (Physician [place]) 04/24/2024 11/16/2022 Zoster Vaccines Completed 12/03/2021, 09/29/2021 [...] 8:15 PM 03/25/2020 4:17 PM Care Teams Backend Developer Relationship Specialty Start Date End Date Ginny Borrego APRN [address] [place] [address] PCP - General Nurse Practitioner Family 07/29/24 Lupillo Barrientos DO Consulting Physician CARDIOVASCULAR DISEASE 08/30/21
--- OUTSIDE RECORDS SUMMARY | 2024-11-16 12:24 | XMS_ITS | Encounter Summary ---
Author Organization [facility] Address [facility] [place] [address] Care Team Providers Care Injection Molding Operator Name Role Phone StevensonDarwina [facility] Primary Care Provider + [phone] Lupillo Barrientos DO Unavailable [phone] None, Provider Primary Care Provider Emperatriz No NP Primary Care Provider +- [phone] Ginny Borrego APRN Primary Care Provider + Encounter Details Date Type Department Care Team (Latest Contact Info) Description 12/14/2022 [employer] Message Enc [facility] Unit [address], [place] [id number] Adelfo [facility] Provider Discharge follow [...] Date Author Status No 12/08/2022 8:55 PM nIes Shahid RN Active documented in this encounter Plan of Treatment Not on file documented as of this encounter Visit Diagnoses Not on filedocumented in this encounter Care Teams Injection Molding Operator Relationship Specialty Start Date End Date Lilliana Gamino [facility] [address] [place] [address] PCP - General NURSE PRACTITIONER 08/30/21 01/18/24 None, Provider, PCP - General UNKNOWN PHYSICIAN SPECIALTY 01/19/24 03/11/24 Emperatriz Cleveland NP [address] [address] PCP - General Nurse Practitioner Family 03/12/2407/28 Ginny Borrego APRN [address] [place] [address] PCP - General Nurse Practitioner Family 07/29/24 Lupillo Barrientos DO [address] [place] [address] Consulting Physician CARDIOVASCULAR DISEASE 08/30/21 documented as of this encounter
--- OUTSIDE RECORDS SUMMARY | 2024-11-16 12:24 | XMS_ITS | Clinical Summary ---
Author Organization [facility] Address [address] [facility] [place] [address] Care Team Providers Care Forestry Professor Name Role Phone Lilliana Gamino ENEIDA Primary Care Provider [phone] Allergies No known active allergies Medications ergocalciferol (VITAMIN D) 68616 UNIT Capsule Take 50,000 Units by mouth. 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
--- OUTSIDE RECORDS SUMMARY | 2024-11-16 12:24 | XMS_ITS | Encounter Summary ---
Author Organization [facility] Address [address] [place] [address] Care Team Providers Care Ict Managers Name Role Phone Reinaldo Johana NAILS Primary Care Provider [phone] London Damno MD Unavailable [phone] Leticia Bernstein NP Unavailable [phone] Emperatriz Cleveland NP Primary Care Provider + [phone] Lilliana Gamino [facility] Primary Care Provider [phone] Lupillo Barrientos DO Unavailable [phone] None, Provider Primary Care Provider Unavaila ble Emperatriz Cleveland NP Primary Care Provider + [phone] Ginny Borrego APRN Primary Care Provider + Encounter Details Date Type Department Care Team (Late st Contact Info) Description 09/29/2018 Abstract [facility] CONVERSION [address] [place] [address] , Generic Conversion, Social History Tobacco Use [...] documented as of this encounter Care Teams Ict Managers Relationship Specialty Start Date End Date Johana Najera PA [address] [place] [address] PCP - General 06/29/17 05/30/21 Emperatriz Cleveland NP [address] [place] [address] PCP - General Nurse Practitioner Family 05/31/21 08/29/21 [facility] [address] [place] [address] PCP - General NURSE PRACTITIONER 08/30/21 01/18/24 Karrie Chang MD PCP - General UNKNOWN PHYSICIAN SPECIALTY 01/19/24 03/11/24 Emperatriz Cleveland, STAN [address] [address] PCP - General Nurse Practitioner Family 03/12/24 07/28/24 Ginny Borrego, ENEIDA [address] [facility] [place] [address] PCP - General Nurse Practitioner Family 07/29/24 London Damon MD [address] [place] [address] [place] Osteopathic Resident CARDIOVASCULAR DISEASE 06/29/17 08/29/21 Leticia Bernstein NP [address] [place] [address] CARDIOVASCULAR DISEASE 06/29/17 08/29/21 Lupillo Barrientos DO [address] [place] [address] Consulting Physician CARDIOVASCULAR DISEASE 08/30/21 documented as of this encounter
--- OUTSIDE RECORDS SUMMARY | 2024-11-16 12:24 | XMS_ITS | Encounter Summary ---
Author Organization [facility] Address [address] [facility] [place] [address] Phone Care Team Providers Care It Applications Manager Name Role Phone StevensonCraigLilliana Maria Alejandra MONIQUE Primary Care Provider [phone] Raimundo Bautista MD Unavailable Pablo bradford Reason for Visit * Reason Comments Medication Refill Encounter Details Date Type Department Care Team (Late st Contact Info) Description 03/17/2023 Refill [facility] - Cardiology [facility] [address] [place] [address] Raimundo Bautista MD Medication Refill Social History Tobacco Use Types Packs/Day Years Used Date Smoking Tobacco: Every Day Cigarettes Smokeless Tobacco: Never Alcohol Use Standard Drinks/Week Comments Never 0 (1 standard drink = 0.6 oz pur e alcohol) Sex and Gender Information Value Date Recorded Sex Assigned at Not on file 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 Showing future appointments within next 90 days and meeting all other requirements Passed - Blood pressure on record Clinician-entered: BP Readings from Last 3 Encounters: 10/18/21 158/82 Patient-entered: No data recorded ING TEACHER documented in this encounter Plan of Treatment Not on file documented as of this encounter Visit Diagnoses Not on filedocumented in this encounter Care Teams It Applications Manager Relationship Specialty Start Date End Date Lilliana Gamino APRN [address] [facility] [address] [place] [address] PCP - General Certified Nurse Practitioner 09/24/21 Raimundo Bautista MD [address] [facility] [address] [place] [address] Director Of Supply Chain Cardiovascular Disease - Cardiology 10/08/21 03/26/24 documented as of this encounter
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
--- OUTSIDE RECORDS SUMMARY | 2024-11-16 13:16 | XMS_ITS | Encounter Summary ---
Author Organization [facility] Address [address] [facility] [place] [address] Phone Care Team Providers Care Elevator Tender Name Role Phone StevensonCraigLilliana Maria Alejandra MONIQUE Primary Care Provider [phone] Raimundo Bautista MD Unavailable Pablo bradford Reason for Visit * Reason Comments Medication Refill Encounter Details Date Type Department Care Team (Late st Contact Info) Description 03/17/2023 Refill [facility] - Cardiology [facility] [address] [place] [address] Raimundo Bautista MD Medication Refill Social History Tobacco Use Types Packs/Day Years Used Date Smoking Tobacco: Every Day Cigarettes Smokeless Tobacco: Never Alcohol Use Standard Drinks/Week Comments Never 0 (1 standard drink = 0.6 oz pur e alcohol) Sex and Gender Information Value Date Recorded Sex Assigned at Not on file 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 Showing future appointments within next 90 days and meeting all other requirements Passed - Blood pressure on record Clinician-entered: BP Readings from Last 3 Encounters: 10/18/21 158/82 Patient-entered: No data recorded RVISOR BODY ASSEMBLY documented in this encounter Plan of Treatment Not on file documented as of this encounter Visit Diagnoses Not on filedocumented in this encounter Care Teams Elevator Tender Relationship Specialty Start Date End Date Lilliana Gamino APRN [address] [facility] [address] [place] [address] PCP - General Certified Nurse Practitioner 09/24/21 Raimundo Bautista MD [address] [facility] [address] [place] [address] Blocking Machine Operator Second Cardiovascular Disease - Cardiology 10/08/21 03/26/24 documented as of this encounter
--- OUTSIDE RECORDS SUMMARY | 2024-11-16 13:16 | XMS_ITS | Clinical Summary ---
Author Organization [facility] Address [facility] [place] [address] Care Team Providers Care Packaging Inspector Name Role Phone GlennLupillo hudson DO Unavailable [phone] Ginny Borrego APRN Primary Care Provider + [...] OR SWALLOWING 2 Active vitamin D2, ergocalciferol, 38965 UNITS capsule Take 1 capsule (1.25 mg [...] (02/23/2023): Added automatically from request for surgery [id number] Dyspepsia 02/16/2023 Gastroesophageal reflux dise ase, unspecified whether esophagitis present 11/17/2022 Overview (11/17/2022): Added automatically from request for surgery [id number] Weight loss 11/17/2022 Overview (11/17/2022): Added automatically from request for surgery [id number] Chest pain 03/24/2020 Pain of upper abdomen [...] place to sleep or slept in a senior living (including now)? No 12/08/2022 Sex and Gender Information Value Date Recorded Sex Assigned at Male 08/20/2018 1:29 PM CDT Legal Sex Male 10:25 PM CDT Gender Identity Male 08/20/2018 1:29 PM CDT Sexual Orientation Not on file Last Filed Vital Signs Vital Sign Reading Time Taken Comments Blood Pressure 119/96 03/12/2024 9:30 PM ELECTRONICS LEAD Pulse 84 03/12/2024 9:30 PM ELECTRONICS LEAD Temperature 37.1 C (98.8 F) 03/12/2024 4:46 PM ELECTRONICS LEAD Respiratory Rate 18 03/12/2024 4:46 PM ELECTRONICS LEAD Oxygen Saturation 95% 03/12/2024 9:30 PM ELECTRONICS LEAD Inhaled Oxygen Concentration - - Weight 121.6 kg (268 lb) 03/12/2024 4:46 PM ELECTRONICS LEAD Height 182.9 cm (6') 03/12/2024 4:46 PM ELECTRONICS LEAD Body Mass Index 36.35 03/12/2024 4:46 PM ELECTRONICS LEAD Plan of Treatment Health Maintenance Due Date Last Done Comments Colorectal Cancer Screening Colonoscopy (10 Years) 1962 Annual Physical 1965 Hepatitis C 02/22/1980 DTaP, Tdap and Td Vaccines ( 1 - Tdap) 1981 RSV Immunization or 60+ Years (1 - Risk 60-74 years 1-dose series) 2022 COVID-19 Vaccine (4 - 2023-2 5 season) 2023 04/30/2021, 08/07/2020, 07/10/2020 PHQ-2 (Physician [place]) 04/24/2024 11/16/2022 Zoster Vaccines Completed 12/03/2021, 09/29/2021 [...] 8:15 PM 03/25/2020 4:17 PM Care Teams Packaging Inspector Relationship Specialty Start Date End Date Ginny Borrego APRN [address] [place] [address] PCP - General Nurse Practitioner Family 07/29/24 Lupillo Barrientos DO Consulting Physician CARDIOVASCULAR DISEASE 08/30/21
--- OUTSIDE RECORDS SUMMARY | 2024-11-16 13:16 | XMS_ITS | Encounter Summary ---
Author Organization [facility] Address [address] [place] [address] Care Team Providers Care Cell Liner Name Role Phone Reinaldo Johana NAILS Primary Care Provider [phone] London Damon MD Unavailable [phone] Leticia Bernstein NP Unavailable [phone] Emperatriz Cleveland NP Primary Care Provider + [phone] Lilliana Gamino [facility] Primary Care Provider [phone] Lupillo Barrientos DO Unavailable [phone] None, Provider Primary Care Provider Unavaila ble Emperatriz Cleveland NP Primary Care Provider + [phone] Ginny Borrego APRN Primary Care Provider + Encounter Details Date Type Department Care Team (Late st Contact Info) Description 09/29/2018 Abstract SFL CONVERSION [address] [place] [address] , Generic Conversion, Social History Tobacco Use [...] documented as of this encounter Care Teams Cell Liner Relationship Specialty Start Date End Date Johana Najera PA [address] [place] [address] PCP - General 06/29/17 05/30/21 Emperatriz Cleveland NP [address] [place] [address] PCP - General Nurse Practitioner Family 05/31/21 08/29/21 Lilliana [facility] [address] [facility] [place] [address] PCP - General NURSE PRACTITIONER 08/30/21 01/18/24 Karrie Chang MD PCP - General UNKNOWN PHYSICIAN SPECIALTY 01/19/24 03/11/24 Emperatriz Cleveland, STAN [address] [address] PCP - General Nurse Practitioner Family 03/12/24 07/28/24 Ginny Borrego, ENEIDA [address] [place] [address] PCP - General Nurse Practitioner Family 07/29/24 London Damon MD [address] [place] [address] [place] Marketing Analyst CARDIOVASCULAR DISEASE 06/29/17 08/29/21 Leticia Bernstein NP [address] [place] [address] CARDIOVASCULAR DISEASE 06/29/17 08/29/21 Lupillo Barrientos DO [address] [place] [address] Consulting Physician CARDIOVASCULAR DISEASE 08/30/21 documented as of this encounter
--- OUTSIDE RECORDS SUMMARY | 2024-11-16 13:16 | XMS_ITS | Encounter Summary ---
Author Organization [facility] Address [facility] [place] [address] Care Team Providers Care Community Music Therapist Name Role Phone StevensonDarwina [facility] Primary Care Provider + -[phone] Lupillo Barrientos DO Unavailable [phone] None, Provider Primary Care Provider Emperatriz No NP Primary Care Provider +- [phone] Ginny Borrego APRN Primary Care Provider + Encounter Details Date Type Department Care Team (Latest Contact Info) Description 12/14/2022 Snapt Message Enc [facility] Cardiovascular Care Unit [address] [place], [place] [id number] Adelfo [facility] Provider Discharge follow up call Social History [...] on filedocumented in this encounter Care Teams Community Music Therapist Relationship Specialty Start Date End Date Lilliana Gamino [facility] [address] [place] [address] PCP - General NURSE PRACTITIONER 08/30/21 01/18/24 None, Provider, PCP - General UNKNOWN PHYSICIAN SPECIALTY 01/19/24 03/11/24 Emperatriz Cleveland NP [address] [address] PCP - General Nurse Practitioner Family 03/12/2407/28 Ginny Borrego APRN [address] [place] [address] PCP - General Nurse Practitioner Family 07/29/24 Lupillo Barrientos DO [address] [place] [address] Consulting Physician CARDIOVASCULAR DISEASE 08/30/21 documented as of this encounter
--- OUTSIDE RECORDS SUMMARY | 2024-11-16 13:16 | XMS_ITS | Clinical Summary ---
Author Organization [facility] Address [address] [facility] [place] [address] Care Team Providers Care Oil Recovery Operator Name Role Phone Lilliana Gamino ENEIDA Primary Care Provider [phone] Allergies No known active allergies Medications ergocalciferol (VITAMIN D) 36642 UNIT Capsule Take 50,000 Units by mouth. 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
--- OUTSIDE RECORDS SUMMARY | 2024-11-16 13:16 | XMS_ITS | Encounter Summary ---
Author Organization [facility] Address [address] [facility] [place] [address] Phone Care Team Providers Care Inspector Grain Mill Products Name Role Phone Lilliana Gamino APRN Primary Care Provider [phone] Raimundo Bautista MD Unavailable Unavai labmorena Reason for Visit * Reason Comments Medication Refill Encounter Details Date Type Department Care Team (Late st Contact Info) Description 07/16/2022 Refill [facility] [address] [place] [address] Raimundo Bautista MD Medication Refill Social History Tobacco Use Types Packs/Day Years Used Date Smoking Tobacco: Every Day Cigarettes Smokeless Tobacco: Never Alcohol Use Standard Drinks/Week Comments Never 0 (1 standard drink = 0.6 oz pur e alcohol) Sex and Gender Information Value Date Recorded Sex Assigned at Not on file Legal Sex Male 3:24 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
--- OUTSIDE RECORDS SUMMARY | 2024-11-16 13:16 | XMS_ITS | Encounter Summary ---
Author Organization [facility] Address [facility] [place] [address] Care Team Providers Care Tearer Press Clipping Name Role Phone Darwin [facility]alfredito [facility] Primary Care Provider + [phone] Lupillo Barrientos DO Unavailable None, Provider Primary Care Provider Emperatriz No NP Primary Care Provider +- [phone] Ginny Borrego APRN Primary Care Provider + Encounter Details Date Type Department Care Team (Late st Contact Info) Description 12/14/2022 Hospital Follow-up Call [facility] Cardiovascular Care Unit [address] [place] [address] Kimmy Magaña, RN Social History [...] on filedocumented in this encounter Care Teams Tearer Press Clipping Relationship Specialty Start Date End Date Lilliana [facility] [address] [place] [address] PCP - General NURSE PRACTITIONER 08/30/21 01/18/24 None, Provider, PCP - General UNKNOWN PHYSICIAN SPECIALTY 01/19/24 03/11/24 Emperatriz Cleveland NP [address] [address] PCP - General Nurse Practitioner Family 03/12/2407/28 Ginny Borrego APRN [address] [place] [address] PCP - General Nurse Practitioner Family 07/29/24 Lupillo Barrientos DO [address] [place] [address] Consulting Physician CARDIOVASCULAR DISEASE 08/30/21 documented as of this encounter
--- NOTE | 2024-11-16 13:29 | PC.NURSE ---
daughter notified of pt in the er, message left on cell phone
[2024-11-16 13:34] LABS: Hematocrit 46.9 % (40.0-54.0); Hemoglobin 15.7 g/dL (14.0-18.0); Immature Granulocyte Percent A 0.3 % (0.0-0.0); Lymphocytes Absolute Auto 2.16 K/mm3 (1.10-4.50); Mean Corpuscular HGB Conc 33.5 g/dL (32-36); Mean Corpuscular Hemoglobin 30.3 pg (27.0-31.0); Mean Corpuscular Volume 90.5 fL (78.0-102.0); Nucleated Red Blood Cells Absolute Auto 0.00 K/mm3 (0.00-0.00); Nucleated Red Blood Cells Perc 0.0 % (0-0.0); Platelet Count Result 256 K/mm3 (150-420); Red Blood Count 5.18 M/mm3 (4.70-6.10); White Blood Count 14.6 K/mm3 (4.8-10.8)
[2024-11-16 13:51] LABS: Add Urine Microscopic? YES; Appearance Urine Clear (Clear); Glucose Urine UA Negative (Negative); Leukocyte Esterase Ur Negative LEU/UL (Negative); Nitrate Urine Negative (Negative); Specific Grav Ur 1.025 (1.010-1.020)
[2024-11-16 13:59] LABS: Alanine Aminotransferase 47 U/L (6-50); Albumin Level 4.9 g/dL (3.5-5.1); Alkaline Phosphatase 59 U/L (38-126); Anion Gap 12 mmol/L (4-12); Aspartate Amino Transferase 38 U/L (17-59); Bilirubin,Total 1.0 mg/dL (0.2-1.3); Blood Urea Nitrogen 20 mg/dL (9-20); Calcium 9.8 mg/dL (8.4-10.2); Carbon Dioxide 25 mmol/L (22-30); Chloride 102 mmol/L (98-107); Creatine Kinase 104 U/L (55-170); Estimated CRCL calculation 59 ml/min; Estimated Glomerular Filt Rate 45; Glucose 93 mg/dL (65-110); Osmolality Calculated 290 mOsm/kg (285-295); Potassium 4.0 mmol/L (3.4-5.0); Sodium 139 mmol/L (137-145); Total Protein 8.6 g/dL (6.3-8.2)
[2024-11-16] MEDS: SODIUM CHLORIDE 0.9% IV 1,000 ML 999 ML IV CONT (14:03)
--- NOTE | 2024-11-16 14:30 | PC.NURSE ---
pt complaint of headache, notified erp.
[2024-11-16 14:51] LABS: Lipase 67 U/L (23-300)
[2024-11-16 15:04] LABS: Troponin I < 0.012 ng/mL (0.000-0.034)
== END 2024-11-16 15:42 | disposition home or self-care (01) ==
PROVIDERS: Emergency Provider Internal Medicine Critical Care Medicine; PCP Nurse Practitioner Family
DX: E86.0 Dehydration (principal); T67.2XXA Heat cramp, initial encounter; N17.9 Acute kidney failure, unspecified; I10 Essential (primary) hypertension; E11.9 Type 2 diabetes mellitus without complications; E78.5 Hyperlipidemia, unspecified; J44.9 Chronic obstructive pulmonary disease, unspecified; E03.9 Hypothyroidism, unspecified; F17.210 Nicotine dependence, cigarettes, uncomplicated
CPT/HCPCS: 36415; 80053; 81001; 82550; 83605; 83690; 84484; 85025; 96360; 96372; 99284; J3030; J7030

== ENCOUNTER 2025-01-20 11:29 | Emergency (ER) | payer MEDICARE, MEDICAID, SELFPAY ==
[2025-01-20] VITALS (9 sets, daily range): BP systolic 105–120; BP diastolic 65–82; PULSE 62–80; RESP 15–20; TEMP 36.6–36.7; O2SAT 92–98
--- NOTE | ~2025-01-20 | CT_ITS ---
EXAMINATION: CT brain wo fern, 01/20/2025 11:45 CDT HISTORY: weakness COMPARISON: No comparisons available. Technique: Axial images obtained of the brain without contrast. One or more of the following dose reduction techniques were used: automated exposure control, adjustment of the mA and/or kV according to patient size, use of iterative reconstruction technique. Findings: No acute infarct or parenchymal hemorrhage. No abnormal mass or mass effect. No midline shift. No extra-axial fluid collections. No hydrocephalus. Mastoid air cells unremarkable. Sinuses and orbits unremarkable. No acute fracture. No significant facial or scalp soft tissue swelling evident. No radiopaque foreign body is seen. Impression: 1.No acute intracranial abnormality. Reviewed, dictated and finalized at location P. Impression: 1.No acute intracranial abnormality.
--- NOTE | ~2025-01-20 | XR_ITS ---
Examination: XR chest 1V portable Clinical History: weakness Comparison: 10/30/2024 Technique: Portable AP Findings: Heart size normal. Hazy lung bases consistent with overlying soft tissue artifact. Lungs otherwise clear. No acute bony abnormality. IMPRESSION: 1. No acute cardiopulmonary findings given portable technique. Reviewed, dictated and finalized at location R.
--- NOTE | ~2025-01-20 | CT_ITS ---
CTA NECK, CTA HEAD Clinical History: neuro changes/weakness Comparison: Noncontrast CT head today TECHNIQUE: Helical images thoracic inlet to vertex IV contrast information not listed in PACS Coronal, sagittal reformats. Multi planar MIPS CT images acquired with automatic exposure control for dose reduction DLP: DLP 1248 mg/cm mGy-cm Findings: NASCET Criteria utilized CTA NECK CCAs: No stenosis. Proximal portions and aortic arch not included on scan. Cervical ICAs: No stenosis. Vertebral Arteries: Patent. Lung Apices: Clear. Thyroid: Unremarkable. Nodes: No enlarged nodes. Bones: No acute bony abnormality. CTA HEAD: Aneurysms: None. Intracranial ICAs: Patent, unremarkable. ACAs and their distal branches: Patent, unremarkable. A-Comm: Identified. Patent, unremarkable. MCAs and their distal branches: Patent, unremarkable. Basilar artery: Patent, unremarkable. sternman and their distal branches: Patent. Bilateral P1 segment diminutive and/or congenitally absent; predominant origin P-comm supply. P-Comms: Identified. Patent, unremarkable. IMPRESSION: CTA NECK: 1. No acute findings. CTA HEAD: 1. No acute findings. Reviewed, dictated and finalized at location R.
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
--- NOTE | 2025-01-20 11:31 | ECG_ITS ---
Test Date: 2025-01-20 11:33:44 Measurements Intervals [place] Rate: 71 P: 72 WY: 138 QRS: 76 QRSD: 97 T: 40 QT: 360 QTc: 392 Interpretive Statements SINUS RHYTHM Compared to ECG 10/30/2024 10:31:15 No significant changes Electronically Signed On 01-20-2025 13:27:31 CDT by Patricia Sanchez M.D.
--- NOTE | 2025-01-20 11:54 | PC.NURSE ---
covid culture sent to lab
[2025-01-20 11:55] LABS: Add Urine Microscopic? NO; Appearance Urine Clear (Clear); Glucose Urine UA Negative (Negative); Hematocrit 43.0 % (40.0-54.0); Hemoglobin 14.8 g/dL (14.0-18.0); Immature Granulocyte Percent A 0.3 % (0.0-0.0); Leukocyte Esterase Ur Negative LEU/UL (Negative); Lymphocytes Absolute Auto 1.91 K/mm3 (1.10-4.50); Mean Corpuscular HGB Conc 34.4 g/dL (32-36); Mean Corpuscular Hemoglobin 31.0 pg (27.0-31.0); Mean Corpuscular Volume 90.0 fL (78.0-102.0); Nitrate Urine Negative (Negative); Nucleated Red Blood Cells Absolute Auto 0.00 K/mm3 (0.00-0.00); Nucleated Red Blood Cells Perc 0.0 % (0-0.0); Platelet Count Result 200 K/mm3 (150-420); Red Blood Count 4.78 M/mm3 (4.70-6.10); Specific Grav Ur 1.010 (1.010-1.020); White Blood Count 7.5 K/mm3 (4.8-10.8)
--- OUTSIDE RECORDS SUMMARY | 2025-01-20 12:01 | XMS_ITS | Encounter Summary ---
Author Organization [facility] Address [facility] [place] [address] Care Team Providers Care Fund Accounting Manager Name Role Phone StevensonDarwina [facility] Primary Care Provider + [phone] Lupillo Barrientos DO Unavailable [phone] None, Provider Primary Care Provider Emperatriz No NP Primary Care Provider +- [phone] Ginny Borrego APRN Primary Care Provider + Encounter Details Date Type Department Care Team (Latest Contact Info) Description 12/14/2022 [employer] Message Enc [facility] Cardiovascular Care Unit [address] [place], [place] [id number] Adelfo [facility] Provider Discharge follow [...] place to sleep or slept in a long term (including now)? No 12/08/2022 Sex and Gender [...] on filedocumented in this encounter Care Teams Fund Accounting Manager Relationship Specialty Start Date End Date [facility]ill[facility] [address] [place] [address] PCP - General NURSE PRACTITIONER 08/30/21 01/18/24 None, Provider, PCP - General UNKNOWN PHYSICIAN SPECIALTY 01/19/24 03/11/24 Emperatriz Cleveland NP [address] [address] PCP - General Nurse Practitioner Family 03/12/2407/28 Ginny Borrego APRN [address] [place] [address] PCP - General Nurse Practitioner Family 07/29/24 Lupillo Barrientos DO [address] [place] [address] Consulting Physician CARDIOVASCULAR DISEASE 08/30/21 documented as of this encounter
--- OUTSIDE RECORDS SUMMARY | 2025-01-20 12:01 | XMS_ITS | Encounter Summary ---
Author Organization [facility] Address [address] [place] [address] Phone Care Team Providers Care Plastic Extrusion Operator Name Role Phone Lilliana Gamino APRN Primary Care Provider [phone] Raimundo Bautista MD Unavailable Unavai labmorena Reason for Visit * Reason Comments Medication Refill Encounter Details Date Type Department Care Team (Late st Contact Info) Description 07/16/2022 Refill [facility] [place] [address] Raimundo Bautista MD Medication Refill Social History Tobacco Use Types Packs/Day Years Used Date Smoking Tobacco: Every Day Cigarettes Smokeless Tobacco: Never Alcohol Use Standard Drinks/Week Comments Never 0 (1 standard drink = 0.6 oz pur e alcohol) Sex and Gender Information Value Date Recorded Sex Assigned at Not on file 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
--- OUTSIDE RECORDS SUMMARY | 2025-01-20 12:01 | XMS_ITS | Encounter Summary ---
Author Organization [facility] Address [facility] [place] [address] Care Team Providers Care Manager Resource Name Role Phone Darwin Gaminoalfredito [facility] Primary Care Provider + [phone] Lupillo Barrientos DO Unavailable [phone] None, Provider Primary Care Provider Emperatriz No NP Primary Care Provider +- [phone] Ginny Borrego APRN Primary Care Provider + Encounter Details Date Type Department Care Team (Late st Contact Info) Description 12/14/2022 Hospital Follow-up Call [facility] Unit [address] [place] [address] Kimmy Magaña, RN Social History [...] on filedocumented in this encounter Care Teams Manager Resource Relationship Specialty Start Date End Date Lilliana [facility] 109 [place] [address] PCP - General NURSE PRACTITIONER 08/30/21 01/18/24 None, Provider, PCP - General UNKNOWN PHYSICIAN SPECIALTY 01/19/24 03/11/24 Emperatriz Cleveland NP [address] [address] PCP - General Nurse Practitioner Family 03/12/2407/28 Ginny Borrego APRN 109 [place] [address] PCP - General Nurse Practitioner Family 07/29/24 Lupillo Barrientos DO [address] [place] [address] Consulting Physician CARDIOVASCULAR DISEASE 08/30/21 documented as of this encounter
--- OUTSIDE RECORDS SUMMARY | 2025-01-20 12:01 | XMS_ITS | Clinical Summary ---
Author Organization [facility] Address [address] [facility] [place] [address] Care Team Providers Care Screw Remover Name Role Phone Lilliana Gamino ENEIDA Primary Care Provider [phone] Allergies No known active allergies Medications ergocalciferol (VITAMIN D) 59684 UNIT Capsule Take 50,000 Units by mouth. 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 Gender Identity Not on file Sexual [...] Fecal Occult Blood 2007 PSA Discussion 2017 Medicare Initial AWV G0438 02/22/2022 Influenza Immunization (#1) 2024 03/2 04/2021, 01/15/2018, 01/19/2017 Respiratory Syncytial Virus (RSV) Immunization (Adult) (1 - 1-dose 75+ series) 2037 Hepatitis B Immunization Completed 017, 02/09/2016, 12/08/2015 Zoster Immunization Completed 12/03/2021, 06/08/202 2 Pneumococcal Immunization (50+ years) Completed 03/16/2024, 01/29/2024 [...] topic Insurance MEDICARE C HUMANA Care Teams Screw Remover Relationship Specialty Start Date End Date Lilliana Gamino APRN [address] [facility] 3 [place] [address] PCP - General Certified Nurse Practitioner 09/24/21
--- OUTSIDE RECORDS SUMMARY | 2025-01-20 12:01 | XMS_ITS | Encounter Summary ---
Author Organization [facility] Address [address] [place] [address] Phone Care Team Providers Care Security Officer Name Role Phone StevensonLilliana Maria Alejandra MONIQUE Primary Care Provider [phone] Raimundo Bautista MD Unavailable Pablo bradford Reason for Visit * Reason Comments Medication Refill Encounter Details Date Type Department Care Team (Late st Contact Info) Description 03/17/2023 Refill [facility] - [facility]2 [place] [address] Raimundo Bautista MD Medication Refill Social History Tobacco Use Types Packs/Day Years Used Date Smoking Tobacco: Every Day Cigarettes Smokeless Tobacco: Never Alcohol Use Standard Drinks/Week Comments Never 0 (1 standard drink = 0.6 oz pur e alcohol) Sex and Gender Information Value Date Recorded Sex Assigned at Not on file 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 Showing future appointments within next 90 days and meeting all other requirements Passed - Blood pressure on record Clinician-entered: BP Readings from Last 3 Encounters: 10/18/21 158/82 Patient-entered: No data recorded [place] SHIFT MANAGER documented in this encounter Plan of Treatment Not on file documented as of this encounter Visit Diagnoses Not on filedocumented in this encounter Care Teams Security Officer Relationship Specialty Start Date End Date Lilliana Gamino APRN [address] [address] PCP - General Certified Nurse Practitioner 09/24/21 Raimundo Bautista MD [address] [address] Aircraft Tool Maker Cardiovascular Disease - Cardiology 10/08/21 03/26/24 documented as of this encounter
--- OUTSIDE RECORDS SUMMARY | 2025-01-20 12:01 | XMS_ITS | Clinical Summary ---
Author Organization [facility] Address Counts include 234 beds at the [facility] [place] [address] Care Team Providers Care Tick Inspector Name Role Phone GlennLupillo hudson DO Unavailable [phone] Ginny Borrego APRN Primary Care Provider + [...] OR SWALLOWING 2 Active vitamin D2, ergocalciferol, 49640 UNITS capsule Take 1 capsule (1.25 mg [...] (02/23/2023): Added automatically from request for surgery [id number] Dyspepsia 02/16/2023 Gastroesophageal reflux dise ase, unspecified whether esophagitis present 11/17/2022 Overview (11/17/2022): Added automatically from request for surgery [id number] Weight loss 11/17/2022 Overview (11/17/2022): Added automatically from request for surgery [id number] Chest pain 03/24/2020 Pain of upper abdomen [...] Comments Blood Pressure 119/96 03/12/2024 9:30 PM CROZE MACHINE OPERATOR Pulse 84 03/12/2024 9:30 PM CROZE MACHINE OPERATOR Temperature 37.1 C (98.8 F) 03/12/2024 4:46 PM CROZE MACHINE OPERATOR Respiratory Rate 18 03/12/2024 4:46 PM CROZE MACHINE OPERATOR Oxygen Saturation 95% 03/12/2024 9:30 PM CROZE MACHINE OPERATOR Inhaled Oxygen Concentration - - Weight 121.6 kg (268 lb) 03/12/2024 4:46 PM CROZE MACHINE OPERATOR Height 182.9 cm (6') 03/12/2024 4:46 PM CROZE MACHINE OPERATOR Body Mass Index 36.35 03/12/2024 4:46 PM CROZE MACHINE OPERATOR Plan of Treatment Health Maintenance Due Date Last Done Comments Colorectal Cancer Screening Colonoscopy (10 Years) 1962 Annual Physical 1965 Hepatitis C 02/22/1980 DTaP, Tdap and Td Vaccines ( 1 - Tdap) 1981 RSV Immunization or 60+ Years (1 - Risk 60-74 years 1-dose series) 2022 PHQ-2 (Physician Alva) 04/24/2024 COVID-19 Vaccine ( - 2024-2 6 season) 2024 04/30/2021, 08/07/2020, 07/10/2020 Zoster Vaccines Completed 12/03/2021, 09/29/2021 Pneumococcal Vaccine: [...] age [place] [id number] MEDICAID MEDICARE MEDICAID Advance Directives * Full Code (Latest Code Status on File) Date Activated Date Inactivated Comments 12/08/2022 9:00 PM 12/09/2022 3:50 PM * Full Code Date Activated Date Inactivated Comments 09/25/2021 1:56 PM 09/26/2021 4:27 PM * Full Code Date Activated Date Inactivated Comments 03/24/2020 8:15 PM 03/25/2020 4:17 PM Care Teams Tick Inspector Relationship Specialty Start Date End Date Ginny Borrego APRN [address] [place] [address] PCP - General Nurse Practitioner Family 07/29/24 Lupillo Barrientos DO Consulting Physician CARDIOVASCULAR DISEASE 08/30/21
--- OUTSIDE RECORDS SUMMARY | 2025-01-20 12:01 | XMS_ITS | Encounter Summary ---
Author Organization [facility] Address [address] [place] [address] Care Team Providers Care Computer Systems Auditor Name Role Phone Reinaldo Johana NAILS Primary Care Provider [phone] London Damon MD Unavailable [phone] Leticia Bernstein NP Unavailable [phone] Emperatriz Cleveland NP Primary Care Provider + [phone] Lilliana Gamino [facility] Primary Care Provider [phone] Lupillo Barrientos DO Unavailable [phone] None, Provider Primary Care Provider Unavaila ble Emperatriz Cleveland NP Primary Care Provider + [phone] Ginny Borrego APRN Primary Care Provider + Encounter Details Date Type Department Care Team (Late st Contact Info) Description 09/29/2018 Abstract [facility] CONVERSION [address] [place] [address] , Generic Conversion, Social History Tobacco Use [...] documented as of this encounter Care Teams Computer Systems Auditor Relationship Specialty Start Date End Date Johana Najera PA [address] [place] [address] PCP - General 06/29/17 05/30/21 Emperatriz Cleveland NP [address] [place] [address] PCP - General Nurse Practitioner Family 05/31/21 08/29/21 [facility] [address] [facility] [address] PCP - General NURSE PRACTITIONER 08/30/21 01/18/24 Karrie Chang MD PCP - General UNKNOWN PHYSICIAN SPECIALTY 01/19/24 03/11/24 Emperatriz Cleveland, STAN [address] [address] PCP - General Nurse Practitioner Family 03/12/24 07/28/24 Ginny Borrego, ENEIDA [address] [facility] [place] [address] PCP - General Nurse Practitioner Family 07/29/24 London Damon MD [address] [place] [address] Florence Implementation Specialist Payroll CARDIOVASCULAR DISEASE 06/29/17 08/29/21 Leticia Bernstein NP [address] [place] [address] CARDIOVASCULAR DISEASE 06/29/17 08/29/21 Lupillo Barrientos DO 109 [place] [address] Consulting Physician CARDIOVASCULAR DISEASE 08/30/21 documented as of this encounter
[2025-01-20 12:06] LABS: Alanine Aminotransferase 28 U/L (6-50); Albumin Level 4.4 g/dL (3.5-5.1); Alkaline Phosphatase 51 U/L (38-126); Anion Gap 10 mmol/L (4-12); Aspartate Amino Transferase 25 U/L (17-59); Bilirubin,Total 0.7 mg/dL (0.2-1.3); Blood Urea Nitrogen 16 mg/dL (9-20); Calcium 9.3 mg/dL (8.4-10.2); Carbon Dioxide 32 mmol/L (22-30); Chloride 99 mmol/L (98-107); Estimated CRCL calculation 95 ml/min; Estimated Glomerular Filt Rate > 60; Glucose 118 mg/dL (65-110); Lipase 43 U/L (23-300); Osmolality Calculated 294 mOsm/kg (285-295); Potassium 4.2 mmol/L (3.4-5.0); Sodium 141 mmol/L (137-145); Total Protein 8.1 g/dL (6.3-8.2)
[2025-01-20 12:15] LABS: Cannabinoid Screen Urine Negative (Negative); NT Pro B Type Natriuretic Pept < 20 pg/mL (19.9-100)
[2025-01-20 12:19] LABS: Troponin I < 0.012 ng/mL (0.000-0.034)
[2025-01-20 12:21] LABS: INR 1.0; Partial Thromboplastin Time 26.2 Sec (23.9-30.70); Prothrombin Time 10.8 Seconds (9.50-12.1)
[2025-01-20 12:31] LABS: Influenza A QL RT-PCR Negative (Negative); Influenza B QL RT-PCR Negative (Negative); RSV RNA, RT-PCR Negative (Negative); SARS-CoV-2 RNA PCR Negative (Negative)
--- NOTE | 2025-01-20 12:54 | PC.NURSE ---
Pt resting, no further c/o, ERP Dr Gil in to speak w/ pt about labs and test normal at this time, informed we will run one more scan to make sure all is ok, VSS at this time.
--- NOTE | 2025-01-20 13:56 | PC.NURSE ---
Pt resting, no further c/o, ERP Dr Gil in to speak w/ pt about all negative test results. POC to d/c home and for pt to f/u w/ his PCP. VSS.
--- NOTE | 2025-01-22 13:25 | PC.NURSE ---
PRELIMINARY BLOOD CULTURE RESULTS X2: NO GROWTH DETECTED AT THIS TIME.
--- NOTE | 2025-01-23 13:14 | PC.NURSE ---
PRELIMINARY BLOOD CULTURE REPORT; NO GROWTH IN 24 HOURS.
--- NOTE | 2025-01-24 13:49 | PC.NURSE ---
PRELIMINARY BLOOD CULTURE REPORT; NO GROWTH IN 48 HOURS.
--- NOTE | 2025-01-27 13:31 | PC.NURSE ---
Final blood culture report; no growth in 5 days.
== END 2025-01-20 14:14 | disposition home or self-care (01) ==
PROVIDERS: Emergency Provider Emergency Medicine; PCP Nurse Practitioner Family
DX: R42 Dizziness and giddiness (principal); G62.9 Polyneuropathy, unspecified; F19.90 Other psychoactive substance use, unspecified, uncomplicated; R06.02 Shortness of breath; E03.9 Hypothyroidism, unspecified; E11.9 Type 2 diabetes mellitus without complications; J44.9 Chronic obstructive pulmonary disease, unspecified; I10 Essential (primary) hypertension; F17.210 Nicotine dependence, cigarettes, uncomplicated; Z20.822 Contact with and (suspected) exposure to COVID-19; Z79.899 Other long term (current) drug therapy
CPT/HCPCS: 36415; 70450; 70496; 70498; 71045; 80053; 80307; 81003; 83605; 83690; 83880; 84484; 85025; 85610; 85730; 87040; 87637; 93005; 99284; Q9967

== ENCOUNTER 2025-01-30 23:42 | Emergency (ER) | payer MEDICARE, MEDICAID, SELFPAY ==
--- NOTE | ~2025-01-30 | CT_ITS ---
EXAMINATION: CT abdomen pelvis w con DATE: 01/31/2025 01:01 INDICATION: Abdominal pain. Flank pain. TECHNIQUE: Computed tomography (CT) of the abdomen and pelvis was performed with 100 mL Omnipaque 350 intravenous contrast. Automated exposure control and iterative reconstruction technique were employed. The dose-length product was 1394.11 mGy-cm. COMPARISON: CT abdomen and pelvis 08/30/2024, 07/06/2023 FINDINGS: The visualized portions of the lung bases demonstrate mild atelectasis. There are 6 mm and 5 mm nodules in right lower lobe, stable from 07/06/2023, likely benign. There are calcified pleural plaques on the right. No pleural effusion. The heart size is normal. No pericardial effusion. The liver is normal. Calcifications in the spleen are consistent with old granulomatous disease. The gallbladder is contracted. The pancreas and right adrenal gland are normal. There is a 15 mm mass in left adrenal gland, stable from 07/06/2023, likely an adenoma. The kidneys are normal. There are no dilated loops of bowel. The appendix is not visualized. There are no pathologically enlarged lymph nodes. There is no free intraperitoneal fluid. There is moderate thoracic spondylosis and mild lumbar spondylosis. IMPRESSION: 1. No etiology for the patient's symptoms. Reviewed, dictated and finalized at location E.
[2025-01-30 23:45] VITALS: BP 149/89; PULSE 94; RESP 20; TEMP 36.5; O2SAT 96
--- OUTSIDE RECORDS SUMMARY | 2025-01-30 23:46 | XMS_ITS | Encounter Summary ---
Author Organization [facility] Address [facility] [place] [address] Care Team Providers Care Lead Consultant Name Role Phone StevensonDarwina [facility] Primary Care Provider + [phone] Lupillo Barrientos DO Unavailable [phone] None, Provider Primary Care Provider Emperatriz No NP Primary Care Provider [phone]- [phone] Ginny Borrego APRN Primary Care Provider + Encounter Details Date Type Department Care Team (Latest Contact Info) Description 12/14/2022 [facility] Message Enc [facility] Cardiovascular Care Unit [address] [place], [place] [address] Adelfo [facility] Provider Discharge follow up call [...] on filedocumented in this encounter Care Teams Lead Consultant Relationship Specialty Start Date End Date Lilliana G[facility] [address] [place] [address] PCP - General NURSE PRACTITIONER 08/30/21 01/18/24 None, Provider, PCP - General UNKNOWN PHYSICIAN SPECIALTY 01/19/24 03/11/24 Emperatriz Cleveland NP [address] [address] PCP - General Nurse Practitioner Family 03/12/2407/28 Ginny Borrego APRN 109 [place] [address] PCP - General Nurse Practitioner Family 07/29/24 Lupillo Barrientos DO [address] [place] [address] Consulting Physician CARDIOVASCULAR DISEASE 08/30/21 documented as of this encounter
--- OUTSIDE RECORDS SUMMARY | 2025-01-30 23:46 | XMS_ITS | Encounter Summary ---
Author Organization [facility] Address [address] [place] [address] Care Team Providers Care Network Control Operators Supervisor Name Role Phone Reinaldo Johana NAILS Primary Care Provider [phone] London Damon MD Unavailable [phone] Leticia Bernstein NP Unavailable [phone] Emperatriz Cleveland NP Primary Care Provider + [phone] Lilliana Gamino [facility] Primary Care Provider [phone] Lupillo Barrientos DO Unavailable [phone] None, Provider Primary Care Provider Unavaila ble Emperatriz Cleveland NP Primary Care Provider + [phone] Ginny Borrego APRN Primary Care Provider + Encounter Details Date Type Department Care Team (Late st Contact Info) Description 09/29/2018 Abstract SFL CONVERSION [address] [place] [address] , Generic Conversion, Social History Tobacco Use [...] documented as of this encounter Care Teams Network Control Operators Supervisor Relationship Specialty Start Date End Date Johana Najera PA [address] [place] [address] PCP - General 06/29/17 05/30/21 Emperatriz Cleveland NP [address] [place] [address] PCP - General Nurse Practitioner Family 05/31/21 08/29/21 [facility] [address] [facility] [address] PCP - General NURSE PRACTITIONER 08/30/21 01/18/24 Karrie Chang MD PCP - General UNKNOWN PHYSICIAN SPECIALTY 01/19/24 03/11/24 Emperatriz Cleveland, STAN [address] [address] PCP - General Nurse Practitioner Family 03/12/24 07/28/24 Ginny Borrego, ENEIDA [address] [place] [address] PCP - General Nurse Practitioner Family 07/29/24 London Damon MD [address] [place] [address] Charleston Distribution Sales Manager CARDIOVASCULAR DISEASE 06/29/17 08/29/21 Leticia Bernstein NP [address] [place] [address] CARDIOVASCULAR DISEASE 06/29/17 08/29/21 Lupillo Barrientos DO 109 [place] [address] Consulting Physician CARDIOVASCULAR DISEASE 08/30/21 documented as of this encounter
--- OUTSIDE RECORDS SUMMARY | 2025-01-30 23:46 | XMS_ITS | Encounter Summary ---
Author Organization [facility] Address [address] [facility] [place] [address] Phone Care Team Providers Care Airport Engineer Name Role Phone Lilliana Gamino APRN Primary Care Provider [phone] Raimundo Bautista MD Unavailable Unavai labmorena Reason for Visit * Reason Comments Medication Refill Encounter Details Date Type Department Care Team (Late st Contact Info) Description 07/16/2022 Refill [facility]2 [place] [address] Raimundo Bautista MD Medication Refill Social History Tobacco Use Types Packs/Day Years Used Date Smoking Tobacco: Every Day Cigarettes Smokeless Tobacco: Never Alcohol Use Standard Drinks/Week Comments Never 0 (1 standard drink = 0.6 oz pur e alcohol) Sex and Gender Information Value Date Recorded Sex Assigned at Not on file 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
--- OUTSIDE RECORDS SUMMARY | 2025-01-30 23:46 | XMS_ITS | Clinical Summary ---
Author Organization [facility] Address [facility] [place] [address] Care Team Providers Care Clinical Research Monitor Name Role Phone GlennLupillo hudson DO Unavailable [phone] Ginny Borrego APRN Primary Care Provider + [...] OR SWALLOWING 2 Active vitamin D2, ergocalciferol, 83984 UNITS capsule Take 1 capsule (1.25 mg [...] (02/23/2023): Added automatically from request for surgery [id number] Dyspepsia 02/16/2023 Gastroesophageal reflux dise ase, unspecified whether esophagitis present 11/17/2022 Overview (11/17/2022): Added automatically from request for surgery [id number] Weight loss 11/17/2022 Overview (11/17/2022): Added automatically from request for surgery [id number] Chest pain 03/24/2020 Pain of upper abdomen [...] place to sleep or slept in a [facility] (including now)? No 12/08/2022 Sex and Gender Information Value Date Recorded Sex Assigned at Male 08/20/2018 1:29 PM CDT Legal Sex Male 10:25 PM CDT Gender Identity Male 08/20/2018 1:29 PM CDT Sexual Orientation Not on file Last Filed Vital Signs Vital Sign Reading Time Taken Comments Blood Pressure 119/96 03/12/2024 9:30 PM BOTTLE TESTER Pulse 84 03/12/2024 9:30 PM BOTTLE TESTER Temperature 37.1 C (98.8 F) 03/12/2024 4:46 PM BOTTLE TESTER Respiratory Rate 18 03/12/2024 4:46 PM BOTTLE TESTER Oxygen Saturation 95% 03/12/2024 9:30 PM BOTTLE TESTER Inhaled Oxygen Concentration - - Weight 121.6 kg (268 lb) 03/12/2024 4:46 PM BOTTLE TESTER Height 182.9 cm (6') 03/12/2024 4:46 PM BOTTLE TESTER Body Mass Index 36.35 03/12/2024 4:46 PM BOTTLE TESTER Plan of Treatment Health Maintenance Due Date Last Done Comments Colorectal Cancer Screening Colonoscopy (10 Years) 1962 Annual Physical 1965 Hepatitis C 02/22/1980 DTaP, Tdap and Td Vaccines (1 - Tdap) 1981 RSV Immunization or 60+ Years (1 - Risk 60-74 years 1-dose series) 2022 PHQ-2 (Physician Ramona) 04/24/2024 COVID-19 Vaccine ( season) 2024 04/30/2021, 08/07/2020, 07/10/2020 Influenza Adult (#1) 2025 01/29/2024, 07/12/2021, 01/15/2018, Additional history exists Zoster Vaccines Completed 12/03/2021, 09/29/2021 Pneumococcal Vaccine: [...] 8:15 PM 03/25/2020 4:17 PM Care Teams Clinical Research Monitor Relationship Specialty Start Date End Date Ginny Borrego APRN [address] [place] [address] PCP - General Nurse Practitioner Family 07/29/24 Lupillo Barrientos DO Consulting Physician CARDIOVASCULAR DISEASE 08/30/21
--- OUTSIDE RECORDS SUMMARY | 2025-01-30 23:46 | XMS_ITS | Clinical Summary ---
Author Organization [facility] Address [address] [facility] [place] [address] Care Team Providers Care Diesel Plant Operator Name Role Phone Lilliana Gamino ENEIDA Primary Care Provider [phone] Allergies No known active allergies Medications ergocalciferol (VITAMIN D) 71851 UNIT Capsule Take 50,000 Units by mouth. [...] on file Legal Sex Male 3:24 AM STRAIGHTENING ROLL OPERATOR Gender Identity Not on file Sexual Orientation [...] topic Insurance MEDICARE C HUMANA Care Teams Diesel Plant Operator Relationship Specialty Start Date End Date Lilliana Gamino APRN [address] [facility] 3 [place] [address] PCP - General Certified Nurse Practitioner 09/24/21
--- OUTSIDE RECORDS SUMMARY | 2025-01-30 23:46 | XMS_ITS | Encounter Summary ---
Author Organization [facility] Address [facility] [place] [address] Care Team Providers Care Business Database Analyst Name Role Phone Darwin Gaminoalfredito [facility] Primary Care Provider + -[phone] Lupillo Barrientos DO Unavailable [phone] None, Provider Primary Care Provider Emperatriz No NP Primary Care Provider +- [phone] Ginny Borrego APRN Primary Care Provider + Encounter Details Date Type Department Care Team (Late st Contact Info) Description 12/14/2022 Hospital Follow-up Call [facility] Cardiovascular Care Unit [address] [place] [address] Kimmy Magaña, RN Social History [...] No 12/08/2022 Housing Stability Vital Sign Answer Guprreet e Recorded In the last 12 months, [...] on filedocumented in this encounter Care Teams Business Database Analyst Relationship Specialty Start Date End Date Lill[facility] [address] [place] [address] PCP - General NURSE PRACTITIONER 08/30/21 01/18/24 None, Provider, PCP - General UNKNOWN PHYSICIAN SPECIALTY 01/19/24 03/11/24 Emperatriz Cleveland NP [address] [address] PCP - General Nurse Practitioner Family 03/12/2407/28 Ginny Borrego APRN [address] [place] [address] PCP - General Nurse Practitioner Family 07/29/24 Lupillo Barrientos DO [address] [place] [address] Consulting Physician CARDIOVASCULAR DISEASE 08/30/21 documented as of this encounter
--- OUTSIDE RECORDS SUMMARY | 2025-01-30 23:46 | XMS_ITS | Encounter Summary ---
Author Organization [facility] Address [address] [facility] [place] [address] Phone Care Team Providers Care Air Chief Marshal Name Role Phone StevensonLilliana Maria Alejandra MONIQUE Primary Care Provider [phone] Raimundo Bautista MD Unavailable Pablo bradford Reason for Visit * Reason Comments Medication Refill Encounter Details Date Type Department Care Team (Late st Contact Info) Description 03/17/2023 Refill [facility] Card[facility] [address] [place] [address] Raimundo Bautista MD Medication Refill Social History Tobacco Use Types Packs/Day Years Used Date Smoking Tobacco: Every Day Cigarettes Smokeless Tobacco: Never Alcohol Use Standard Drinks/Week Comments Never 0 (1 standard drink = 0.6 oz pur e alcohol) Sex and Gender Information Value Date Recorded Sex Assigned at Not on file Legal Sex Male 3:24 AM PICKER AND PACKER Gender Identity Not on file Sexual Orientation Not on file documented as of this encounter Miscellaneous Notes * Telephone Encounter - Marquita Pimentel RN - 03/20/2023 10:00 AM PICKER AND PACKER Medication failed the protocol, provider to review [...] Dept 10/18/21 Office Visit Raimundo Bautista MD [facility] Cardiology [place] Showing recent visits within past 548 days and meeting all other requirements Future Appointments No visits were found meeting these conditions. Showing future appointments within next 90 days and meeting all other requirements Passed - Blood pressure on record Clinician-entered: BP Readings from Last 3 Encounters: 10/18/21 158/82 Patient-entered: No data recorded ER AND PACKER documented in this encounter Plan of Treatment Not on file documented as of this encounter Visit Diagnoses Not on filedocumented in this encounter Care Teams Air Chief Marshal Relationship Specialty Start Date End Date Lilliana Gamino APRN [address] [address] PCP - General Certified Nurse Practitioner 09/24/21 Raimundo Bautista MD [address] [address] Clinique Counter Manager Cardiovascular Disease - Cardiology 10/08/21 03/26/24 documented as of this encounter
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
[2025-01-31] MEDS: SODIUM CHLORIDE 0.9% IV 1,000 ML 999 ML IV CONT (00:15)
[2025-01-31] MEDS: KETOROLAC 30 MG/ML VIAL (*BKC) IV PUSH (00:16)
[2025-01-31] MEDS: ONDANSETRON INJ 4 MG/2 ML VIAL IV PUSH (00:16)
[2025-01-31 00:34] LABS: Hematocrit 44.6 % (40.0-54.0); Hemoglobin 15.3 g/dL (14.0-18.0); Immature Granulocyte Percent A 0.3 % (0.0-0.0); Lymphocytes Absolute Auto 1.67 K/mm3 (1.10-4.50); Mean Corpuscular HGB Conc 34.3 g/dL (32-36); Mean Corpuscular Hemoglobin 30.7 pg (27.0-31.0); Mean Corpuscular Volume 89.4 fL (78.0-102.0); Nucleated Red Blood Cells Absolute Auto 0.00 K/mm3 (0.00-0.00); Nucleated Red Blood Cells Perc 0.0 % (0-0.0); Platelet Count Result 215 K/mm3 (150-420); Red Blood Count 4.99 M/mm3 (4.70-6.10); White Blood Count 9.9 K/mm3 (4.8-10.8)
[2025-01-31 00:46] LABS: Alanine Aminotransferase 32 U/L (6-50); Albumin Level 4.2 g/dL (3.5-5.1); Alkaline Phosphatase 55 U/L (38-126); Anion Gap 9 mmol/L (4-12); Aspartate Amino Transferase 29 U/L (17-59); Bilirubin,Total 0.7 mg/dL (0.2-1.3); Blood Urea Nitrogen 12 mg/dL (9-20); Calcium 9.5 mg/dL (8.4-10.2); Carbon Dioxide 27 mmol/L (22-30); Chloride 105 mmol/L (98-107); Estimated CRCL calculation 97 ml/min; Estimated Glomerular Filt Rate > 60; Glucose 107 mg/dL (65-110); Lipase 75 U/L (23-300); Osmolality Calculated 291 mOsm/kg (285-295); Potassium 3.9 mmol/L (3.4-5.0); Sodium 141 mmol/L (137-145); Total Protein 7.6 g/dL (6.3-8.2)
--- OUTSIDE RECORDS SUMMARY | 2025-01-31 00:46 | XMS_ITS | Encounter Summary ---
Author Organization [facility] Address [facility] [place] [address] Care Team Providers Care Correctional Officer Sergeant Name Role Phone StevensonDarwina [facility] Primary Care Provider + -[phone] Lupillo Barrientos DO Unavailable [phone] None, Provider Primary Care Provider Emperatriz No NP Primary Care Provider +- [phone] Ginny Borrego APRN Primary Care Provider + Encounter Details Date Type Department Care Team (Latest Contact Info) Description 12/14/2022 SPO Message Enc [facility] Cardiovascular Care Unit [address] [place], [place] [id number] [facility] Provider Discharge follow up [...] Status No 12/08/2022 8:55 PM CDT Ines Monetz RN Active * Are you blind or [...] on filedocumented in this encounter Care Teams Correctional Officer Sergeant Relationship Specialty Start Date End Date Lilliana [facility]amino [facility] [address] [place] [address] PCP - General NURSE PRACTITIONER 08/30/21 01/18/24 None, Provider, PCP - General UNKNOWN PHYSICIAN SPECIALTY 01/19/24 03/11/24 Emperatriz Cleveland NP [address] [address] PCP - General Nurse Practitioner Family 03/12/2407/28 Ginny Borrego APRN [address] [place] [address] PCP - General Nurse Practitioner Family 07/29/24 Lupillo Barrientos DO [address] [place] [address] Consulting Physician CARDIOVASCULAR DISEASE 08/30/21 documented as of this encounter
--- OUTSIDE RECORDS SUMMARY | 2025-01-31 00:46 | XMS_ITS | Encounter Summary ---
Author Organization [facility] Address [facility] [place] [address] Care Team Providers Care Expense Clerk Name Role Phone Darwin Gaminoalfredito [facility] Primary Care Provider + -[phone] Lupillo Barrientos DO Unavailable [phone] None, Provider Primary Care Provider Emperatriz No NP Primary Care Provider +- [phone] Ginny Borrego APRN Primary Care Provider + Encounter Details Date Type Department Care Team (Late st Contact Info) Description 12/14/2022 Hospital Follow-up Call [facility] Cardiovascular Care Unit [address] [place] [address] Kimmy Magaña, RN Social History [...] on filedocumented in this encounter Care Teams Expense Clerk Relationship Specialty Start Date End Date Lilliana [facility]amino [facility] [address] [place] [address] PCP - General NURSE PRACTITIONER 08/30/21 01/18/24 None, Provider, PCP - General UNKNOWN PHYSICIAN SPECIALTY 01/19/24 03/11/24 Emperatriz Cleveland NP [address] [address] PCP - General Nurse Practitioner Family 03/12/2407/28 Ginny Borrego APRN [address] [place] [address] PCP - General Nurse Practitioner Family 07/29/24 Lupillo Barrientos DO [address] [place] [address] Consulting Physician CARDIOVASCULAR DISEASE 08/30/21 documented as of this encounter
--- OUTSIDE RECORDS SUMMARY | 2025-01-31 00:46 | XMS_ITS | Clinical Summary ---
Author Organization [facility] Address [address] [facility] [place] [address] Care Team Providers Care Pool Hall Inspector Name Role Phone Lilliana Gamino ENEIDA Primary Care Provider [phone] Allergies No known active allergies Medications ergocalciferol (VITAMIN D) 66229 UNIT Capsule Take 50,000 Units by mouth. 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
--- OUTSIDE RECORDS SUMMARY | 2025-01-31 00:46 | XMS_ITS | Encounter Summary ---
Author Organization [facility] Address [address] [place] [address] Care Team Providers Care Baggage Checker Name Role Phone Reinaldo Johana NAILS Primary Care Provider [phone] London Damon MD Unavailable [phone] Leticia Bernstein NP Unavailable [phone] Emperatriz Cleveland NP Primary Care Provider + [phone] Lilliana Gamino [facility] Primary Care Provider [phone] Lpuillo Barrientos DO Unavailable [phone] None, Provider Primary Care Provider Unavaila ble Emperatriz Cleveland NP Primary Care Provider + [phone] Ginny Borrego APRN Primary Care Provider + Encounter Details Date Type Department Care Team (Late st Contact Info) Description 09/29/2018 Abstract [facility] CONVERSION [address] [place] [address] , Generic Conversion, Social History Tobacco Use [...] documented as of this encounter Care Teams Baggage Checker Relationship Specialty Start Date End Date Johana Najera PA [address] [place] [address] PCP - General 06/29/17 05/30/21 Emperatriz Cleveland NP [address] [place] [address] PCP - General Nurse Practitioner Family 05/31/21 08/29/21 Lilliana Gamino [facility] [address] [place] [address] PCP - General NURSE PRACTITIONER 08/30/21 01/18/24 Karrie Chang MD PCP - General UNKNOWN PHYSICIAN SPECIALTY 01/19/24 03/11/24 Emperatriz Cleveland, STAN [address] [address] PCP - General Nurse Practitioner Family 03/12/24 07/28/24 Ginny Borrego, ENEIDA [address] [place] [address] PCP - General Nurse Practitioner Family 07/29/24 London Damon MD [address] [place] [address] [place] Rn Neonatal CARDIOVASCULAR DISEASE 06/29/17 08/29/21 Leticia Bernstein NP [address] [place] [address] CARDIOVASCULAR DISEASE 06/29/17 08/29/21 Lupillo Barrientos DO [address] [place] [address] Consulting Physician CARDIOVASCULAR DISEASE 08/30/21 documented as of this encounter
--- OUTSIDE RECORDS SUMMARY | 2025-01-31 00:46 | XMS_ITS | Encounter Summary ---
Author Organization [facility] Address [address] [place] [address] Phone Care Team Providers Care Tester Regulator Name Role Phone StevensonLilliana Maria Alejandra MONIQUE Primary Care Provider [phone] Raimundo Bautista MD Unavailable Pablo bradford Reason for Visit * Reason Comments Medication Refill Encounter Details Date Type Department Care Team (Late st Contact Info) Description 03/17/2023 Refill [facility] - Cardiology [facility] #[address] [place] [address] Raimundo Bautista MD Medication Refill Social History Tobacco Use Types Packs/Day Years Used Date Smoking Tobacco: Every Day Cigarettes Smokeless Tobacco: Never Alcohol Use Standard Drinks/Week Comments Never 0 (1 standard drink = 0.6 oz pur e alcohol) Sex and Gender Information Value Date Recorded Sex Assigned at Not on file Legal Sex Male 3:24 AM RADIOCHEMICAL TECHNICIAN Gender Identity Not on file Sexual Orientation Not on file documented as of this encounter Miscellaneous Notes * Telephone Encounter - Marquita Pimentel RN - 03/20/2023 10:00 AM RADIOCHEMICAL TECHNICIAN Medication failed the protocol, provider to review [...] Raimundo Bautista MD [facility] Cardiology [place] Showing recent visits within past 548 days and meeting all other requirements Future Appointments No visits were found meeting these conditions. Showing future appointments within next 90 days and meeting all other requirements Passed - Blood pressure on record Clinician-entered: BP Readings from Last 3 Encounters: 10/18/21 158/82 Patient-entered: No data recorded OCHEMICAL TECHNICIAN documented in this encounter Plan of Treatment Not on file documented as of this encounter Visit Diagnoses Not on filedocumented in this encounter Care Teams Tester Regulator Relationship Specialty Start Date End Date Lilliana Gamino APRN [address] [address] PCP - General Certified Nurse Practitioner 09/24/21 Raimundo Bautista MD [address] [address] Aviation Consultant Cardiovascular Disease - Cardiology 10/08/21 03/26/24 documented as of this encounter
--- OUTSIDE RECORDS SUMMARY | 2025-01-31 00:46 | XMS_ITS | Clinical Summary ---
Author Organization [facility] Address On license of [facility] [place] [address] Care Team Providers Care Reconditioner Name Role Phone GlennLupillo hudson DO Unavailable [phone] Ginny Borrego APRN Primary Care Provider + [...] OR SWALLOWING 2 Active vitamin D2, ergocalciferol, 85661 UNITS capsule Take 1 capsule (1.25 mg [...] (02/23/2023): Added automatically from request for surgery [id number] Dyspepsia 02/16/2023 Gastroesophageal reflux dise ase, unspecified whether esophagitis present 11/17/2022 Overview (11/17/2022): Added automatically from request for surgery [id number] Weight loss 11/17/2022 Overview (11/17/2022): Added automatically from request for surgery [id number] Chest pain 03/24/2020 Pain of upper abdomen [...] Comments Blood Pressure 119/96 03/12/2024 9:30 PM REAL ESTATE MARKETING COORDINATOR Pulse 84 03/12/2024 9:30 PM REAL ESTATE MARKETING COORDINATOR Temperature 37.1 C (98.8 F) 03/12/2024 4:46 PM REAL ESTATE MARKETING COORDINATOR Respiratory Rate 18 03/12/2024 4:46 PM REAL ESTATE MARKETING COORDINATOR Oxygen Saturation 95% 03/12/2024 9:30 PM REAL ESTATE MARKETING COORDINATOR Inhaled Oxygen Concentration - - Weight 121.6 kg (268 lb) 03/12/2024 4:46 PM REAL ESTATE MARKETING COORDINATOR Height 182.9 cm (6') 03/12/2024 4:46 PM REAL ESTATE MARKETING COORDINATOR Body Mass Index 36.35 03/12/2024 4:46 PM REAL ESTATE MARKETING COORDINATOR Plan of Treatment Health Maintenance Due Date Last Done Comments Colorectal Cancer Screening Colonoscopy (10 Years) 1962 Annual Physical 1965 Hepatitis C 02/22/1980 DTaP, Tdap and Td Vaccines (1 - Tdap) 1981 RSV Immunization or 60+ Years (1 - Risk 60-74 years 1-dose series) 2022 PHQ-2 (Physician [place]) 04/24/2024 COVID-19 Vaccine ( season) 2024 04/30/2021, [...] 8:15 PM 03/25/2020 4:17 PM Care Teams Reconditioner Relationship Specialty Start Date End Date Ginny Borrego APRN [address] [place] [address] PCP - General Nurse Practitioner Family 07/29/24 Lupillo Barrientos DO Consulting Physician CARDIOVASCULAR DISEASE 08/30/21
--- OUTSIDE RECORDS SUMMARY | 2025-01-31 00:46 | XMS_ITS | Encounter Summary ---
Author Organization [facility] Address [address] [facility] [place] [address] Phone Care Team Providers Care Facilities Coordinator Name Role Phone Lilliana Gamino APRN Primary Care Provider [phone] Raimundo Bautista MD Unavailable Unavai labmorena Reason for Visit * Reason Comments Medication Refill Encounter Details Date Type Department Care Team (Late st Contact Info) Description 07/16/2022 Refill [facility] - [facility] [address] [place] [address] Raimundo Bautista MD Medication Refill Social History Tobacco Use Types Packs/Day Years Used Date Smoking Tobacco: Every Day Cigarettes Smokeless Tobacco: Never Alcohol Use Standard Drinks/Week Comments Never 0 (1 standard drink = 0.6 oz pur e alcohol) Sex and Gender Information Value Date Recorded Sex Assigned at Not on file Legal Sex Male 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
[2025-01-31 00:50] LABS: INR 1.0; Partial Thromboplastin Time 26.9 Sec (23.9-30.70); Prothrombin Time 11.4 Seconds (9.50-12.1)
[2025-01-31 00:58] LABS: Troponin I < 0.012 ng/mL (0.000-0.034)
--- NOTE | 2025-01-31 01:10 | PC.NURSE ---
Pt asking for more pain medication. ERP informed and pt then advised that waiting for CT results as all lab testing is normal.
[2025-01-31 01:26] LABS: Add Urine Microscopic? NO; Appearance Urine Clear (Clear); Glucose Urine UA Negative (Negative); Leukocyte Esterase Ur Negative LEU/UL (Negative); Nitrate Urine Negative (Negative); Specific Grav Ur <= 1.005 (1.010-1.020)
[2025-01-31 01:46] VITALS: BP 137/79; PULSE 76; RESP 18; TEMP 36.5; O2SAT 98
--- NOTE | 2025-02-03 13:08 | PC.NURSE ---
preliminary blood culture results x2: no growth in 48 hrs
--- NOTE | 2025-02-04 13:38 | PC.NURSE ---
blood, preliminary, no growth
--- NOTE | 2025-02-07 12:52 | PC.NURSE ---
FINAL BLOOD CULTURE REPORT; NO GROWTH IN 5 DAYS
== END 2025-01-31 01:46 | disposition home or self-care (01) ==
PROVIDERS: Emergency Provider Emergency Medicine; PCP Nurse Practitioner Family
DX: K52.9 Noninfective gastroenteritis and colitis, unspecified (principal); E11.9 Type 2 diabetes mellitus without complications; E03.9 Hypothyroidism, unspecified; I10 Essential (primary) hypertension; F17.210 Nicotine dependence, cigarettes, uncomplicated
CPT/HCPCS: 36415; 74177; 80053; 81003; 83605; 83690; 84484; 85025; 85610; 85730; 87040; 96361; 96374; 96375; 99284; J1885; J2405; J7030; Q9967